=== PATIENT | female | born 1975 | race Caucasian/White ===

== ENCOUNTER 2017-02-07 02:08 | Emergency (ER) | payer MEDICARE, BC ==
[~2017-02-07] VITALS: Ht 152.4 cm; Wt 106.6 kg
[2017-02-07 02:15] VITALS: BP 168/91
[2017-02-07] MEDS ORDERED: LAMI200T3 PO (02:16)
[2017-02-07] MEDS ORDERED: GABA-279 PO (05:19)
[2017-02-07] MEDS ORDERED: GABAPENTIN 100 MG CAP PO ONE (05:30)
== END 2017-02-07 05:32 | disposition home or self-care (01) ==
LOC: M ED 03:15
DX: G50.0 Trigeminal neuralgia (principal); G40.909 Epilepsy, unspecified, not intractable, without status epilepticus

== ENCOUNTER → 2017-06-13 | Outpatient (REF) | payer MEDICARE, BC ==
[~2017-06-13] MED LIST: GABA-279 PO; LAMI1TAB9 PO
== END ==
LOC: M LABNEURO 16:41
PROVIDERS: ATTEND Physician Assistant Medical
DX: R56.9 Unspecified convulsions (principal)

== ENCOUNTER → 2017-10-25 | Outpatient (REF) | payer MEDICARE, BC | LOC: M SFHCWAGY 14:59 | DX: Z12.4 Encounter for screening for malignant neoplasm of cervix (principal); B37.3 Candidiasis of vulva and vagina | CPT/HCPCS: G0123 ==

== ENCOUNTER → 2017-10-25 | Outpatient (CLI) | payer MEDICARE, BC | LOC: M WHC 14:32 | DX: Z12.31 Encounter for screening mammogram for malignant neoplasm of breast (principal); Z01.419 Encounter for gynecological examination (general) (routine) without abnormal findings; Z12.4 Encounter for screening for malignant neoplasm of cervix; Z11.3 Encounter for screening for infections with a predominantly sexual mode of transmission; Z79.899 Other long term (current) drug therapy | CPT/HCPCS: 77067; 87591 ==

== ENCOUNTER → 2017-10-25 | Outpatient (REF) | payer MEDICARE, BC ==
[2017-10-25 21:35] LABS: CHLAMYDIA DNA AMPLIFICATION NEGATIVE (NEGATIVE); GC DNA AMPLIFICATION NEGATIVE (NEGATIVE)
== END ==
LOC: M SFHCWAGY 18:25
DX: Z01.419 Encounter for gynecological examination (general) (routine) without abnormal findings (principal); Z11.3 Encounter for screening for infections with a predominantly sexual mode of transmission; Z12.31 Encounter for screening mammogram for malignant neoplasm of breast; Z79.899 Other long term (current) drug therapy
CPT/HCPCS: 87591

== ENCOUNTER → 2017-10-29 | Outpatient (REF) | payer MEDICARE, BC | LOC: M SFHCWAGY 08:16 | DX: N63.10 Unspecified lump in the right breast, unspecified quadrant (principal) | CPT/HCPCS: 88305 ==

== ENCOUNTER 2018-09-21 22:43 | Emergency (ER) | payer MEDICARE, BC ==
[~2018-09-21] VITALS: Ht 152.4 cm; Wt 100.0 kg
[~2018-09-21 22:43] MED LIST changes: +GABA-1171 PO; -GABA-279 PO
[2018-09-22 04:34] VITALS: BP 176/108
[2018-09-22] MEDS ORDERED: CLEO300C2 PO (05:49)
== END 2018-09-22 06:04 | disposition home or self-care (01) ==
LOC: M ED 22:43
DX: K08.89 Other specified disorders of teeth and supporting structures (principal); G40.909 Epilepsy, unspecified, not intractable, without status epilepticus; Z79.899 Other long term (current) drug therapy

== ENCOUNTER → 2018-12-11 | Outpatient (CLI) | payer MEDICARE, BC ==
[~2018-12-11] MED LIST changes: +CLEO300C2 PO
--- NOTE | 2018-12-11 14:52 | REPMRS ---
Patient History The patient states she had a clinical breast exam in 11/2018. Patient is nulliparous. No known family history of cancer. Benign US guided breast biopsy of the right breast, October 29, 2017. No Hormone Replacement Therapy 3D TOMOSYNTHESIS WAS PERFORMED. Digital Woman Screen Mammo: December 11, 2018 - Exam #: [id number] Bilateral CC and MLO view(s) were taken. Technologist: Brianna Orellana, Technologist Prior study comparison: October 29, 2017, right breast digital mammo diagnostic unilateral, performed at [facility]. October 25, 2017, digital woman screen mammo performed at [facility]. FINDINGS: There are scattered fibroglandular densities. There is a fairly symmetric fibroglandular pattern in both breasts. There has been no interval development of masses, areas of architectural distortion or clusters of microcalcifications typical of malignancy. Assessment: BI-RADS/ACR category 2 mammogram. Benign Findings. Recommendation Routine screening mammogram of both breasts in 1 year (for women over age 40). This mammogram was interpreted with the aid of an FDA-approved computer-aided dectection system. Electronically Signed By: Adebayo Mcarthur MD 12/11/18 [id number]
== END ==
LOC: M WHC 14:07
PROVIDERS: ATTEND Nurse Practitioner Family
DX: Z12.31 Encounter for screening mammogram for malignant neoplasm of breast (principal); Z86.018 Personal history of other benign neoplasm
CPT/HCPCS: 77063; 77067; G0463

== ENCOUNTER → 2019-06-12 | Outpatient (REF) | payer MEDICARE, BC | LOC: M LABNEURO 15:17 | PROVIDERS: ATTEND Physician Assistant Medical | DX: R56.9 Unspecified convulsions (principal) ==

== ENCOUNTER → 2020-01-28 | Outpatient (REF) | payer MEDICARE, BC ==
[2020-01-28 21:00] LABS: CHLAMYDIA DNA AMPLIFICATION NEGATIVE (NEGATIVE); GC DNA AMPLIFICATION NEGATIVE (NEGATIVE)
== END ==
LOC: M SFHCWAGY 17:10
PROVIDERS: ATTEND Nurse Practitioner Family
DX: Z12.4 Encounter for screening for malignant neoplasm of cervix (principal); Z11.3 Encounter for screening for infections with a predominantly sexual mode of transmission
CPT/HCPCS: 87661; G0123

== ENCOUNTER → 2020-01-28 | Outpatient (CLI) | payer MEDICARE, BC ==
--- NOTE | 2020-01-28 15:22 | REPMRS ---
Patient History The patient states she had a clinical breast exam in January 2020. No known family history of cancer. Benign US guided breast biopsy of the right breast, October 29, 2017. No Hormone Replacement Therapy Digital Woman Screen Mammo: January 28, 2020 - Exam #: [id number] Bilateral CC and MLO view(s) were taken. Technologist: Henrietta Pathak, Technologist Prior study comparison: December 11, 2018, bilateral digital woman screen mammo performed at [facility]. October 25, 2017, digital woman screen mammo performed at [facility]. FINDINGS: The breast tissue is almost entirely fat. The Volpara volumetric breast density category is: A. There has been no change in the appearance of the mammogram from the prior studies. There is no interval development of dominant mass, architectural distortion, or grouped microcalcification typical of malignancy. 3-D tomosynthesis shows no additional findings. Assessment: BI-RADS/ACR category 1 mammogram. Negative Mammogram. Recommendation Routine screening mammogram of both breasts in 1 year (for women over age 40). This patient's Lifetime Breast Cancer RIsk is estimated at 13.5 %. This mammogram was interpreted with the aid of an FDA-approved computer-aided dectection system. Electronically Signed By: Alejandro Lewis MD 01/28/20 [id number]
== END ==
LOC: M WHC 13:36
PROVIDERS: ATTEND Nurse Practitioner Family
DX: Z01.419 Encounter for gynecological examination (general) (routine) without abnormal findings (principal); Z12.31 Encounter for screening mammogram for malignant neoplasm of breast; Z86.018 Personal history of other benign neoplasm
CPT/HCPCS: 77063; 77067; 87661; G0101; G0123

== ENCOUNTER → 2020-03-23 | Outpatient (REF) | payer MEDICARE, BC ==
[2020-03-23 14:15] LABS: BASO % 0.8 % (0.0-1.0); EOS # 0.1 10^3/uL (0.0-0.5); EOS % 1.8 % (0.0-3.0); HEMATOCRIT 35.5 % (36.0-47.0); HEMOGLOBIN 10.9 g/dl (12.0-15.5); LYMPH # 2.7 10^3/uL (1.5-5.0); LYMPH % 54.6 % (24.0-44.0); MEAN CORPUSCULAR HEMOGLOBIN 29.2 pg (27.0-33.0); MEAN CORPUSCULAR HGB CONC 30.7 g/dl (32.0-36.5); MEAN CORPUSCULAR VOLUME 95.2 fl (80.0-96.0); MONO # 0.4 10^3/uL (0.0-0.8); NEUTROPHILS # 1.7 10^3/uL (1.5-8.5); NEUTROPHILS % 34.4 % (36.0-66.0); PLATELET COUNT, AUTOMATED 178 10^3/uL (150-450); RED BLOOD COUNT 3.73 10^6/uL (4.00-5.40)
[2020-03-23 14:25] LABS: APPEARANCE, URINE HAZY (CLEAR); BACTERIA, URINE AUTO NEGATIVE (NEGATIVE); BILIRUBIN, URINE AUTO NEGATIVE (NEGATIVE); BLOOD, URINE BLOOD 3+ (NEGATIVE); COLOR, URINE YELLOW (YELLOW); GLUCOSE, URINE (UA) AUTO NEGATIVE (NEGATIVE); KETONE, URINE AUTO NEGATIVE (NEGATIVE); LEUKOCYTE ESTERASE, URINE AUTO NEGATIVE (NEGATIVE); MUCUS, URINE SMALL (NEGATIVE); NITRITE, URINE AUTO NEGATIVE (NEGATIVE); PROTEIN, URINE AUTO NEGATIVE (NEGATIVE); RBC, URINE AUTO 1 /HPF (0-3); SPECIFIC GRAVITY URINE AUTO 1.015 (1.002-1.035); SQUAMOUS EPITHELIAL CELL UR AU 3 /HPF (0-6); UROBILINOGEN, URINE AUTO 0.2 mg/dL (0.0-2.0); WBC, URINE AUTO 2 /HPF (0-3)
[2020-03-23 14:35] LABS: ALBUMIN 3.6 GM/DL (3.2-5.2); ALT/SGPT 69 U/L (12-78); BILIRUBIN,TOTAL 0.4 MG/DL (0.2-1.0); BLOOD UREA NITROGEN 13 MG/DL (7-18); CALCIUM LEVEL 8.7 MG/DL (8.5-10.1); CARBON DIOXIDE LEVEL 26 MEQ/L (21-32); CHLORIDE LEVEL 111 MEQ/L (98-107); CREATININE FOR GFR 0.88 MG/DL (0.55-1.30); GLOMERULAR FILTRATION RATE > 60.0 (>58); GLUCOSE, FASTING 90 MG/DL (70-100); POTASSIUM SERUM 4.5 MEQ/L (3.5-5.1); SODIUM LEVEL 141 MEQ/L (136-145)
[2020-03-23 16:05] LABS: CHLAMYDIA DNA AMPLIFICATION NEGATIVE (NEGATIVE); GC DNA AMPLIFICATION NEGATIVE (NEGATIVE)
[2020-03-24 10:16] LABS: HEPATITIS B SURFACE ANTIBODY NEGATIVE (POSITIVE)
[2020-03-24 10:27] LABS: HEPATITIS B SURFACE ANTIGEN NEGATIVE (NEGATIVE)
[2020-03-24 10:55] LABS: HIV 1&2 SCREEN CENTAUR NEGATIVE (NEGATIVE)
== END ==
LOC: M SFHCPLAZ 10:23
PROVIDERS: ATTEND Internal Medicine Infectious Disease
DX: Z20.6 Contact with and (suspected) exposure to human immunodeficiency virus [HIV] (principal)

== ENCOUNTER → 2020-07-14 | Outpatient (CLI) | payer MEDICARE, BC | LOC: M WUC 10:23 | PROVIDERS: ATTEND Physician Assistant Medical | DX: R56.9 Unspecified convulsions (principal); Z51.81 Encounter for therapeutic drug level monitoring ==

== ENCOUNTER 2020-10-01 17:52 | Emergency (ER) | payer MEDICARE, BC ==
[~2020-10-01] VITALS: Ht 152.4 cm; Wt 109.1 kg
[2020-10-01] MEDS ORDERED: NS 1,000 ML IV SCH (18:40)
[2020-10-01] MEDS ORDERED: PANTOPRAZOLE 40MG VIAL (C9113 PER 1) IV ONE (18:45)
[2020-10-01] MEDS ORDERED: ONDANSETRON 4MG/2ML VIAL IV ONE (18:45)
[2020-10-01] MEDS ORDERED: KETOROLAC 30 MG/ML 1ML VIAL IV ONE (18:45)
[2020-10-01 19:38] LABS: BASO % 0.2 % (0.0-1.0); EOS # 0.1 10^3/uL (0.0-0.5); EOS % 0.5 % (0.0-3.0); HEMATOCRIT 36.7 % (36.0-47.0); HEMOGLOBIN 11.6 g/dl (12.0-15.5); LYMPH # 4.2 10^3/uL (1.5-5.0); LYMPH % 23.7 % (24.0-44.0); MEAN CORPUSCULAR HEMOGLOBIN 28.2 pg (27.0-33.0); MEAN CORPUSCULAR HGB CONC 31.6 g/dl (32.0-36.5); MEAN CORPUSCULAR VOLUME 89.3 fl (80.0-96.0); MONO % 5.8 % (0.0-5.0); NEUTROPHILS # 12.2 10^3/uL (1.5-8.5); NEUTROPHILS % 69.2 % (36.0-66.0); PLATELET COUNT, AUTOMATED 292 10^3/uL (150-450); RED BLOOD COUNT 4.11 10^6/uL (4.00-5.40); WHITE BLOOD COUNT 17.6 10^3/uL (4.0-10.0)
[2020-10-01 19:42] LABS: INR 0.98; PROTHROMBIN TIME 13.1 SECONDS (12.5-14.3)
[2020-10-01 19:50] LABS: ALBUMIN 3.9 GM/DL (3.2-5.2); ALT/SGPT 24 U/L (12-78); BILIRUBIN,DIRECT 0.1 MG/DL (0.0-0.2); BILIRUBIN,TOTAL 0.4 MG/DL (0.2-1.0); BLOOD UREA NITROGEN 16 MG/DL (7-18); CALCIUM LEVEL 9.6 MG/DL (8.5-10.1); CARBON DIOXIDE LEVEL 24 MEQ/L (21-32); CHLORIDE LEVEL 103 MEQ/L (98-107); CREATININE FOR GFR 0.89 MG/DL (0.55-1.30); GLOMERULAR FILTRATION RATE > 60.0 (>58); GLUCOSE, FASTING 148 MG/DL (70-100); LIPASE 215 U/L (73-393); POTASSIUM SERUM 3.8 MEQ/L (3.5-5.1); SODIUM LEVEL 137 MEQ/L (136-145); TOTAL PROTEIN 7.2 GM/DL (6.4-8.2)
[2020-10-01] MEDS ORDERED: MORPHINE 4 MG/ML 1ML VIAL/SYRINGE (J2270) IV ONE ×2 (20:00→21:30)
--- NOTE | 2020-10-01 20:39 | REPVR ---
PROCEDURE INFORMATION: Exam: CT Abdomen And Pelvis Without Contrast Exam date and time: 10/01/2020 7:34 PM Age: 44 years old Clinical indication: Abdominal pain; Generalized; Patient HX: No trauma TECHNIQUE: Imaging protocol: Computed tomography of the abdomen and pelvis without contrast. Radiation optimization: All CT scans at this facility use at least one of these dose optimization techniques: automated exposure control; mA and/or kV adjustment per patient size (includes targeted exams where dose is matched to clinical indication); or iterative reconstruction. COMPARISON: No relevant prior studies available. FINDINGS: Lungs: There is mild atelectasis in the inferior lingula and both lower lobes. The lungs were not fully imaged. Heart: No cardiomegaly. There is a trace amount of pericardial fluid. Diaphragm: Intact. Liver: Unremarkable. No liver lesion is identified. The contour of the liver is smooth. No hepatomegaly is noted. Gallbladder and bile ducts: No calcified gallstones are noted. No gallbladder wall thickening, pericholecystic fluid, or pericholecystic inflammatory changes are identified. No dilation of the bile ducts is noted. No calcified stones are seen in the common bile duct. Pancreas: Unremarkable. No dilation of the main pancreatic duct is noted. Spleen: Unremarkable. No splenomegaly is noted. Adrenal glands: There is a 1 cm left adrenal nodule that measures 8 Hounsfield units and is compatible with a benign left adrenal adenoma for which further evaluation and follow-up is not necessary (image 39 of the axial series 201). The right adrenal gland is normal. Kidneys and ureters: A normal left kidney is not visualized. There is a large acute left retroperitoneal hematoma in the expected location of the left kidney, which measures approximately 15.8 cm in craniocaudal dimension. Mixed attenuation fat and soft tissue density is noted in the left renal fossa measuring approximately 9 cm. The unenhanced right kidney is unremarkable. Stomach and bowel: The stomach and small bowel are unremarkable. There is no evidence for a bowel obstruction, diverticulosis, diverticulitis, colitis, perforated viscus, pneumatosis intestinalis, intussusception, or volvulus. Appendix: Normal. There is no evidence for appendicitis. Intraperitoneal space: No free air. Retroperitoneal space: See "Kidneys and ureters" finding. Vasculature: The abdominal aorta is normal in caliber. Lymph nodes: No enlarged lymph nodes. Urinary bladder: The partially distended urinary bladder is unremarkable. No stones or masses are seen in the bladder. Reproductive: The uterus is anterverted and unremarkable. The ovaries are unremarkable. Bones/joints: There is no fracture or dislocation. No suspicious osteolytic or osteoblastic lesion. There is a mild dextroscoliosis of the thoracolumbar spine and degenerative changes in the lower lumbar spine. Soft tissues: There is nonspecific edema in the subcutaneous tissues posteriorly along the midline of the lumbar spine. No hernia or soft tissue fluid collection is noted. IMPRESSION: Large acute left retroperitoneal hematoma in the region of the left kidney, which may be due to an underlying hemorrhagic mass such as a renal angiomyolipoma. COMMENTS: Consistent with the [employer]'s Incidental Findings Committee white paper (J Am Marika Radiol 2017): Any incidental adrenal lesion less than or equal to 1 cm is likely benign. No follow-up imaging is recommended for these lesions per consensus recommendations based on imaging criteria. Further lab evaluation could be pursued if warranted based on clinical findings. Electronically signed by: Pranay Fuchs On 10/01/2020 20:39:17 PM
--- OUTSIDE RECORDS SUMMARY | 2020-10-01 21:06 | CCD | Continuity of Care Document ---
Author Author Tyra SCHMITT P.A.-C. Organization Unknown Address [address] [place] [address] Phone [phone] Care Team Providers Care Software Development Coordinator Name Role Phone Jefe Ma M.D. AUTM [phone] Prnaay Hayes D.O. AUTM [phone] Problems Active Problems Provider Date Complex partial seizure with impairment of consciousness Mary Riley M.D. Onset: 04/07/2014 Social History Type Date Description Comments Sex Unknown Tobacco Use Start: Unknown Patient has never smoked Allergies, Adverse Reactions, Alerts Description No Known Drug Allergies Medications Active Medications SIG Qnty Indications Ordering Provide r Date Lamictal XR 200mg Tablets ER 24HR 1 tab twice a day; 90 day supply 180tabs Natali Riley M.D. Immunizations Description No Information Available Vital Signs Date Vital Result Comment 07/06/2020 6:59am BP Systolic 120 mmHg BP Diastolic 80 mmHg Heart Rate 68 /min Respiratory Rate 16 /min 06/12/2019 5:53am BP Systolic 110 mmHg BP Diastolic 80 mmHg Heart Rate 76 /min Respiratory Rate 16 /min Results Test Acquired Date Facility Test Result H/L Range Note Laboratory test finding 07/14/2020 [facility] Lamotrigine (Lamictal) 7.5 ug/mL Normal 2.0-20.0 1 1 Testing on this sample was p erformed by homogeneous enzyme immunoassay. Detection Limit = 1.0 Performed at: [facility] [address] [place] [id number] [employer] Screen Watcher: Farzaneh Echols [facility], Phone: [phone] Procedures Description No Information Available Medical Devices Description No Information Available Encounters Type Date Location Provider Dx Diagnosis Office Visit 07/06/2020 2:00p Main office - [place] Shyann Headley-Aide. I63.89 Other cerebral infarction G40.009 Local-rel idio epi w seiz of loc onst,not ntrct,w/o stat epi Assessments Date Code Description Provider 07/06/2020 I63.89 Other cerebral infarction My Schmitt P.A.-C. 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 Plan of Treatment Future Appointment(s):* 01/04/2021 1:30 pm - My Schmitt P.A.-C. at Main office - [place] 07/06/2020 - My Schmitt P.A.-C.* I63.89 Other cerebral infarction* Comments:* Not recurrent. 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 Lamictal level pending. * Follow up:* 6 months. Functional Status Description No Information Available Mental Status Description No Information Available Referrals Description No Information Available
--- OUTSIDE RECORDS SUMMARY | 2020-10-01 21:06 | CCD ---
Author Author [facility] Organization [facility] Address Unknown Phone Unavailable Care Team Providers Care Reexaminer Name Role Phone Hakeem Schmitt Unavailable Unavailable TricHakeem yusuf Unavailable Unavailable TrickeyHakeem Unavailable Unavailable TricHakeem yusuf Unavailable Unavailable TricHakeem yusuf Unavailable Unavailable TricHakeem yusuf Unavailable Unavailable Hakeem Schmitt Unavailable Unavailable TricHakeem yusuf Unavailable Unavailable TricHakeem yusuf Unavailable Unavailable Hakeem Schmitt Unavailable Unavailable TricHakeem yusuf Unavailable Unavailable TricHakeem yusuf Unavailable Unavailable TricHakeem yusuf PA Unavailable Unavailable TrickeyHakeem Unavailable Unavailable TricHakeem yusuf Unavailable Unavailable TrickeyHakeem Unavailable Unavailable Trickey, J My PA Unavailable Unavailable Trickey, J My PA Unavailable Unavailable Trickey, J My PA Unavailable Unavailable Trickey, J My PA Unavailable Unavailable Trickey, J My PA Unavailable Unavailable Trickey, J My PA Unavailable Unavailable Trickey, J My PA Unavailable Unavailable Trickey, J My PA Unavailable Unavailable Trickey, J My PA Unavailable Unavailable Trickey, J My PA Unavailable Unavailable Trickey, J My PA Unavailable Unavailable Trickey, J My PA Unavailable Unavailable Trickey, J My PA Unavailable Unavailable Trickey, J My PA Unavailable Unavailable Trickey, J My PA Unavailable Unavailable Trickey, J My PA Unavailable Unavailable Trickey, J My PA Unavailable Unavailable Trickey, J My PA Unavailable Unavailable Trickey, J My PA Unavailable Unavailable Trickey, J My PA Unavailable Unavailable Trickey, J My PA Unavailable Unavailable Trickey, J My PA Unavailable Unavailable Trickey, J My PA Unavailable Unavailable Trickey, J My PA Unavailable Unavailable Trickey, J My PA Unavailable Unavailable Trickey, J My PA Unavailable Unavailable Trickey, J My PA Unavailable Unavailable Trickey, J My PA Unavailable Unavailable Trickey, J My PA Unavailable Unavailable Trickey, J My PA Unavailable Unavailable Trickey, J My PA Unavailable Unavailable Trickey, J My PA Unavailable Unavailable Trickey, J My PA Unavailable Unavailable Trickey, J My PA Unavailable Unavailable Trickey, J My PA Unavailable Unavailable Trickey, J My PA Unavailable Unavailable Re-disclosure Warning The records that you are about to access may contain information from federally-assisted alcohol or drug abuse programs. If such information is present, then the following federally mandated warning applies: This information has been disclosed to you from records protected by federal confidentiality rules (42 CFR part 2). The federal rules prohibit you from making any further disclosure of this information unless further disclosure is expressly permitted by the written consent of the person to whom it pertains or as otherwise permitted by 42 CFR part 2. A general authorization for the release of medical or other information is NOT sufficient for this purpose. The Federal rules restrict any use of the information to criminally investigate or prosecute any alcohol or drug abuse patient.The records that you are about to access may contain highly sensitive health information, the redisclosure of which is protected by Article 27-F of the [place] Public Health law. If you continue you may have access to information: Regarding HIV / AIDS; Provided by facilities licensed or operated by the [facility] Office of Mental Health; or Provided by the [facility] Office for People With Developmental Disabilities. If such information is present, then the following [facility] mandated warning applies: This information has been disclosed to you from confidential records which are protected by state law. State law prohibits you from making any further disclosure of this information without the specific written consent of the person to whom it pertains, or as otherwise permitted by law. Any unauthorized further disclosure in violation of state law may result in a fine or mcc sentence or both. A general authorization for the release of medical or other information is NOT sufficient authorization for further disc losure. Encounters Encounter Providers Location Date Indications Data Source(s ) Outpatient Attender: My STYLES [facility] 07/06/2020 02:00:00 PM EDT MEDENT ([facility] ) Unknown [address] [facility] [id number] 03/31/2020 12:00:00 AM EDT eCW1 ([facility]) Outpatient [address] [facility] [id number] 03/23/2020 12:00:00 AM EDT eCW1 ([facility]) Unknown [address] [facility] [id number] 02/19/2020 12:00:00 AM EDT eCW1 ([facility]) [facility] [address] [place] [address] 01/28/2020 12:00:00 AM EDT eCW1 ([facility]) [facility] [address] [place] [address] 12/12/2019 12:00:00 AM EDT eCW1 ([facility]) Medications Medication Brand Name Start Date Product Form Dose Route Admi nistrative Instructions Pharmacy Instructions Status Indications Reaction Description Data Source(s) emtricitabine 200 MG / Tenofovir disopro xil fumarate 300 MG Oral Tablet [Truvada] Truvada 200-300 MG Truvada 200-300 MG 03/23/2020 12:00:00 AM EDT 1.0 {tablet} active Truvada 200-300 MG eCW 1 ([facility]) emtricitabine 200 MG / Tenofovir disopro xil fumarate 300 MG Oral Tablet [Truvada] Truvada 200-300 MG Truvada 200-300 MG 03/23/2020 12:00:00 AM EDT 1.0 {tablet} active Truvada 200-300 MG eCW 1 ([facility]) 200 mg 12/17/2019 12:00:00 AM EDT tablet extended release 24hr 180 TAKE ONE TABLET BY MOUTH TWICE A DAY TAKE ONE TABLET BY MOUTH TWICE A DAY SOLD: 12/19/2019 [facility] 24 HR lamotrigine 200 MG Extended Release Oral Tablet LAMOTR IGINE 12/17/2019 12:00:00 AM EDT tablet extended release 24hr 180 CLARK E ONE TABLET BY MOUTH TWICE A DAY TAKE ONE TABLET BY MOUTH TWICE A DAY SOLD: 08/14/2020 [facility] Insurance Providers Payer name Policy type / Coverage type Policy ID Covered constitution party ID Covered constitution party's relationship to bull Policy Bull Plan Information MEDICARE [id number] SP [id number] [facility] [employer] [id number] Medicare Part B Medicare Primary [id number] Self [id number] BC/BS Of [facility] Part B [id number] Family Dep endent [id number] ANSI-Commercial [id number] ANSI-Medicare Part B [id number] [facility] [employer] [id number] MEDICARE [id number] SP [id number] A [facility] [employer] PROGRAM [id number] Medicare Part B Medicare Primary [id number] Self [id number] Medicare Part B Medicare Primary [id number] Self [id number] EXCELLUS BCBS B [id number] D [id number] MEDICARE C [id number] S [id number] A EXCELLUS BCBS B UNAVAILABLE D UNAV AILABLE MEDICARE C [id number] S [id number] EXCELLUS BCBS FEDERAL [id number] [id number] Medicare Part B Medicare Primary [id number] Self [id number] Medicare Part B Medicare Primary Self BC/BS Of [place] Commercial Family Depende nt Medicare Medicare Primary Self BC BS [place] FEDERAL [id number] Results ID Date Data Source [id number] 07/14/2020 10:25:00 AM EDT MEDENT ([facility] ) Name Value Range Interpretation Code Description Data Edna rce(s) Supporting Document(s) Lamotrigine [Mass/volume] in Serum or Plasma 7.5 ug/mL 2.0-20.0 MEDENT ([facility] ) Testing on this sample was performed by homogeneous enzyme immunoassay. Detection Limit = 1.0 Performed at: [facility] [address] [place] [address] Testing Analyst: Farzaneh Echols [facility], Phone: [phone] ID Date Data Source HEPATITIS B CORE ANTIBODY IGG 03/25/2020 10:05:52 AM EDT eCW 1 ([facility]) Name Value Range Interpretation Code Description Data Edna rce(s) Supporting Document(s) Negative eCW1 ([facility]) ID Date Data Source [id number] 03/25/2020 10:05:52 AM EDT eCW1 ([facility]) Name Value Range Interpretation Code Description Data Edna rce(s) Supporting Document(s) eCW1 ([facility]) ID Date Data Source HEPATITIS B SURFACE ANTIBODY 03/25/2020 10:05:52 AM EDT eCW1 ([facility]) Name Value Range Interpretation Code Description Data Edna rce(s) Supporting Document(s) NEGATIVE eCW1 ([facility]) ID Date Data Source SYPHILIS ANTIBODY (RPR SCREEN) 03/25/2020 10:05:52 AM EDT eC W1 ([facility]) Name Value Range Interpretation Code Description Data Edna rce(s) Supporting Document(s) NONREACTIVE eCW1 ([facility]) ID Date Data Source HEPATITIS B SURFACE ANTIGEN 03/25/2020 10:05:52 AM EDT eCW1 ([facility]) Name Value Range Interpretation Code Description Data Edna rce(s) Supporting Document(s) NEGATIVE eCW1 ([facility]) ID Date Data Source Comprehensive Metabolic Profile (CMP) 03/25/2020 10:05:52 AM EDT eCW1 ([facility]) Name Value Range Interpretation Code Description Data Edna rce(s) Supporting Document(s) 90 eCW1 ([facility]) 13 eCW1 ([facility]) 0.88 eCW1 ([facility]) 4.5 eCW1 ([facility]) 141 eCW1 ([facility]) > 60.0 eCW1 ([facility]) 8.7 eCW1 ([facility]) 111 eCW1 ([facility]) 43 eCW1 ([facility]) 26 eCW1 ([facility]) 69 eCW1 ([facility]) 7.0 eCW1 ([facility]) 0.4 eCW1 ([facility]) 75 eCW1 ([facility]) 1.1 eCW1 ([facility]) 3.6 eCW1 ([facility]) ID Date Data Source CHLAMYDIA & GC DNA AMPLIFICAT 03/25/2020 10:05:52 AM EDT eCW 1 ([facility]) Name Value Range Interpretation Code Description Data Edna rce(s) Supporting Document(s) Chlamydia trachomatis rRNA [Presence] in Unspecified specimen by Probe and target amplification method NEGATIVE CHLAMYDIA DNA AMPLIFICATION eCW1 ([facility]) ID Date Data Source UA URINALYSIS 03/23/2020 04:12:56 AM EDT eCW1 ([facility]) Name Value Range Interpretation Code Description Data Edna rce(s) Supporting Document(s) eCW1 ([facility]) ID Date Data Source CBC with Differential 03/23/2020 04:12:56 AM EDT eCW1 ([facility]) Name Value Range Interpretation Code Description Data Edna rce(s) Supporting Document(s) 5.0 eCW1 ([facility]) 10.9 eCW1 ([facility]) 95.2 eCW1 ([facility]) 35.5 eCW1 ([facility]) 3.73 eCW1 ([facility]) 178 eCW1 ([facility]) 30.7 eCW1 ([facility]) 29.2 eCW1 ([facility]) 15.0 eCW1 ([facility]) 54.6 eCW1 ([facility]) 8.0 eCW1 ([facility]) 1.8 eCW1 ([facility]) 34.4 eCW1 ([facility]) 2.7 eCW1 ([facility]) 0.4 eCW1 ([facility]) 1.7 eCW1 ([facility]) 0.8 eCW1 ([facility]) 0.1 eCW1 ([facility]) 0.0 eCW1 ([facility]) ID Date Data Source CHGCTV - CHLAMYDIA, GC & TRICH AMP (Microbiology) 01/28/2020 12:00:00 AM EDT eCW1 ([facility]) Name Value Range Interpretation Code Description Data Edna rce(s) Supporting Document(s) NOT DETECTED NEGATIVE Trichomonas vaginalis ( AMP) eCW1 ([facility]) Procedure Social History Code Duration Value Status Description Data Source(s ) Smoking 03/23/2020 12:00:00 AM EDT Never Smoker completed Never S moker eCW1 ([facility]) Smoking 03/23/2020 12:00:00 AM EDT Never Smoker completed Never S moker eCW1 ([facility]) Smoking 01/28/2020 12:00:00 AM EDT Never Smoker completed Never S moker eCW1 ([facility]) Vital Signs ID Date Data Source UNK Name Value Range Interpretation Code Description Data Source(s) Diastolic blood pressure 80 mm[Hg] 80 mm[Hg] MEDENT ([facility] ) Systolic blood pressure 120 mm[Hg] 120 mm[Hg] M EDENT ([facility], ) Respiratory rate 16 /min 16 /min MEDENT ( [facility], ) Heart rate 68 /min 68 /min MEDENT ([facility], ) Diastolic blood pressure 64 mm[Hg] 64 mm[Hg] eCW1 ([facility]) Systolic blood pressure 108 mm[Hg] 108 mm[Hg] e CW1 ([facility]) Body temperature 98.6 [degF] 98.6 [degF] eCW1 ( [facility]) Respiratory rate 18 /min 18 /min eCW1 ([facility]) Heart rate 101 /min 101 /min eCW1 ([facility]) Body mass index (BMI) [Ratio] 48.24 kg/m2 48.24 kg/m2 W1 ([facility]) Body height 59.75 [in_i] 59.75 [in_i] eCW1 ([facility]) Body weight 245 [lb_av] 245 [lb_av] eCW1 ([facility]) Diastolic blood pressure 76 mm[Hg] 76 mm[Hg] eCW1 ([facility]) Systolic blood pressure 122 mm[Hg] 122 mm[Hg] e CW1 ([facility]) Body mass index (BMI) [Ratio] 47.85 kg/m2 47.85 kg/m2 W1 ([facility]) Body height 59.75 [in_us] 59.75 [in_us] eCW1 ([facility]) Body weight Measured 243 [lb_av] 243 [lb_av] eC W1 ([facility]) Patient Treatment Plan of Care Planned Activity Planned Date Details Description Data Source (s) emtricitabine 200 MG / Tenofovir disopro xil fumarate 300 MG Oral Tablet [Truvada] 03/23/2020 12:00:00 AM EDT eCW1 ([facility]) emtricitabine 200 MG / Tenofovir disopro xil fumarate 300 MG Oral Tablet [Truvada] 03/23/2020 12:00:00 AM EDT eCW1 ([facility])
--- OUTSIDE RECORDS SUMMARY | 2020-10-01 21:06 | CCD | Continuity of Care Document ---
Author Author Tyra SCHMITT P.A.-C. Organization Unknown Address [address] [place] [address] Phone [phone] Care Team Providers Care Youth Worker Name Role Phone Jefe Ma M.D. AUTM [phone] Pranay Hayes D.O. AUTM [phone] Problems Active Problems Provider Date Complex partial [...] Available Vital Signs Date Vital Result Comment 06/12/2019 5:53am BP Systolic 110 mmHg BP Diastolic 80 mmHg Heart Rate 76 /min Respiratory Rate 16 /min 12/11/2018 7:13am BP Systolic 120 mmHg BP Diastolic 70 mmHg Heart Rate 76 /min Respiratory Rate 16 /min Results Description No Information Available Procedures Description No Information Available Medical Devices Description No Information Available Encounters Description No Information Available Assessments Date Code Description Provider 07/06/2020 I63.89 Other cerebral infarction My Schmitt P.A.-C. 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 Plan of Treatment No Information Available Functional Status Description No Information Available Mental Status Description No Information Available Referrals Description No Information Available
--- OUTSIDE RECORDS SUMMARY | 2020-10-01 21:06 | CCD | Continuity of Care Document ---
Author Author Tyra SCHMITT P.A.-C. Organization Unknown Address [address] [place] [address] Phone [phone] Care Team Providers Care [employer] Tuner Name Role Phone Jefe Ma M.D. AUTM [phone] Pranay Hayes D.O. AUTM [phone] Problems Active Problems Provider Date Complex partial [...] Office Visit 07/06/2020 2:00p Main office - [place] My yusuf P.A.-C. I63.89 Other cerebral infarction G40.009 Local-rel idio epi w seiz of loc onst,not ntrct,w/o stat epi Assessments Date Code Description Provider 07/06/2020 I63.89 Other cerebral infarction My Schmitt P.A.-C. 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 Plan of Treatment Future Appointment(s):* 01/04/2021 1:30 pm - My Schmitt P.A.-C. at Main office [facility] 07/06/2020 - My Schmitt P.A.-C.* I63.89 Other cerebral infarction* Comments:* Not recurrent. 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 Lamictal level pending. * Follow up:* 6 months. Functional Status Description No Information Available Mental Status Description No Information Available Referrals Description No Information Available
[2020-10-01 22:19] LABS: RSV AMPLIFICATION NEGATIVE (NEGATIVE)
[2020-10-01] MEDS ORDERED: LABETALOL 100MG/20ML VIAL IV STA (23:11)
[2020-10-01] MEDS ORDERED: LABETALOL 100MG/20ML VIAL As Ordered ONE (23:11)
[2020-10-01 23:13] VITALS: BP 211/102
[2020-10-01 23:32] VITALS: BP 138/92
[2020-10-13] MEDS ORDERED: LISI10TA22 (21:05)
== END 2020-10-01 23:27 | disposition short-term general hospital (02) ==
LOC: EDBD 17:52 → M ED 17:52
DX: N28.89 Other specified disorders of kidney and ureter (principal)
CPT/HCPCS: 74176; 80047; 80048; 80076; 81001; 83690; 84702; 85025; 85610; 86850; 86900; 86901; 87631; 96361; 96374; 96375; 96376; 99285; C9113; J1885; J2270; J2405

== ENCOUNTER 2020-10-13 20:57 | Emergency (ER) | payer MEDICARE, BC ==
[~2020-10-13] VITALS: Ht 152.4 cm; Wt 110.0 kg
[2020-10-13] MEDS ORDERED: LAMO200T54 (21:05)
[2020-10-13] MEDS ORDERED: LABE100T4 (21:05)
[2020-10-13] MEDS ORDERED: LISI10TA4 (21:05)
--- OUTSIDE RECORDS SUMMARY | 2020-10-13 21:06 | CCD ---
Author Author [facility] Organization [facility] Address Unknown Phone Unavailable Care Team Providers Care Fan Mail Clerk Name Role Phone Delaney BRYANT Unavailable Unavailable Meyers, Jeff Unavailable Unavailable Meyers, Jeff Unavailable Unavailable Meyers, Jeff Unavailable Unavailable Meyers, Jeff Unavailable Unavailable Meyers, Jeff Unavailable Unavailable Meyers, Jeff Unavailable Unavailable Meyers, Jeff Unavailable Unavailable Meyers, Jeff Unavailable Unavailable Meyesr, Jeff Unavailable Unavailable Meyers, Jeff Unavailable Unavailable Meyers, Jeff Unavailable Unavailable Meyers, Jeff Unavailable Unavailable Meyers, Jeff Unavailable Unavailable Meyers, Jeff Unavailable Unavailable Meyers, Jeff Unavailable Unavailable Meyers, Jeff Unavailable Unavailable Meyers, Jeff Unavailable Unavailable Meyers, Jeff Unavailable Unavailable Meyers, Jeff Unavailable Unavailable Meyers, Jeff Unavailable Unavailable Meyers, Jeff Unavailable Unavailable Meyers, Jeff Unavailable Unavailable Meyers, Jeff Unavailable Unavailable Meyers, Jeff Unavailable Unavailable Meyers, Jeff Unavailable Unavailable Meyers, Jeff Unavailable Unavailable Meyers, Jeff Unavailable Unavailable Meyers, Jeff Unavailable Unavailable Meyers, Jeff Unavailable Unavailable Meyers, Jeff Unavailable Unavailable Meyers, Jeff Unavailable Unavailable Meyers, Jeff Unavailable Unavailable Meyers, Jeff Unavailable Unavailable Meyers, Jeff Unavailable Unavailable Meyers, Jeff Unavailable Unavailable Meyers, Jeff Unavailable Unavailable Meyers, Jeff Unavailable Unavailable Meyers, Jeff Unavailable Unavailable Meyers, Jeff Unavailable Unavailable Meyers, Jeff Unavailable Unavailable Meyers, Jeff Unavailable Unavailable Meyers, Jeff Unavailable Unavailable Meyers, Jeff Unavailable Unavailable Meyers, Jeff Unavailable Unavailable Meyers, Jeff Unavailable Unavailable Meyers, Jeff Unavailable Unavailable Meyers, Jeff Unavailable Unavailable Meyers, Jeff Unavailable Unavailable Meyers, Jeff Unavailable Unavailable Meyers, Jeff Unavailable Unavailable Meyers, Jeff Unavailable Unavailable Meyers, Jeff Unavailable Unavailable Meyers, Jeff Unavailable Unavailable Meyers, Jeff Unavailable Unavailable Meyers, Jeff Unavailable Unavailable Meyers, Jeff Unavailable Unavailable Meyers, Jeff Unavailable Unavailable Meyers, Jeff Unavailable Unavailable Meyers, Jeff Unavailable Unavailable Meyers, Jeff Unavailable Unavailable Meyers, Jeff Unavailable Unavailable Meyers, Jeff Unavailable Unavailable Meyers, Jeff Unavailable Unavailable Meyers, Jeff Unavailable Unavailable Meyers, Jeff Unavailable Unavailable Meyers, Jeff Unavailable Unavailable Meyers, Jeff Unavailable Unavailable Meyers, Jeff Unavailable Unavailable Meyers, Jeff Unavailable Unavailable Meyers, Jeff Unavailable Unavailable Trickey, J My PA Unavailable [...] J My PA Unavailable Unavailable Trickey, J Ym PA Unavailable Unavailable Trickey, J My PA Unavailable Unavailable Trickey, J My PA Unavailable Unavailable Trickey, J My PA Unavailable Unavailable Trickey, J My PA Unavailable Unavailable Trickey, J My PA Unavailable Unavailable Trickey, J My PA Unavailable Unavailable Trickey, J My PA Unavailable Unavailable Trickey, J My PA Unavailable Unavailable Trickey, J My PA Unavailable Unavailable Trickey, J My PA Unavailable Unavailable Onofre MARTINEZ MD Unavailable Unavailable Onofre MARTINEZ MD Unavailable Unavailable Onofre MARTINEZ MD Unavailable Unavailable Onofre MARTINEZ MD Unavailable Unavailable Paras ORTIZ [id number] Unavailable Unavailable Delaney POWELL MD Unavailable Unavailable Delaney POWELL MD Unavailable Unavailable Delaney POWELL MD Unavailable Unavailable Delaney POWELL MD Unavailable Unavailable Delaney POWELL MD Unavailable Unavailable Delaney POWELL MD Unavailable Unavailable Delaney POWELL MD Unavailable Unavailable Delaney POWELL MD Unavailable Unavailable Delaney POWELL MD Unavailable Unavailable Delaney POWELL MD Unavailable Unavailable Delaney POWELL MD Unavailable Unavailable Delaney POWELL MD Unavailable Unavailable Delaney POWELL MD Unavailable Unavailable Delaney POWELL MD Unavailable Unavailable Delaney POWELL MD Unavailable Unavailable Delaney POWELL MD Unavailable Unavailable Delaney POWELL MD Unavailable Unavailable Re-disclosure Warning The records that [...] is protected by Article 27-F of the [facility] Public Health law. If you continue you may have access to information: Regarding HIV / AIDS; Provided by facilities licensed or operated by the [facility] Office of Mental Health; or Provided by the [facility] Office for People With Developmental Disabilities. If such information is present, then the following [facility] mandated warning applies: This information has been [...] Date Indications Data Source(s ) Outpatient Attender: Jeff Meyers 11/12/2020 12:00:[address] [facility] Outpatient Referrer: LIT BRYANT 10/27/2020 12:00:[address] [facility] [place] Outpatient Attender: LUANN ORTIZ [id number]: LUIS FELIPE ORTIZ [id number] 10/03/2020 12:00:00 AM [facility] Inpatient Attender: Jeff MeyersAttend er: LUANN ORTIZ [id number]: TIFFANY MARTINEZ MDAdmitter: LUANN ORTIZ [id number]: LUANN ORTIZ [id number]: ELIDA POWELL MD [id number] 10/02/2020 12:00:00 AM EST - 10/06/2020 02:19:00 PM EST Minor contusion of left kidney, initial encounter [facility] Minor contusion of left kidney, initial encounter Patient discharged. Outpatient Attender: My [place] office [facility] ([facility]) 07/06/2020 02:00:00 PM EDT MEDENT ([facility] angelina, MARIELA) Unknown [address] [facility] [address] 03/31/2020 12:00:00 AM EDT eCW1 (Formerly [facility]) Outpatient [address] [facility] [place] [address] 03/23/2020 12:00:00 AM EDT eCW1 (Formerly [facility]) Unknown [address] [facility] [place] [address] 02/19/2020 12:00:00 AM EDT eCW1 (Formerly [facility]) [facility] [address] [place] [address] 01/28/2020 12:00:00 AM EDT eCW1 ([facility]) [facility] [address] [place] [address] 12/12/2019 12:00:00 AM EDT eCW1 (Formerly [facility]) Medications Medication Brand Name Start Date Product Form Dose Route Admi nistrative Instructions Pharmacy Instructions Status Indications Reaction Description Data Source(s) emtricitabine 200 MG / Tenofovir disopro xil fumarate 300 MG Oral Tablet [Truvada] Truvada 200-300 MG Truvada 200-300 MG 03/23/2020 12:00:00 AM EDT 1.0 {tablet} active Truvada 200-300 MG eCW 1 ([facility]) emtricitabine 200 MG / Tenofovir disopro xil fumarate 300 MG Oral Tablet [Truvada] Truvada 200-300 MG Truvada 200-300 MG 03/23/2020 12:00:00 AM EDT 1.0 {tablet} active Truvada 200-300 MG eCW 1 ([facility]) 200 mg 12/17/2019 12:00:00 AM EDT tablet extended release 24hr 180 TAKE ONE TABLET BY MOUTH TWICE A DAY TAKE ONE TABLET BY MOUTH TWICE A DAY SOLD: 12/19/2019 [facility] 24 HR lamotrigine 200 MG Extended Release Oral Tablet LAMOTR IGINE 12/17/2019 12:00:00 AM EDT tablet extended release 24hr 180 CLARK E ONE TABLET BY MOUTH TWICE A DAY TAKE ONE TABLET BY MOUTH TWICE A DAY SOLD: 08/14/2020 [facility] Insurance Providers Payer name Policy type / Coverage type Policy ID Covered republican ID Covered republican's relationship to [place] Policy [place] Plan Information MEDICARE [id number] SP [id number] [employer] [id number] FA2 [id number] BC BS [place] FEDERAL B [id number] S [id number] MEDICARE C [id number] S [id number] MEDICARE A [id number] Self [id number] EXCELLUS C [id number] Child [id number] MEDICARE A [id number] Self [id number] A Medicare Part B Medicare Primary [id number] Self [id number] BC/BS Of [facility] Part B [id number] Family Dep endent [id number] ANSI-Commercial [id number] ANSI-Medicare Part B [id number] [employer] [id number] MEDICARE [id number] SP [id number] [employer] [id number] Medicare Part B Medicare Primary [id number] Self [id number] Medicare Part B Medicare Primary [id number] Self [id number] EXCELLUS BCBS B [id number] D [id number] MEDICARE C [id number] S [id number] A EXCELLUS BCBS B UNAVAILABLE D UNAV AILABLE MEDICARE C [id number] S [id number] EXCELLUS BS FEDERAL [id number] [id number] Medicare Part B Medicare Primary [id number] Self [id number] Medicare Part B Medicare Primary Self BC/BS Of [place] Commercial Family Depende nt Medicare Medicare Primary Self BC BS [place] [facility] [id number] [facility] [id number] Problems, Conditions, and Diagnoses Code Display Name Description Problem Type Effective Dates Data Source(s) S37.012A Minor contusion of left kidney, initial encounter Minor contusion of left kidney, initial encounter Diagnosis 10/02/2020 03:34:37 AM [facility] R69 Illness, unspecified Illness, unspecified Diagnosis 10/02/2020 12:57:00 AM [facility] Large hematoma L Kidney Large hematoma L Kidney Diagno sis 10/02/2020 12:57:00 AM [facility] Results ID Date Data Source [id number] 10/08/2020 06:37:22 PM [facility] Name Value Range Interpretation Code Description Data Edna rce(s) Supporting Document(s) ED Provider Note [facility] [id number] [file] AgICAgICAgICAgICAgICAgICAgICAgICAgICAgICAgICAgICAgICAgICAgICAgICAgICAgICAgICAgIC AgICAgICAgICAgICAgICAgICAgICAgICAgDQogICAg ICAgICAgICAgICAgICAgICAgICAgICAgICAgICAgICAgICAgICAgICAgICAgICAgICAgICAgICAgICAg ICAgICAgICAgICAgICAgICAgICAgICAgICAgICAgICAgICAgDQogICAgICAgICAgICAgICAgICAgICAg ICAgICAgICAgICAgICAgICAgICAgICAgICAgICAgIC AgICAgICAgICAgICAgICAgICAgICAgICAgICAgICAgICAgICAgICAgICAgICAgDQogICAgICAgICAgIC AgICAgICAgICAgICAgICAgICAgICAgICAgICAgICAgICAgICAgICAgICAgICAgICAgICAgICAgICAgIC AgICAgICAgICAgICAgICAgICAgICAgICAgICAgDQog ICAgICAgICAgICAgICAgICAgICAgICAgICAgICAgICAgICAgICAgICAgICAgICAgICAgICAgICAgICAg ICAgICAgICAgICAgICAgICAgICAgICAgICAgICAgICAgICAgICAgDQogICAgICAgICAgICAgICAgICAg ICAgICAgICAgICAgICAgICAgICAgICAgICAgICAgIC AgICAgICAgICAgICAgICAgICAgICAgICAgICAgICAgICAgICAgICAgICAgICAgICAgDQogICAgICAgIC AgICAgICAgICAgICAgICAgICAgICAgICAgICAgICAgICAgICAgICAgICAgICAgICAgICAgICAgICAgIC AgICAgICAgICAgICAgICAgICAgICAgICAgICAgICAg DQogICAgICAgICAgICAgICAgICAgICAgICAgICAgICAgICAgICAgICAgICAgICAgICAgICAgICAgICAg ICAgICAgICAgICAgICAgICAgICAgICAgICAgICAgICAgICAgICAgICAgDQogICAgICAgICAgICAgICAg ICAgICAgICAgICAgICAgICAgICAgICAgICAgICAgIC AgICAgICAgICAgICAgICAgICAgICAgICAgICAgICAgICAgICAgICAgICAgICAgICAgICAgDQogICAgIC AgICAgICAgICAgICAgICAgICAgICAgICAgICAgICAgICAgICAgICAgICAgICAgICAgICAgICAgICAgIC AgICAgICAgICAgICAgICAgICAgICAgICAgICAgICAg ONBrWUm7B2leKNMkIEAhLW0zHJa8Rj5+QLwKQePiSUW1rvCtjQ4RGT6gw7YsBDsyLADwg5NeKAb9KW0F YOVlAMqbPJ1FXTrbly3VRPKgZUGnaHIKw8ofYaXvYTK6ECGiIjiqSV1TBOXkB1hvnxGgCNNzHQITKKst MCBSIDkgMCBSIDExIDAgUiAxMyAwIFIgMTUgMCBSID I0XPOvUjVrFCUoWCShRM9OKDMnO292wqGsTW9RGw2GGcPiAR9jdh0ZRwSaFRDqGnfXBec0ZXxtFI8FqU IuvPLmUbRqUQZLSnSfC8xaq4HvVvrsVOBYHXsxGC0Wv3WqyETfDDm+Jq5KXL3tv1NqWZvcOfSoGX3yje 5ZUTsWPnBiM4BdcNdsBFERDRNfo9WiPXVuSV8dnMHk PPG8UTawys3mUIGZu7fiNNCOFAIlyEQtScX4JnQdJzVgGMG4IqLrEY2iEIxnVU6RPTR4HMawKNKpCLFv R5gYEiPeFQaeDNYhhAihQF5KMqCoO5QnsxYazGSsBvRjEPXXTiReR87jbBLzAprsNTBWGSv+Xj1GIX4l c6ElDVydQTSeXX7sao5ZDGmPQfJlU4UbjBmrJPGVSQ Xxk9FyYWAwUQ7llPVhCKU2ZAoxsy2jHZQAq8gfMDKKXIHrxZLgQuS8ReDnEcLaYNY7OcWpYL3nQDtuRT 1LNJK0YYfjCCEcDLHHYW0IPAbsGEOjNZGzvaOuaZZpEMrqQY8RONTlkjBmIqFuSHVPDDhqOM6JlcL3IH E4VBQeTr6NZTPuKzG4bHJmXCVfOHJCXt7+DQplbmRv HfhTLqG6IEDux0LaIIx2ID7PNETsVRf1zAHoJVLpZMWoJNzeJN6jaIKoENR4UBOtWNZfouPGyh93mxyb Xi8eBPQyZJ9oZy2xXPCsZLLkByF8NZQBNQ8SBVNmFLYvtHDyUXS6GQKbPhYwPWfkZTBxDoOsIL01bMtv BO1REUSfHXCuVA58FWH2TSJaHp2QKHWvOWBovyBtTX AwIFINCj4+IVsbseGzLaoPAzFoMBLpe2VvRRs4GE1DPOCeEMreDW0JOQBrdY2sQDaeLC7QRfXmIZArNT IEZaSrP31kiLVpFXo2I3DrDpKqYZHzQyvoHDSaBXzeLkAlNIMsFzBnJFydOW2+ID4+OSkyPO0CXZqzsu UrDPYsBq7EZJShEXJwHK8cTNRfDZAqB4H0mPnlHDHU RaQiV9stvbivHY4wPEEbY986gMuwbjNdLSU1YEEsEt5JSXJbSAE1QEUpzIDdNzCoJKDWZZanCK3QvUIp NTT3bX5hMLcuQTZbMMUaE8yDKpQqoPbuRR46aOuwyeLegMDvBQf+Kl8RVM0sh2AzOUa2izZqROqvABRb ITadMTPdKACzJIZxTGE9JYW4JAPSVlVsLCJiITNwPS rsVGHoEWBysm4DQMLsRKA7NhY2MfDxIQQdFZWfZInoCKPdEKMaUXtdBWVjCPSdVV0TMfFuWEWlNEBxXG qaYPXrHGKllv1LRQJxFHLsAxMsSvViQTByHOEcBItjCHSlWUSdUCOjQVVvLCBgXK5KVoUsNEOzGQJ2WV DgYMWgIVLixr8KEJPdCGCfCkp8MNBnFUEmHTIhZXcb OUKdFJYjBsV5CIMsPNGeUT8GMaZkKKIwXQY0VdOdXOEtWNQuxl7COGTiVJCzQxq2APDfCAAdNFXvFVve MCMqJRE9RIe7RHFuFKBaFD5EIbSxALOvUSZ3FQnaKHNjJCNfgt0QRSYgLDMkQzChXDEvIWQeYDGzLDzz FNLlZCR7IKV1NXBuMTBwGU0UShWbTCLcCbBeMgJdIZ QgHMHyyt6GYZCyKCNwEsCcCfGlKOKqUQDdSZiqCQSiDUIzRdLvGYUhSMTbGY6TIsVgYZFbJqZ7BDEwWQ OtFREjkx5HUJWaWDRbZYt4YYQlAIApMASzYMxjFQZrXCK3OPF5KLJjOAZuXH3NOvDlRPJjSgzvQRCqLW BiJKPkna1PZCVhNNLjEmEsRXLsVXFpEICoKOfeIWIs LMP2IGj3TVBpZLKqLK5YJhUrUBRkBhh5SVFmHQFeRPWhvx7XIRMjJLZeKLU5PDQpRDUsNNHvEQxtWLZw ZWU2IJV3NFGqVEGxWU8KPdFuJFAbGrz6KZUxEXMbLMLivq8MJBNcFUTsUPlaUBOlCMIzDAPxRRdsWTDi DPYpMgKbCHNhDZYrUH9IZwFyIZMbFYK4McMkDCUsLC Rwnk7TDYPvFPO3NYv7QWSuVVCsFVBaLKjmJNRoAPKmAWu2KNViPCAlOO7AMjRaOVIqELOjKmPhAAXgUU Debq1LTMEwMSS4GnD0WbSjKKVxEIKdLDiyVNPtMWU7UPG4QWEzGBCjFX5TTsKgUMMnKXOuMEteDVBdJO Benb1HUZZvCDJ2DVV1XmGqNZHsVOSdEFtoBMGnMDJ8 MQG4TRCfEGVmZC8MTxQoKMEiWTT2EXHmCYJiFGTxbx1MwSQnrQmdup1KZRlKIx6NnBuaELEzECzyQp8u aFN7VYVlCPGRCn3XptRkWJSrCKMNKGzkVONvVGJlTDb7BBO2F1D8NDRaWDY0EKXsKoBeKhE7GuH8LvQ0 ErL0IaEcVUG0UJk8DYMrLvJqFII1WIS1WbYuWlzhHA ZiMzU+CI8cRBc+Ns7Gg4RvhxP2jwZpHSw4RIf8DE6PWFHIP9IEUn== ID Date Data Source [id number] 10/07/2020 10:31:33 AM EST [facility] Name Value Range Interpretation Code Description Data Edna rce(s) Supporting Document(s) Discharge Summary [facility] DHPKUn2sKbAFUoFa78/PYHvcTPVzi6LdDUxaNFc3VHfmGMVdU7UqNQL5sJ7aGGW6DZqMMpPxGhRzXMCs lbm [file] ICAgICAgICAgICAgICAgICAgICAgICAgICAgICAgIC AgICAgICAgICAgICAgICAgICAgICAgICAgICAgICAgICAgICAgICAgICAgICAgICAgICAgICAgICAgIC AgICAgDQogICAgICAgICAgICAgICAgICAgICAgICAgICAgICAgICAgICAgICAgICAgICAgICAgICAgIC AgICAgICAgICAgICAgICAgICAgICAgICAgICAgICAg ICAgICAgICAgICAgICAgDQogICAgICAgICAgICAgICAgICAgICAgICAgICAgICAgICAgICAgICAgICAg ICAgICAgICAgICAgICAgICAgICAgICAgICAgICAgICAgICAgICAgICAgICAgICAgICAgICAgICAgDQog ICAgICAgICAgICAgICAgICAgICAgICAgICAgICAgIC AgICAgICAgICAgICAgICAgICAgICAgICAgICAgICAgICAgICAgICAgICAgICAgICAgICAgICAgICAgIC AgICAgICAgDQogICAgICAgICAgICAgICAgICAgICAgICAgICAgICAgICAgICAgICAgICAgICAgICAgIC AgICAgICAgICAgICAgICAgICAgICAgICAgICAgICAg ICAgICAgICAgICAgICAgICAgDQogICAgICAgICAgICAgICAgICAgICAgICAgICAgICAgICAgICAgICAg ICAgICAgICAgICAgICAgICAgICAgICAgICAgICAgICAgICAgICAgICAgICAgICAgICAgICAgICAgICAg DQogICAgICAgICAgICAgICAgICAgICAgICAgICAgIC AgICAgICAgICAgICAgICAgICAgICAgICAgICAgICAgICAgICAgICAgICAgICAgICAgICAgICAgICAgIC AgICAgICAgICAgDQogICAgICAgICAgICAgICAgICAgICAgICAgICAgICAgICAgICAgICAgICAgICAgIC AgICAgICAgICAgICAgICAgICAgICAgICAgICAgICAg ICAgICAgICAgICAgICAgICAgICAgDQogICAgICAgICAgICAgICAgICAgICAgICAgICAgICAgICAgICAg ICAgICAgICAgICAgICAgICAgICAgICAgICAgICAgICAgICAgICAgICAgICAgICAgICAgICAgICAgICAg ICAgDQogICAgICAgICAgICAgICAgICAgICAgICAgIC AgICAgICAgICAgICAgICAgICAgICAgICAgICAgICAgICAgICAgICAgICAgICAgICAgICAgICAgICAgIC JyVSFbHGKgYORnMTBwYPc2Y1gyIVBjHIRlHF0qLDd5Bg7+WRwHJsUmYIE5tdIfkY8QUU9wl6XhWGemTV Hzv3CgLFh3IU9DOKIgIMgoYJ2YWGmbut3NBJZbCDSv pXQOy4otHhShTFQ5TRBtBdjrBC3PCBPeE8unjoRfVFYsMFSFTMzoEFLVPIfyTYGBOI3KTzUiO6AofF81 IDMNCj4+JTtjhaRgIqgBGbJ3SZAzt1LnPXy9XU0CBRRqMqhhd6KoSpPoLUTQXNeuTN5KQTW2JOSkJZEp Mx6RPPEsI933asJbUB0PUs7BBlBcJV1ioz5TDkSjHC NlNzyNBql0OSavVK4IaQIkWOlGtPIdnTGnO9ElR4WpmZPypCCxeGTBQFZqRDOQYP1tK0AynPjzWCIiJH HeWI0cKH4iJTVzTCNkHvT0UAQHTZ6QEQBfYTQleMQqXTOgDVHULP6DCIhcQGO2XHIvxnApeTPrLShiTP 9QYXJlbnQgMjkgMCBSDQo+Hz3KWJ6vd5HlHXimHMRq TG1kpr5UTIuISbTtH5L6pVEnW2H1LPijOq2YTHWmCIPqShnyLXXMUZduHM8GZA8azwP8VJ2ZsQVdGCRi JTAqjOJvVLj9D27oaVBxPBeuNE6YNXV+Erickson+My2BQQJePQTrZZIiYkOcLATGPwRuU0LsF0MUn4ReW4Ra FA17wApsydRuTMeaFD0KXJ8jXHYuOHGCUV0RcBZauB 5vjlWuGWXoXXWSOpQhP48sbNKiKBMcXKQ3LHDfPb6OHOVlU7LmvaZkwOjxbxOiLGRbVNPIZG8AMOfvsc OyqRQmuTcyGJ28aOdzOZ2AYj2HNpNlUS3czb7KcJYcPm9WYYOsMc9WGAWxMUAoWBRyZFL0LVGsOwOxJR orHQGvHECjVHF4XBXjIDMmTN1ORbLqAEHiMcaaKUUx VQOcHPAaoh8AALZoWEFkKHd9BtVvVKCuDMOmDQhcOAIxBKSdJDC7LYYgDGPnVW9ZWnKuYSKeOHDrKUPj BDAyCXCnln4MYTSbFFGoJxZ5SZBnXWTvYGUrAYxoIUQfTTP2TKN4XSPeOMHxEN0HIhFgWBAeGNzlNjQq IYUfYAGctv3GBSOcLUKnVIG5UNFjRLOxHMPaCQomOR CuYFIbUHZ5OFApNGEfFX9COwVlGEQrPEG7EUYaNZKsFTLmiw4BFDHhHFJrTMwfVOWiTVWwWQIsWHzyGQ OhJFToVUd0KMGjASXkZG0LGjYwMFOhHKK0IHJpOZHqNVQrpj8FVCRuOWWyKfC1BXKuDYAoFDGhSIcwLT HwGWAoAxEjCPSbQRSyXF7BStIjRDOlEAKgCNIoXXIw INBykr9EDCUwBEQqVILvUNYoQHUuGVGyTPloLUTqOHP5FHbnJASvJKGlHG6DXoAwTLSoKcP3FpjxCIUl XZTwfs5MCXTmAGOjRbE4ZtZfPIIkOLGaFSfnBUEtKLQ3LHf8KTTdVNYzMZ2PZpNvRXViCgK0TpLtXLPe AUVywh2NZHOeROHmAkr6TNWaZLCsYDEnHPdzBQVyUU X0AUP3YZQsCVWzND6MTmPuBUIjLiswQLYtVWEsQFDlsx3ZWGPxGYKjESO2UBFgCAJuFJUiCFlwGPQqYU O9EcOtADTzKQYiJP7QDoRaZCKgPmZjJkLvXOEvIAVsoj0PCMRcNTJhLRS6EMMtEYKnHXKjEUpaFNUvOD KtPjp2KATjJSKyRN6UBmAjBUwyEEDTOxw3YJusI3l5 YKWmGa1IP4Rey9UbSkOfATMPBBzrFF7ggvUdQMPtWr4RO4vBVfejEWP5SKEiNEGnY1YcFGB1VvDtLASq BHUfLJkdLSIhKI3vCLPmGbJ8PnLeTgZiWeI5DYQ6LNJ8BPFfBmOuVsPySvHkXoZqOS4DCh8NYjT1FCD8 zRJmOw1KJlT5DMOGLuOfQJ4HISa= ID Date Data Source [id number] 10/08/2020 07:09:42 [facility] Name Value Range Interpretation Code Description Data Edna rce(s) Supporting Document(s) ABO and Rh group [Type] in Blood [facility] Blood group antibody screen [Presence] in Serum or Plasma [facility] Blood bank comment [facility] ID Date Data Source [id number] 10/06/2020 05:08:05 AM [facility] Name Value Range Interpretation Code Description Data Edna rce(s) Supporting Document(s) Leukocytes [#/volume] in Blood by Automated count 5.8 10*3/uL 4-10 [facility] Erythrocytes [#/volume] in Blood by Automated count 2.42 10*6/uL 4.1- 5.[address] [facility] Hemoglobin [Mass/volume] in Blood 7.1 g/dL 11.5-15.[address] [facility] Hematocrit [Volume Fraction] of Blood by Automated count 21.4 % 3 6-[address] [facility] Erythrocyte mean corpuscular volume [Entitic volume] by Auto mated count 88.1 fL 80-96 [facility] Erythrocyte mean corpuscular hemoglobin [Entitic mass] by Automated count 29.1 pg 27-33 [facility] Erythrocyte mean corpuscular hemoglobin concentration [Mass/volume] by Automated count 33.0 g/dL 32.0-[facility] width [Ratio] by Automated count 15.3 % 11.5-14.[address] [facility] Platelets [#/volume] in Blood by Automated count 224 10*3/uL 150-400 [facility] ID Date Data Source [id number] 10/06/2020 05:19:46 AM [facility] Name Value Range Interpretation Code Description Data Edna rce(s) Supporting Document(s) Bicarbonate [Moles/volume] in Serum 24 mmol/L 22-29 [facility] Chloride [Moles/volume] in Serum or Plasma 106 mmol/L 98-107 [facility] Creatinine [Mass/volume] in Serum or Plasma 0.74 mg/dL 0.50-0.90 [facility] Glucose [Mass/volume] in Serum or Plasma 97 mg/dL 70-140 [facility] Potassium [Moles/volume] in Serum or Plasma 3.8 mmol/L 3.4-5.1 [facility] Sodium [Moles/volume] in Serum or Plasma 138 mmol/L 136-145 [facility] Urea nitrogen [Mass/volume] in Serum or Plasma 9 mg/dL 6-20 [facility] Anion gap 3 in Serum or Plasma 8 mmol/L 8-15 [facility] Osmolality of Serum or Plasma by calculation 285 mosm/kg 275-300 [facility] Creatinine/Urea nitrogen [Mass Ratio] in Serum or Plasma 12 [facility] Calcium [Mass/volume] in Serum or Plasma 8.4 mg/dL 8.6-10.[address] [facility] Glomerular filtration rate/1.73 sq M pre dicted among non-blacks [Volume Rate/Area] in Serum or Plasma by Creatinine-based formula (MDRD) >[address] [facility] Glomerular filtration rate/1.73 sq M pre dicted among blacks [Volume Rate/Area] in Serum or Plasma by Creatinine-based formula (MDRD) >60 [facility] ID Date Data Source [id number] 10/06/2020 05:19:46 AM [facility] Name Value Range Interpretation Code Description Data Edna rce(s) Supporting Document(s) Magnesium [Mass/volume] in Serum or Plasma 1.9 mg/dL 1.6-2.6 [facility] ID Date Data Source [id number] 10/06/2020 05:19:46 AM [facility] Name Value Range Interpretation Code Description Data Edna rce(s) Supporting Document(s) Phosphate [Mass/volume] in Serum or Plasma 2.4 mg/dL 2.5-4.5 [facility] ID Date Data Source [id number] 10/06/2020 12:57:51 AM [facility] Value Range Interpretation Code Description Data Edna rce(s) Supporting Document(s) Leukocytes [#/volume] in Blood by Automated count 6.8 10*3/uL 4-10 [facility] Erythrocytes [#/volume] in Blood by Automated count 2.44 10*6/uL 4.1- 5.[address] [facility] Hemoglobin [Mass/volume] in Blood 7.2 g/dL 11.5-15.[address] [facility] Hematocrit [Volume Fraction] of Blood by Automated count 21.3 % 3 6-[address] [facility] Erythrocyte mean corpuscular volume [Entitic volume] by Auto mated count 87.3 fL 80-96 [facility] Erythrocyte mean corpuscular hemoglobin [Entitic mass] by Automated count 29.3 pg 27-33 [facility] Erythrocyte mean corpuscular hemoglobin concentration [Mass/volume] by Automated count 33.6 g/dL [facility].0[facility] width [Ratio] by Automated count 15.5 % 11.5-14.[address] [facility] Platelets [#/volume] in Blood by Automated count 233 10*3/uL 150-400 [facility] ID Date Data Source [id number] 10/05/2020 07:11:37 PM [facility] Name Value Range Interpretation Code Description Data Edna rce(s) Supporting Document(s) Leukocytes [#/volume] in Blood by Automated count 7.2 10*3/uL 4-10 [facility] Erythrocytes [#/volume] in Blood by Automated count 2.71 10*6/uL 4.1- 5.[address] [facility] Hemoglobin [Mass/volume] in Blood 8.0 g/dL 11.5-15.[address] [facility] Hematocrit [Volume Fraction] of Blood by Automated count 24.1 % 3 6-[address] [facility] Erythrocyte mean corpuscular volume [Entitic volume] by Auto mated count 89.0 fL 80-96 [facility] Erythrocyte mean corpuscular hemoglobin [Entitic mass] by Automated count 29.5 pg 27-33 [facility] Erythrocyte mean corpuscular hemoglobin concentration [Mass/volume] by Automated count 33.1 g/dL 32.0-36.0 [facility] Erythrocyte distribution width [Ratio] by Automated count 15.3 % 11.5-14.[address] [facility] Platelets [#/volume] in Blood by Automated count 245 10*3/uL 150-400 [facility] Differential cell count method - Blood [facility] Neutrophils/100 leukocytes in Blood by Automated count 71 % [facility] Lymphocytes/100 leukocytes in Blood by Automated count 19 % [facility] Monocytes/100 leukocytes in Blood by Automated count 8 % [facility] Eosinophils/100 leukocytes in Blood by Automated count 2 % [facility] Basophils/100 leukocytes in Blood by Automated count 0 % [facility] Neutrophils [#/volume] in Blood by Automated count 5.11 10*3/uL 1.8-[address] [facility] Lymphocytes [#/volume] in Blood by Automated count 1.35 10*3/uL 1.2-[address] [facility] Monocytes [#/volume] in Blood by Automated count 0.54 10*3/uL 0-0.8 [facility] Eosinophils [#/volume] in Blood by Automated count 0.13 10*3/uL 0-0.5 [facility] Basophils [#/volume] in Blood by Automated count 0.03 10*3/uL 0-0.2 [facility] Nucleated erythrocytes/100 leukocytes [Ratio] in Blood by Automated count 0 /100{WBCs} 0-0 [facility] ID Date Data Source [id number] 10/05/2020 12:24:22 PM [facility] Name Value Range Interpretation Code Description Data Edna rce(s) Supporting Document(s) Leukocytes [#/volume] in Blood by Automated count 7.6 10*3/uL 4-10 [facility] Erythrocytes [#/volume] in Blood by Automated count 2.68 10*6/uL 4.1- 5.[address] [facility] Hemoglobin [Mass/volume] in Blood 7.9 g/dL 11.5-15.[address] [facility] Hematocrit [Volume Fraction] of Blood by Automated count 23.7 % 3 6-[address] [facility] Erythrocyte mean corpuscular volume [Entitic volume] by Auto mated count 88.4 fL 80-96 [facility] Erythrocyte mean corpuscular hemoglobin [Entitic mass] by Automated count 29.4 pg 27-33 [facility] Erythrocyte mean corpuscular hemoglobin concentration [Mass/volume] by Automated count 33.2 g/dL [facility].0-[facility] width [Ratio] by Automated count 15.2 % 11.5-14.[address] [facility] Platelets [#/volume] in Blood by Automated count 225 10*3/uL 150-400 [facility] ID Date Data Source [id number] 10/05/2020 09:44:57 AM [facility] Name Value Range Interpretation Code Description Data Edna rce(s) Supporting Document(s) [facility]ital XYRMLz7yMcKLAnYrk3FgMbFiHPGgWG8jsmn4K7S0zXWxG5AxsAUcv7emB6NzB0WiGOJcODSQKE0MbRZp jb2 MbxofvH2Rme1LIt234QE6FrQ9cis7Jw4lqNSZukLmqWq8uraXgTeiWCJA0MKLzb6BtXFzsPDmzBZPaYe 6soERhV5ZsuLnsMPHqWYcqAMVuF51gkYClP7nTNFTsGS3rp0PvrhxlY7fpciBon3eEfjRlGZjsJoRbUv WiCBBrwmXhU4llzPCsmTgsYY4+WH8wx0YiXhRuETUn MX6awtj4F1A9qWAzM9UhutMsR5L4PaM7pXIkF6V3qKYlDD0BYB3uWH3CYjDjJ3GnV40ksF0kQA1AyP9I lvKvGQ9hu3OiwdhjW1Uff2QHh135ZP5QJHh6TILfP4TsJl6jKP7+SZ6nx8WwPpGqWUVdSJ3abjf0J7X9 pVIiX9GwukIcA9R8IaG9eFIyK0G4dDRkIA3IPH3pNS 6UFOUnT8GqC72vyD8uHT3YpP3MvoAcWD1yh3LbvnodJ4Nvt8GWz864PF6WQTq4YMWtE3DqT9ZglNY6NT 4+JR9kc2GzOmCyULMqWZ2yutn2Z0M0cGLiY9PmxgAaF4Q2DpE5bNZpG4Z5uPDrZZ8ZCC9wNL5FInsuT1 RqI69mmP8mOT4XzS6NvdQbKF7xi4IunmclO8Lum2ZE l865CS8MNGq1FHWqL3TcDp7gCR4mhDuxiZY+RqUjMN8nhsqqCFVtPSRsWem0VJ5WfGLkNB6Pu845SW5J lQJ2gQDyYA3QbGHhMTNdHnVvISXtJ1BvFJ9JsmXwIGjePrLqY6kgWT6jmDMvI88sqE9cND4NERCpVs8j mTAuV415unjxez1+IQ2pv9MsKjVyMmIfKZ7txka6I6 M8hOGnS3HkagVsF6X9OpG3bAUqF0S8xTKhRF2NUY7qDP4DNsCfK7PwG34xsZ8mAK2LoP0TbiCcNT3yt1 EjminuO6Vdp5JTc300EI5Bn9UukJFeQPAkqVA+TmNvKD5vrqbbZDIyIESySbc8SG1AuGNoOB3Ry906YB 7YfXV8cPPcYW0HyQXbPIOmXaHvNNDuR6kpWL1GydJp ESqcMsZzD6heKV2nhVRrY73aeB2oVE0SUDVqIx2dsMOoG413krkkna0WHyoedIXlJu9vkjJjPdrIVUQ7 IAAvr8NnSAkqOYdaNWPlVb7rvIVuY9AwoNgrYJTjRCzkIYGzT36ndGPrY8GPGEOiEU0pm1AhhkkaE8wa wpAao3vSptVaGGnqKsBdDnXnWCKiklRhF3LjcIEzUR CaEj7gDP3euTkglMF+EyUvZO5mxnarOLMwQDCpIia8VL4UxGEbNA2Ur071BZ8FuJM9zKXqBZ3MyGCsRU UwUqFnRBYvNBAzAE9GjkLbSBysTzKfG6wyOU1hdBMeN04ejW7hZG1VOJVvOy9xoMHxTQubZKYlOr3lRQ 4+MbYmIW5wjqcsOWCzNCItKxq6TV8MlRQqIQ3Kd143 ZJ8UdIQ1pBGeCD4UnMOzUQKkVzGmZDWsMSPsEC0YhkUcZOjuOkKsG4xyCR6uaGFtM09jrF4hYE4PJKLw Ws8eiRZrSOamJHTqGe7nCO0+WT3hy3NzSwHbVsFyJL4jtge8O3M4rWSrA3QijcQhR7I3SnE2mOOkR6H1 yMMxGG5IYK9jXV9SDBBiH7QkF82ixE8iKC5NsU1Rrg WvWN8kr1AlduntS4Csl0WEh971UV2ArH5lti7OoWFreRL+EjApCE7wqkqhBPvhGKWxXwm9DY3RHJN2NN OhRuCgUWEkSWVjBIWdQ5sILEuzZLTRFD8LBtdzHVRbPNXIGE8EZFDgVVJzWANeH1UEVXGcKPCuClQzE8 fpEOEbGWRCGC2ULbcjZWBwZUGYDC0PJFPxEHGfREEb X1NTQRM0CLWiPzWvKMalVWinQPJCPX5JGmwmZoXuCJD+HsGnDE6fpjyxXyYoFP9wkhg7X2Lar6SOQMBv Oe4IZNApY0WojODjGS3Bv891INZ2HCBiVs8+NH6sz0NhYhFjUKVnm2CrXWndXQioHSWbMYNrFRDtTOZx mIOWs1jrUvTqAQG3NNKrYxzrKCSvZCHyRT19MPYqTU BJFC9MHNBdbXTdQKYbVvAbUPTKUQ3Pk080PN45ccChFEBiBCCfV7FruIP2XJH3KFMtCS5wy8VgFYoqGh 0xzzXnZquQDjNfUSEiCbl9YTZvIPRhJ3KoQCR1JhAjCW4ZxSb9IJBeW2GvAKQcQMHrq1XxWe3Ol5UhKD LzOhkfiF17tm22u82I51mJuB2Tpq1QpMOUXPSKH0qg LyySKAae7YjS8HfYch/iFooRdre44k81gCrrVTKG0/nz/Icnz9L+/C/74vnTU/78+3/+259/Uvvz//3z AT7//high climber++L/+ec//uuf//Vf/9ufkp8///q///lP//pwud5cJM8+w3jy+7/V8vrzX//bO229o4P//PNv [file] VlrrhCGcnBfkLOCFOot6ViJCPDEOV7H= ID Date Data Source [id number] 10/05/2020 09:44:36 AM [facility] Name Value Range Interpretation Code Description Data Edna rce(s) Supporting Document(s) [facility] AJASNd7uOlJCHyXka1WaVbQuUQHkML1ivpd7U7N4kUDzV0XpuDKbe6vnP7OyY6TnBVClWVPLEP7QjBZn jb2 [file] jfI5jPy362TsJzVa90HRaKO4n33n2Ru5F4KerZ+8dOrkjmGGlC3GDrFn4H7P9e5ZwJ0hb3L/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 [file] sQ4s83PUMf5wNF+yh0Oj2xJcoDN/+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+6fvV [file] DROP WIRE ALIGNER/CEUROJ7Z5jkGu6wnB3HyDNWi+wcch8kPYoSl61gTGR8TZm1ns+EMxX1QvoVe5u9mf6EBaIuS1OPt 3ed+s+Nxsf0ki+Ur2pJpo/qhoVTKZfJk5Qrj6jex/nJCz4Kwt+R2bxnej407TbxtiGvyA7dmqn9nIVT5 9hyGCGku3yi6uMKeecL0isCyQdu6XnghQwZk85pbtK j+Wu8+19orexhMdMUa8JOsZauCYddxIJjLy6lnEC3rVuaj5Q3eQ5g0t0R1sSjqN00k/WjL+PM1aQf7g0 gI0lGU7PvGF1/s42A23QD92RN39RY21RX75GC14WC23KB96ZI84UL67QI59ZF7V5K9Q/NrhF3I0nomia [file] HYTCawmUwGkUFkEplEFpFFxHkHlIFSBkoZKGWglIFS MswSgS5UeZloT2kdNthAQ4WirgIm+CIOIBXMJ8I4D4cLaLpx+k2xlr2M2yBvAX1k+y4XHL8gzm4iz8MH 7YMh5l7Si5BlQ6H+5020Y/7R8lMLPwiaygUANGHKHQtCg43Ko2dwx96o+9Ve5dFt7ee37oqkxuilcNJK jE/zxnnGlzGEi8PmJaFfTwWk1bOfRO219pWfvfmhB7 xMfV59Y+w2UqfgtvRvkyIWWTYCVbCJZws64tzqPnIXb5MSOfUsY2hPj9BdBrxH/WZuthnUI872bhJVYY pGIkHdPfARjAJtKudMWsCOyFyUP6jNg7Jay8LZc4ZKCpPpyBeoYCv2BTL2TlsIrkTNMzDKxjKll9I70p aITCKTyCKyiFAGgzKYlMGkDCZlMCmDSRlMymBSBpMy xXYBmCwAg6XCXxpKdP5aM7lb1T+03E+ssha5n/sNLZiX1mcXgUmCCAhtJPTDSWOSqI+z3CctM9hXpasF VnGBV0lk9VoD900JfO7/WYnh76tV+o0xnU1JEv2FG8jZGTVRDXvv9xdqcyTzWoRKZwywweJpcLnlIGXq 6PwxkVzr5vHfVoDJcI+sJ+iUtWKE1W265pMdmdQeH8 oubeTbFfR9Ws19IXsT4fyMlap9vgrOiWsVukLc+C4ig6UI7VatXT/nt8b7Pl/4N/b91cTB3U9V91N4Vi 75nBaqWmasOpEenuAIv7Qld9WD3zct14Uwa0CvMl0BbmlrHOzh52ewYO1gi68gqTGuYf9Q9lbsHGsz75 dzNU3qd27saDmaTj/E3fjeGSbe82neUB7zq68lbSWf fa5V2suaCiex79njHE5Q0ryopl/V/FyTu1Q0ZI7J3wzkva/V/Wbf1x5aOyJkU80xjbzv/R9pMGOTr1m7 8ce/iRynOL5/5ReOD1+uC8fgC/gFmdEc2GnjW/gd/A6+gW/gD/AH+AH5Tm8PX+NBeLcgBcL1OgWXyZez MkT6NmDIjTkvVbI2IwHFpLoyIhE4MtQZpExiExA8Kr LZfUl5SF1M/m4wBlPQDNCfom82nHFhgLYxZK7h2Oe6NxmRpj/+acB8fJe+AH/gPBP3g/G2HG/sl2v7WF /Nh7ItohbDdtQV6vx145Je64h+NL1KoiVSKxRHnVMcQyTmw6jVTfyPZR3gaf394Wv3Kl4VF7Se6D/wJ/ gL/AW+g++Eb6lb3Za1f0ik4NT2Tv3Pmi00Xt3Iq4Cv 4Bv4A/wB/jxythhvHS/aM59aRQ0v/przNZER8N1Pf2A9G+MdGO/YlAvDQwEpzuAJhEymbNLxYLP1oCkl 8x4OvM/5q3TGgCBvN+u4zJi/gY6jJTv31Rm1Le0KXZ+QCVtji0TnyD07+/zjI7Me79bxknoNRZUvtZCe 14p1oiMFuPmSgK0ea367MdVm/hi0Ma6qtAUsvK4++x pvxKHfx+jqG9rsvLk5+I7f+82bLC7GIGWrWgEsq+p2NqR77++6uyxxPgdVJha53/3dm8w9oN/0Wgfjnm 2MTJMy6/kHX092gcyHUyO9obru0Cfg7CtsgMamg48nibtjmV7b4+m1SxpPQngsMdg+k266iwW6fuyOxx QUgZ861nmQ+gfEhs0nw7M5rrmW3zC73J44HF3EK3/g T/AX+At8vM/uDz+Shc4x+AK+gK/gK/gN/OvzQlcx9Ly1E2/AH+IH9Kk3Q/bC0j3gc6RC1HrKCbjvQIaT 8QrGKxivYLzSwO/gd/ANfAN/gD/An+UF9WZibPqZ1wRGHaXaoZcU34TFOmAfeDwD26GDTvIygLxM84AW V/D4xPciL5R+zjH4C/wFvoN/3QbYihTIt4W8avjEF7 GV7Ob1XxxC/hBiCgp8o1hXxszrzFHxlreiLZrCc9Y31Ehd+tU+Bt/BP/hNch8Uu+FVm2kn9rz5sNQe+A 38Bn5/vo+a+lU50+zCMfgD/AH+BH+Bp5Rj0Pb5fmzpE+2j4WB8TV/BV/Ab+J54Ns6Ni2d+duST+lUdD/ AH+QR1Tq2In6Ei6VxvAvaanncw+lW+I1cf3MzV+lW+ e+BBD4Nnt0/bknN8LR0GVj8Lff05sj8dFWUJSAU/gj/MPnnDqyKtn2f7/kaCzr7/pG05XQEXA+hXmvrV Co8rnFutJ99e6dGD66948Hb6sL2nSXdjmFKZ3hIAVe/Pat+B7+Af/VxRco1hG5qOBl40Rj/BV/Ab+A38 Hm6F87A97Bh5S/wJ/gR/gb/Ad/CPfRSJN+cYfIzXMV 9CcS0iyTxUPI9YcT2waRrTGB2XrW7ufAsIRD7XiZ1zuTiuE+hZp03vpS/vws4Z4Pi7Giq3xbNfix/P+9 +rwtHXWi6AJtRWCDH4Zg6+svm9mjYOBNRUPYwkYxSI46ruK65feV7SuwOQNSlNjIgJ9IjmOTbiwaokqF p8xq3XzTVmxCQad6/9av/m1q/iI3kf3/ZCFuGObBrN JrqEOLDOExHzyBYsRxTx5wVpqboi8RYJJSyNx1yl96/xELS5VGV2z/25m3Np2Ejkl9Vmt7nzeoN4eA6z +6Ll/lXd83m+Cx2ijxx/frfr36jVqy0kUb28l9cw951SWv+sVy33r/N3cv2wYz2pa/ANfAN/gD/An+BP 2Mu1H7oE5f+/4X0O/WofC/aEghQv3II2HrUxXN/Gris bD0iKb5Coh8Rm0cmPI6Pb7U4lO63+86+w36IjZocYl0Xn3oM+pX+1t31hJbEB4Fjm7kQ/dwDfwB/gD/A n+BH+Ey1B65E69HotWIKkCsf7X1+2Uc8qiHeoW+xjrVehX+7uC13Uv4DjcJZtYf4Y/wJ/gT/AX+At8B9 8PP/Wn9sw0lSjVisV81dEtkDcRFekQ/rF/2aa5mlyS Jn8wOClQlFw353s0T/n+DLzPA/R6JA4FUr+0nmuDOg8+4qROktPB1Gl7k8kO4dUp1by5v2x6HujH1X/2 MfgG/tmva/Dm02A1iJ/gT/AX+At8rM/Qrsc3z4Lm4JX9PF/BV/Ab+H61Ro9Y97UKwIqZp95+8pvLj66a gr/AX+A7+EtmXx6Ezv+B39ibvV9bD+Gbq6gOjU/lO5 h2Rn73oynzpgCfRc8e0I650O+12r+FzUQ9D1X99o2cQ+F3Vpek7ilB21ktgsM/+7FDy120m326Nhkki3 7/qKd+mrT1cT1rK2Yb1gJxm5/BP/FpDUT8b+ZMX8PPOo1q6fToFZO4ixF00hx+dke4Si7+eZ+1bNb7j6 Hgqzu9hMdRb+Ar+J01Or4Hx4Lq1Jd1nQfRIJ/ed5ng wxUP/aqLg3/ytm6EOucD2BvOzruqIvbA4DnTjvzoSgfS5QuKnktiXuiH8XkOouhqVzrS1FkCvnhrn3yc zwsAzjCz9t/g6H143n42+QdXHj/rq1agLnxfP+V7m/zAyGNXKdqKNm0IQZYTGHLfEoYyH1p8uKg+Zj77 /1YEtqznPPlrcb7pTt0Qt9yHBNUrLnUOROOAeFcc49 5Nsk8snugeKuQA0opafJpfI6hAGcYLEEu3TiaR5spDnG8wKISjeltD++wsZ0yieM4l6wJMFYp3w/xNjL fOH+Mdef77+V65noR+yTgl015+5uWblT7Q6mWJ/Sut48e+6Ll/1ev4PF/3F7hgTwT/7F/13L/KtcXO/k a3s7/LoRRN1utT/tzt6M/dBvgD/An+BH+Ni3M71X+9 0MexF/w6zOmjJEi4y5KOy/o8Gvgd/A4+wmqe1xIjIjk0LUpD7z8JSgejV/on9Xktq662c5EP2KH8WW/f o9nAb+D3Rw/sqV/YqYAh9J/wB/gT/MDxpdVZxLsNMl2L+mr7Ezv33nzo9+M5FvDx/L2Cy414n+e4gd/A 7+O52Q78F0+ZR1Hv0Q/wF/gLfAf/+FO6H/uo+Martinez+9A 60Tzu3el3+wQ7/OCiqQ8n69NEl+lV3A9/AH+VC3He6M/bXk3P6wBn8M/8C4rd9PneaSB6Az0eefphrqI XHrrO/AIqN3e56cEc/yuMO/sOb7GL6A6l40liufXnW4Y/cg88y5P4P+rZBgqIlYnu0wbGYO7TJ1PQ3Xj +L08Wd8DjlRSvLF13+h7pHW22k+PPIU45/izM9A2wr /HLxVH2eWbNJ+AI+ni/8f1urnPMMt/Rn06M/G/avrPavkn/QQ1V3uyS/mMd7v4yP/2wwK9kk9A/8tfQP hi5k6R/cx+AL+AL+mb9W+lWcH/5Ba2c/g9cDq335s7D/vkeW+9uiz6g2Y4c1G/wbO04iL/8no0lcpHzo FTsKQe3pqgi4837tzD321gkC3lgqY3qfNur9l2u/Ms RfGeKvDPFXhvgrQ/dWDh6IIP7zqE4ojA0D52tAx1GYhaSkD7IQujMk9Ir1NuxJJqCiQL4hsIezGvXzXY 2mpTiuHgMsYY7ejFztZue6AOyJ0u3S12W1E0V7VK6p3hJbEK3S5w5acahuzFbWKZ/HgXa9vqZjjUF2oC 1w1KFECMvkb49icmB2H2OZY/3mthdWzsFbvyodPvIo Dillan/b/2d8xZhb4OsfmYE4w2fhmb0lgD3s8heuATzKbiBPxXzszhq07k7Gy9Ks6E+xxgwE3SbEWeEXuCO c92Zr614PuAmhbYX797e+kzT5JCqJcjHlAdBC0Hp+fDFacu4Yr8FDPcd+8Jy/yyxdvf1p3RUv14FZl0U w/3J7e7KUlN0/V368Y6vdv38vsV6sHr344fJ2+jPto 7+qNyKu1Yz3Ea8i78ho59x0MqirUelCBvIe3VcsQ/a66laTN/dwB/rN1zC4OwR4dvjM2qZ5ypA27J+Na BfjUvAF/AVfAW/gd/A7+L04U80O9+ZE6Di1Y/wF/qXgOcg3zHIGwFyrGcM1aNFUsTokYaY9oTDVoYreT iM8dPXOgKotUoG1dPBWyObpXrD19XZXmKipYkL41NL VzFe+AcH/IMD/Renetta/WrAPzjgHxx6/GVDz/o8dII/wV/gL/Ad/HNlcJif4zO/2HdFQuwh3ZJcVM9jbBG/ IuizG1Ax4MnoU/oXRrla8S+xtv597U9/RvYjHEqdlK7AC+Og8U026/0d/Xx/R7/AF/AFfAVfwW/gN/A7 +B18A//2R2cAwDzW1vc4A/wF/gLfwT/+bZP6a1M5n2 E0d6H2YG9CP/1eju2wfp8spw6lhe4iPQ99S+8P9q+O8T75q15i9PFcZLd6H5YM/cbjz91goNI//tCR/s G9sYdLAUQHGlC+wVH+bIhSw7UrvK/bb1uizX9d2k/0Q3nZkMdjX/ucptdozKXos5IFAa+O8g/Gcyn/YB 2Dj+c7z/7zmAq+gt/AP/svgU0osL174N4xS/N3DvAH +ZO8Tc2Sv5Zv5DQ1Yx/mQrBkeRxzNQsAo1RM0Y5Mm3B8K+NdGO/CeOEfHPAPDvgHB/yDA/7BAf/ggH9w IYrdKD7vcL8eYblmEZ5zyK5eJlceSP8iovLr/w7H++zHvz9y/yryCEbuX/XkH//noJ0ayJvKf+p5/tCf R7k1po95tt/fhA7MmHa2BEHdGK1w+gjXx4LIxtz0/O RZzFu/0mzFPG/7ozqViEU1RUWcQzpP2i7q1z2km+ObH/6RGfFXXfKcka+x8h4i/tqm73840qO1aGK03B sz4q+yGsGM+SeJ67rXx9Q7xZf8s0XlCluIUUu8A8+5Uxevbc0T6KVj9Oqc86zAzTINCunMa4dZo43flz 5Ara0o2AllMv4xTq+a0K+kNT2mkohpj5Vw7xJA/8Tn YU4cFCA5l2EM/vPUE+29WpQI6Ql0OhvJqskwkFgvV/gD/An+BH+Yn4U40N2++0R8+0R8+0R8+2wYL+Lb J/gMa706jVk5s4c0+Me/JUbgO9oVo404kO/gT/An+Hi+Dc+34fki/houston/houston/houston/houston/houston/houston/houston /xf5Nq5CB+PtGG/IgUlJ0wYdvlG6nEjlzV0k7Deru3 xY8pZH1tNwb0cQ2fGI2eZjz1oT4hWH7pDbo1bS55V+JU6mAYeUCA0WhX9MU3IHiXYPuFtnrZMP3GG9XS /Bb+X64Gv2ww4a3X7Z+AfnOPsbM/AuAk8iy6d+Oc5++bw1QjsD3g/q+IAbR9811VaN/TpXd6wYfwi7ti tD90dMb2iJmub2esu3iuM/rqLhGuPzKHviE7EgRz4O 38E/5g7mUAhjErb0HfdW082K26J4XdP/gY/v0ergG/gG/gB/gD/Ta8rQamLHgj16+TgT+5ev2W29yV/H /HXMXz/68HUTKPV3sO/pH7ySf/sD6yk1YAaG85Nc0GY60CHFdpcN+1fTMV4/7mE05d4s3lfeaX5gao6J /+dF9he76RrO/XUnHYopR4ldj6/BN/RIvpv0ar89yr b4E/wJ/gJ/ge/gH3t/ybH3F+KvFuKvFuKvFuKvFuKvFvSrhfirhfirhfirhfirhfirhfirhfirhfirhf irhfirhfirhfirhfirhfirhfirhfirpcd/pAS9z6Ff+Hi+angctU1E70q1tabaU/AH+Mc+MepX0kQ9bt wNJ7acV0R9zhpI/sGF/auV+1ehG6/Qr9K+PXKdyj4q NX38F+vWr8p/sVp7/Fcl1b5Dq5+3flX+w7WcD0QkMou1S4oTaO7t8bDZ+HcQh5lIw4L+mICwI57xej8d Tutxy0UcJJ+3p5SlJ5fqgXV55Rs8pjA+YhA8JgZfNI3aEfPXnNeg7G1dUjpSsjX+rnU5Ntmo6pz0wsmb sC2P8yu3FpmpHdchIztsWwdjzC7id/zB1c/3mHyGn0 396BsL+nIiR84c9zWPtre2Nv8Wc+O60Wc2CedZ/uOHuq53PvnQj6U/wZ/g433G/tXC/tWyYy+sceyFNS 7wBXwBH+NF/uAaGO/VaIlLD01+ucbx76/Sr/J4gD/An+CG1Tk5I7z3N7OaGaEhOdVrFuKkAzDoNbOhMj SyeZk799y0++1rdvA7+Aa+gT/AH+NJ4Xy5B3c4x7JS P/6FtY5/ND5dC5iSK/JSqRg3OHuqtMOxpDNAr/FnMt3JP2Uy4L/wJ/gL/AW+g4/5C/1eHd2ifkggqT6x /upK/snpIQLjOwEmPk7tTx6g8R0H4YdZ/LcYk8vIn5aMd9kKw4vOe8fr5V48TI/ThxDZHx1BR+Ar+Ap+ A7+G05Kl8Ma4Xg9Me3N/wZ/gL/AX+A4+ltn1C856G3 92S661C815S368Mv7znHR284Wm/pWj/tVTbfsOt6w12wN5X8aS/gT/oVX1pYegC45EsrYD7Se2BkyU/J N/5HryrVwVfAW/gd/Sc4uxNBi5yt009zh/wnlKyWitly4NG/+dOP/BfB76TMn3jSV/yhXPt+P9Xrggaa wjb2d/z9yZh0Qev0za62mKH+uztxP/0L2iE1o62NpH +CtvA/wJ/gR/gX/sfW/H1uo02ZCuv266nvMe1Nw9Ku2X94Iw5TrxK/gGvoE/wD/2r6M+g0O/ctRncNRn nILdkYWgyIeLOi4Of8/QUZ/BEd/uqM/gqM/gqM/gqM/q3aF25L74Gu2E47Y9/lBH/StHfQbH/pUb5q+d /B2B SALES EXECUTIVE/SrnS+UPJv/UC/Jx/N2e+rW6UOs6h8NZKlHxr2 [file] UgOaxApRVWEZPMhVJKSRoPUQG0x+LIcgIkSEiBJRIo 3QZ0LXfUriJlqqTtfTGjvSGtEJTOHpB3t4E4oq4v3KbGD5EFXcEm+XeyBHh6Gss533bGcYWfBMycWhw+ 7WMX/v9S4FrceS+B+jxMM9Ep2F9gcyp1WdKUkQa4Kbo6I6GTlXOuaW9MjTgYnHd2WwIumIFywG4W0bR7 oCuXtrn1cpCxvyIbcHrvW6HTpVSkvW8PjKvWxAt7Yn AqnUanl6rC3Irt4Rmp1Psg9Vpo6Jdm3Ets4Rpq3Tfy3Kzy1Hfa4Caq9Irh8Ryr5Wio7Xgz5Caa0Zs/bU Ex+BHDMWiKMjzFzKvTc0z6gA/Dpf4DkCk9V/fly2K6Wfb9JbDbO4IIJ4raCRf/1YrnSRRD+WHV8V/Vh0 eyjC5CddlMk4FDGcXOpZxd7HL4B5VgHig/8tINEVf0 Ymd7JkAkkbWdfrHeLrCUoA207pyMKYn6Zn68r5D1i+knvLUoUPACft1Yrz3HdktgtoipWL/Tm5cWNeC5 VL0+lRSpOPFJhezIRhW4JsmVdTf7RLgeOcM0AH6GjDMrTRstqZrNx4WGjdrA1d1FQAvvd6JiN/lnopjP aShh2uWfHXL9VRDXy46ESF1bfqICd7F7ZOWWVzQEXY hJNCYBw20FNHX25yYhLQMDGbRS3+RJ4UgRbUqMKvYPlFQuLKHLnXJutTBdQyxfp9JNe0ixYUV4qVwvdA kO+sjz5H15mpHhlTUdTsrUO60sZ7M7ixs1Y/gb1gqJ+o1Y/sGXh2IuRqLN+WhzjfbeN+OhFd5YFKWWtT +7Eo+7Eo+7Eo+7Eo+7Eo+7Eo+7Eo+1Vz7s3fzS01nx jk8mGV0ZvS+MPumBEeEcZUd0pFNjPBZptwD02dpntR7AJmi50EnWncKkhcBcjSNnzYSuPMZBDWDOZYpR JAGbbHMXW4YePGRGA8JmqP5zIFRYZRG2a9GLtFdsH+LMp+LMp+SKnKA4q/cc3Ago5rYwwJnrZEQ2IHNT F9+2ACt33wGFTdmskbA50+QyXwC3RfEeN66ZXK0i39 1D3ER86+WtFsV9OrTdT84KHr/E4QlzdHucol61tTri8yccXT/J5RxbfkfbnQ04AY43DA/dK9ctcCtcoF 53IIoSFGFPf9vOmhb5NqN5h5Ze7Us1PiUmO+CqrqUBlW3eA8JDE3g4T5jBfY6gIRXHp2Jq7e49cR99HE N0s8NklTgLSSGLI7WnGL1yoU0z5mZ7ltXPFhGY/FuJ 9Y/VpcZOHZYmtqiB5XIxKFFCTHlVYjjAeLsaAdJ6984SaHhietbKhVybBaO964FD4RbVHuGYLXXDTzOa YEeBOknXtsPe5IjXDrMeQpOGdSGeDrH86/Nz/9/RI9VBHL0BpaFw2L75fO9500/j8/Pn2+sQh+ijTMG/ v+219//vlvP/3iF3/38b99+d0/u8NyKmyH09cvw/bF 5ork3dV2sFF3+fmRrJ/8r19+85M7K/jjQ+XWWh1je52j41JB9DV//oebJ023n+8/f/r967dfR/3s66++ /MXHr7/5+jefvvv+68///ZJ98hqVx7oqg/j6y85s1160/W5St50q0E4+NTvdts0D54Ia61iG7B4gYz6/ 8+vvPz5/+dXP//mrL7/72ddf/pXf3l/h+1ivmAjK59 /69NXX//j1Vx/ff/748puffXz++O2Xv/c94dILx/n2u19++HwAsv2Y/0uN6sc//cvWr42a/Bric210+P qbf/z03be/tU67l2vLq/7+q59/+nBmj6oi97PcfR/m49NX/+2v/ToZTH4j/qvod048ZiWUa/ryu08/+/ jt159/fv/h49t//PZUfd6ktnJ7l+C5zmFvheg16m80 H7/49pv/9jyBe3305Tpamv/+mb2pw7nJ2CZj/WcxaqsC2z5+U2ZmjDj+/sOs7fpfcG3k/ixmw04hfhT2 n+/T/f+e1QUy4aS57dt//fvv//LHH/7t47//z4/f/P4Pf/jdX/7yw+/+8HcfP/vdn37/wx8+/yS14b7N 3378+U8f8g/i/cIb8D48/6L1jy9/+Y9ioRtFxp+q9s c//sN/8LK+5MByveA//iE4l379C40iz/8/HXGxo7J/++avPAqq4557zA8/G14F4eOtnibxTaaV++o1BT +hQ7mbaePnX/juh3//7HRiL5DhcQm51zmZs9/+6bcfP/305S8/ivs60Lk7jcKvf13/V8wdBoHweNR/Zt ASw6MGY3SpP6xUlto/zcff/PCn//z7j7/87j9/eDv9 67P+kUV+7h/98T9+cDxLwyYub59Pm/ru4/d/+s8f/vJ//Hy9v9Ixdw9c/tbkDrb+ytk39k/fff/xb//j de+///Izkjl7ZWJ3k0JmJU3mqn5/wz99/lfgr2+0Am+X/kMXfz+05u0oUPl/7fkroB48Zp5XYmpgGksz L43tzi1gC3/95PPH7/7vH/7ji96w64Bh+pN//PTTn9 ijEO2xt+vH//zLv/los373O1D//vDH3/9c9YQ7V/7V7/7Hv/7uP37/uz/23Xda1XA5/Z9+/P8zX64//P f/+t9Hit/9+c9//BVqBd8DK/aIf/Hnf/1iUloR/QI7IvLy++Ff/48//t3bQ2h7zbkHd/8K50GkBw2rP/ 7n0v891tx//VYRRu6aW5z35N6/+VoGv/+Cc/3+iP9/ /+Q72zYl5sffL5/733/4kI8///rZy0fa5/TgFQ3dp15ozljR/PSzz6/P220CV9K979Hmj8q0v354dSjt gfpA7LBYy3053rhonH9qxwunjEpG8tc/X+qet6AIKJ8ua6UmHXXcDjTuGK4hbwbuSZVzKC4zslu3U2Ax fJjtPOaRTIAyVx5crYXwFS8GXPV1YGivQSBqHSVoF5 JbnN0fL25hwDZiErLyEWGXSB8MwhM0CSK5FTQ3CWLlEoLgLGTqJP98ZAZkSPPNNn8qtaYqSlrCJwUrLG 7vecl8A2T6tAVgF359sChafzFiJV9At3DvaKXrZO9PtLFawOZbCFBgHAKlC3hkv1ZxUYnnUXYGNh7zfg IyPswWDbHkQG9ganc4V1I9rPhhxkRaTAQHKOexTplk OY4vkOjdmjhlC4UmtBQgNDFpL8VtNEMty27RYSVbSMyLQtCzKiJcQFH6DSp4CFziKmQjWYEaMEXvRGGu UK0GlHLvCSQyIQRTNHwoYcczENIwpA1yyOIDd1BkD50VAFuPNGpVIPSQZJONQyZhMjRcFJP2FKZgS6Nm nqTmqYArWHQWKMyqVuteQKDweM1kcZguV7ZiBEN1j3 BgLO9BE2MdJUMpAMLGLVC4m5WbJWWrhzswedjvKrZeRQDoTBCpKVArDA7Ygf6rdKXjzvFgXMTYSIpwPr dtZK3qfJoouecoQ4HmeCIsCFH+RnYbHR7xvx0+CnVbVNFvIyu7OIIwKZmgIODrCYKmQCHkS3xmNDJxGz TqEVDhIcDtOA9Vw6ZruYOaVn1pfcFtPjxTnZFeQyrl DTZhFMPjAHJxZxYYXHVrHKWrWAOwCXV6CJGfNOBeBWcuXLHcWIV0QwC7JXBoHCXlSU8aZzTcNFPrNpsn TILwVHXyFLJpgoVMPSAoQPK9VZG3IUNgVNSqUACwWWpnHLQwDRSbEDHoKMR6GLX4AUFsVbKdFNIpIOBl XCFqVILaADLwzxFVIMKiQTChZTR4LGGiHQRuPAXeGY txWNWvYHTvFWhaJTXuTWMmSP0cYeQrKCTvBWSqBKciUDMjOHAcvrHUHMAyXVCvIMFoTOWuYAEyAGLdGM tePQCaCNNfZPNuCOQlUAQtSO5cSjZrLYPuWGA1GNZaNOJeCGSxixZBICBtXTHwLMu4BWBpMJUoZCChQV xaBQWbMBLmUEF5OLZdZTJmHP5pXfFmVIAmXNG4UqXp JCFwYPIhwpWFSDVnYNOiBLF8HsHfSTEqEKGnLBxvKAWjGZTeNGivEEXuFJZiKW5nHkBnREDkTIYcDLih HJNrHHDhocVLZAEmLWYmWCTbXiGfRWDeAJMaHAqoMOCzAPO5XUumHBIfTNRuMV0lMzApBXCzCYL7NTiw MDAwMDAgbiAKMDAwMDAwMTczNCAwMDAwMCBuIAowMD VlFRIeYXI3IDXeHJSpWL1xUvZuXUPyYWJfLKMzDbR5UyUmNoNXwWLfcExsxpx4UApuX4d4ISKpTIplZA 0zcdMqJVYcEmtdRu4kyGX8LZXkDujVJe1Nr0QytkT1ayEfQrS3Yrx7JtGlVR0K ID Date Data Source [id number] 10/05/2020 09:44:07 AM [facility] Name Value Range Interpretation Code Description Data Edna rce(s) Supporting Document(s) [facility] LHWRBx0eTpJITzAxr6NvJlAqKIQfBN0kjyz6R9N7nDAcH0HfnPGon0nvA1CcL9TjFBIuMVVRPG1YgQTu jb2 [file] ckf1P5z8zx/Bleach Supervisor/jI3pX/44juy//DMA6Ywe9OIzfp+lkf/fHwrnD53DK/4eb/iAS1k27Cn5c13QXxyFKa 2p44Qp0ZdEmuhL0+X3o7zv/ZOpo9rBzJwiQHnE8/CUADRA/Cn5S/LXtU/l969tA0i1+N8lWq6edOQaKs1W06 Lb/H3n87xdJi4n9bR5fv53xzmS99vi0X3eLz+3XfVx 80h07s8095hd3H3LDp+b7+l8b09nk+nRf0/65o9y+7pui27DX7GMtFv/Q/rvaFJOk/Y8niInX0hjdp+S 75I/HY2Uqlr22mWJCV1nkkaZG8O7BEmSpz69dvsllQRf4ek688rMJ89F8jVy8/fyfr+jx/p7imx3pOrG n7c9+LshaHR7ErgY87L/b/8uEaEZw4Nxgi3wZ/RFW5 3Wozx35XlVeGIEEebIT/8tTN9+PaP/Hs6T7D2Wyku/+dimCYdz9/16xjz8QOjrHta1l6iraTAawU6/qw g4dz/6TrqAP/pOtJOHofuky/ds12JiTz524SYOK/OkL7h69gaXy/ubR1+afATkg0QOL6iQf/PXsF9HL/ DGcC8/7/kwtkn93NUnz1RK7Z6/tQP6mT/0eWoLIlx5 cCw/cdudPeNM7yacRd/dWZ0E613+f3u8xJ0cYdgdY7/y+xifocvuRdKSPyR/OR51B72SvK0lsL2u81vO /pLfx/oFd9x7yU+23/qIX1XEAxNUqkhmWFfMogMIqKRR+Z0f3kx5ds9R8I0+0++1UN9faMdhIi54ObyC cnsp3GpGf6jE/cO3FkOHzzldjmvgeX7376On3kvVm/ huwa/e9C0/+NWblt+ZcwReiHlp359Gg2iKg/Nv7Ku+o5kdGpwd2Iawq+Eh7pN+5I++uAgY/uETgX/Cxf o3vsCJ/PoqpTBBT45f42x4//Sd0+E9/mL1q2K2CrG//Rb5P31/uKD9I77//T54Q97TaV/HrnoBTh9l3z 99l/mHb2RA28/m9xuE1r6QD45j/cuvht/15N3gJKFG 3+jd05qaJ20Y5Nf2nn7ntzxt+/QdoXgLC78H9iad20zb6/94L9bZKIgb7IB0Bp6csmWbjRV0o/hZP9/X 6bT9fF+zwIZFuILIJZZ3lQaY//s4vlM3eVx8vHc9dEwe+RCJ7SN9gzh++3UFv+E5c3KKG/KX/H4XSd/8 3SveSrOM8k6hx5Px+5mF8No70mo/7pjKk2K7MI2CrM TsUKdJs29Poj2ak1PDQwh+0TV30x4SV/aGj/dNS/6W/Q8nz97zQxh67t84Yeek1gi+xW8a/EjlC3y8j+ h4fdbimw/V45GgzT4Tl3Q6sd/6+jG4uGnwt+BXjnEp+NQpHxj7C3Q5ZQ569t7kXXtb0I5zYdzoeQAo/s 13kR/6dvIBrh5rOQa+ryuqXYgq4FKoaMk0jq93ZnBD +/YT4XdD9rf0Grl1hIBz/Ngh2B2t4X2aO77p/H56z192PJb+/C9ErglDm2DdHi+ayp8BvrN7Ww897de2 Jvmib/On7vY0YW4D/Gpi3At+XCaYgxze8Uqs4tdF/mFpmqlOhA1P5Ng+x+BXHFvmKpKW/UBUlTI8LrgC 8Io6Sjg750XcL9v39Jbxq3BerN1L8ibi3L1295wqgi [file] n187z/janine+J+iO9T7qjnrj/arQ286/PbuZ+fz/38f+P55t/yef2+f+r2KL64Q6ntjz/9x6nwnd0kh479 Rdvu+Bleach Supervisor/Z5G/v+m0742a53u7razmAn+f3+53srf5j0 /vlc+/5xtCCN/u1usNa8h07rBs3srOyZGuzd5RkDXagcL5c6/L51M+n/J53O/EeeJ+Rq7g1vgSist/v/ L21G4dNWrsZ8fHY1yiTjXS5G/+rqXI3/J5lc+ixI55w2KQiW4mr3l2tk045nkjw0LM27/76/fdn8t06j +032hf3y3ozwnRpmYjbo4Xm+/7aAvtJ2m2/NaqfF6/ +2aon416/mxdPu/y+ZDPh3w+5fMpny/5fH1+bnG/XU3vtz5Be9+JQ2IowK/xyhrXc7IpE/j38/l6xQzW Pa+WwW++joLXHu/f+GXHVGU6ne7mr8pG15DdkIuwhXv/f/z8wuSFFPY7p1hn4AeuB0xgnp+/2pXXnc/n MZ+FcpR582KSL1btc+77L0702/w373b6OpdR8WCu6e Nq896sxhAigImZa15yA/36z6jv/NDjQCkZTcJr4K6fcBeJqFvT3hFN66/qsr9Ef0IuO+VL7eav8H1wS9 kj6PnFL6p/T5JQ7idqPhdARVFBQu3/5fMrn9/f87unyO+//CEkCvJawa/YhuBXbFvwq/y7f+3Wd6B3Aw +ihMF4+QMLV6KLwARB+ir4VX7+3K/IEnx/z+875/Nz 8CtwiZAk+P7+Md5f1mq6eubhZd0D+oxC268+7/J5l8/Z149vY4pl8Wm7B/cHeQOMJEs1nn/X55/gV+wz wa/TbQ5fg6Fj+IUxH68n/Mi8az1j+BW42QG/wnXBrzCOgl+xbwe/HvsZ1VLmwx+/6p0DcoLi59dOg959 lg1Np3nFfXSs7ZKvZueJ51/fbmJ3t2IN6t+eYXPw/g 3FgXMHVQae+IMiJxw4hCD51/n+cHegm24Z3sjp/u7eVLT2/+4207KGhv0xR3IaG+GknLSfF840l6vL++ afh1/tPLZ/60siS5TLHTyR/h/6dmU1P62jjA/uJ6CoJc/x4Yiyas0mJYs6ZhgAChqRw+I1D15j3HNhe1 C2GG5ODIvtF1GH39D1dW/vaE/wq8bC/Uy3TdrLEK+X cmwOu3WuDtMKK5AS6Kl8+n34M/xIXJLBQCWFlT7PRAP2/Dr5QJ7y+FVF/wl+FG7St0MxWuwVFWnTUX/C lkOoCbx/X/h8kt2DNQAhH1JKlK0ADyV9L5co9yu3v41Rhlm3q/7pTcT4X/66983EPyMys3N/X7+FgAB9 HvoBv+kVd2b4q3w/n+hZaaoqT20q39q+bH883/0qB6 wCxq7qF/t35V5iDRz+hYXkKX7dsgdHyLDF0CLZQDoHoYOEqs/kU8mpOQOQaoNN2XtPCLWvKGT+Bakari+RR [file] StHTJgZcuyKp1fqKF6QIFjRusZVm6Hd4YdgtN0cbPcGfy0PCN7BjFaSI0E ID Date Data Source [id number] 10/05/2020 09:42:49 AM [facility] Name Value Range Interpretation Code Description Data Edna rce(s) Supporting Document(s) [facility] JJLEPb5kLoSXFgIbt1KgSdJuUUBxGJ1oopz6O3Y6gHQhT8WvvXFrn0rdV2WiR7CeZKRgVWVRLQ3UnYHl jb2 [file] DVWRYn4i2KFEBza2bPJoACCM4W+ntbw9B5ecSvOFKH kVH76K9q3pSODX0XveyaJUdngFE3FhQee9m075FMyxcudh0hniODYcye1rogyy2P6Iv34Ch2jU+6Kv+D dptd7vhVJZF1Lvw9Z/c3QvqjC3WO/GQrLwb/xXNjAOPnkPfkMrlL9cH1Z8Ge5+k574Wd1jrHpC71Bezw XqLHTgGnGBKhFdtFD08L1Za/c+v19GlP4r5jSMlyTL PrilK9jDuTG87ckKY6CGFKbsUeTedz44A41JVHSymJAUYMYrEA4OD+OLzcS+3ZAp6uqCe1yR/1YF2rQ3 x3aV169Xu6eb4NjP6b/UtmNRcemy91t+qu3yjHv4Nmpcl0im5Kpnh9VPJf0iSY70QJHc6Xgx7217eAiQ S+w4iXGEH/+ivLZ+e9F13W/+2lTw2KdGG3gE4f8msi fmKhxhbgs5UuKe/ZjH/MJvL/pfW56/++7Od6yhWXaEqh2R7KS+7E/6fnBip3+wMt8sA+vU0nm/eWrp/H WxPsuppfPXDOebP7/LgTXzwpa27rOs53gxyw3fWHy71b4o7rYGq5Tk8kY/0H6R+ebPL/pMLYFTS+fPg/ OFFLINE EDITOR/5LIFb3gAxe2F7dKgLmNag2V2/FMcUP7TkE50D6 [file] wOfgc/Martinez/wB/jj8P06/m8y0y1kBwiBc+HqK0ilWjd9x72eXd6hDuyB8Qhj6L1m/hjYy5eXXmvRqg3dzr G3fwqE8Qm3Ow4En+Ab+GhvOPjr+04RPYw9rZxhczQu aTgvAzzP2h/3hzAi8d9yEX/BH+CPw2/Xhetz/8h7bbv7u2wd7/C3n7Mb73tF27tP+R7Ajj1ci1M3Knoj kgBpXA1qej/D+A5zni2bR7u4qg+/QseduWcbONxIW0VJdBKmE3H0b2G9Ba1xbE9lG05t4W+4X8v0yQ+O 2rnNrjv6b3z/DhLhkD8z44g0bH2+gq/g4/umgY/xmw 5+gB/hO90FnloD0eAvuz00RpU0QW+APw5/JIopgsw9STJaNsRernuwIL9xCV+Hn/V6+BsZJ2cflHngqh Km3DbqUc3LZTe5nd04UPt4n+q3k1sme7S+a3omR6I1aggf6ZR6d0w34uhH3wec1hdqWj0y9klJ8dClt9 tlt4uyfGgc0s/WGcC9h0G5GLd4/pSvCsN3a2M3qvT9 Xyd91r6NHu+/Fhzp774kgAFO1k4zVbzOm9jNm+51QH32e//m/A4624qgqpPSvBAvDRcD8k0bjyt8504g V1eVIr+/02YdwngHL3J3hc0vxc3Y+FU5+fqJVI5HKe0LNxAlpdonuqfMq9f9O1/IWPJperulC88kV6MG Mkt5fyEyq+9695So7pA+QRkwN9L17kQz6tBYH+Ar+A q+gW/gO/qUenQo1OX6R9/o2x52br0d3i/7PhXnd7Fn9hiTN/qCwwWniDdtYWyR83Q70A40Ti/Ax/dd+t W+Br+N01EQan6lCdPE3I9/9oIu/Iml4JpR77x+2aQu5ghJ8G6+2Z5FcxRSr2FW/Kwe4B/9JbEp8rEpmb Jgm8eif/3pFVF3JW+Af/RnjaM/a1zgC/lTxqOC4SyJ ejHt7Ph1XU1J94Xm8AS6F0+owwl27zz7NE6HY44118+2oz9rO+lZKjwk7WqtIRzU88V36O51h5q+3NCf G/qhC46l5N9T/ignTmg642l+9FRi72GduC89Wuu+MqlKdqGe1Kd0Qa9X5+A7+AF+gN/Ab+W70DYnOn2a 5rGpX+3rAf44/LwuXIOP+PukTecw09T6mLyxR/NzYn 5OzM+J+RblH7tGu4Awwz/gJ/kHnfZkJKB5rcoAol4+gC/og04Z02oiT5oRM5kKb2+Hdz/HWJIjgoGF5cq FfjQZ+Bx/hy1k1QU72CI3I2NbDs9w6mfpsKZoIL8/nzviaen+3fa78n6lpirJz6OofgaluYgAyZyHsxb bG+qhiNsbWuVhbyuQf6evIj+An+RB5lb2XgSAO3CQv wD/jdwbTVJ+dbTBJuDPu4Nt6Fx0IG+Y87Ph8YpdL/xtNgjIqwb3uq2MUhcBPmez3pFU/CktVYw9AoT3S 9QzRhqYSu7frY4EB9OUitI00fl4gbE2Ea4Lq/JhdEl6IBy/x2HxP1l5I5+1QbW8wDDa97xAyX8WM3O1h QtUjgqbadexAy3wI0MPkhPGSwoX/9ZQbE5iOPO6x0i rDvN86cQ07ZfuI+Rn5RvHa5/lPjbIuOefwAeq00P1m5Rosp5pJWn/e363Z40jftKL9kGvZ6GtFDhXsMr 1f/72vtBBiyljFlZbsjh8YPax3ouqH88KpTUv8PXkl95l22bp3oPlXy06zAp0yX/OV+bEHzc/2c87Skw kJs/unn/e5loXQRWFZHNdmeMOg+ztO/eq5Bn+APw5/ 6usPSixHjsBz3Qc0Yi5U8+A7+AF+gN/Ab+S11WOcWPornSpJWStT97Fg88WgN8+20oC4Ob/BV/ANfAPf wXfwA/pDy36y5a44Z5JjujV0rK6z3jmV+ywwgysTcaegb306bvQ+6pivOubnjvkZ+yW2Fx7GR/sb1o/9 wv9q0zNh5jgQ+aGd04wgI+xfWT/7sdbP/lw1Qr54/L V/ta/BF/KExQSs9r/2ryzPfrvV/lVdgx/gB/gN/AZ+B7+Dj/bm2a+zxPxc+1dTVti/gdEeMAvlO3fKcQ 5nAXhCqwWs4Tu5+A3O24YM0KB1Ws99xOV4D9QdVFL8LvFDVM3cOR7Tq0Oo+HWBL+AffcOvYy/4peAb+A a+g+/gB/gBfgO/gd/B7+An+MdemKEo5/a3Ge935PEW L+JcoHO4Hp7mLjtHK/7gaprkO31gGdMRW4Ac8NbcH/gd/A5+gp/gD/TX6kjkBmp4kEkjc2gt1nm0J81F /dotIW5vt27y3no/yal9usmL505qylGVo2LP0mkmQtz6hm7/oMM/6PAPOvyDDv+k72OKxP0suga2H3+5 Hf+HB2vvOo2ro3gVyuX13FIv/+C6bs+87Wv/qq47+B 38BD/BH+CPw6/7p7pNL0WC4YT6Qj/AN/Ad/LMe+yVy7lG6UlrNleq/g5/gJ/gD/FOy8or9uC5F+AI++v Uxq2lZ9L/80iZTX180u6yG+EVxdc5qF2/oaV8wWk5F2zX/nubBvv5X8z62b7owwgKFv+r+t/68wstmmI iuIrszSkRXcaQZJFL6/1fY4XDWuUiJ2IVh7/rW56fO SKNW9quZ3/rFl/r9bS+Ird/c9oJM/EbAq6n24Qzncenj0R+f4LLrH5+zbnshin/dB6jj5TpXDkfaOjYm gmfy3d41y501X4QY0fotGfQGpICk0UhfuW23/Qi+2a3ptYDhH2/SO8ZvP/5f78d/8W6cynb7xhqYpb92 2xSno8hOLsGba80+A7EXmqztG32OeBj4fF/wB/jHXv P29hZoEw5SP+Ar+Aq+gW/gO/zSrlBz8RX4hcAhC2+Dn+An+AP8Yy/4OPaCr/2gtsnyBYmRC8R19X46X0 /BD/AD/GMf+Hl0kF4226AjA/T0F87nzHhk7/iPeW7nMn0YO+Sz9u00ubpplQjpTZlX//TnGclR/XwGcl T/n3Ecpc/MMI5z/VoDcS3A3YcM2NaD4DoPiBmLXq10 ZKV1ltWZpzVo7Ub8Wo1Ar6qhqG5i8omFUMOhrY+G+7I9O1s6TymB/gD/rL+haK+o5Wj6mNfN/SpUwVfw NOeS99S22M+9EHrshdAGfgO/g9/Bx/xJcbOwDro2YkU+wYB/RClru5KMfm2W4ZU0r41B88NoIWk5Y/7B aO1t0U1R+AcD/sGwo2+EoT8b+rOhP8M/GI7v6/i+fu aKrLUAk65uzn/3zVAwp3kvo4BXgmTn6M/9hxUx2315c4EgzY/a98zIVix8gmKaRV3peWNfo3Cu5npotd bfiHO+LuAfDPgHA/1ObZ5f3X7B+AcD/kSBruesovPHZ1zK6Jo8Gd1Ox3r9T/9QwD0z6242t5h+wSUTnL 8K+AcD/sGAfzCag+/gB/gBfgO/gY/5qmG+apivGuar hrwr8ko6aGzq65FP1SP0CX/kfD3YWtEAz7lR/uykDH5V79Qn6RyrT/uYoe3qo5C2udrwrEwDpH00+xtR /lU7tsHqU+lXU5+YjN8Kb0Oz/IjzXlC0t4323AK6W7nybH247yKTKQWNnzyjwz69bX6634j0rruPVzLK eToejft73QdPjWGe6hTI49uWc403bjr8/a1flQ4/4y O0+y9vN00VMKK36sh9iv4Vriqki4qjXM5zx/6Ctq5j+whmYISuMoszLkJb/f62F/lS17bQIR1gioLUm3 Gjyk8yd30/0k7zzc8Ky8k+eYmZCWenE7q7B4e/X+bOm9S3nI7R/iU1vpSn7h6UwVx5Za4i74x/G/av2n B5Q9p80ju9hha1NopajOigU8Lg7AmmMpy70Zuil/A7 +Ed/ainTd2b9hO/2x4PxWfr7xPgiFRfCT4S69J92G2/BD/BYhtRc0K4AJbik/A5+gp/gD/CP/nl60G9Q L/TAtIIbuHraNFxT71Q17UT9wTwXYtF43dxVWR370DIjN/Y4Yg2N3K1M63qxqD6d3/B42jlHvG2/pZmd /elqf5y5j09P/7dZgB/gn/7OCh9m6Ykly054lIQ/qt j7U7rlhTubd/M5zc/52OYX+AK+gK/gK/pYaxFq3Rg1Nx8wA5gdp9dL8ZlgN/gJfoJ/zsc2P+djWxz/Qo uz/cO4591NiNwc2Ev2Ld2P5+A7+AF+gN/Ab+B38Dv4+L6R4A/wz/rb2ll/W7vAF/DRXpy/atCvGvSrBv 5zDo0f9W8e5RsB/aq1Yw+4hkrI0op8PviAE/254fs2 fN+Z0xf5cfG0sb52kKOpZ60FI/ICwrQfB1g5u0Z2lq/H+O0N/SYTzp56B2lw+L5hmqObT64giSui0tYl xHYwAZrfV5mhkJgcciBh+Aa+ge/gO/jz+/n72cMq2tBB2xouZ/gd/AQ/cf+Y53LiHEy/2JW1y4AJlD/a SN4FEe6/qX8O93A76S47Uh/AD/Ab+Y52Ae1PT3M//t A2MD+P4w/t17EH+8Fp7ucVY/CPfdSvs5/XOwSixCvdXdzKB7Pv7TihL/gd/AQ/wR/gn/Pg7DraBtk4S0 1l1M622Up31NvuabIVyTw37c/vuvrX1c+OfdTX/yLSaafHw652X7rvC6uEjgyzIRz6tF4fB0D/bASZ1/ ln46o1HGj+TCZ5My5Mq/Wsdz9X87plpaM/4YS06HGd p70wz/34yugd2EB2U1sM31/06v9zYv/neaTi3/CB5B9gj3FH/7YXev0+dhfMgwvLcaa1cuQ1fPQtbYK/ ub/hNnrIv3389vW+8/te6/fz+9p6zzN+hh71f4wAo9iaYpo+G828unik10lc47mrji6Aw15DwlU26SV5 AL+B38A/+nkdel8LneB/wR/gn/Oi3Y//t/sAstOt1D x8Hi1Rw+A7+A5+gB/gN/Ab+Givn/Q1ChnN9JB1Kt57t4ClcB/eySKn2Vz1Vy8+b+D7wj/FG2401U5R8v fwfQPfN/A7u8RF6malL8kgcO9guj/3ds4/93aBL+AL+OjP7di/nR316U4Bfw2PfbLzN/WG+bkd/bm3E1 /F96aM4k5Zr6gt5w341Bk2g6/b2a/r7ay/vZ/1t/cL qVQvuImdVCjG37G73W6H95s/5xl6D/Ab+O84dr0wd1JO7LLu6HKk1WH9S/1NrL+J+Sqx/dhY21VlZVgX 56C00J90AE/lUms4JugBurx/Martinez/wB/zj25N0R5c97H2V4b59y9G3G+0daC/Ot/iA9r2fP0rnBe94PN/o ctI9uDUj6A4zG/WB7zuO/pzXsX/zusA/7c3r+Remington+l DUm9fq9Jg4lcOx91GI1ks+lLwC/AC/gd/A7+B38M9+zI8YJapn7H1JbfZIn1+XcsZvyhm/KSf+Nyt+cP FX/O+8rg741HwH8oe12V83TO/Ab+Y24Gr9pO3lf9vK4QG9coaN59461b8V+RkS+RkS+RkS+RkS+RkS+R kS+Kkg8yWo+5/5KnH+KnH+KnH+KnH+ZgMC53XQ2UF8 Cj4K95cR56LIiXSimDsps1xyMS4CGA7ZUZkgxG/wA/wGfgO/g9/BT/AT/HM+Cx466H5+mX6BL+Cf/avE +av0o2/k0q/muaBc+tX0I+TSr/Z1nN9g/Nb186Cyknhlne37J+uEwpVcrVP6Wxvf/Hmef+rP6dO/UPc8 /oX06V+I+Z4x/QvzzE/GtBeKf+yFjGkvXOt6+hfWGI a7RgtoQ2G/Tfb4UqP/Jx2kv500Mdgi27JdmD9/1bbxdR0P/7B6QmS5M7rcNymky05+hfrNtBdk/SaPfK Z+vHnUmecu5l8p0092AP85hyXhttRNMAT1odlfys4aWvxxZ4Y26m+2Y/9mc/Ad/AA/wG/gN/A7+Ge/Rosemary EfTPgHE/5KoU5p2G2P3H2y/IMJ/2VEI9qlG2gPwfED fAffwT/+wYR/MOEfTPgHE/9FdR4j6M1Y5F2h/IMJ/7VXN8jfW6RY+AK+gq/gG/nBy5EVn/OX7bJ5L+3N sx+befZjM/K0V0266B9I0lihnPx+R41907R5SD2MAM9TtF5K6+y3J/avcmB+IqdDUuwvhxk3CF64h79A fge/g3/263KcfCMJ/2COs/6OpV/t6+o67kx4DeBp4Y b0Lg5Nt9x77p+BbFXjcvAD/AC/gd/AP+nzeD87R53S/6xHY+lX+/hw3nxMV526EYFGH/AVfAXfwDfwHX pJO4ON0Jr0YupEbyl/Martinez/wj/249GhYC62+9jSzMrzSyVepVSbJ41T02L06Yp/AD/Ab+I01Cx6V/9hHQx AjJpBph3RAvDxOAqFF+AK+gn/T4mB43127KFdTThZm t3nzgG9oN94mgQ770HjkHBwOFb9m2Pm2La6F/8RrDD/feMqJLp5bci4+7MHh6M/HS4aSovH1ThylA/w6 xq9j/PrxLww//oXhDfwOfgc/Martinez/wB/nExoYt5hFW8oVIS+Ar+WmecR9r4GcEtDqsOSy+JgUv3rOBpq3p 9OcRGL+H7MeMv7LlIzn/uI9jkB6gLK/ImMduV00Bd/ fgBn85cgPkMLpA46EZ4SQ2pJ/cFwD01RZ/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/OOAfHPAPDvgHB/yDo2O+6pivOuarjvkK+eKDb7RujY [file] ZeaFNeRUAFRVRVZLqGBUhOBicXZmGWkr4CcDGqqwXTQHCPLKSPkrESKNMCEHSRcuFXJDTKFUYQsdIHOY KeGjhyZGgoie2gklkb4Axw4Eab5HfkHZ/ZUI5sxofL 3Ypm1Gn+I1RfZr3Kv81RrjjF9TIBtWJaFywzQAv+TR1ULO44GH/TIDJ4NoDNTfevcnJHE4otupaVJU05 yIu8CUBpCQULMr1gIJ+MXKkV9YrbvFDWzSMDTrJbYl6qeS7zuNqJWiCeloZbWkGRvazhcUCANcxjFCvC UaFu6VpQYJKQIYGBIqLJmLQMhyDZYZ8PTpmsv5ENQU HZjhwOMPDtSADEclpUSRQpXKNDnxuOHSCzok8ciHNOBYRPYePigISSCPHJBwictfWuoCS3RzhGq9ruJw vQbc2YY9TCpFuyaPrltwzLo/muieU7ggu6Copt7y6hpEy9AGVTJLDcnZ69ptq87q4pA1ukGYWks4WOYZ /xDGFNPtOjTxqWXUQqGcITa3d9W0B3v6hncXuxsDZh pEQQDaTAPmTtauzmdRD4mMstkJ/MokWRhRwRQgE6IxTOnVafXKSPkY+OT7VwJinft+JeIqzZq6wtyAw2 yyjLEhBcVFauhl6MqIQroYmaim9okpJfAaiZWmwefb8znqN66g8dEewh7EvU+i1Z9E1ydn2tND+4naBh CwO8XVCLoz7qDf59Oc9VAZVb/BB8iU7ZEcJaiYqie4 xFWPZffeDh/XpWBA4Ywj9IbhxlmaNWhktzc4ZLd9HoC76EyIywqMeNIaZGkWQIHFo7Q3vlF2Sm6gbQes ASuZjYFYXc0Tq4WBCE+hNuuxvGaI+o/ZssvnV6BsPI61WQalvK64WTh4aNQWRqUulghlp1HIGgV5d6X1 peJRtUefM3UyS/Gq/8r0snDNz4ccQyjiW4aG3xzHP9 qCCK1o4nWUQcHsWNudOWAzfpxnEYWLz1D33V5Fh1XRHSIRrCBqZx2HJf3PdckLLFUazqM8+9QZk10Etu zUMqkOOFD39WVuwIA2ZnGUL6jo0acY3zGDrI2b3Z343agxkfrq2BvaYc7eeuUz6IYe9bg8So0WPsw+we Spu0KsGQRqGUWiFJRkTQfr9Zk5HnRAEDSs5eMZZAUi NDyHYvVWBNGhksHWeTF1L4S3BAP0242sjCKD/8Sy4zML8O9jStHMXHOzUSiI8tTh6gYqAGkkBKx5i4uF 7tMAnYNp2VYnmcwIW2jlR/3OWwaNkbEYO0fOJbbQjSoBY7W0QzB+onE/8xrlLXNCClT0x0bAc+Uh8OUM CrQFsj6xvhxGQaIxuWMyL01y3ZpWcJvQF9cgKgQc2M GqkFKVqMj2zWKCSHoOLhTF5CBKDYuMHtLJNjZ4zvA0ygwSO6iYTVYGTNBMPWaIJEENCFECQDsCJWYQNK MLVLvBQDIICABLXDwJBODfjCkuEeMhYzd7R066ovm5ZIGvGIpMDbmGhwbCzt1Y941geF/RGtZGayeeSa 10RziH37PdPNv1ea/GOwRLDKj58LeZOT056M3IUT9H IeUFEUlVha6QDZ5ekcohYQCKY5YKSFVgBvoBKEiqnOmqq26YzW7FWfnPgQzCk4woOuzYTXTeQD8QKC+r 9Uvqr1HWiSLimk1NsjnRvHDMLGRBRE/duJ+68zS6oKFWCwcSqVxJY+JEnEhg/IxATxyNSCPSiXQiSSSJ sV5d46bxz1k4nK3+67VF6ZQGnAUGtEfprrhb8xgtFC lVj2Ud+6m1PXtAX0o9GNb8MiCtlhbjlgFnk2S+xMAH9ydTiL9jHLVqqm9QAHPukTiZ1FP739Qub6bpMr vzG4kPr5TPgdCNU7fEMYvezAUaQt72GA4vypE4nZEC1TTBVwh4BnEek729B7v304nV8aXKsE8XHVyH57 y6uwEYG2qEo/q1S/nqrMfytHTqieXCWvVYVmEsXfVY 1rpq7LWXmdoMT8wimIYbLKvB89rzzde4HE3zLBe2nxa1sbFjpFZBRnjsn9rOzWMm8xInljJO+B+cyXLE uuvgclOfw7hpoWmTWfscFQj4bobQUrCZaQsBD6JBYK6mrMCGYjyTDmpVPqoUUzaTJknBGjtAVhiTBnhV JzrPJzrPJzrPJzrPJzrPJzrPJzrPJzrPJzrPJzrPJz nZZanYJysXPwvOLojXWdhPGrbVHgyIKajEZavMDfdIZylh3dnQek3d8LQMa6E6AKbVm3AnMxTyZeyJpm RPVA+cdD6264b0UOhuVuqF7FEKTzAzqOVTL8+kVY+tnMkpxFRcmN29ZhAyDfcoo8OTBSUDzJlkBLsWD7 eAcUMsR7yzM3zdGI/bQyfptadDhIlphsrPRFn537uI OBZ1+k5tiyvv37tkc7t6nW1+Z+d+lsLv7AU7F/3OTr+s82I0s40yeOBITpmyZFL56YlusERbCMUIFeXy 7PQ7O/3OTr+z0+/wjBMslffR9btJPyNyT0bFeZSPMYmRQpdFlwKP0TjRwpq0d9LKbH8n1XMWyy74a+7I n6g+tLFgl7C9IMNCxRNdJBnRopfeR1HzK/rgnDhwXj m4nxgX+wEj3NAtot2XUJ+QVnZeePTozjvz4whkT42zxmtQQq5z9P1v2RofKwwWANykF7J5YlQAPzFGDI NnMrQ3AHWXuYT2uvlif44ikLBi4ZbUPpJMHAXzKzJl3vjlH25O3jpnkiwyMULKOWbAZhgpt+qxHIKIEG E/zL151vL6iDPzGy6Jo2TatnnXPnPNcUThDZvVGSFO MnOIhOP2f64esHkHw5HGTkm0BS9CMVEiPD+seizL+sp2QQ6RADFlERdZJox4HHJZXDY5lsAWV3o6a/La 5WJ81cFTGdCyn/CUYS4w0caUDyUofAIbxM29AH0KhUYqz338SB01TWEAoksEg5W60CBdrzn6EZ1xg/XE zytf5pYQluPow8SiqDRRG5ctpOZsy7fw9ltQTgdfks 9tB6Hgd0QgLmTqv8gGoOyklKsOUl0Aw47X5XUorhxYH6wKb++4ONll73w3QMHydaYAJDcnI+DO2hK7sa b3EwN1+3OJZ2m2CWCk4NMPxKvOELVfPVkCmVCszAgJWQrLAP0nJgRNsfJqxMtFiOHUKgrDcVbS6FpcDs wajRQTUXZKQXimrQDrHSKYVhLZ9MQMz+UQRISIEFEi LbEFVPpRn4yG/Kxrvb2dqk/9XrIU0ZB1lRSSOXsLVpwSjTP7C9G+rqpPDtl7rHvheZhvkq6DgYt5e157 CXChdFWyPBbrH7MokfGXOh3RuYpkQ5PpxCxKr167LK7YFEW5MwZk0XBna7ZdfUyUL1rODiaZsZva27fJ 6U0W9Q4gcBoNDzsFvfXJFlVIVPXYhqouVMOXGVbaZ2 cGC9dH6ZWre5EKN5DOuSpHKXLOuGDpHHcThlA538RkzoupjYbfo+7jv7/9l2/l7R/ePv4/b+8/3thchG YU2i064/BxDi82J27/+eU/ww1f7p62/tx4sQU0Bb/32oesbO6anc7H09i9u72+JP3n/+3dVz+/o4LfXi dpF3k2XwHcm2w9kag/7qvfv/6zs412xKka/dtv3v/q i8/nkic3h2+++Pb9h2+++Pv5l5mq905vUejd9Itn3z81dY/xhwkbj2607S4piedz3+0+fxQ2L714M/NJ X3z1u2/ePr77/Ne///vjd0834s9m/PZehe/f/vbrrz+8/fbD+8+/vn/29yfE75/27c2J95+++/b9i/31 f/3w/xqnmfq9t6ao4gd16mb4f0/95dy2u35+/XrrF/ H53u1P9j/rNu9++rJDI11c2srMM//x7fOvv/rmi1+9//D2xVf//P7DF6+Hf/HN579+/5u/76Jytbs0h8 2Ht/ef/9e/42Ksb9t/9eHXb9x+/eLrV+tfv/zi5m6090750b1ic4k/d/50q/H3nz7/84//8ce//PD9v7 /99//99u0f//Sn7/7yl++/+9M/vv3qux//+B6o7j8r v0j+2z+8/fnHN/mFjF/Mzz0+c/3spae8+35ggB6GvfXtWiNFK38pVu15hOShX6xbSy/pAPG5992j3C8r /06Cyd95qJOzro4fw8fKxt0z9IfeXAwx0Ef6ccwX4gsJ1QODt1+7fiqqWQfn/sGH7//j+2mypip16phv DB8//yi4s807sPpwzU/wESXek77zCe/y/l/C4Gkah6 1h7Kcn//G5tEEVpIGG83qRIl9VWLw7+x//85/e/vLdf37/ye1fS+nbSqxz/+iHv/707huTlj+9+wZ/++ Htjz/+5/d/+X//2k4A4ijGP872oT1eLK5gx0/Uo3f49f0u/+fr3f/45x9/vuaAnk7ac7+3eLB/+fiLf/ n4B+QepECVm1DtD4icM3t/FqeLCt9f1jQ8lfEmBxAp NayyK9p90DZ++/MPP//49t3/+d1zxvhaou233m//+a3ou48gsaxRPSy9//2Xf/uHn/x6f4Z//v6H7/70 yQcen+Cff/c///DdX//43Y8/ucMWdbv++ONP/39Gy/Wn//63/31k+OHPf/9iqniA1Ut/2S3+8s9/+Kw3 WyRtUe9DBgXG+f0f/u8f//iH1xt+9vbf3n/17stPVq I709cALC70y//56nb//otsd4ezd9zDZDl+9W9+8/9pt994nxX+r53/55/clpK+9Zp3f/vd//j+Td7+/B 0vyh3qk/n/TBtvb+4mU5mNT76/q4+v+nEeT86rBPnjj1Z7/+Psg6my9K0NRN/vPv/616464auzx0ns84 rH09f+thlanEWINV1uz0CaUVStWrChHJ6zifcoPHYl IM6dcwa1I5XdzVvzGQbPDXIeLv7hpDSsKB7VWIU7VZfvWMFmMNAmI5McdM5fT74zqPGjDfYqJYWTZZ8M fzF8FWS8VVH6CAOkVzKkVERzYP18PJKrUSDREx9bxtPtZupMHwWqKR7nvpa2S7R3iHDuA627yYccbwRv SP7Fc6EhbXRvHJ1NrGXkxWLxLRSmEEZkW3wal3JmAI vjVJKCJf5mhrRdPytCCsGzTP9flwh0W4B5oKulhcThZULYWLmeJhreIN2ylZajwuiuO4ZqtSDcPHYrT7 FeCRPih89IPEXjHOtLUgFjLvUkLZK5CQh3NoemBgGhAUDcNXBqNNZxPR6ErHRoLZXpFRALILjfEnfwLP QeyQ9htVXCr9LzE87GHVcCHLuUVOFFNUZOBnZzYeXf OBF6PHRgS4YuhpTceHPfTNLCMTmiFrlaFQMnmM0svXmeO0OdKGS0o4RyOG7JF8HrVJOfMGEISCJ1n2Od WEDcatoiruijDqVuPCZfOTQhOYKoJJ0Kyh9gzEBjhhLiPSFJPUqaNghzLU9ilEbxwocxR9LsoQAlPOH+ PdPwGA6axx4+YgDaJLCwRho2MAJnWBspLFVrRRIgJR QjG1oxQSBlKnTbPLZdUtVqBJ6Dd1PwyNRgDh0ztwIeRteZjMDhUlmuSWXzBGKtRJRqAgKGNZUeAENaUV MtNIA7JIYoUWNpNRbnAHSnRFQ6JHv5ZEFnBSYpYI5pVhWsWVMbIfHlZKZlCLHkFPGmvmHJIPSpVLB4Lp AfBRLmLEVxHGChJAcoVHBiCMQvPWIlKWB9STC0WZMr CoVbCNWbQKEuTCPwARNkCSHgglHVVRHtTKSzWNU4CBMqPCLpLWDiOFntLDLaLXTxSWjxWSIvBHUtSL7p TdLzLEIpUIEwSTarLWWlKFNmtiGBQJPkMECxUQTsXFSzNSQoWRXhESgzWSBzUGVtHUBiXRJfGUNuPJ9r UoMtVRTnXOA6MKZqGVSzEYLjodVVTUHdHQOzXKe6WU XoTATpGRVdANopPSJrVPEbPYU9ZBOxZRTgEK8zNqBrJBVfOEJ8WiPlVEZwRRFibbIBZDAhHRFmASC3Ob OdKDLcHGHeIIufHDOpALIfRAfvLDWnDIGuKN4lTxSoVUOvQVGyCVpkZHHyXQEldeHBVNBaCJRyPRSvKf FfBRWnBKVlYNwhWOHiHZB8KPUrDJIxBYIyOE7gCtYq WZLhWWS2PTyxJBVfTYTpefSCSBGpMWYwLNnbBTLcZMAsMLStZPnhQEAkZACaMRE0GGIaRATtIZ1iSyAw VELcAPOaBSEaRfP5JsMaWyFWxNLhaGilujb0UVysI8h2LQVaOQdmJN2uxpKdOVIrRzflWl1srMK4WGUh UxaMCp8Cn3AnvsK9ppFrRoF9LLAkLwQvCT1D ID Date Data Source [id number] 10/05/2020 07:37:16 AM [facility] Name Value Range Interpretation Code Description Data Edna rce(s) Supporting Document(s) Leukocytes [#/volume] in Blood by Automated count 7.9 10*3/uL 4-10 [facility] Erythrocytes [#/volume] in Blood by Automated count 2.58 10*6/uL 4.1- 5.[address] [facility] Hemoglobin [Mass/volume] in Blood 7.5 g/dL 11.5-15.[address] [facility] Hematocrit [Volume Fraction] of Blood by Automated count 23.0 % 3 6-[address] [facility] Erythrocyte mean corpuscular volume [Entitic volume] by Auto mated count 89.1 fL 80-96 [facility] Erythrocyte mean corpuscular hemoglobin [Entitic mass] by Automated count 29.2 pg 27-33 [facility] Erythrocyte mean corpuscular hemoglobin concentration [Mass/volume] by Automated count 32.7 g/dL [facility].0-[facility] width [Ratio] by Automated count 15.0 % 11.5-14.[address] [facility] Platelets [#/volume] in Blood by Automated count 216 10*3/uL 150-400 [facility] ID Date Data Source [id number] 10/05/2020 06:38:06 AM [facility] Name Value Range Interpretation Code Description Data Edna rce(s) Supporting Document(s) Leukocytes [#/volume] in Blood by Automated count 4-10 [facility] Notified Elyssa Mariscal on 5B at 0637 on [id number] by [id number] Erythrocytes [#/volume] in Blood by Automated count 4.1-5. 3 [facility] Hemoglobin [Mass/volume] in Blood 11.5-15.5 [facility] Hematocrit [Volume Fraction] of Blood by Automated count 3 6-45 [facility] Erythrocyte mean corpuscular volume [Entitic volume] by Automate d count 80-96 [facility] Erythrocyte mean corpuscular hemoglobin [Entitic mass] by Au tomated count 27-33 [facility] Erythrocyte mean corpuscular hemoglobin concentration [Mass/volume] by Automated count 32.0-36.0 [facility] Erythrocyte distribution width [Ratio] by Automated count 11.5-14.5 [facility] Platelets [#/volume] in Blood by Automated count 150-400 [facility] Sample quality of Dried blood spot [facility] ID Date Data Source [id number] 10/05/2020 06:01:10 AM [facility] Name Value Range Interpretation Code Description Data Edna rce(s) Supporting Document(s) Leukocytes [#/volume] in Blood by Automated count 4-10 [facility] Notified Elyssa Mariscal on 5b at 0600 on [id number] by 8998 Erythrocytes [#/volume] in Blood by Automated count 4.1-5. 3 [facility] Hemoglobin [Mass/volume] in Blood 11.5-15.5 [facility] Hematocrit [Volume Fraction] of Blood by Automated count 3 6-45 [facility] Erythrocyte mean corpuscular volume [Entitic volume] by Automate d count 80-96 [facility] Erythrocyte mean corpuscular hemoglobin [Entitic mass] by Au tomated count 27-33 [facility] Erythrocyte mean corpuscular hemoglobin concentration [Mass/volume] by Automated count 32.0-36.0 [facility] Erythrocyte distribution width [Ratio] by Automated count 11.5-14.5 [facility] Platelets [#/volume] in Blood by Automated count 150-400 [facility] Sample quality of Dried blood spot [facility] ID Date Data Source [id number] 10/05/2020 05:14:09 AM [facility] Name Value Range Interpretation Code Description Data Edna rce(s) Supporting Document(s) Bicarbonate [Moles/volume] in Serum 21 mmol/L 22-[address] [facility] Chloride [Moles/volume] in Serum or Plasma 108 mmol/L 98-[address] [facility] Creatinine [Mass/volume] in Serum or Plasma 0.70 mg/dL 0.50-0.90 [facility] Glucose [Mass/volume] in Serum or Plasma 93 mg/dL 70-140 [facility] Potassium [Moles/volume] in Serum or Plasma 3.8 mmol/L 3.4-5.1 [facility] Sodium [Moles/volume] in Serum or Plasma 139 mmol/L 136-145 [facility] Urea nitrogen [Mass/volume] in Serum or Plasma 8 mg/dL 6-20 [facility] Anion gap 3 in Serum or Plasma 10 mmol/L 8-15 [facility] Osmolality of Serum or Plasma by calculation 286 mosm/kg 275-300 [facility] Creatinine/Urea nitrogen [Mass Ratio] in Serum or Plasma 11 [facility] Calcium [Mass/volume] in Serum or Plasma 8.3 mg/dL 8.6-10.[address] [facility] Glomerular filtration rate/1.73 sq M pre dicted among non-blacks [Volume Rate/Area] in Serum or Plasma by Creatinine-based formula (MDRD) >[address] [facility] Glomerular filtration rate/1.73 sq M pre dicted among blacks [Volume Rate/Area] in Serum or Plasma by Creatinine-based formula (MDRD) >60 [facility] ID Date Data Source [id number] 10/05/2020 05:14:09 AM [facility] Name Value Range Interpretation Code Description Data Edna rce(s) Supporting Document(s) Phosphate [Mass/volume] in Serum or Plasma 1.7 mg/dL 2.5-4.5 [facility] ID Date Data Source [id number] 10/05/2020 05:14:09 AM [facility] Name Value Range Interpretation Code Description Data Edna rce(s) Supporting Document(s) Magnesium [Mass/volume] in Serum or Plasma 1.9 mg/dL 1.6-2.6 [facility] ID Date Data Source [id number] 10/05/2020 01:23:54 AM [facility] Name Value Range Interpretation Code Description Data Edna rce(s) Supporting Document(s) Leukocytes [#/volume] in Blood by Automated count 8.5 10*3/uL 4-10 [facility] Erythrocytes [#/volume] in Blood by Automated count 2.44 10*6/uL 4.1- 5.3 [facility] Hemoglobin [Mass/volume] in Blood 7.2 g/dL 11.5-15.5 [facility] Hematocrit [Volume Fraction] of Blood by Automated count 21.6 % 3 6-45 [facility] Erythrocyte mean corpuscular volume [Entitic volume] by Auto mated count 88.7 fL 80-96 [facility] Erythrocyte mean corpuscular hemoglobin [Entitic mass] by Automated count 29.5 pg 27-33 [facility] Erythrocyte mean corpuscular hemoglobin concentration [Mass/volume] by Automated count 33.2 g/dL 32.0-36.0 [facility] E[facility] distribution width [Ratio] by Automated count 15.1 % 11.5-14.[address] [facility] Platelets [#/volume] in Blood by Automated count 191 10*3/uL 150-400 [facility] ID Date Data Source [id number] 10/04/2020 06:43:34 PM [facility] Name Value Range Interpretation Code Description Data Edan rce(s) Supporting Document(s) [facility] [id number] lbm [file] [id number]== ID Date Data Source [id number] 10/04/2020 06:11:46 PM [facility] Name Value Range Interpretation Code Description Data Edna rce(s) Supporting Document(s) Troponin T.cardiac [Mass/volume] in Serum or Plasma <0.01 [facility] ID Date Data Source [id number] 10/04/2020 05:49:02 PM [facility] Name Value Range Interpretation Code Description Data Edna rce(s) Supporting Document(s) Leukocytes [#/volume] in Blood by Automated count 9.2 10*3/uL 4-10 [facility] Erythrocytes [#/volume] in Blood by Automated count 2.76 10*6/uL 4.1- 5.[address] [facility] Hemoglobin [Mass/volume] in Blood 8.0 g/dL 11.5-15.[address] [facility] Hematocrit [Volume Fraction] of Blood by Automated count 24.4 % 3 6-[address] [facility] Erythrocyte mean corpuscular volume [Entitic volume] by Auto mated count 88.3 fL 80-96 [facility] Erythrocyte mean corpuscular hemoglobin [Entitic mass] by Automated count 28.9 pg 27-33 [facility] Erythrocyte mean corpuscular hemoglobin concentration [Mass/volume] by Automated count 32.8 g/dL 32.0-36.0 [facility] E[facility]th[facility] distribution width [Ratio] by Automated count 14.9 % 11.5-14.[address] [facility] Platelets [#/volume] in Blood by Automated count 209 10*3/uL 150-400 [facility] ID Date Data Source [id number] 10/04/2020 10:49:12 AM [facility] CT ANGIOGRAPHY ABDOMEN AND PELVIS [id number] INAL RESULTInterpreted by:NORM WelchPROCEDURE INFORMATION: Exam: CT Angiography Abdomen and Pelvis Without And With Contrast Exam date and time: 10/04/2020 9:51 AM Age: 44 years old Clinical indication: Illness, unspecified; Minor contusion of left kidney, initial encounter; Injury or trauma; Other: Unknown; Bleeding/hemorrhage; Additional info: R/u active bleeding TECHNIQUE: Imaging protocol: Computed tomographic angiography of the abdomen and pelvis without and with intravenous contrast material. 3D rendering (Not supervised by radiologist): MIP and/or 3D reconstructed images were created by the technologist. Radiation optimization: All CT scans at this facility use at least one of these dose optimization techniques: automated exposure control; mA and/or kV adjustment per patient size (includes targeted exams where dose is matched to clinical indication); or iterative reconstruction. Contrast material: OMNI 350; Contrast volume: 100 ml; Contrast route: INTRAVENOUS (IV); COMPARISON: CT ANGIOGRAPHY ABDOMEN AND PELVIS [id number] 10/02/2020 4:54 AM FINDINGS: Lungs: Mild ground-glass densities of lung bases likely edema. Pleural space: Small left pleural effusion. Consolidation in the left lung base likely atelectasis. Aorta: No aortic aneurysm. No aortic dissection. Celiac trunk and mesenteric arteries: No occlusion or significant stenosis. Renal arteries: No occlusion or significant stenosis of the right renal artery. Mild narrowing of the left renal artery dividing into the upper and lower branches with moderate to severe narrowing likely vasospasm. No active extravasation of the contrast is seen from left renal artery.Right iliac arteries: No occlusion or significant stenosis. Left iliac arteries: No occlusion or significant stenosis. Liver: No mass. Gallbladder and bile ducts: Unremarkable. No calcified stones. No ductal dilation. Pancreas: Unremarkable. No mass. No ductal dilation. Spleen: Unremarkable. No splenomegaly. Adrenals: Unremarkable. No mass. Kidneys and ureters: Stable abnormal appearance of the left kidney with large hematoma formation and hemorrhage extending into the left retroperitoneal space. No active extravasation of the contrast is seen on postcontrast images. Hyperdensity and foci of air in the large left hematoma formation are unchanged from prior study on postcontrast images. Findings are essentially unchanged from prior study. Left ureter is not identified.Mild narrowing of the left renal artery dividing into the upper and lower branches with moderate to severe narrowing likely vasospasm. No active extravasation of the contrast is seen from left renal artery.Right kidney is unremarkable.Stomach and bowel: Unremarkable. No obstruction. No mucosal thickening. Appendix: Normal appendix. Intraperitoneal space: Small hemorrhagic fluid in the pelvis. Retroperitoneal space: Hemorrhage is extending into the retroperitoneal space up to the anterior pelvis. Lymph nodes: Unremarkable. No enlarged lymph nodes. Urinary bladder: Unremarkable. No mass. Reproductive: Unremarkable as visualized. Bones/joints: No acute fracture. No dislocation. Soft tissues: Unremarkable.IMPRESSION: Stable abnormal appearance of the left kidney with large hematoma formation and hemorrhage extending into the left retroperitoneal space. No active extravasation of the contrast is seen on postcontrast images. Hyperdensity and foci of air in the large left hematoma formation are unchanged from prior study on postcontrast images. Findings are essentially unchanged from prior study. Left ureter is not identified.Mild narrowing of the left renal artery dividing into the upper and lower branches with moderate to severe narrowing likely vasospasm. No active extravasation of the contrast is seen from left renal artery.Right kidney is unremarkable.Mild ground-glass densities of lung bases likely edema. Small left pleural effusion. Consolidation in the left lung base likely atelectasis. THIS DOCUMENT HAS BEEN ELECTRONICALLY SIGNED BY OKSANA Orozcos document has been electronically signed by NORM Welch on 10/04/2020 10:49 AM Name Value Range Interpretation Code Description Data [facility] Document(s) ID Date Data Source [id number] 10/04/2020 11:43:16 AM [facility] Name Value Range Interpretation Code Description Data Edna rce(s) Supporting Document(s) Leukocytes [#/volume] in Blood by Automated count 8.7 10*3/uL 4-10 [facility] Erythrocytes [#/volume] in Blood by Automated count 2.85 10*6/uL 4.1- 5.[address] [facility] Hemoglobin [Mass/volume] in Blood 8.4 g/dL 11.5-15.[address] [facility] Hematocrit [Volume Fraction] of Blood by Automated count 25.4 % 3 6-[address] [facility] Erythrocyte mean corpuscular volume [Entitic volume] by Auto mated count 88.[address] [facility] Erythrocyte mean corpuscular hemoglobin [Entitic mass] by Automated count 29.3 pg 27-33 [facility] Erythrocyte mean corpuscular hemoglobin concentration [Mass/volume] by Automated count 33.0 g/dL 32.0-36.0 [facility] Erythrocyte distribution width [Ratio] by Automated count 15.2 % 11.5-14.[address] [facility] Platelets [#/volume] in Blood by Automated count 181 10*3/uL 150-400 [facility] ID Date Data Source [id number] 10/04/2020 06:13:34 AM [facility] Name Value Range Interpretation Code Description Data Edna rce(s) Supporting Document(s) Leukocytes [#/volume] in Blood by Automated count 9.0 10*3/uL 4-10 [facility] Erythrocytes [#/volume] in Blood by Automated count 2.47 10*6/uL 4.1- 5.[address] [facility] Hemoglobin [Mass/volume] in Blood 7.3 g/dL 11.5-15.5 [facility] Hematocrit [Volume Fraction] of Blood by Automated count 21.8 % 3 6-[address] [facility] Erythrocyte mean corpuscular volume [Entitic volume] by Auto mated count 88.[address] [facility] Erythrocyte mean corpuscular hemoglobin [Entitic mass] by Automated count 29.5 pg 27-33 [facility] Erythrocyte mean corpuscular hemoglobin concentration [Mass/volume] by Automated count 33.3 g/dL 32.0-36.0 [facility] Erythrocyte distribution width [Ratio] by Automated count 15.1 % 11.5-14.[address] [facility] Platelets [#/volume] in Blood by Automated count 170 10*3/uL 150-400 [facility] ID Date Data Source [id number] 10/04/2020 06:30:17 AM [facility] Name Value Range Interpretation Code Description Data Edna rce(s) Supporting Document(s) Bicarbonate [Moles/volume] in Serum 21 mmol/L 22-[address] [facility] Chloride [Moles/volume] in Serum or Plasma 109 mmol/L 98-[address] [facility] Creatinine [Mass/volume] in Serum or Plasma 0.67 mg/dL 0.50-0.90 [facility] Glucose [Mass/volume] in Serum or Plasma 94 mg/dL 70-140 [facility] Potassium [Moles/volume] in Serum or Plasma 3.4 mmol/L 3.4-5.1 [facility] Sodium [Moles/volume] in Serum or Plasma 139 mmol/L 136-145 [facility] Urea nitrogen [Mass/volume] in Serum or Plasma 8 mg/dL 6-20 [facility] Anion gap 3 in Serum or Plasma 9 mmol/L 8-15 [facility] Osmolality of Serum or Plasma by calculation 285 mosm/kg 275-300 [facility] Creatinine/Urea nitrogen [Mass Ratio] in Serum or Plasma 12 [facility] Calcium [Mass/volume] in Serum or Plasma 7.9 mg/dL 8.6-10.[address] [facility] Glomerular filtration rate/1.73 sq M pre dicted among non-blacks [Volume Rate/Area] in Serum or Plasma by Creatinine-based formula (MDRD) >[address] [facility] Glomerular filtration rate/1.73 sq M pre dicted among blacks [Volume Rate/Area] in Serum or Plasma by Creatinine-based formula (MDRD) >60 [facility] ID Date Data Source [id number] 10/04/2020 05:33:40 PM [facility] Value Range Interpretation Code Description Data Edna rce(s) Supporting Document(s) Thyrotropin [Units/volume] in Serum or Plasma 0.524 u[IU]/mL 0.270-4. 200 [facility] ID Date Data Source [id number] 10/03/2020 07:46:52 PM [facility] Value Range Interpretation Code Description Data Edna rce(s) Supporting Document(s) Leukocytes [#/volume] in Blood by Automated count 12.2 10*3/uL 4-[address] [facility] Erythrocytes [#/volume] in Blood by Automated count 2.95 10*6/uL 4.1- 5.[address] [facility] Hemoglobin [Mass/volume] in Blood 8.6 g/dL 11.5-15.[address] [facility] Hematocrit [Volume Fraction] of Blood by Automated count 26.5 % 3 6-[address] [facility] Erythrocyte mean corpuscular volume [Entitic volume] by Auto mated count 90.0 fL 80-96 [facility] Erythrocyte mean corpuscular hemoglobin [Entitic mass] by Automated count 29.0 pg 27-33 [facility] Erythrocyte mean corpuscular hemoglobin concentration [Mass/volume] by Automated count 32.3 g/dL 32.0-36.0 [facility] distribution width [Ratio] by Automated count 14.8 % 11.5-14.[address] [facility] Platelets [#/volume] in Blood by Automated count 166 10*3/uL 150-400 [facility] Confirmed ID Date Data Source [id number] 10/03/2020 04:23:14 PM [facility] IR RENAL ARTERIOGRAMFINAL RESULTInterpre edgar by:Paul Madison MDExamination: Abdominal aortogram, left renal arteriograms and embolization, 10/03/2020. 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 Patient was noted to keep dropping H&H. Please embolize the tumor per urology. Moderate sedation: 1 mg of versed and 50 mcg of fentanyl for 1 hour. Full result: Following explanation of techniques, benefits, alternatives and potential complications, a written informed consent was obtained from the patient. The patient was brought to the angiography suite and placed supine on the table. The patient was then prepped and draped in the usual sterile fashion. 2% lidocaine was used for local anesthesia. The patient's vital signs, EKG and oxygen saturation were continuously monitored by the nursing staff. "Time out" was called, including the patient's name, medical record number and date of , and the procedure to be performed verified immediately prior to the beginning the procedure. Following infiltration of 2% lidocaine into the right groin, the right common femoral artery was accessed with a micropuncture set. A 6 Fr short vascular sheath was inserted over a .035 Bentson wire. Over the wire, a 5 Serbian Omni Flush catheter was introduced into the abdominal aorta and aortogram obtained (20 cc/s for 30 cc). 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 The catheter was exchanged for 5 Serbian SOS 2 catheter and the left renal artery selected. Left renal angiogram was obtained (4 cc/s for 12 cc), demonstrating abnormal tumor vessels in the lower two thirds of the left kidney without evidence of active extravasation or aneurysms. A 2.8 Fr Progreat microcatheter was then coaxially introduced and the dorsal branch was selected. Angiogram was then obtained (2 cc/s for 8 cc) demonstrating this branch to be feeding the tumor. For this reason, this branch was embolized with 300-500 micron Embosphere microparticles as well as Gelfoam slurry to near stasis. The ventral branch was then selected and angiogram obtained (2 cc/s for 8 cc). This demonstrated minimal supply to the tumor. For this reason, this branch was not embolized. Post embolization angiogram from the proximal left renal artery demonstrated successful embolization of the dorsal branch. At the end of the procedure, all the devices were removed, and hemostasis was achieved with an Angio-Seal device. The patient tolerated the procedure well and left the angio suite in stable condition. Fluoro time/dose: 11.7 minutes/1436 mGyImpression:1) Single left renal artery on abdominal aortogram.2) Dorsal branch of the left renal artery supplying most of the tumor involving the lower two thirds of the left kidney. 3) Successful embolization of the dorsal branch of the left renal artery with 300-500 micron Embosphere microparticles as well as Gelfoam slurry to near stasis.This document has been electronically signed by Paul Madison MD on 10/03/2020 4:21 PM Name Value Range Interpretation Code Description Data Edna rce(s) Supporting Document(s) ID Date Data Source [id number] 10/03/2020 02:45:17 PM [facility] Name Value Range Interpretation Code Description Data [facility] rce(s) Supporting Document(s) Leukocytes [#/volume] in Blood by Automated count 9.9 10*3/uL 4-10 [facility] Erythrocytes [#/volume] in Blood by Automated count 2.95 10*6/uL 4.1- 5.[address] [facility] Hemoglobin [Mass/volume] in Blood 8.5 g/dL 11.5-15.[address] [facility] Hematocrit [Volume Fraction] of Blood by Automated count 26.1 % 3 6-[address] [facility] Erythrocyte mean corpuscular volume [Entitic volume] by Auto mated count 88.6 fL 80-96 [facility] Erythrocyte mean corpuscular hemoglobin [Entitic mass] by Automated count 28.9 pg 27-33 [facility] Erythrocyte mean corpuscular hemoglobin concentration [Mass/volume] by Automated count 32.6 g/dL 32.0-36.0 [facility] Eryth[facility] distribution width [Ratio] by Automated count 14.7 % 11.5-14.[address] [facility] Platelets [#/volume] in Blood by Automated count 160 10*3/uL 150-400 [facility] ID Date Data Source [id number] 10/03/2020 10:12:33 AM [facility] Name Value Range Interpretation Code Description Data Edna e(s) Supporting Document(s) History and Physical [facility] MPIULj8lIhFNTbWi11/DCQxcVORvm8ObILyxFOg0YGowVPJzG5DuVGD5hM8oSSO6OLaDWrCtJkKmQAS6 lbm [file] u0Zn1q2j6TXA/6rEm/k9Rrf3Ee8BQXWdWZ+tiyIDGv4vmMx0bTX9HE97uzTSIok4XoHd3/RTdnaHw/psychiatric np [file] ICAgICAgICAgICAgICAgICAgICAgICAgICAgICAgIC AgICAgICAgICAgICAgICAgICAgICAgICANCiAgICAgICAgICAgICAgICAgICAgICAgICAgICAgICAgIC AgICAgICAgICAgICAgICAgICAgICAgICAgICAgICAgICAgICAgICAgICAgICAgICAgICAgICAgICAgIC AgICAgICANCiAgICAgICAgICAgICAgICAgICAgICAg ICAgICAgICAgICAgICAgICAgICAgICAgICAgICAgICAgICAgICAgICAgICAgICAgICAgICAgICAgICAg ICAgICAgICAgICAgICAgICANCiAgICAgICAgICAgICAgICAgICAgICAgICAgICAgICAgICAgICAgICAg ICAgICAgICAgICAgICAgICAgICAgICAgICAgICAgIC AgICAgICAgICAgICAgICAgICAgICAgICAgICANCiAgICAgICAgICAgICAgICAgICAgICAgICAgICAgIC AgICAgICAgICAgICAgICAgICAgICAgICAgICAgICAgICAgICAgICAgICAgICAgICAgICAgICAgICAgIC AgICAgICAgICANCiAgICAgICAgICAgICAgICAgICAg ICAgICAgICAgICAgICAgICAgICAgICAgICAgICAgICAgICAgICAgICAgICAgICAgICAgICAgICAgICAg ICAgICAgICAgICAgICAgICAgICANCiAgICAgICAgICAgICAgICAgICAgICAgICAgICAgICAgICAgICAg ICAgICAgICAgICAgICAgICAgICAgICAgICAgICAgIC AgICAgICAgICAgICAgICAgICAgICAgICAgICAgICANCiAgICAgICAgICAgICAgICAgICAgICAgICAgIC AgICAgICAgICAgICAgICAgICAgICAgICAgICAgICAgICAgICAgICAgICAgICAgICAgICAgICAgICAgIC AgICAgICAgICAgICANCiAgICAgICAgICAgICAgICAg ICAgICAgICAgICAgICAgICAgICAgICAgICAgICAgICAgICAgICAgICAgICAgICAgICAgICAgICAgICAg ICAgICAgICAgICAgICAgICAgICAgICANCiAgICAgICAgICAgICAgICAgICAgICAgICAgICAgICAgICAg ICAgICAgICAgICAgICAgICAgICAgICAgICAgICAgIC AgICAgICAgICAgICAgICAgICAgICAgICAgICAgICAgICANCjw/bVUrF3bktDUfqdF8X2ohZv4BEu8KCJ 4kp9JdXAItKCqnofMwJnyEWlZdLPMhBqaMKoc1OAbcDW0ZlDCaL6EgU9TtHDzuMT3HBYMxIUIbhJYoMW SzAUYbSnO0LPWbLNvhZH4QwXSpRXodOYHdBVYnLzQo UBUvLUUtFIVnXR5NHIImN135lnXgIg1YJu0LDqXnNW2zno1XNzJpMWEoMuiWOxs9IInwLV9IzDPfkSKx VnGiIJRIWxAwT1iyo2OpOqlwIHVUWZyzDW1Ol5ZcrBMqEQj+To4CXJ7as9HlWOvoHpLpJH3rtz1NWEeP EsSxH1GfdIcnRAdzGEAtfFLDBJPxeFhbaa8fS11gNQ foj9utNMEWVMRxoSCxNhR2TeBlAsWfLRH8NAUzSE5nECjdOC4WIRH7WXcsHBGnHIYdW1cYKzHyTXHwIw OutRndPG0WRbGkP1MjttOfzXDqNaFiXXDNCb3+TBiinpDhKncHOjD2USHkp6WzVBr7OL2AYUGtDRvnUI 2VSHXzfM4iCBtlVL0WWyXqHVEkFBNJYhOuN62cwMUn NCf4Y9MwBaXnIRDwKvxbYNRmIUorKnZjOYVwLbXePMnlDN2+ID4+VQzkRC4GTJcblcUuCWLuHa4RCTBh WWCpIX2rQXRgDGMaX1R9jEaaQSZKVqVlZ2mpmlcaZV0wSCBjL728qKvkumXmPCL2MJJeJo2YEJOnDHH3 RSUyhZUpEzNcRGTYWJepVE3EhLYmBJS4rH9tYJesCC JnLXVuL6yOWwDlkCtoFZ30bTgmwxWmcVMjWTj+Aj7NVZ4wx7KdEFj7dqIrVBmpHGM7GDhqWFAoXYFjIK AcHLP5CES0FWDJCgWnDLTuMYInEQauTNLzRSYuek5ABHGxRTXuAmv6XaJmQLGhLTItPOzbBDByTKV8Me nyZSLkWTIlNT2YBvFxJBVqAJSlELbmHDWqHCJepb2K VRSrZALrNkmzQSVqLQFfCPJhOGqkOGKcWQMcWLI7LKZbFJIhHU1BCuIrXQOqCHVoFCNmPFAfRKJxtl7L FKPnHMFnUgX1HCNsHJRwNXJwERgqNFWdXHC4Okq6LHMbHUCvHL3ISeTcXRTzWOx9EYhiEQVvFSRmjn7Z RSHeOGEeADD7HXKvKBZqEOOpGQqgEPFySMK5VeF7VO GqFCCbEL3AXjFdMBNyZJj7HhagAIRuJEPehu8VBLQjWKFvHRp8MlGfUXRhIWSiEXrtNNHfVPWvSSm3IN YhSREiMY2HYdTvRIXtCTYcOImiDNHiMIRorf9GWMGvVHKiTTJ4EjBlQOWjSKUbWDlgBMLqVVWuOKS1GZ PrRQLcIW5KWdCcIDXuHKF4MqfzDTUzRCVcpv7PYGRo TRYdJxQmPfHiFOVzKYFeBUqoPYInYKXbNnPgFBHfMBUhOJ1DPoQmNABxJvO3GbsdGDCyYLCpaw3BCVZq OKViYgh9QUSeEBMoOSQkSSwnSEGyKEVvVPP8UGKtAGAoFR8EWnZjZDZjDiWbBQSgDDNiFKAwno2XAYYh ATApRCm9FWYfGQSrCEHpTBdwNAPuAZQ8OJKfPUEhHE KgKW0CXiUpROKnIxObEAYhJSYhMVFgau8BaVJawVuwhx2FAInCWz7BhGjxEXP9WZxnLv1bmXRoJBGeJR LVPq4NehItPMCbNEVHXWdoTRLzSFG9KPIkKAGdVGH2XhE1TiHgY8EzQmImAnW1IYRhB9VyStF4MNy4Tj N6RMJ3ThBiHiRpLRVvLkTlWXQjURi6IXN3YOE+IF0g DQo+Gl3Ln3YnbcL9ieKtYBftHnP2HT6HJUJOE2IZLo== ID Date Data Source [id number] 10/03/2020 10:11:22 AM [facility] Name Value Range Interpretation Code Description Data Edna rce(s) Supporting Document(s) [facility] EHBYOp7zTpRQWpGr87/RWDixQASvz9TvPFxfTBm7JBqdACMbM1VoNLG2bK4zQCT6IChQJaYfOrSpHTA8 lbm [file] CLINICAL RESOURCE NURSE+Dw6JDTWbLYl7J7O7PUXrWWk4P3RKN0XOVBPkQL veREelFNCuKOj8O8Y3YCTyB5XCL7Jtsvjqfl3+DR8DL69HAJIjUOn4W7N5oPHkZ5E8xHmBtKI3WS1HLJ 0IkGp9kPBfgC2+SW7QK5ROTmKvHEn6F2O0tSAtK2S5qZsPaFK9RH4VZE3YlBYzMRUgwlJiZr0kV6HIDN lOYiDLASS8WN3ZkJJkTM9QdPCDE3KuiPNfNb1cWIkm fDLdgE1dRs9wZHfzKJ4GGdZWPCtPIUA3HK5AqVIkEY3MgDNRD0OazSIlPg0vYYyfdNHuli5+VP9MNLSx Pe9SNg0+RRwgiePrEtxNUlV2SOWin7ZfUPw8DP2XSI3xlMbmTBX9Fb0EmVN4bKGhH8yLBE7UoBVwS33o lBEdSRPlCd5VDiI3dcRwiW7MRO73tFSio6X6QPMaI3 xlAPgbg71rLKaqPEyRSX3vDVLGRYosXLdkITO9SsMzykolUOPxKz3RHuRzDVh2pQ1qzIZ3EJH4RummiB EvTOrjOiKaXgMhZtC4gBagpsp5SQgvBY0bHXcpncjhEDSfAwj+IPytFVIdETSuJhbGXFVzyE5txzL7pr NoVWyjpMEjTu0ru2c4UawkQm6mAd5kIBy5GsPaLkFy PWEtQz9lpW65YMwvtpWzEa5ZQiSePIF9J8GxYvnTFKT+ZNesGBjeiYd0zECpFEGdVg2IQUKkEYZpYEZp ICAgICAgICAgICAgICAgICAgICAgICAgICAgICAgICAgICAgICAgICAgICAgICAgICAgICAgICAgICAg ICAgICAgICAgICAgICAgICAgICAgICAgICAgICAgIA 0KICAgICAgICAgICAgICAgICAgICAgICAgICAgICAgICAgICAgICAgICAgICAgICAgICAgICAgICAgIC DmUNHaGKWaBWXsUWKcTPGhHOGaXTBgYREzBDCvUATnELBoUHZsPFBkES9MXTIcKIEkLWAdIIRsWNFcUQ AgICAgICAgICAgICAgICAgICAgICAgICAgICAgICAg PDVwJYXnDAOjDIFoMFBbSDZrOODrRHDgYMOzDIXqQQFnZUMhTJTcEKFxFCIkAMCoACNfAN8OVZPxRERb ICAgICAgICAgICAgICAgICAgICAgICAgICAgICAgICAgICAgICAgICAgICAgICAgICAgICAgICAgICAg ICAgICAgICAgICAgICAgICAgICAgICAgICAgICAgIC QiGF7DPPTzVTSmBSOaWCGpMOZbOIOyXYRxFUChVIXnVYQlXNJtNZPqPDWlCVYnAKDeJBYlNOLfSWUeUW QaYCUlKGIqXDXxJPMzRIRmGWIeFZLpTNWbFYDcEICjTNClPMVfUHKjHPCaYC5EXHEsQMKgRDMfEZIuKO AgICAgICAgICAgICAgICAgICAgICAgICAgICAgICAg QPKpJIZzZYJxBNFeHUBjFLEyTAOfBOMtTRRbBNLsJXFaAOPrVJLaWFUrVZSxAVRnWRYgUOErKO4YEZKm ICAgICAgICAgICAgICAgICAgICAgICAgICAgICAgICAgICAgICAgICAgICAgICAgICAgICAgICAgICAg ICAgICAgICAgICAgICAgICAgICAgICAgICAgICAgIC TwLLFxTV2TRWUsUKUfBQHzJNTjPFTiSHFnPASqYQCzASRlFWZgLQLpYXJjWNMmCASlWHSyODJqMWIgAK GaCQMsYIThMOSzWWXnKQEpCYLhMKBtHILvNMBrVQMsEJCzIEGbRBIsODUfHVNzDE2YANKdQEJeCZAiVM AgICAgICAgICAgICAgICAgICAgICAgICAgICAgICAg WSMfLLNoUFEcAXLmIYBsVKMnZXAfTKEwPLAkSCLjRHMqEUFoKHToCWSvTTOpJRXmTMTkUPGcMFFeKZ3B ICAgICAgICAgICAgICAgICAgICAgICAgICAgICAgICAgICAgICAgICAgICAgICAgICAgICAgICAgICAg ICAgICAgICAgICAgICAgICAgICAgICAgICAgICAgIC OxUFDsRCAkEI6TOB35dUKem4N8YGDiOT3gqmb/Ww6MDPpvllMtsUIvKM4FEfNwNT3gtr8QIpYdUD5phk 1QWEyILxVsF4L0aAYoVEEfZZIHOeTgA25jUFbaBc56QSrsNWAiGcNwZFr2St2ZBmZqC0tyXYHoWwE0GY QoQoS3RLFjRpT3LTKsDuPuOJFeBROnJQOyIQKWIX4P LhRfK1NvgF34LPXYFi5+FGeszdHjDbfAJpOcZGQvq7BoGPt0HV4GBIYcVhckj6KiVyQxTISBIAzrPB1Z UAU8RPJkEBClGy0KXDUbD587seGxSX5SGi1HExMqQO5uea4IIkKvTTAnZdkOPws7XKihUJ0LvRKxPYoA f65zaBp8xjRaeAMMSNWbzCftht8mY45hHGhqh3fkCX MGWZKibEFpIuA5CaTpVmIuRHo3PbjcOS7eNXgkFF7ZSLA5WFrfKNTpZKDmJ6lEXsIlRAVcHhRgzVxeOM 7CWqJuM4PqxrWepXQzUSNgUQBBYv5+XHjxuqJiVtzHSeUeFASoi7YtBEm9RY6LXXLuVDiiJI4QRJLawA 6xGJofBY2KHaLrDCDfQATHLuOlX30veRSjZVi8G5Ja YmVkZGVkRmlsZXMgPDwvTmFtZXMgWyBdDQogID4+ID4+ZWrsPA4EAXcayjZuESFvZy0XRIJjOVYaJI0n SKSrYQIqP5A5pMvqSAPYRlMuJ8zgyaeqEJ7kQBYcW598gJrczrEzJVPoPPYnDe1IDLIoXBO2IVZosYJq RywjWYHTMAvvZD1XoBMmMRB3mS5rGNbjUNSeTFUnQ9 gAKrDkfEroVN11oEkzozGzaOOcQJn+Bl1BMH1bv6XfQDr4psRhDGrnYSZhTVgkPQXcJMSjCQSsHBC9XV X7MKYVTpIgUQPgDZBsXTzsHACxCKWkhe6ONOSkOJOvTHM4ShJnVUVdYRImGBxzFROrGEEvZMB7HEXbFQ XxVP9GBlScORSfVMTlSFmfWCPbWDZbnz0ZZPDlEFPs LnP5RQGbQDEmUMOtXDdwSLVxWILdOQP1JEFvLIEsBA9FVzPqYFVkRYM0LYDnEHAiZAIlyp5ZBMZpTUAz SQz5BvWrVAZyJSPxKXnzUBGeENC5VCS1KZOfWLHbHS1AZkLjDQShLVotIpXnQMSlXFKbud4HMACiHLXt ZqQ0DnCgMVGqVUFxBJepZMXjKAMfMce6VWAxMMKgRG 6TDaMxFUYxYIB8JcxqTNNgRYVqxx5VEZSkWKKmJSm3JEIbVMAcHGHmWQuzUCFeAZR9XBP4FOMlBMDsMU 3GMhUhYYQdAEYbBTCrSLDnMPFeao5HBQYkBBUuMcV0BTDuIYViSSNqMKzsPQNyVSE9OBO8BQKkGDUfQO 3KYjSqYMEmLRouJIDoSZHhAVSlya8KFREeIAWmIwTq RKVkNYBcKLXzODntJPWfTZK6KXb9DOCsXCPmYI6LShEkTYUlPTn3GJUcMOCrJBFmip0WTIVfFOWsMHg0 TKHjTOFmKQOhJLrhBABwYVDuNaJ9WQBmDWMqQP9CBwLhVPIwOyH5RdalCJWxWIJyia5UBEZwPNPzINr0 EbXtWKNlWBSwPEabVSAdSGWsFUW0YBHsTBMeCG9BDv QgDUNxDcMeZuVzVNZqXLUxda9JNNZjWFOhKEA4MWCoEKKcPHOsXMrhEFIyAMUdHOFtABJwXGXqIB2AEn CbDGMpAhObHqKfWHStRJNtlb0OXIEbHESaJgY6DGGuMWRpCNPuMCy9hjDruAYyETf2GV4OG2JnqgPnAw SNQf7Rj874CZKuZBRcTg3GO3nfXz0nANIdBRJAKq5R AJb2MzBgNMZ1TgEtLZD5DJRvSyLmMPxdAZBoWEAwFjY3JKZ+KPsnXyR2HYt7WnKjSlruSMOzESLkC1J6 XPR7ODE1NsjxQj6vXQZWYu1+ZWvapGNfnYjyEQUTDyBpBKV5GLltOIARGs9R ID Date Data Source [id number] 10/03/2020 06:14:32 AM [facility] Name Value Range Interpretation Code Description Data Edna rce(s) Supporting Document(s) Leukocytes [#/volume] in Blood by Automated count 8.8 10*3/uL 4-10 [facility] Erythrocytes [#/volume] in Blood by Automated count 2.73 10*6/uL 4.1- 5.[address] [facility] Hemoglobin [Mass/volume] in Blood 7.9 g/dL 11.5-15.[address] [facility] Hematocrit [Volume Fraction] of Blood by Automated count 24.1 % 3 6-[address] [facility] Erythrocyte mean corpuscular volume [Entitic volume] by Auto mated count 88.5 fL 80-96 [facility] Erythrocyte mean corpuscular hemoglobin [Entitic mass] by Automated count 29.1 pg 27-33 [facility] Erythrocyte mean corpuscular hemoglobin concentration [Mass/volume] by Automated count 32.9 g/dL 32.0-36.[facility] width [Ratio] by Automated count 14.7 % 11.5-14.[address] [facility] Platelets [#/volume] in Blood by Automated count 172 10*3/uL 150-400 [facility] ID Date Data Source [id number] 10/03/2020 06:39:29 AM [facility] Name Value Range Interpretation Code Description Data Edna rce(s) Supporting Document(s) Bicarbonate [Moles/volume] in Serum 21 mmol/L 22-[address] [facility] Chloride [Moles/volume] in Serum or Plasma 110 mmol/L 98-[address] [facility] Creatinine [Mass/volume] in Serum or Plasma 0.79 mg/dL 0.50-0.90 [facility] Glucose [Mass/volume] in Serum or Plasma 102 mg/dL 70-140 [facility] Potassium [Moles/volume] in Serum or Plasma 3.7 mmol/L 3.4-5.1 [facility] Sodium [Moles/volume] in Serum or Plasma 140 mmol/L 136-145 [facility] Urea nitrogen [Mass/volume] in Serum or Plasma 14 mg/dL 6-20 [facility] Anion gap 3 in Serum or Plasma 8 mmol/L 8-15 [facility] Osmolality of Serum or Plasma by calculation 290 mosm/kg 275-300 [facility] Creatinine/Urea nitrogen [Mass Ratio] in Serum or Plasma 18 [facility] Calcium [Mass/volume] in Serum or Plasma 7.6 mg/dL 8.6-10.[address] [facility] Glomerular filtration rate/1.73 sq M pre dicted among non-blacks [Volume Rate/Area] in Serum or Plasma by Creatinine-based formula (MDRD) >[address] [facility] Glomerular filtration rate/1.73 sq M pre dicted among blacks [Volume Rate/Area] in Serum or Plasma by Creatinine-based formula (MDRD) >60 [facility] ID Date Data Source [id number] 10/03/2020 12:46:20 AM [facility] Name Value Range Interpretation Code Description Data Edna rce(s) Supporting Document(s) ABO and Rh group [Type] in Blood [facility] Blood bank comment [facility] ID Date Data Source [id number] 10/02/2020 11:58:43 PM [facility] Value Range Interpretation Code Description Data Edna rce(s) Supporting Document(s) Leukocytes [#/volume] in Blood by Automated count 10.0 10*3/uL 4-10 [facility] Erythrocytes [#/volume] in Blood by Automated count 2.38 10*6/uL 4.1- 5.3 [facility] Hemoglobin [Mass/volume] in Blood 7.2 g/dL 11.5-15.5 [facility] Hematocrit [Volume Fraction] of Blood by Automated count 21.1 % 3 6-[address] [facility] Erythrocyte mean corpuscular volume [Entitic volume] by Auto mated count 88.9 fL 80-96 [facility] Erythrocyte mean corpuscular hemoglobin [Entitic mass] by Automated count 30.3 pg 27-33 [facility] Erythrocyte mean corpuscular hemoglobin concentration [Mass/volume] by Automated count 34.0 g/dL [facility].0-[facility] width [Ratio] by Automated count 15.0 % 11.5-14.[address] [facility] Platelets [#/volume] in Blood by Automated count 176 10*3/uL 150-400 [facility] ID Date Data Source [id number] 10/02/2020 06:56:32 PM [facility] Value Range Interpretation Code Description Data Edna rce(s) Supporting Document(s) Leukocytes [#/volume] in Blood by Automated count 11.8 10*3/uL 4-[address] [facility] Erythrocytes [#/volume] in Blood by Automated count 2.86 10*6/uL 4.1- 5.3 [facility] Hemoglobin [Mass/volume] in Blood 8.1 g/dL 11.5-15.[address] [facility] Hematocrit [Volume Fraction] of Blood by Automated count 25.1 % 3 6-[address] [facility] Erythrocyte mean corpuscular volume [Entitic volume] by Auto mated count 88.0 fL 80-96 [facility] Erythrocyte mean corpuscular hemoglobin [Entitic mass] by Automated count 28.4 pg 27-33 [facility] Erythrocyte mean corpuscular hemoglobin concentration [Mass/volume] by Automated count 32.2 g/dL 32.0-36.0 [facility] distribution width [Ratio] by Automated count 14.9 % 11.5-14.[address] [facility] Platelets [#/volume] in Blood by Automated count 217 10*3/uL 150-400 [facility] ID Date Data Source [id number] 10/02/2020 12:47:29 PM [facility] Name Value Range Interpretation Code Description Data Edna rce(s) Supporting Document(s) Hematocrit [Volume Fraction] of Blood by Automated count 27.0 % 3 6-45 [facility] ID Date Data Source [id number] 10/02/2020 12:47:29 PM [facility] Name Value Range Interpretation Code Description Data Edna rce(s) Supporting Document(s) Hemoglobin [Mass/volume] in Blood 8.8 g/dL 11.5-15.5 [facility] ID Date Data Source [id number] 10/02/2020 10:31:14 AM [facility] Value Range Interpretation Code Description Data Edna rce(s) Supporting Document(s) History and Physical [facility] HQFOPf9xZzQMXaDt37/TCYehLDZpi2ZsTLcyBUc9XCavTFEzH2CjBAT8tJ0iXVG9EFcWObFmQxYiNXR1 lbm [file] ICAgICAgICAgICAgICAgICAgICAgICAgICAgICAgICAgICAgICAgICAgICAgICAgICAgICAgICAgICAg FNAmGWEdYL4DOCKzKWFuDWItVXGgCIPuLEOhXVMkUO AgICAgICAgICAgICAgICAgICAgICAgICAgICAgICAgICAgICAgICAgICAgICAgICAgICAgICAgICAgIC YdZCMxQVZxWOSmDNDhTWFxSW6KFTRsKFNnIKErKTDzGNXfNZZwSJCgQYUxRWEbJSPzKCJiMJNfFVTzPB AgICAgICAgICAgICAgICAgICAgICAgICAgICAgICAg CWWpYUEyTOLyFUFiLLWkKAHjQEEyLPXnXFUbWN8NPXReVCUgXTTxTTTyDCKzOXZrUTCdUBPiXBEdTOGf ICAgICAgICAgICAgICAgICAgICAgICAgICAgICAgICAgICAgICAgICAgICAgICAgICAgICAgICAgICAg KTCcMCEzWXLbKR4XJHHoXROdQYCsFARaPOVtNATgYQ AgICAgICAgICAgICAgICAgICAgICAgICAgICAgICAgICAgICAgICAgICAgICAgICAgICAgICAgICAgIC YtPKYmZRYhZYVqHDOwSPYdTCFhYE4RKFUbIBVgRSYpUZKwLAGtXQWfGOUmMDLoCOMnWJDtKYQwCVRiBB AgICAgICAgICAgICAgICAgICAgICAgICAgICAgICAg CQTdPYHtAAAkIFHgELJnESIjWUIbHCFeMNSzVGVnVG2VPISlOODnUQMbEJGpQWPcJZZlWMGlZAUcNMKq ICAgICAgICAgICAgICAgICAgICAgICAgICAgICAgICAgICAgICAgICAgICAgICAgICAgICAgICAgICAg SCAcIJTiNPMcCLLuYH7BRHCpECBoYNGqRGSdPSMoPY AgICAgICAgICAgICAgICAgICAgICAgICAgICAgICAgICAgICAgICAgICAgICAgICAgICAgICAgICAgIC LxBZZzPPAtQQFhUNAdLQZiBLCjKKMjFR1WYMQhUDQbRGWpIITlTPSiSTOxSDZgRJYiFJItCAMrSZTkAS AgICAgICAgICAgICAgICAgICAgICAgICAgICAgICAg BUUsGYOeOLKzKVGoHMJsTOEmTMUrVKTcOVHiQHCeIAHsEZ4EFOVhACXnYTDgSUBmDTPnALQwNIDyZJIe ICAgICAgICAgICAgICAgICAgICAgICAgICAgICAgICAgICAgICAgICAgICAgICAgICAgICAgICAgICAg VNAlDYRmQNJeYTGzITGiRG5SWM07rCVyb6T6PBApOF 0ndyc/Yr0USThjruVqmRXsSA3WWxMeSA7ajb9PLfZuUI6tow7IXJfSFxMiK6V5pWLnDXIxSMTRXcWiR3 8fVUdxPc06YQtvAGXcHdWsXMs6Vr5JEpJvV4mmZQPaLjY4WGQgDbW1DWOoKlC7HMWdPvFfWIPjPKXtOZ WrULPJJL6TVvOfO7EgpE06OAUPZd0+DQplbmRvYmoN YzDtFUIfb3ZiJQt7QX0TFTOfMlxlb1HdOlPhKGYBSYqzTI8NGEE4QAApSJZyCc7SJEUmU496puOoIF1P Uy1GVuThZU3mrk1ZYdMaBZQpZnxUHao2SCvzIO4XfJXvXSwWGgMjBdokN14uiu4wRQcwSP8qaFSax1Rm cmyxGKOsFEAtIU2wLa3oKUYyLMYrIaK2HUXCBG8ATQ PxOIMgeORxWFWsLBOMXG0AHOkdKWN0IGFficSyfCTuMCrjIA6REIIddnYvNlEqHAWGQKl+Us5OCR8go3 FfEUcgEvDmNQ7hpv0KUWeJPhDzU5C6nLRtT9D6XYdoDw3QDQUzCUObHassIMCEOXkgQR6LFT2wqyO8OH 6ZiWRoQMZrFAGniIOyUAf1F47fzPOvXSruKM6NIJL+ Erickson+Es6DYYMaYJBoROPwDeSeJEFGDnBaC4LtM3MOs3TqN2JiJC36cHaqglCdYDuqWP0YPG0pSFGePMKO PB3YlJFnnE7ifzKjHSZlEWRLJkVoI23coYLdFIHuVWM0FFKzTw9GILXsH9OcvrJntXeespKzCQQoKDEE WO3XUDdlevJqgOSweZshWU26uIieNV6UKh6BMeHyFC 2eni1GnYXvBl8GRTHbHq7ALPKcGPDqYSXoXGH7TAUwSmOwGXecKEJlNWMjDIX3TVMhHXAiOW6IKvUzYX FzAih1UKRmNUOaJEGkez8MJVKrZKDxIGG2YEBeKSTaBAKoJEpsYUDtVZXkBBY5NHQtWCVqLO1EGmIpCY CeKQS7YMfzUUGwWSQdsn9RJPVeCOQhBWOdZsZfLTHe SAZsDYraSHUsLTA8PGN7URXfXUPoQC4MXuZiRFQjPZLyRTJtKGPyJFYnyg6NKQPqTEGgYBX4YXIkECUf NCWsQExhXAAiEIY3MoPoGMHkZGWmIO4MZeElXACmGTChYAJzRTIwSAQtje4RNSKdSVQrVmHpAZBlMIAc NCOlLUtwUNZaXGRaHNOuGUKdVXGwTR2NYbAgOLQaQE NpAUGjLFBuJJJkfq4EOTLkXFIyTWK4RsLoZQGzDAMkTHvtPQFzSXG5KAEeMVLzWPDbTT9NVjMtCQGtYD P9JUAaNFPlKITvtf9WTDYtGJXmGUZnFJWlWCRdCCTgYDvbLNFqLFP4WAB9HAEoBBBhYM9SMtLbSSIlHY O3RNAhNPMdDTPszv0TAQUtENJcZnh0ADUfCVZrSRLg JJgtPNXvBWJ6BNIxYBHbAMYmLH2FChRdCIDeVWrnXlHkBUOtJOJgvf3NMEJsDCGrXOryRHUtRKKkHREl CCpoZJWrPCU3SWO7MEUcJUCyJL4GOuHbKQPlUmwzVBooMCHuOTXyzv7ENPDgXLKzJNE3FvQaTBHkZRMv JTpbJIVsEWL4HaEgSRZwCHIzMF8CLrFzJHHwAlMuPY hfIQZqCSIebj9XNKIbSCUiABTdEgSfGCMbUEFpUOidYQHkCPIlTAe4IMSjKUNcRW4PVbNiRBJsTzB8Tc epNODsYHJavp0ScNAafZlkqc8ZRVjCYw1VxNpkWIAkGVmgNx0kkDAeCgAdBFXCNk9LqfUaTGPhPUKLLF seDLRhYRzwNoZ4QtSpOHMwHoI0Ulh7KNKsAzQ2LQPh HfNjZnE5FoW3MFThTLbuZSG1DeJjKNQ6BXN8KeIuVjC1BIY5IJNmWYz+OR1yAEs+Ak3Ea2DfmmW2zoUr VYcgMIb4RT1NNLVCX4PZIr== ID Date Data Source [id number] 10/02/2020 06:47:56 AM [facility] CT ANGIOGRAPHY ABDOMEN AND PELVIS [id number] INAL RESULTInterpreted by:Elena Villalta MDPROCEDURE INFORMATION: Exam: CT Angiography Abdomen and Pelvis Without And With Contrast Exam date and time: 10/02/2020 5:10 AM Age: 44 years old Clinical indication: Other: Evaluate for active retroperitoneal hemorrhage TECHNIQUE: Imaging protocol: Computed tomographic angiography of the abdomen and pelvis without and with intravenous contrast material. 3D rendering (Not supervised by radiologist): MIP and/or 3D reconstructed images were created by the technologist. Radiation optimization: All CT scans at this facility use at least one of these dose optimization techniques: automated exposure control; mA and/or kV adjustment per patient size (includes targeted exams where dose is matched to clinical indication); or iterative reconstruction. Contrast material: OMNI 350; Contrast volume: 100 ml; Contrast route: INTRAVENOUS (IV); COMPARISON: No relevant prior studies available. FINDINGS: Lungs: Dependent atelectasis both lung bases. Aorta: No aortic aneurysm. No aortic dissection. Celiac trunk and mesenteric arteries: No occlusion or significant stenosis. Renal arteries: No occlusion or significant stenosis. Right iliac arteries: No occlusion or significant stenosis. Left iliac arteries: No occlusion or significant stenosis. Liver: No mass. Gallbladder and bile ducts: Unremarkable. No calcified stones. No ductal dilation. Pancreas: Unremarkable. No mass. No ductal dilation. Spleen: Unremarkable. No splenomegaly. Adrenals: Unremarkable. No mass. Kidneys and ureters: There is a large (approximately 8.5 cm) fat containing tumor in the left kidney which is obstructing and therefore dilating the pelvicaliceal system. The most common fat containing renal tumors include angiomyolipoma, fat containing renal cell carcinoma, and oncocytoma. There is hemorrhage surrounding the kidney and extending anterior to the psoas muscle into the pelvis. Stomach and bowel: Unremarkable. No obstruction. No mucosal thickening. Appendix: A normal appendix is identified. Intraperitoneal space: Unremarkable. No free air. No significant fluid collection. Lymph nodes: Unremarkable. No enlarged lymph nodes. Urinary bladder: Unremarkable. No mass. Reproductive: Unremarkable as visualized. Bones/joints: No acute fracture. No dislocation. Soft tissues: Unremarkable. 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 The most common fat containing renal tumors include angiomyolipoma, fat containing renal cell carcinoma and oncocytoma. THIS DOCUMENT HAS BEEN ELECTRONICALLY SIGNED BY PK VILLALTA MDThis document has been electronically signed by Elena Villalta MD on 10/02/2020 6:47 AM Name Value Range Interpretation Code Description Data Edna rce(s) Supporting Document(s) ID Date Data Source [id number] 10/02/2020 05:43:00 AM EST [facility] Name Value Range Interpretation Code Description Data Edna rce(s) Supporting Document(s) SARS-CoV-2 RNA 2019 nCoV Real-Time RT-PCR: NOT DETECTED [place] This lab was ordered by [facility] and reported by [facility]. ID Date Data Source [id number] 10/02/2020 03:56:52 PM EST [facility] Name Value Range Interpretation Code Description Data Edna rce(s) Supporting Document(s) Specimen source [Identifier] of Unspecified specimen [facility] SARS-CoV-2 RNA 2019 nCoV Real-Time RT-PCR: NOT DETECTED 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 Patient has symptoms related to [facility] When did you start to experience these symptoms [Date and time] [Phen X] [facility] Patient was hospitalized because of this condition [facility] patient was admitted to ICU for condition [facility] Patient resides in a congregate care setting [facility] status [facility] ID Date Data Source [id number] 10/02/2020 06:59:25 AM [facility] Value Range Interpretation Code Description Data Edna rce(s) Supporting Document(s) Hematocrit [Volume Fraction] of Blood by Automated count 27.5 % 3 6-45 [facility] ID Date Data Source [id number] 10/02/2020 06:59:25 AM [facility] Value Range Interpretation Code Description Data Edna rce(s) Supporting Document(s) Hemoglobin [Mass/volume] in Blood 9.2 g/dL 11.5-15.5 [facility] ID Date Data Source [id number] 10/06/2020 07:50:00 AM [facility] Value Range Interpretation Code Description Data Edna rce(s) Supporting Document(s) ABO and Rh group [Type] in Blood [facility] Blood group antibody screen [Presence] in Serum or Plasma [facility] Blood bank comment [facility] ID Date Data Source [id number] 10/02/2020 02:53:18 AM [facility] Value Range Interpretation Code Description Data Edna rce(s) Supporting Document(s) Leukocytes [#/volume] in Blood by Automated count 14.0 10*3/uL 4-[address] [facility] Erythrocytes [#/volume] in Blood by Automated count 3.46 10*6/uL 4.1- 5.3 [facility] Hemoglobin [Mass/volume] in Blood 9.9 g/dL 11.5-15.5 [facility] Hematocrit [Volume Fraction] of Blood by Automated count 30.2 % 3 6-45 [facility] Erythrocyte mean corpuscular volume [Entitic volume] by Auto mated count 87.3 fL 80-96 [facility] Erythrocyte mean corpuscular hemoglobin [Entitic mass] by Automated count 28.7 pg 27-33 [facility] Erythrocyte mean corpuscular hemoglobin concentration [Mass/volume] by Automated count 32.9 g/dL 32.0-36.0 [facility] distribution width [Ratio] by Automated count 14.5 % 11.5-14.5 [facility] Platelets [#/volume] in Blood by Automated count 230 10*3/uL 150-400 [facility] Differential cell count method - Blood [facility] Neutrophils/100 leukocytes in Blood by Automated count 90 % [facility] Lymphocytes/100 leukocytes in Blood by Automated count 6 % [facility] Monocytes/100 leukocytes in Blood by Automated count 4 % [facility] Eosinophils/100 leukocytes in Blood by Automated count 0 % [facility] Basophils/100 leukocytes in Blood by Automated count 0 % [facility] Neutrophils [#/volume] in Blood by Automated count 12.50 10*3/uL 1.8- 7.[address] [facility] Lymphocytes [#/volume] in Blood by Automated count 0.90 10*3/uL 1.2-[address] [facility] Monocytes [#/volume] in Blood by Automated count 0.62 10*3/uL 0-0.8 [facility] Eosinophils [#/volume] in Blood by Automated count 0.00 10*3/uL 0-0.5 [facility] Basophils [#/volume] in Blood by Automated count 0.00 10*3/uL 0-0.2 [facility] Nucleated erythrocytes/100 leukocytes [Ratio] in Blood by Automated count 0 /100{WBCs} 0-0 [facility] ID Date Data Source [id number] 10/02/2020 03:03:22 AM [facility] Value Range Interpretation Code Description Data Edna rce(s) Supporting Document(s) Prothrombin time (PT) 13.3 s 12.5-14.9 [facility] INR in Platelet poor plasma by Coagulation assay 1.00 [facility] Routine intensity oral anticoagulation I NR is typically 2.0-3.0. Target INR must be clinically individualized. ID Date Data Source [id number] 10/02/2020 03:15:01 AM [facility] Value Range Interpretation Code Description Data Edna rce(s) Supporting Document(s) Bicarbonate [Moles/volume] in Serum 21 mmol/L 22-[address] [facility] Chloride [Moles/volume] in Serum or Plasma 104 mmol/L 98-107 [facility] Creatinine [Mass/volume] in Serum or Plasma 0.79 mg/dL 0.50-0.90 [facility] Glucose [Mass/volume] in Serum or Plasma 144 mg/dL 70-[address] [facility] Potassium [Moles/volume] in Serum or Plasma 4.8 mmol/L 3.4-5.1 [facility] Sodium [Moles/volume] in Serum or Plasma 137 mmol/L 136-145 [facility] Urea nitrogen [Mass/volume] in Serum or Plasma 14 mg/dL 6-20 [facility] Anion gap 3 in Serum or Plasma 12 mmol/L 8-15 [facility] Osmolality of Serum or Plasma by calculation 287 mosm/kg 275-300 [facility] Creatinine/Urea nitrogen [Mass Ratio] in Serum or Plasma 18 [facility] Calcium [Mass/volume] in Serum or Plasma 8.2 mg/dL 8.6-10.0 [facility] Glomerular filtration rate/1.73 sq M pre dicted among non-blacks [Volume Rate/Area] in Serum or Plasma by Creatinine-based formula (MDRD) >[address] [facility] Glomerular filtration rate/1.73 sq M pre dicted among blacks [Volume Rate/Area] in Serum or Plasma by Creatinine-based formula (MDRD) >60 [facility] ID Date Data Source [id number] 10/02/2020 03:54:51 AM [facility] Name Value Range Interpretation Code Description Data Edna rce(s) Supporting Document(s) Choriogonadotropin.beta subunit [Moles/volume] in Serum or Plasma <5 [facility] ID Date Data Source [id number] 10/01/2020 09:34:00 PM EST [facility] Name Value Range Interpretation Code Description Data Edna rce(s) Supporting Document(s) SARS coronavirus 2 RNA [Presence] in Res piratory specimen by SANTI with probe detection NEGATIVE [place] This lab was ordered by [facility] a nd reported by [facility]. ID Date Data Source [id number] 07/14/2020 10:25:00 AM EDT [facility] ([facility]) Name Value Range Interpretation Code Description Data Edna rce(s) Supporting Document(s) Lamotrigine [Mass/volume] in Serum or Plasma 7.5 ug/mL 2.0-20.0 [facility] ([facility]) Testing on this sample was performed by homogeneous enzyme immunoassay. Detection Limit = 1.0 Performed at: [facility] [address] [place] [address] [id number] Directional Bore Operator: Farzaneh Echols [facility], Phone: [phone] ID Date Data Source HEPATITIS B CORE ANTIBODY IGG 03/25/2020 10:05:52 AM EDT eCW 1 ([facility]) Name Value Range Interpretation Code Description Data Edna rce(s) Supporting Document(s) Negative eCW1 ([facility]) ID Date Data Source [id number] 03/25/2020 10:05:52 AM EDT eCW1 ([facility]) Name Value Range Interpretation Code Description Data Edna rce(s) Supporting Document(s) eCW1 ([facility]) ID Date Data Source HEPATITIS B SURFACE ANTIBODY 03/25/2020 10:05:52 AM EDT eCW1 ([facility]) Name Value Range Interpretation Code Description Data Edna rce(s) Supporting Document(s) NEGATIVE eCW1 ([facility]) ID Date Data Source SYPHILIS ANTIBODY (RPR SCREEN) 03/25/2020 10:05:52 AM EDT eC W1 ([facility]) Name Value Range Interpretation Code Description Data Edna rce(s) Supporting Document(s) NONREACTIVE eCW1 ([facility]) ID Date Data Source HEPATITIS B SURFACE ANTIGEN 03/25/2020 10:05:52 AM EDT eCW1 ([facility]) Name Value Range Interpretation Code Description Data Edna rce(s) Supporting Document(s) NEGATIVE eCW1 ([facility]) ID Date Data Source Comprehensive Metabolic Profile (CMP) 03/25/2020 10:05:52 AM EDT eCW1 ([facility]) Name Value Range Interpretation Code Description Data Edna rce(s) Supporting Document(s) 90 eCW1 ([facility]) 13 eCW1 ([facility]) 0.88 eCW1 ([facility]) 4.5 eCW1 ([facility]) 141 eCW1 ([facility]) > 60.0 eCW1 ([facility]) 8.7 eCW1 ([facility]) 111 eCW1 ([facility]) 43 eCW1 ([facility]) 26 eCW1 ([facility]) 69 eCW1 ([facility]) 7.0 eCW1 ([facility]) 0.4 eCW1 ([facility]) 75 eCW1 ([facility]) 1.1 eCW1 ([facility]) 3.6 eCW1 ([facility]) ID Date Data Source CHLAMYDIA & GC DNA AMPLIFICAT 03/25/2020 10:05:52 AM EDT eCW 1 ([facility]) Name Value Range Interpretation Code Description Data Edna rce(s) Supporting Document(s) Chlamydia trachomatis rRNA [Presence] in Unspecified specimen by Probe and target amplification method NEGATIVE CHLAMYDIA DNA AMPLIFICATION eCW1 ([facility]) ID Date Data Source UA URINALYSIS 03/23/2020 04:12:56 AM EDT eCW1 ([facility]) Name Value Range Interpretation Code Description Data Edna rce(s) Supporting Document(s) eCW1 ([facility]) ID Date Data Source CBC with Differential 03/23/2020 04:12:56 AM EDT [facility] Name Value Range Interpretation Code Description Data Edna rce(s) Supporting Document(s) 5.0 eCW1 ([facility]) 10.9 eCW1 ([facility]) 95.2 eCW1 ([facility]) 35.5 eCW1 ([facility]) 3.73 eCW1 ([facility]) 178 eCW1 ([facility]) 30.7 eCW1 ([facility]) 29.2 eCW1 ([facility]) 15.0 eCW1 ([facility]) 54.6 eCW1 ([facility]) 8.0 eCW1 ([facility]) 1.8 eCW1 ([facility]) 34.4 eCW1 ([facility]) 2.7 eCW1 ([facility]) 0.4 eCW1 ([facility]) 1.7 eCW1 ([facility]) 0.8 eCW1 ([facility]) 0.1 eCW1 ([facility]) 0.0 eCW1 ([facility]) ID Date Data Source CHGCTV - CHLAMYDIA, GC & TRICH AMP (Microbiology) 01/28/2020 12:00:00 AM EDT eCW1 ([facility]) Name Value Range Interpretation Code Description Data Edna rce(s) Supporting Document(s) NOT DETECTED NEGATIVE Trichomonas vaginalis ( AMP) eCW1 ([facility]) Procedure Social History Code Duration Value Status Description Data Source(s ) Smoking 03/23/2020 12:00:00 AM EDT Never Smoker completed Never S moker eCW1 ([facility]) Smoking 03/23/2020 12:00:00 AM EDT Never Smoker completed Never S moker eCW1 ([facility]) Smoking 01/28/2020 12:00:00 AM EDT Never Smoker completed Never S moker eCW1 ([facility]) Vital Signs ID Date Data Source [id number] Name Value Range Interpretation Code Description Data Source(s) Diastolic blood pressure 80 mm[Hg] 80 mm[Hg] [facility] ([facility]) Systolic blood pressure 120 mm[Hg] 120 mm[Hg] M EDENT ([facility]) Respiratory rate 16 /min 16 /min [facility] ( [facility]) Heart rate 68 /min 68 /min [facility] ([facility]) Diastolic blood pressure 64 mm[Hg] 64 mm[Hg] eCW1 ([facility]) Systolic blood pressure 108 mm[Hg] 108 mm[Hg] e CW1 ([facility]) Body temperature 98.6 [degF] 98.6 [degF] eCW1 ( [facility]) Respiratory rate 18 /min 18 /min eCW1 ([facility]) Heart rate 101 /min 101 /min eCW1 ([facility]) Body mass index (BMI) [Ratio] 48.24 kg/m2 48.24 kg/m2 eCW1 ([facility]) Body height 59.75 [in_i] 59.75 [in_i] eCW1 ([facility]) Body weight 245 [lb_av] 245 [lb_av] [facility]CW[facility] Diastolic blood pressure 76 mm[Hg] 76 mm[Hg] eCW1 ([facility]) Systolic blood pressure 122 mm[Hg] 122 mm[Hg] e CW1 ([facility]) Body mass index (BMI) [Ratio] 47.85 kg/m2 47.85 kg/m2 eCW1 ([facility]) Body height 59.75 [in_us] 59.75 [in_us] eCW1 ([facility]) Body weight Measured 243 [lb_av] 243 [lb_av] eC W1 ([facility]) ID Date Data Source [id number] 10/08/2020 06:37:22 PM [facility] Name Value Range Interpretation Code Description Data Source(s) WEIGHT RECORDED 256.62 lb 256.62 lb [facility] Body height Measured 60 in 60 in [facility] WEIGHT RECORDED 240 lb 240 lb [facility] Body height Measured 60 in 60 in [facility] TRANSFER FROM [facility] Patient Treatment Plan of Care Planned Activity Planned Date Details Description Data Source (s) emtricitabine 200 MG / Tenofovir disopro xil fumarate 300 MG Oral Tablet [Truvada] 03/23/2020 12:00:00 AM EDT eCW1 ([facility]) emtricitabine 200 MG / Tenofovir disopro xil fumarate 300 MG Oral Tablet [Truvada] 03/23/2020 12:00:00 AM EDT eCW1 ([facility])
--- OUTSIDE RECORDS SUMMARY | 2020-10-14 01:09 | CCD ---
Author Author [facility] Organization [facility] Address Unknown Phone Unavailable Care Team Providers Care [employer] Name Role Phone Delaney BRYANT Unavailable Unavailable [...] Onofre MARTINEZ MD Unavailable Unavailable Paras ORTIZ [id number] Unavailable Unavailable Delaney POWELL MD Unavailable Unavailable [...] is protected by Article 27-F of the [facility] Public Health law. If you continue you may have access to information: Regarding HIV / AIDS; Provided by facilities licensed or operated by the [facility] Office of Mental Health; or Provided by the [facility] Office for People With Developmental Disabilities. If such information is present, then the following [facility] mandated warning applies: This information [...] law may result in a fine or [place] health [place] sentence or both. A general authorization for the release of medical or other information is NOT sufficient authorization for further disc losure. Encounters Encounter Providers Location Date Indications Data Source(s ) Outpatient Attender: Jeff Meyers 11/12/2020 12:00:00 AM [facility] Outpatient Referrer: LIT BRYANT 10/27/2020 12:00:00 AM [facility] Outpatient Attender: LUANN ORTIZ [id number]: LUIS FELIPE ORTIZ [id number] 10/03/2020 12:00:00 AM [facility] Inpatient Attender: Jeff MeyersAttend er: LUANN ORTIZ [id number]: TIFFANY MARTINEZ MDAdmitter: LUANN ORTIZ [id number]: LUANN ORTIZ [id number]: ELIDA POWELL MD [id number] 10/02/2020 12:00:00 AM EST - 10/06/2020 02:19:00 PM EST Minor contusion of left kidney, initial encounter [facility] Minor contusion of left kidney, initial encounter Patient discharged. Outpatient Attender: My [place] office [facility] 07/06/2020 02:00:00 PM EDT MEDENT ([facility] angelina, MARIELA) Unknown [address] [facility] [address] 03/31/2020 12:00:00 AM EDT eCW1 ([facility]) Outpatient [address] [facility] [address] [address] 03/23/2020 12:00:00 AM EDT eCW1 ([facility]) Unknown [address] [facility] [address] [address] 02/19/2020 12:00:00 AM EDT eCW1 ([facility]) [facility] [address] [place] [address] 01/28/2020 12:00:00 AM EDT eCW1 ([facility]) [facility] [address] [place] [address] 12/12/2019 12:00:00 AM EDT eCW1 ([facility]) Medications Medication Brand Name Start Date Product Form Dose Route Admi nistrative Instructions Pharmacy Instructions Status Indications Reaction Description Data Source(s) emtricitabine 200 MG / Tenofovir disopro xil fumarate 300 MG Oral Tablet [Truvada] Truvada 200-300 MG Truvada 200-300 MG 03/23/2020 12:00:00 AM EDT 1.0 {tablet} active Truvada 200-300 MG eCW 1 ([facility]) emtricitabine 200 MG / Tenofovir disopro xil fumarate 300 MG Oral Tablet [Truvada] Truvada 200-300 MG Truvada 200-300 MG 03/23/2020 12:00:00 AM EDT 1.0 {tablet} active Truvada 200-300 MG eCW 1 ([facility]) 200 mg 12/17/2019 12:00:00 AM EDT [...] type / Coverage type Policy ID Covered democrat ID Covered democrat's relationship to [place] Policy [place] Plan Information MEDICARE [id number] SP [id number] [facility] [employer] PROGRAM [id number] FA2 [id number] BC [place] B [id number] S [id number] MEDICARE C [id number] S [id number] [id number] MEDICARE A [id number] Self [id number] EXCELLUS C [id number] Child [id number] MEDICARE A [id number] Self [id number] A Medicare Part B Medicare Primary [id number] Self [id number] BC/BS Of [facility] Part B [id number] Family Dep endent [id number] ANSI-Commercial [id number] ANSI-Medicare Part B [id number] [facility] [employer] [id number] FA2 [id number] MEDICARE [id number] SP [id number] A [facility] [employer]EE PROGRAM [id number] FA2 [id number] Medicare Part B Medicare Primary [id number] Self [id number] Medicare Part B Medicare Primary [id number] Self [id number] EXCELLUS BCBS B [id number] D [id number] MEDICARE C [id number] S [id number] A EXCELLUS BCBS B UNAVAILABLE D UNAV AILABLE MEDICARE C [id number] S [id number] EXCELLUS BS FEDERAL [id number] FA2 [id number] Medicare Part B Medicare Primary [id number] Self [id number] Medicare Part B Medicare Primary Self BC/BS Of [place] [employer] Family Depende nt Medicare Medicare Primary Self BC BS [facility] [facility] [id number] [facility] [id number] Problems, Conditions, and Diagnoses Code Display Name Description Problem Type Effective Dates Data Source(s) S37.012A Minor contusion of left kidney, initial encounter Minor contusion of left kidney, initial encounter Diagnosis 10/02/2020 03:34:37 AM [facility] R69 Illness, unspecified Illness, unspecified Diagnosis 10/02/2020 12:57:00 AM [facility] Large hematoma L Kidney Large hematoma L Kidney Diagno sis 10/02/2020 12:57:00 AM [facility] Results ID Date Data Source [id number] 10/08/2020 06:37:22 PM [facility] Name Value Range Interpretation Code Description Data Edna rce(s) Supporting Document(s) ED Provider Note [facility] NLKGFl4eMxCKQlKp82/ZHTniCCEbl0QuMHvxFWr1EYmeDWClF7RpLHM7zM9wHUJ5KLnWCgBxBqViPDEl [facility] [file] ZiMzU+BI0uZSc+Ub7Oy0BphmI1ivMwSOz7TIs2CD2XVRMEL1WPHu== ID Date Data Source [id number] 10/07/2020 10:31:33 AM EST [facility] Name Value Range Interpretation Code Description Data Edna rce(s) Supporting Document(s) Discharge Summary [facility] VNACDb4iTdXNJcPr07/AUHyuSJKzp9BdESluYKa0IAcpGMXcB7BfUWG1sD7eGTP8CRvWQsMfNuQgHCBg lbm [file] ICAgICAgICAgICAgICAgICAgICAgICAgICAgICAgIC AgICAgICAgICAgICAgICAgICAgICAgICAgICAgICAgICAgICAgICAgICAgICAgICAgICAgICAgICAgIC AgICAgDQogICAgICAgICAgICAgICAgICAgICAgICAgICAgICAgICAgICAgICAgICAgICAgICAgICAgIC AgICAgICAgICAgICAgICAgICAgICAgICAgICAgICAg ICAgICAgICAgICAgICAgDQogICAgICAgICAgICAgICAgICAgICAgICAgICAgICAgICAgICAgICAgICAg ICAgICAgICAgICAgICAgICAgICAgICAgICAgICAgICAgICAgICAgICAgICAgICAgICAgICAgICAgDQog ICAgICAgICAgICAgICAgICAgICAgICAgICAgICAgIC AgICAgICAgICAgICAgICAgICAgICAgICAgICAgICAgICAgICAgICAgICAgICAgICAgICAgICAgICAgIC AgICAgICAgDQogICAgICAgICAgICAgICAgICAgICAgICAgICAgICAgICAgICAgICAgICAgICAgICAgIC AgICAgICAgICAgICAgICAgICAgICAgICAgICAgICAg ICAgICAgICAgICAgICAgICAgDQogICAgICAgICAgICAgICAgICAgICAgICAgICAgICAgICAgICAgICAg ICAgICAgICAgICAgICAgICAgICAgICAgICAgICAgICAgICAgICAgICAgICAgICAgICAgICAgICAgICAg DQogICAgICAgICAgICAgICAgICAgICAgICAgICAgIC AgICAgICAgICAgICAgICAgICAgICAgICAgICAgICAgICAgICAgICAgICAgICAgICAgICAgICAgICAgIC AgICAgICAgICAgDQogICAgICAgICAgICAgICAgICAgICAgICAgICAgICAgICAgICAgICAgICAgICAgIC AgICAgICAgICAgICAgICAgICAgICAgICAgICAgICAg ICAgICAgICAgICAgICAgICAgICAgDQogICAgICAgICAgICAgICAgICAgICAgICAgICAgICAgICAgICAg ICAgICAgICAgICAgICAgICAgICAgICAgICAgICAgICAgICAgICAgICAgICAgICAgICAgICAgICAgICAg ICAgDQogICAgICAgICAgICAgICAgICAgICAgICAgIC AgICAgICAgICAgICAgICAgICAgICAgICAgICAgICAgICAgICAgICAgICAgICAgICAgICAgICAgICAgIC SgMCSfPBUaVVCcZOVgCKx2G8nxGLXwDMYoFS3bAZo4Jr6+LSwXFpEqZPC2xgQehN9EDO7wv1GdPQkoGP Pgk7BqSQg7MB7PCHSbEFegMJ5ISXadar0TQTJmKLDw oJEDr0sqExZzFWH5TZOuSqjjRN4QFOCtH0pqtqZmWVYvLOJCAJxxLSFXOPxaPWFMKE9EIyJhH2ZajO73 IDMNCj4+YZyixpYcVsaDPcD8LWEeu5GnNEq3TL1JPCNcQixox5VzGnNwGMJKRDleXD3UDHN8AXYqSSXi Ji3YRXVlE421ztEbUR7MEl8IJgJxHD5yvz5TYxKhJV GaGizNMlj4NLseQN2AeMUqTEdDxGQfhLStS4YbK6WigGAmmCJosZDNARCdYQWRIC4pY5OplFnbEKOtES HoWO1pVB5hQBQoWPDyJzH3UTOIEK4EBJOoUNXgfWKqIBOmSWYUIL1LXLarVLP6BTMcieVfeUWuSRnwMJ 9QYXJlbnQgMjkgMCBSDQo+Au8KMG5ri5ObHXhdBQOs FX6cyi3SZRvTEoJoT2V3lKVqI2B6NWznQk7RVSZqFJDdRmkrHTPIYEkqVC3OYX4gesX2PO4DsEUtNXEc BEDdaUYkYYk2O33hmSZlVEwfGQ6TQPU+Erickson+Xf9URSEcCXJkWQWfDmFcJGMOWdRaJ6ZyQ6IGe6MsG1Wk VX50jCfoyrXsVDrbGE1EQI2dAYTjGNGZNF6AqTYmeZ 9vqrUyJOAgFCOWQhLwU19nePRvSGYdRPX1JSCiUa1ZLKNwO1EsalJgtIugblIfQWYpXZSCRJ3SLRndsw OipBQkuMxqAH45kIfoVU0SRw5KHsLoIO0ync3UaMIgQy7SXWPlIi3SSAGoAJPcAVQcJHN1TKHsHnPzDE jtHJUnEKEfAPY8DCPwECCwAX3NRqMaWCCmExydVEAj ZYWoNSLoya0VSSCdYCVfMTd6LdGiUHXnQIFwOIcvSIEiMOJmAVS6BTFgNOJeZP5WYmEkTFAiPBNoWFWw GCBgDIVhih9OZOEaVVThGsJ4RKLpYJKlEAKbQFrrATRnYGR5KCK7LFGqOEHsEH7FZqCwAJSmBKlwVnAd TQPdJUJwoo8OLWIdUIQqZSV4PKLaKOReJOSxCDopLA ApDKNgXFU7ULFdKIUjEA2PFuRqZXMfAEP6HENiXKWuEOPijf2DZMVvRUExHBojTCGrESCrGCNlLAfxFN NqKMYsYNn0PPMlUAGjZF3QYfIzFWRvTGO9QRGpQQBmKRGmhc3IGFAaAEDqEyT7LEBjGIQvWUXiEEyrEW FnDXHgJhTeHCWgBRVcNP3LCoDbNCBbEPGyPQYhRERq WSCwqi9YCGAgNIFeHBYeQTInULFhDRGfUJjlASHnJKN3LRejFPQqGACqRM8QGiTgPQQpAvY4BflrIFOd MDKutl9ZFBKpOMJvZsU2SaCwXKOzQKKlCNwiPIPpAXI5UEs3OROcOBIfTR9LYyTqVTIjIyP9DgApRWAq ZXWoxz8SGNKdLSNeFna4ZNQuUADmLNGkCXaoRCMgAX L2RPL1YCAiGXEwHO0HBzJoZRFyJcgxKONeJIUxNCLmgl6CXRFjIIVqGWO1LKApTAOrUTJeXAzzNVTxPE Y3ClEsOHWwOQBtWF8BCsOhZGUaFnJoWpGkGSJdATViva9RGONaGHVaWMG6YIEfGQRhNDJxVDgvIGIeMB WxGiz7CQQhNGGrPZ0QBmQrXDlpWKQYUon1CWneH4q5 RMKmYo3UB5Ubi6FcKqKsKOYROEpfKP0htcYdDVKfSt3RW6rWKjjmSRS6LYWzDYDfQ5RwZST4MbWkKVAg TSXbVWpgYPBjSU7nCYMmEkK0FpFqXmTpQxB4YZY9FVE6GNNeLhRrBrLxWzFaNwLbZF0BEr3ZBpE3HOW9 eFByBq2WGmA3MTLQNkTrCF6EWDe= ID Date Data Source [id number] 10/08/2020 07:09:42 [facility] Name Value Range Interpretation Code Description Data Edna rce(s) Supporting Document(s) ABO and Rh group [Type] in Blood [facility] Blood group antibody screen [Presence] in Serum or Plasma [facility] Blood bank comment [facility] ID Date Data Source [id number] 10/06/2020 05:08:05 AM [facility] Name Value Range Interpretation Code Description Data Edna rce(s) Supporting Document(s) Leukocytes [#/volume] in Blood by Automated count 5.8 10*3/uL 4-10 [facility] Erythrocytes [#/volume] in Blood by Automated count 2.42 10*6/uL 4.1- 5.3 L [facility] Hemoglobin [Mass/volume] in Blood 7.1 g/dL 11.5-15.5 L [facility] Hematocrit [Volume Fraction] of Blood by Automated count 21.4 % 3 6-45 L [facility] Erythrocyte mean corpuscular volume [Entitic volume] by Auto mated count 88.1 fL 80-96 [facility] Erythrocyte mean corpuscular hemoglobin [Entitic mass] by Automated count 29.1 pg 27-33 [facility] Erythrocyte mean corpuscular hemoglobin concentration [Mass/volume] by Autom[facility] 33.0 g[facility] width [Ratio] by Automated count 15.3 % 11.5-14.5 H [facility] Platelets [#/volume] in Blood by Automated count 224 10*3/uL 150-400 [facility] ID Date Data Source [id number] 10/06/2020 05:19:46 AM [facility] Name Value Range Interpretation Code Description Data Edna rce(s) Supporting Document(s) Bicarbonate [Moles/volume] in Serum 24 mmol/L 22-29 [facility] Chloride [Moles/volume] in Serum or Plasma 106 mmol/L 98-107 [facility] Creatinine [Mass/volume] in Serum or Plasma 0.74 mg/dL 0.50-0.90 [facility] Glucose [Mass/volume] in Serum or Plasma 97 mg/dL 70-140 [facility] Potassium [Moles/volume] in Serum or Plasma 3.8 mmol/L 3.4-5.1 [facility] Sodium [Moles/volume] in Serum or Plasma 138 mmol/L 136-145 [facility] Urea nitrogen [Mass/volume] in Serum or Plasma 9 mg/dL 6-20 [facility] Anion gap 3 in Serum or Plasma 8 mmol/L 8-15 [facility] Osmolality of Serum or Plasma by calculation 285 mosm/kg 275-300 [facility] Creatinine/Urea nitrogen [Mass Ratio] in Serum or Plasma 12 [facility] Calcium [Mass/volume] in Serum or Plasma 8.4 mg/dL 8.6-10.0 L [facility] Glomerular filtration rate/1.73 sq M pre dicted among non-blacks [Volume Rate/Area] in Serum or Plasma by Creatinine-based formula (MDRD) >6 0 [facility] Glomerular filtration rate/1.73 sq M pre dicted among blacks [Volume Rate/Area] in Serum or Plasma by Creatinine-based formula (MDRD) >60 [facility] ID Date Data Source [id number] 10/06/2020 05:19:46 AM [facility] Name Value Range Interpretation Code Description Data Edna rce(s) Supporting Document(s) Magnesium [Mass/volume] in Serum or Plasma 1.9 mg/dL 1.6-2.6 [facility] ID Date Data Source [id number] 10/06/2020 05:19:46 AM [facility] Name Value Range Interpretation Code Description Data Edna rce(s) Supporting Document(s) Phosphate [Mass/volume] in Serum or Plasma 2.4 mg/dL 2.5-4.5 [facility] ID Date Data Source [id number] 10/06/2020 12:57:51 AM [facility] Value Range Interpretation Code Description Data Edna rce(s) Supporting Document(s) Leukocytes [#/volume] in Blood by Automated count 6.8 10*3/uL 4-10 [facility] Erythrocytes [#/volume] in Blood by Automated count 2.44 10*6/uL 4.1- 5.3 L [facility] Hemoglobin [Mass/volume] in Blood 7.2 g/dL 11.5-15.5 L [facility] Hematocrit [Volume Fraction] of Blood by Automated count 21.3 % 3 6-45 L [facility] Erythrocyte mean corpuscular volume [Entitic volume] by Auto mated count 87.3 fL 80-96 [facility] Erythrocyte mean corpuscular hemoglobin [Entitic mass] by Automated count 29.3 pg 27-33 [facility] Erythrocyte mean corpuscular hemoglobin concentration [Mass/volume] by Automated count 33.6 g/dL 32.0-36.0 [facility] width [Ratio] by Automated count 15.5 % 11.5-14.5 H [facility] Platelets [#/volume] in Blood by Automated count 233 10*3/uL 150-400 [facility] ID Date Data Source [id number] 10/05/2020 07:11:37 PM [facility] Name Value Range Interpretation Code Description Data Edna rce(s) Supporting Document(s) Leukocytes [#/volume] in Blood by Automated count 7.2 10*3/uL 4-10 [facility] Erythrocytes [#/volume] in Blood by Automated count 2.71 10*6/uL 4.1- 5.3 L [facility] Hemoglobin [Mass/volume] in Blood 8.0 g/dL 11.5-15.5 L [facility] Hematocrit [Volume Fraction] of Blood by Automated count 24.1 % 3 6-45 L [facility] Erythrocyte mean corpuscular volume [Entitic volume] by Auto mated count 89.0 fL 80-96 [facility] Erythrocyte mean corpuscular hemoglobin [Entitic mass] by Automated count 29.5 pg 27-33 [facility] Erythrocyte mean corpuscular hemoglobin concentration [Mass/volume] by Automated count 33.1 g/dL 32.0-36.0 [facility] al Erythrocyte distribution width [Ratio] by Automated count 15.3 % 11.5-14.5 H [facility] Platelets [#/volume] in Blood by Automated count 245 10*3/uL 150-400 [facility] Differential cell count method - Blood [facility] Neutrophils/100 leukocytes in Blood by Automated count 71 % [facility] Lymphocytes/100 leukocytes in Blood by Automated count 19 % [facility] Monocytes/100 leukocytes in Blood by Automated count 8 % [facility] Eosinophils/100 leukocytes in Blood by Automated count 2 % [facility] Basophils/100 leukocytes in Blood by Automated count 0 % [facility] Neutrophils [#/volume] in Blood by Automated count 5.11 10*3/uL 1.8-7 .0 [facility] Lymphocytes [#/volume] in Blood by Automated count 1.35 10*3/uL 1.2-4 .0 [facility] Monocytes [#/volume] in Blood by Automated count 0.54 10*3/uL 0-0.8 [facility] Eosinophils [#/volume] in Blood by Automated count 0.13 10*3/uL 0-0.5 [facility] Basophils [#/volume] in Blood by Automated count 0.03 10*3/uL 0-0.2 [facility] Nucleated erythrocytes/100 leukocytes [Ratio] in Blood by Automated count 0 /100{WBCs} 0-0 [facility] ID Date Data Source [id number] 10/05/2020 12:24:22 PM [facility] Name Value Range Interpretation Code Description Data Edna rce(s) Supporting Document(s) Leukocytes [#/volume] in Blood by Automated count 7.6 10*3/uL 4-10 [facility] Erythrocytes [#/volume] in Blood by Automated count 2.68 10*6/uL 4.1- 5.3 L [facility] Hemoglobin [Mass/volume] in Blood 7.9 g/dL 11.5-15.5 L [facility] Hematocrit [Volume Fraction] of Blood by Automated count 23.7 % 3 6-45 L [facility] Erythrocyte mean corpuscular volume [Entitic volume] by Auto mated count 88.4 fL 80-96 [facility] Erythrocyte mean corpuscular hemoglobin [Entitic mass] by Automated count 29.4 pg 27-33 [facility] Erythrocyte mean corpuscular hemoglobin concentration [Mass/volume] by Automated count 33.2 g/dL 32.0-36.0 [facility] width [Ratio] by Automated count 15.2 % 11.5-14.5 H [facility] Platelets [#/volume] in Blood by Automated count 225 10*3/uL 150-400 [facility] ID Date Data Source [id number] 10/05/2020 09:44:57 AM [facility] Name Value Range Interpretation Code Description Data Edna rce(s) Supporting Document(s) [facility] INUJHn5uBpFOIvRoy6SbVnGjTECaBR2jabb2V1K9cEJmU4EaaOIxf8iuE0HuP8DjBCUlEBTEUX7OoUUf jb2 [file] AT7//technical document writer++L/+ec//uuf//Vf/9ufkp8///q///lP//hsfu1zYD7+w3jy+7/V8vrzX//zD910t8D//PNv [file] ZpdvdPQbwPaqAFITAzk3ZvBDDOTQL0F= ID Date Data Source [id number] 10/05/2020 09:44:36 AM [facility] Name Value Range Interpretation Code Description Data Edna rce(s) Supporting Document(s) [facility] MCNXMl0uRqXRTqLlj2IhWuNuDZVaXQ2giti4B2L0iEFoI2LqfHOzx2jvP1YoF0UrWBHoLLTYXM2AdZIz jb2 [file] xkQ7gFp152KlOpRr07CZmZN6l92j8Wo0L2IsyY+8pKsmqwKDtX1KKoAk6S9A3e9RfW2yi3N/filler wiper+0T7Z [file] wQ9f43OROs1hVD+sn2Ed1dWcdRP/+crane assembler/uZzq+6fvV [file] OUTSIDE SALES ACCOUNT MANAGER/XURYCN7T8wmSs0ozW9JzHWPn+dutm1xJHiUr47tCWV4MLp9ad+GBiW9JsjUq9d3hk7ORgIcO4KEq 3ed+s+Wyde2rb+Ez6cUvr/bvbHUZQrMr3Hug1tak/cBSf6Sih+M9djnzf573SsdwgRtqF9rdmm1mEZS9 0fiDOQas0am2zYZypkQ2ymVmGof3NrjeRmSb98dctD j+Wu8+78jxwukKwMGy0EFaXroJVyrzPWoZv2wrFH7pExmr1K0iW1r7r3L7yKdeI87l/WjL+ET3tOl0j1 uG4tXE2KvQY1/q34H56XL02DR95BW87LJ93CK22LZ73MY66IR66CB36LL91MI3B3S7E/ZaaI9I5ywhqg [file] HYTCawmUwGkUFkEplEFpFFxHkHlIFSBkoZKGWglIFS YniDlM2LdSwqU9hjVgdDY1ZnktAb+VDAVKFGU9F5J6yCvQyz+r8lue7B9vYqOZ9b+l4TRS1czj9qo1FU 1TVj1j0Ko6IcO8T+5020Y/9L5hLLVonbwfDRVKXCKOxGr23Mi8yvj81x+9Jk8sZt1jt13tkjahrpgFSR jE/tmjzRvkKAk0ZiOpRfFoKo6iIcDR638wQtpyvlS3 eFnW62F+x7TbyakjBnwwIGBXXPLgULEqi56axoIpKMf2ZMQiOmA7qIz7LtDnbA/BQtswfEQ382xhPZQW yIPuItUhPDmTMlYfcCIgIKjQkCW0cYf5Rwv8NKa5LXWmWihNscYAm6SNZ0GilPawPSNdZGuzAer8D77s aITCKTyCKyiFAGgzKYlMGkDCZlMCmDSRlMymBSBpMy iPNGwBzCp8KEQrtGxP8kZ0lq2H+03E+ssha5n/tPSVnY6zmDbFfTMKhgJTBJFUNQtT+g9YbeG9hQcudC CjYPE2nb6EuK517MaM0/IQuw92oM+f4efA2PPs7EJ0zUBYQPCLad1esrwsUlAnDAByggkjUkeKahXTUh 7NdapEpq5wErJmTUfW+sJ+wPiFKW2N892nRslfXzD3 rfyrKvHiT5Ak91NSyS9khRjya7bstFyZlDigXu+T3cy5IJ4TvmKU/um8z0Aa/4N/s13cJN6B3V76O9Fo 90pZreHhfrKvZuyfCDe6Nuz1AW7onj55Kyq2ZpVs4VtqcnGPau05czPN7kk27yqJNxAh1I0lufAYyn60 pqYR6ix42mnPusZh/O8fjjRJmo54gwLL8in96qoMDp mw4J0nkeJrky73taLW2F7zwcve/V/YhIz3P4MI9P1mdxer/V/Cej5b8rZhAwZ75xhlpa/N4oYQKXz8n6 8ce/iRynOL5/5ReOD1+uC8fgC/hYajJg4JcvR/gd/A6+gW/gD/AH+NT2Vk7DN+OYtCjaKkX5EiNDlJio AjQ1JkFHlRxeQtL4HzKSbMmmTqQ8YeZEwOmjWtN8Jm ODjYw1AL4W/d6oFaTEJOSodc97uWJeuSRpNO1i2Tz8EvcCrx/+ybO1xGt+AH/gPBP3g/G2HG/lo5h3DF /Mg0WrlwpTyrZX6pn661Ly53e+TB7ZghQKShXJePHiLkEpb2eNDisZMW3ngg410Sz5Pf5BZ8Ga6D/wJ/ gL/AW+g++Jf8gi6Zz5a2gh4KN0Ze2Ynh61Hg5Xr9Sk 4Bv4A/wB/jxythhvHS/xT77nJG3g/okcQCPB1A5Io2D7E+MdGO/UzTlNHlWwlcUDpDdapAIyMYM2dZiv 8x4OvM/8k0XKhHEvR+u4zJi/eG5hPGd94Gy0My5HSD+OZRpje2SryR08+/seO7Id19illxuSAOGynPOm 48o1tqIXmOeRwZ2qa856VqBy/uv1Ze0ysZPzgH1++x pvxKHfx+vuZ0gioYu8+I7f+14cBZ0GFWOlKnXpm+f7LtR68++5ggdxNgmVJag13/4kc3q5vQ/0Wgfjnm 8OUQAq7/qJV140nuwNVpH3guij5Oah7ZrkyCvvx09ihbtutQ3n5+z8PcbQMmrfGop+j822elT2ehoIdf IPaV492lcL+nsUgq3he1R9uzdY4oF27I24KG5AS8/g T/AX+At8vM/uDz+Shc4x+AK+gK/gK/gN/OgjWirt0Ui6O0/AH+HL9Mn1B/hN2a8bo8NQ9GsWPcppVVzZ 8QrGKxivYLzSwO/gd/ANfAN/gD/An+JU0YTliKsB2bGKWxKleIoN52MWMdJumVrB54XEKaKgyQrG44OW V/B1jRjbP9L+zjH4C/wFvoN/9CjTqmEWm6L3nvrUD2 QV2Ap2FpuI/lFfLkm2x8cPaytwsFLihlgeNOuYu9X79Vvv+tU+Bt/BP/kXfv1Ff+EUh6zc8jm2iOXo+A 38Bn5/vo+a+lU50+zCMfgD/AH+BH+Yt7Gk7Zr9gjskB+9e4BX3GQ/BV/Ab+X85Sh5Ts6z+duST+lUdD/ AH+BJ6Ly0Te8Id6WmhRpmsmpjp+lW+F3vl1EfM+lW+ e+ZUP4Ziv8/zylF4TB5VFh9Qnz60qy7dBUMHULO/gj/QBcxYuxTts7c4/kaCzr7/iI29MMFQW+hXmvrV Wj5ysJxvZ50s2hPS79342Fu7mT1lSYfgxWQW8jSVQh/Pat+B7+Af/CsShc8zR7cWJo08Iy/BV/Ab+A38 Hj4R54P71Lc9M/wJ/gR/gb/Ad/CPfRSJN+cYfIzXMV 0GiA6qyEdPND0NpQ6npZwPMZ1BaE2rsUaBJO6NjW3xjVjbJ+mXp86zaC/jjz0K9Ai9Ixd3xkQmxo/P+9 +xgwYAIc1GBoWLKBX6En3+uqx7lwHWNZMPVLxjSyJI57vmL99noQ6PgyILKLzMrRfW4ZaeZYkpxhgktQ d3mv8BuRAdeSOtj6/9av/m1q/iI3kf3/ZCFuGObBrN GqiLGIVAGlZbyGMeDxMb9qWdkksj7NBKKRvLn7xv58/dUWA7SOB6y/32k0Ya3Pwqj9Zeg2kanwI8xE9q +6Ll/lXd83m+Eb2cmwf/jgpy20fDac9cHd16g5az544DAg+sVy33r/F0bf3fWl6uu/ANfAN/gD/An+BP 1Rx4Y9aI6p+/4X0O/WofC/eYzgIc1HG4CfXvTL/Gris yR4lAd8Jab9Pq4vuZJ1Su6P6pH86+86+z61ZzCktMi0Fd9tV+pX+3h41aVhYZ7Fbk7pL/dwDfwB/gD/A n+BH+Xl6T27O23KcwWJAsDuo3U9+1Ps2ioZhfD+xjrVehX+1oA32Hc3EaoAFbGy8X/wJ/gT/AX+At8B9 8PP/Bz7pr5rKiBeyP24qOdbDqDFzaG/rF/8uv3axtU Ji6yHFuEtKx572t3B/n+DLzPA/U8WS1KFh+4lwpOHy0+0pAFtjPT3As4m7yN3eNr1vi7z1u7FbpZ0H/2 MfgG/tmva/Ge01P3bF/gT/AX+At8rM/Lzxd5m8Wp8VF8VZ/BV/Ab+U86Fy7S04BOfRfDf28+4ygHv41g gr/AX+A7+KpxRe8Dhp+N94mxhS7lY+Xjp6gLxV/lO5 d0Vy00okctufVhWd7u8O179Z+12r+IqRE2U4O37i7mW+X6Injx0koU26oyhnM/+2HOm781r972Rizio5 7/qKd+euA8yI0sK0Oj9jXpw1/BP/QdZNN3j+HVQ1JNPj6r5kKaJEO4ikU48vr+rjy5Hx8+eZ+1pIm7h7 Ontfy4pHaYm+Ar+C56Zq8Qg8Vt9Ze8fCqIEB/ed5ng wxUP/aqLg3/ada2LHwnD5NlQggcuRxeX7SjSduamIqxY1ZvMopugJfxG7IrAeoqmGrzA6SqJgnjwn5ur movPkmAy7w/g2Y595t09+QdXHj/od0lzZjrcF+V7m/xVoNCHIzuALe1VBXLMTODmLpQlG2a8dWy+Zj77 /7APtlyyPReemw9iXw3Xw1dMDSGnVdDNPFPVeGcg26 0Mwa5goxdlRqUH2cbamGbuH7nLYqFSOCa5TjiV3jmVwJ7mDACsyanT++ijK4mmqQ9y9lOJZRt7l/xNjL fOH+Mdef77+V65noR+mRzb620+3oTjoI8I4mVQ/Sut48e+6Ll/1ev4PF/7U8vaTyN/7F/13L/KtcXO/k a3s7/OtPQB7rjJ/tzt6M/dBvgD/An+BH+Ty3I29F+9 0MexF/s0dQbkTOi2i5RUi/o8Gvgd/A4+znmn2dBeSpx2RAbE5a4SUoqvY/gy1Mzit204w5AW3EB2YA/f o9nAb+D3Rw/sqV/HsIZs6X/wB/gT/JDmngQVzYnODu5X+gn5Qqs14ywr5+M5FvDx/P8Hk620y+e4gd/A 7+Z35N29R4+HH4Qa0B/wF/gLfAf/+FO6H/uo+Martinez+9A 73Mlx2fy6+wQ7/EKfqA3t06ULy+lV3A9/AH+IK4Uz4H/mOq4N0wUt5V/0L1iw2JzrzAB0Cd6iwqqtrwV XHrrO/DXnN1j74wVh/yuMO/mMy1WH5Q0s21boxbUgE5X/ez46f9Y0S+cEKmcUjMat8fcRNK3LZ4AB2To +V09Og9DtmNFfWW74+w5tWK70g+PPIU45/ajT0W2uc /UWlZW3uRxOO+AI+ni/9t0bazQHCe/Rn06M/G/avrPavkn/XI2Z8smI/oFd2v9hR/5ofP7md6R/8tfQP hi5k6R/cx+AL+AL+mb9W+lWcH/5Ba2c/h9wLo705h0S/vkeW+6qzu8w4X1k0T/kdY03yW/0kc4mjnBti QTuMXm7ohvv0596frU191dvS4sxmX5dzEaq1d3y/Ms RfGeKvDPFXhvgrQ/eAEj4LJJ0pjW2dcQ5P21bFq0VGulJoO3DQixDt8Yw7JnmJFaFsFU1izBoeUiLuPI 0oiIsgXbBiWX1ulCtgPbt9RTsT6p4H91C0O1J3ZF7t6nAcWT8K2h0norripXqHCQ/UyQl8uyQfvOD4bE 6p8NWATNgfh20sdpK7Y7VYI/3mthdWzsFbvyodPvIo Dillan/b/4l8mArq7MnepOO3n6whjj2amM9v1vpuZEsOvnHOtOmqclg24q9Xg1Ih3Y+bujmY4LvTScOWgBH t66Xd434RtJhiiSR285g+sdY7ZExTqkGzBsHT9Qg+wVGodf5Oo5HRGav+8Jy/fbbnuj4a1GOv52EBw8D w/2K0n3JMmI8/Y611C1bvt03uuW7uOc499wE2+jPto 7+tMsYq5Ut5Kl0k52pn58g7ZahrKetKIySl4WobE/a25vpKG/dwB/yX5qS5PiY6edzW0lL9yzK93G+Na BfjUvAF/AVfAW/gd/A7+U40Q37E7+MF5An6E/wF/iBuUxn9jBAPzFpzUaW3xVOQrXseCkC8lEHAxTanV xX7wUAAdLuqXmB4nVLKaOmiGrI79HLElNjbRqN95JY VzFe+AcH/IMD/Renetta/WrAPzjgHxx6/GVDz/o8dII/wV/gL/Ad/SYldHhb6oN/1FvCAmkd6KQsRU8lfLN/ RzxoX3Pp7JrqL/wHDdst4R+qnv120R5/LcSfNEzrbF7OH+Zx4A982/0d/Xx/R7/AF/AFfAVfwW/gN/A7 +B18A//5J9yJhXgK8wc3W/wF/gLfwT/+dZQ1u6I1z1 P6e7P5UO4KI/7vpf4vkp7ppq2kjc2dRH88Q+8P9q+J7Q30z21p4SHuHGm5Z4YG/gaxw56jfZM//tCR/s J6fCzNWVKUCwP+wVH+oWdBn8CvkF/cd6awtB0d8o/0G8cKtIodR/mekzeklHYqd4YJYr+O8g/Gcyn/YB 2Dj+c7z/7zmAq+gt/AP/hpgU3mrV565M1xQ/N3DvAH +ES5Va3Ts8Lc6KQ4Fl/fHoZcqUotARaMx9CA4G5Yg3R8T+NdGO/CeOEfHPAPDvgHB/yDA/7BAf/ggH9w QJqbCP4mvL9bFnkeGB3gaN8cZusnVF0ucmIq/w7H++zHvz9y/yryCEbuX/XkH//cjU2hfYoHd+p5/tCf H0k0rz36tf/gjP4BlSa3EQUcZY9x+uuXh4PTwra7/O RZzFu/0mzFPG/2ytgQwNP5QTFeGqfS8n1n2e7rm+ObH/6RGfFXXfKcka+x8h4i/xqh42352jH9hAC86Y sz4q+yGsGM+NcA35rOc0O1rXe8d8OtTbeEFVm0G1+3Kqdscg0C3GXh4Wmj37qGfOAQRjsFl2iRq89yml 2Ggc6j3AtbYz5pLr+a0K+gZQ6jbzdvr7Wo1wND/8Tn LV4vVXI7p0UH/vPUE+74OaEW4Ww0MjsRcesvvKquD/gD/An+BH+Ji0Z16E9++0R8+0R8+0R8+2wYL+Lb J/qIh429wXt7w5r1+Me/BEnsL7jUv168oR/gT/An+Hi+Dc+34fki/houston/houston/houston/houston/houston/houston/houston /da2Gd4UZ+PtGG/McEkY5aUodzA3tSeleI9t3Hlia3 nR2dPM3aKjl5gQ3oPE3fZzz5mF7aVQ8lZjq5eW03B+PM1oSReTSK8AsJ0WW1CRzBFXiSnpeCUG0RK5TE /Bb+G34Ln7vq0b5E4O+AfnOPsbM/SfLn8bu2t+Oc5++ep5ZnxC8r/q+HRaQ6549QbN/AqIv9aAyqf5ap pI80gAd3eMosr9psr4awA/fhQfSuPpDQxsH9EvUy2I 38E/5w8eVRzkHks8TlnR380L96Q6DwV/gY/v0ergG/gG/gB/gD/Df9cUtiHZwn75+TgT+1ac8M59jL/H /HXMXz/30HLENBE0lK/pH7ySf/eT5yn6OWjU45Ql0JZ79GLJgjtO+1fTMV4/2zN82x1a5hvudV6khi3A /+pR1qs59SfQ/ZCrJTajN3twh0/BN/TIfcj1bw85rk b4E/wJ/gJ/ge/gH3t/ybH3F+KvFuKvFuKvFuKvFuKvFvSrhfirhfirhfirhfirhfirhfirhfirhfirhf irhfirhfirhfirhfirhfirhfirhfirpcd/vKE3j3Md+Hi+cyimfO6I11u2zjaiG/AH+Mc+ItjJ3hU9ty cDR0tjF9C3ieiU/sGF/auV+1ehG6/Qr9K+SQGfdr6v NX38F+vWr8p/sVp7/Yze8p9Jl3+3flX+o8EfB9VrJwl5I5xVvG4j2gYZ+UkMs2tHz8F+aFCrX87myb6d Azfgq7PpPX+3w1KoA8qwuIS31Of5ypY+RiJ8GuLtIV4gBpZGaKyp7Y2zCnxWroZ+yoY1Goxj0qj0matu cF0I2zz3CwmkElakObgpGlhoeC1hw/zB1c/8nTdAg1 396BsL+wScM07n8qTOwqv2Qa3Rg+F10Cm6ZhmD/iQAfb73QpiIv2C/wZ/g433G/tXC/tWyYy+sceyFNS 7wBXwBH+NF/uAaGO/VgMyPN03+ucbx76/Sr/J4gD/An+UW1Ys5M3s1H2HwUzPxNfQnFkWjPkPwFiZyJt YhpUa643n0++1rdvA7+Aa+gT/AH+OP0Im1Y5p0z1CM P/6FtY5/KE7cY9kPB/IOuZt2OClwlYJpwSPLh/RiXl2JD0Aq4L/wJ/gL/AW+g4/5C/6eFc1jkoegjY6u /upK/kfeRRPeZbLpPh3vWt9w8J8G9UbE/XmRw2cYf1hTc1fJp2hEt6ee6X38QO/CdvUOKc5UJ+Ar+Ap+ A7+R20Yx0Ou8Kl6Yz5F/wZ/gL/AX+A4+lqi4Z176W3 53W437E686T573Rh6ynXL304Xj/pWj/nDOlkkZs7h46kZ2D6tF/gT/eKG7eUptL45WskCK1Eb2QsvE/J N/5HryrVwVfAW/gd/Bp0zcUQs7ga348ei/thdCjGqrug8RK/+dOP/TwG24EPb5cNI/yhXPt+A3Xraifn wjb2d/m7gQc7Bys3si47fFN+uztxP/6L0nA9h78JmH +CtvA/wJ/gR/gX/sfW/X5vu83BXaa112smGq7Mh3Cx4P85Ws7AcjK/gGvoE/wD/2r6M+g0O/ctRncNRn eTIfaGKaoQrIPw7Vc0/QUZ/BEd/uqM/gqM/gqM/gqM/u6eQ37J64Fx3I40Y6/lBH/StHfQbH/pUb5q+d /MACHINE BUNCH MAKER/SrnS+UPJv/UC/Jx/N2e+wJ4KWc0m9YDGvAbh1 [file] JdIhbZzCCNNCJAgZBINAfMVPE7i+LIcgIkSEiBJRIo 1XO6PVwPkfOevgLarCCzeSZjEXSQDpQ4s9G7vn1g6HtRU8NMUiIg+QzfDBo9Xzy559eDyJEsMBofAhl+ 7WMX/m9T6JjjaA+B+naAC3Wu5S4kyjo4CqTUwLb3Qco2F8ZQgSOisU7JoIjSrUn7VpYhkMNhbY9O7cT9 gBpXxkx0czRlwkOejLamO0VPaQWlpP5YjLeAzHq1Xe IybNbsm0pB9Rtn5Wvh3Uqi9Bus1Cli1Snt9Msl9Qsx0Ckk9Jst6Mxn7Fwb6Zcd7Wzk7Ftw6Chl2Cf/bU Ex+EWTMGnVJsvDvTfKp1o3pW/Iot5FhHo5W/rug8D3Dqq6LzOlK5ATX9kxMEp/1YrnSRRD+WHV8V/Vh0 ailU4CjejWj8TFJrDMcGrw4LN1F5JzSsn/5mTDWZc2 Sez7ZqYhrjNmsnCyRqRXbV281zfRVUa9Hp19d9L3i+xdcWArJRJLrp9Fku0RgavqbzdtBK/Bk0zNRaD2 VL0+sTFoDCMVzvwUWsA9OwlEuIj1LAhuUdC2LG8GtKTkNIylhVaFw5MBbwsI2z8YEYtro4YnX/lnopjP uMql8xYwDSD6OAEWt13WXP2qppIRb5W8BXRDLfIFVT fQZLOWq13EXTI41cQaLGCNSbHT6+UV7DuQaSqKGwCDmRIbNLKIhKFfmIRlNjyrx9VZh0gnGPF9aAoygK kO+saq2Q91xsOpwOEeHydIE09gI2A9plw1F/gb1gqJ+o1Y/cTIq3HdRfKQ+WhzjfbeN+LmBg7ITKKJpB +7Eo+7Eo+7Eo+7Eo+7Eo+7Eo+7Eo+9Gz8a7csC20ve po1kJZ8UoW+WHyqWCqSzJTq9sCYbBBOiinH09hvlvJ8JWuf97BeApnUeysBioXPorPGeBBJJMWIAGKzM DPXtzUFQB6SfQJYFS4LdrV4gFRCXFVL7g9QJqPzoC+LMp+LMp+TJtGL8j/ms4Fye0uGpfCihQIS0NWNB F9+4XBb97eEXCsqydrJ51+PhQjQ4FwLxA17ARH6e79 4M7BM67+YbXjS7QdObE94QZa/R6DdadDptae42yQrn9bvhRQ/K3UsciimfyS01JD08YE/dH3znvWorzR 13KCePZRBHd2nLstn6MjQ2c5Nz0Uf4QcIgV+FlclSWkJ9lA3ZLA7m6C9jKeI3gCBIAh7Uo4i80lG59UW A7x4RqbUaQAISEU3CzHA8iyJ2p9rV5hzCQJbTH/FuJ 9Y/WikGPTHRaoguK9SKhHYSAXAjYMxmGtStqRqS4827RkZvqczeVsRsaIgB811VI0WlIZbRCCSFKIgFs KVuMDmoRbwYu1NtJAoFfFnUFkLQuHeQ95/Nz/9/WF9FHDZ8RzrYs5B58iG6603/j8/Pn2+sQh+ijTMG/ v+219//vlvP/3iF3/38b99+d0/b4IbNqtP74iaf/bF 3guo3tC0nFV5+fmRrJ/8r19+85M7K/jjQ+BFIv8uo88i15PX3GZ//pibU666k+8/f/o616rhS/3s66++ /MXHr7/5+jefvvv+68///MD77rfXb6wqe/x4g37t2410/Z3Hb03f4F3+EWfzft1N57Kz32gX0R9jEw1/ 8+vvPz5/+dXP//mrL7/72ddf/pXf3l/h+3ejiSrF96 /69NXX//j1Vx/ff/748puffXz++O2Xv/h79bGPh/n2u19++SwXoa0B/0uN6sc//zjVp34t/Hhmf195+P qbf/z03be/tN20b6pPm/7+q59/+yHoy0hm77YgwY/m49NX/+2v/NtFPG3g/mkqf853LbKOd/ryu08/+/ jt159/fv/h49t//PAOlz1jdzM8o+A3rzFxyhh08g14 H7/49pv/2sjWf0221Qorqt/+fi1bp5yY5UOf/WipuauJ4f3+Q4WscYt+/uKb9aquiX3s/frmx10eszG9 n+/T/f+n4PXk3iX33va//fvv//LHH/7t47//z4/f/P4Pf/jdX/7yw+/+8HcfP/vdn37/wx8+/fV77j9E 3378+U8f8g/i/uJc3T94/6L1jy9/+S6hsCwBiq+q9s c//sN/8LK+5MByveA//wT6b579B96hd/8/HJQcs8S/++apYVnb5341lC1/R74L1tTgcjtmPvvH++o1BT +pE9xfxhEwD/juh3//2YGdI7UtdRa33pjWi0/+6bcfP/305S8/flv27Bb2unRwi40/T2wdPiNshEV/Zt JJf5VCG7EkB0zTzuu/zcff/PCn//z7j7/87j9/eDv9 67P+kUV+7h/98T9+kPsTybPln74Aq/ru4/d/+s8f/vJ//Nu2m6Mpvo1m/tbkDrb+ytk39k/fff/xb//j de+///Ftomx0QTU2v2DpAW4mlr8/wz99/lfgr2+0Am+X/kMXfz+06o0uRMh/9kzhuD94Yr0BRmlfIgnx S40spa5qB0/95PPH7/7vH/7ru42w58It+pN//PTTn9 omJG2pi+vH//zLv/fet670P3Y//vDH3/2y6FS8F/7V7/7Hv/7uP37/uz/41Olo0TK8/Z9+/P8zX64//P f/+t9Hit/9+c9//NEkLy4ST/aIf/Hnf/1iUloR/AD1NdZm++Ff/48//c5rW8x4qwdPt/3Q87SgYc2xV/ 7d0y322el//WOQLy8sG6j24S3/+VoGv/+Cc/3+iP9/ /+B25eAt4mjnO8/733/4kI8///kQh0jw6/FyQF5xe90vxfsX/PSzz6/Q067XN0F422Vnu8t5a541pEbk auoG6VIAn7128fxezI2ldjnktVaH6vi/X+lrn0RWUL9ny8ToIYMmXtIiZQ1xxfeuPVNdYO7wooi5M6Ib pSolXJnDGCBgUc6zlFEnWI9ALBM6PZhuSEUkIYEdU9 FuaP5xZ78zuCXcYvHgPWCSZY3HmvT7JBG7KMG5JVJlNiJaIOUhDH48WWRvPHSSLm6lwrDlNloMQsXxAI 7pujs5N9U3qXSnJ299cNoqlpZsOR6Tz9QiiZHpNS5RqAXvlFQzAWSzEPPvE9nor0EqUZjiBIRSAn7xkk EuQvcNNhIsZP2vyah4T8L2qLlnywLwYZPYKWyuIngm BL2jqAzwxtwlW9ZhmAYcAOEgJ6OaPXZls10FOQMkRAxUOzHcMfMfWMY7LGu0HAivPhNlNWWdUYYuLWJt LM0MvNHpCCShVBGGADbjEsfiGHFomR1abHRRa4TnO55AEXcJMRpEXRCHJZDMDlRyWoQxMVW1EMGsS8Lg ldRjtPRvQBWJHHukBvppTORxbF7syGmoI8UyWJP3c3 ZjKA8EX3CrZGTsHOPBIXT4j6ErGSRacqqqfojkFqZfGLUiTXCdFQTaJC2Llb5ruTLageNqKSXDOAwsJt ooAC1fbNdrupgmC2GazQXfFLR+DhJvIO5rqu0+BvKeMHCfDxx6GIIxAUxnBOQtKPEqDGCyH6akAVBqZv JgXSKbMxCmNU8Kw6XrtTNxYf0cqhTvRonJgWUgPzxn ZLAmZBTyXCIjYkNAZKXiYHZwCAEfSSM2JIJrUGGgUDdrQLWtZET2RfD3XABwWNFzFG3bVcZkONOoEmmv QAMsVMMwXNAuudTOCQQxFMX3ZIX1UJVwOTFbLMEhQUzySHWmZMMwOVZsFPQ2EPJ0OEBsDeWnLRSvVAOz PLUfXRAvEVFaxmQEFMEqPWMfKKS1TZGkBFYnDVXqWG xfWLYtKJZyGYzuWRExBGYcGW2bKeEfIAHnSKYvCPmyEMUdFXAqpbFMYESsCLOaTMZpSBBhVBMcAPGlUV quXPYjHHSaKPXwYIXcDQCmJN7mJmIdDGCjNVM2GKJkPQSlMUBeltEVXHSeHZQeKRi9WDIuUKIvMNOkZY dtZSIbVDKcUBF6XRMxPJUsVL0jZrZcIFNtAVP7FnJy FDKfSZVxroQZBLArZUYhCUM9ZwVrBSAfPATmCOvnLKXlZXMtHFfvCTNtVSYoRI6mRuLrWKKgYIHfPTin INNgSJDsdxDZOWWkZXYgLMWnWoOzSMGySAUcTVgsRTXfPAG6NTugAINvYHVzEQ3mVvZyZSBpSHF3GQga MDAwMDAgbiAKMDAwMDAwMTczNCAwMDAwMCBuIAowMD QjNEKfSYF2GNCnAATrYD8jCoOvERJhNNPxSILtHcE2ZtBqJzYMpTKlmIqupoy9UHhlL4k2EUYyVLzdDB 5lwfKhFMUmVugpSu9jmDT1TSAlSwhBKe9Wo3QzgbH2llTnHrW0Ccg1GlQhQN7K ID Date Data Source [id number] 10/05/2020 09:44:07 AM [facility] Name Value Range Interpretation Code Description Data Edna rce(s) Supporting Document(s) [facility] DKVSWp5aSkATGhEjx8SmZeFnKWKoNQ7cbtr1D2B2nOGeL0GvlQWdr8opO5YsN8NuZCRnKLDGDX7RoTKs jb2 [file] pwr8E0g8el/Warp Knitter Helper/jI3pX/44juy//CAY2Rwt7LEvkk+lkf/oBfiaL62BZ/4eb/qAW7n53Rd1b62SPcwHZo 5g54Za9GgOixuS8+X3o7zv/BEpk3aGhEmwWKrU7/CUADRA/Cn5S/LXtU/t098cH3m9+O5pPa4jdYCtNt2D89 Lb/E6a09kxKm0m8nH4kw52cnaW72vs3R1yFv+3XfVx 56h55t6448pr7U9NLy+b7+w3v24sx+nRf0/65o9y+7mzw86QR8OPfMo/Q/rvaFJOk/B3yvUzE0nlmm+S 75I/BX0Auau32hFPRJ8xttdSF4O5HYdBar74ifqofGHq2er459zYU94H0dQy6/fyfr+jx/v9whk5eEkO n7c9+IxjtTK8AntC92A/b/9vOtUEs3Awvz6sQ/RFW5 1Hlie81CvDgXSUOdhNR/8tTN9+PaP/Yu7U1I4Yhdr/+dimCYdz9/93dtg0NUegZfp1f4ibqJCjjS2/qw g4dz/6TrqAP/pOtJOHofuky/zl16SmWy880CLTB/BhJ7w75fxGj/ubR1+jkDEjx9ZFJ1iTz/OJqF6NE/ DGcC8/7/weizb63ELht1GZ6Z5/tQP6mT/8qSiKXgj0 cCw/nyucNsIO5mxmHp/xKO2F795+j0w3dO9bLmjvN0/y+xifocvuRdKSPyR/AC25Y03NlX3dsS4m44oL /pLfx/eWj0t4kN+23/gRJ2IPAgPNbozyZHrIuoIAfTDZ+H5a2pt3ln9C4L5+0++8VR3pvRfeAw16PlzM hgsf3LjGv2rR/iA3IoHZcrzbrxqozS2755Cz7xgEl/ huwa/e9C0/+NWblt+GtfYdlAki411Ha8fTh/Nv7Ku+y7ebKvuk5Igyz+Eh7pN+5I++uAgY/uETgX/Cxf o3vsCJ/WhlqYXJY07q45d5//Sd0+E9/eD1y7J7HyQ//Rb5P31/eZW2A12//Q34N23OnZ/GcrvESp1q3y 99l/zPt2UD46/l8fnC2i5FI38h/cuvht/32R2yEYFB 3+dx78lhP41W7Rr5ws4zieoc+/NmnLyYP25G1ctx50ep3/08D7pUAPky1AY8Mb3etuVsuVZ4e/hZP9/X 6bT9fF+wkAVDrHNVEXE2sLnS//g6etJ4zVf0aUz2jOdp+VUP5QJ3gng++3UFv+J0x0OYM/KX/H4XSd/8 8TgqKbGS2f7vw7Ua+7iQ4Mk09lf/8jmSg7Q8VF4KfD XuWOiBv04Mrd2so2FYDkz+3GW80z1QL/aGj/dNS/6W/I3bd73kPen70y33Fsbr0ao+xW8a/OnaL9q7p+ e7mzpzet/G32NaiY9Vk9W1ue/6+yM3jQwpv+BXjnEp+VUtPpa4Y7E8DD618g1gLLnf4W2hSorhfUNp/s 13kR/4qzJToq5mTVf+dotyPWhm1SWgpNb2di61FtVM +/PP8IjW9re2Oxd2sPUa/Inb5G2a2A0zK20z/Z83q760ATz+/I6PccqHa7NuMi+alq6NqtV2Xv211sl7 Jvmib/Vh9bL8RD0C/Gpi3At+TRxUxxkl4Peb5suL/iDfljnHfJ3R5Yl+x+BXHFvmKpKW/WGOkHP0UmiJ 3Di9Bgj595PeG8k35Gmzo3IjmV1K4sld9N4831wzae [file] n187z/janine+J+uX9G3drjvk/lzD421/PbuZ+fz/38f+P55t/yef2+f+c3JC76L7tzpf/7t6muet7wt301 Rdvu+Warp Knitter Helper/Z5G/v+u2459e20s9gfqbEo+f3+64ctd1v0 /vlc+/5xtCCN/i3llXw6o88uTh6peEyWZkcl8VrGCmwrQ7m6/L51M+n/J53O/EeeJ+Qq3s6zzDpzm/v/ M18N0hSQodQ9lRN8fvKaGQ9A/+rqXI3/J5lc+xoI98x6MBwT9qv1v4ax697ppoj5NC38/76/cgr9b35s +508bh2x1fxmeMpzKqxr1Da+/0cLocP9c1/NaqfF6/ +4vad725/mxdPu/y+ZDPh3w+5fMpny/5fH1+bnG/KH1hdy9Ca6+HL8UjoU/ufuuJh2BvL/j38/l6xQzW Pa+WwW++joLXHu/f+INWBHL5nl9pg9aD17NapBwgfDa/f/y6arGRJEC9g5zo8RndP5uiix+/2pXXnc/n MZ+XlnM920YRG7prj+90Y9538/w208w3OuyA5JYz1c Yp956hmhSpvDjZj14qZ/36z6jv/QLoIVlOQaXx3X4oyMkBrPdF2wQO08/bzk7Wg2CcH+RX4oyb6Y9vP3 kc7VaBG4d/W2MD7sgkHboXFHWCSj0/5fMrn9/b24qpcM+//CEkCvJawa/YhuBXbFvwq/y7f+2Tc3C1Pu +ihMF4+QMQD4NTcVFG+ir4VX7+3K/IEnx/z+875/Nz 8CtwiZAk+P7+Gp2r5xy4acbjEg7T+nmL080+7/J5l8/M545yK4uj8Vc3W/wRyOJUGSw1is/X55/gV+wz wa/SiB8yd2Eo+VPcF58v/Rj0nh5t+BW42QG/wnXBrzCOgl+xbwe/YyyR4TEcoy+/9z5OuhWp31jQz258 ga9Au5gXoRSo1AMzFaaN62/aofX0m7YB2c+eYXPw/g 3FgXMHVQae+OIfFts0hGR64/n+pDnhl03D5moy/d9oHLB1/+5415NLrc6sY9YeS+NvfCHmV042n6zM++ afh1/tPLZ/12apC5XTLGjD/h/4paS5B78gqA/bD5CjQs/o1Tedyz0pOSq8CilDGcwLy+N4E95r5RVuc6 R3NR7HWJhzD7RA90T7lA/vaE/wq8bC/Ie6HflSPD+X mijNw6GdZiGGU0VM8Il7+n34M/tGYALJTNLCiG9YIKR8/Gg0TA0u+FVF/wl+PJ8Ar6WbCqrDBNrZNQ/C lkOoCbx/X/n6co8STMElI2AZmN0JFlH1C8fn4ja6x51Dzwi2g/1qKvD1O/30397DQjBet1J/X7+FgAB9 HvoBv+rKc0t1x3n/n+rUdygcD55c08d+bH883/0qB6 qBpf7zP/z83Y6qJVw+zIXzMO8appjTtDYK8WBSCXzReKHOud/tB4xzKRXQmhLX4AqLBMJfSFW+Bakari+RR [file] CtZMPyYorrAb7nqFH0NFIvGjpOHy8Xk2RwswI1uaNrRjw6ELV5QyXmFO1K ID Date Data Source [id number] 10/05/2020 09:42:49 AM [facility] Name Value Range Interpretation Code Description Data Edna rce(s) Supporting Document(s) [facility] WUELEz2cVjJOYfByg6LdSuKzPQRnKU9tpsm6R4U3cQWpE6TfgNAxc5zlF0NuF4WuDFTlDAWQHL4UbEKu jb2 [file] UUJMYn4e7XUXWgv2hVEbZEVE8F+dwqt7K2gbAtOKAK tOG48P4l4bFUDL7WyjcyJFbzaII6BoMhk3a230RDjnvkyh8olgSJHwkz7otjxw1C2Do87Pq9aQ+6Kv+D hkkg4ocUVGA7Vnf1O/y0DinqS5WD/GQrLwb/fTPcSBJpiUbuTbyP3zX9A9Xc3+q000Se0qhYsU66Cffp RrRCHcPwXYZuAvjBS46O8Kd/c+z15SaO0f3uANsbTR RtnyU2lUwMM77ozLA8PRIRxwJyKfsq66H48MRBHjdAOJXYNbFJ7JL+OLzcS+6OTy7wkWe7fA/4CI6cL8 p1aS145Hi1to6WgG2g/MxvJCxnkf02o+ic7epSw0Gdqbt2jk6Balh4KLKw1oDJ58NPDi5Ged7133tTdD S+m9cWDJS/+ivLZ+e9F13W/+4gWz6VgWO5zF4y3sqs cnFsnksff5CzJk/ZjH/MJvL/pfW56/++7Iq5ssCFeBxg4H2CW+7E/3teHba1+wMt8sA+vU0nm/eWrp/H WxPsuppfPXDOebP7/TiNGvgda73vKs92spoa1oNCf62p0o3mXCf5Is4pM/0H6R+ebPL/pMLYFTS+fPg/ TILE MACHINE OPERATOR/1YMOt7mTxl8R3wCjWeYjo9W2/XHdGN5DvX78X3 [file] GokOKlKEZOFYCOZJlTISkBWckACjDIfs6UtYAyvuLOMLUUKMCAnuJHEBVWLXIEfeWPRYDCPAAGqcABZG OjOpdtCOrzpm6becan5Brb5Lcl0RfwTC/ISS3vokvD 7Ljx6Lt+V5BwMa6Ur49OcdiC9XINbJDoIwqkFRo+TW5HFG17NU/RLMZ9XbJNOqapwkPRW7rtxfgPQZ99 eLa3CFIiHQPEXe7kPE+JTXpA5PukaFRQzANIDgYvVp2clM7wjMyZZcCbkkEmFhYBrqtvnYPYXfrrPJeV BmNq0UbVAYYRYPDDLcXBpAISivWMDV3HVawyd5QKKQ QSmozWIPDnHDCVicuSJPOpXRAHeiqJYUSwcw9koFWBCDNRSrUzbALJESLNTnflxoMchPS9EydUt1hdMx fNsd9BI0WRrOrfwRnxkbgTd/obwxP1dux0Vixe5y3nuZc6VOTUGDLrxP18cyd40h2tS8zcWXUkz7IMLX /jAVJDTjUxYerKXVHzXhMFd1z4G5T6e6gsqKhswPVl lHSCWyMDPuBrnzaolLQ7hThwhW/ZvdQReIyDCpS6VzLYyMljTSOTgB+TQ9XwKppsx+KdFpyZo8gekAt7 qbgLLsFiMEgfcs5PiSRagCgijc5qyxJaZeaCWbyazv0vsdK73a1dKzcd7AvZ+o2Y3K6flh1sGV+4naBh SzS3RICMmq5pEd06Ae9WKQGc/IC2oZ3YSaMyeSyeq9 xFWPZffeDh/KoVKZ7Zou1UtrihnoMHtnxja7ABe9WtJ33MoFmheSlLYjZOdBIMNTv5D0bfP0Ki5vdQyh VHpAdERSJd3Yy4VRSN+hNuuxvGaI+o/JwdspR9XcDX63QXmstU69WNh8fLDZHrDtiakni4JOIvR7o8D3 gzSWoBjcO0PvD/Gq/4v6ebZUd7bhLkbbQ5oK9rrVQ9 wOZG8v3hDCZgRpAEexCSJcvmenDVFLt8N32N3Il0KAIACVxGXsLt2CBs7DzuaBDMErseI8+4COn78Gwg yHIvsPJRM15BMyiFT0VgDMJ5fl0dpY6iLCnW4b7N309gfbrnxf5QeuXe9rnjRx5SOv5ys4Kn2ZLwg+we Dof0EeWFTmEMKlGNFtTEui2Lh9CyPQNCSl2yGAHUBm VIeXIxZKOTHuysFFkIQ2T2O8XWK0012koWEZ/8Fe4cYL9A1wHxCAJMMpMXuA9eUa2yGbXKraMXs6e7dW 6kPPvGDp0HTiguqQH6ejY/5AIzcOfkBOC6jJSglGjJeVA5Y4WsR+onE/6dncYPLJYoP8r6iQf+Uh8OUM EeBGss0ntuuRQjQzhSZiU34j5NaFtBaCU1mvYoLk8M JhyNMBuDo2xOIYGBcNQiXR2LKRYKxYMyGLYnI8hjX8kjjEJ4cLNOAGRRGIRVsPJRPSTXVRZVzQFURFJT OSTHnUMTJWIWAGXYrYSTJbqOytGoGkKub9J556uch8OTUaOWtCOjzNijqKkl8E766hcT/RGtZGayeeSa 20OgzX65FqOEi0ro/GLjLKYZu52VxQGS929Z9BBW0K YyHTCMwTpn7ZTC5glmcwJOTRN7PNNBWkVbkVBUjbhZamw54NrF4FYoxVhKmAz2nyVrxBFUMkDU6HZS+r 8Lode1FOuAHsrf9WaczWoXKIHATMCS/duJ+63pT8uVUBGdkCuFhOX+JEnEhg/IxATxyNSCPSiXQiSSSJ fT5p32irx0t6xO1+54KY9ERDjNSCrCjsskov6gwjVQ lVj2Ud+9t8LCgXI5v3CVt1RcGuerlfvuYfh5W+zCEL8kjWgU9qPCSrkd9CTNPfcJaR0NF650Oig0jnHc mpP6pZg1NXvsHAT6iTYIgqaPYjTg24HB7aejJ5wVXV7RTRIhs1FsAud216G9m121tH9xMJoI4SMHvG92 f0efZFQ1tNt/q1S/nqrMfytHTqieXCWvVYVmEsXfVY 3ezj7ZYHqqlKY8rhtQGnGQzF09vsrgf8MH3oEOx2hfw5mvOgiGBYKjnij5mRrBZn8uMttvOM+B+cyXLE kjvlyoPez0ixsLgLOggxBPv0ccxLNgWRoJoWN7ZGOW5tuNJHInnAZxkUEpmZZumCIphXClsKDhyDVyjN JzrPJzrPJzrPJzrPJzrPJzrPJzrPJzrPJzrPJzrPJz uODtfTOrtMKruRAynFBsfGAmeUMagVGvcTDdsFCpbOIxop4tvKrv0r6KSSj5V7QZvUw9SiAbFbQdfMwm RPVA+bbK2193w4PFlgOtnC6BAHIdVolLCJK1+kVY+gsPxdgXWyfU38DvMvDbfjr2KUOZFKgYrtDRyEE7 dJwHNaL2uyK6ueJP/jOqivfipFqBlzxovYTAr595uP OBZ1+y3irkpt44byo6p7vP9+Z+d+kuJq4JU5X/3OTr+p83M5w10dwCXBIfogZXE24PhvjQIdCISPXeRd 7PQ7O/3OTr+z0+/gbAAnlatO5atGZtGoY8wQcYBLCBvWWwvUpbTU5WgGerx1z9XMlB8m2YCSya74t+7I n6g+iQGqr3P1GJJSzXNzDZuQojvpR5EsZ/rgnDhwXj m4nxgX+mRx0EMtfi5NYG+LXgQyiQNusxok3rxbK94qpyaPEf8q3I9x8YgrXxbOASmqB0B5EtCLOdZAMO GlMkA6XJMXmCC6kyptk83rtLRa8VrAZrGODFOmCzPg0grfY51D4eknohsgZTLXODpJUlfnk+qxHIKIEG E/sV709rE4gYAkAx2Ax8VqloyUQvVWeNVxYKrLCEHU ZgCKbRD1s86ifDdTj1PPThu7OI1OUCHbDJ+seizL+xb9NM3YPEEkSDtYFnm7QMWXQVO7bzRCV0z5s/La 0AM98lFNIdUxs/JZLX4q6meEBbNdqJGsgT35RZ0EwZXyx153RR37DOQFygcNp7Z19DRxeqg1EF9sj/XE bxrw5mMCewHpp5BfeNKSN2xzxIBhr9vn8xqBGjdcou 0mR4Mtw5OjGnXio6aHfRuqgFuGLk7Oe58X7MAdfcxGE8aLn++5BJbn88y4XXLqkaFTDYovC+WW2dS1bb b3EwN1+3DUT1b7PHDi0KUUkNvOQCReLYrHnCJfeSoPUDyFEI3lJdFQqbEgrPgOpFLJMwsLaRhK8DgcSv soaHRABFJBNUltxUWiMFRYHgNB7NXBc+UQRISIEFEi IvBDSSwTx6vD/Grfjg3asx/9WyPV6SW2kPKIJPhOUynPbSM4V9C+waoYEha0lUymaXazdg8LhTl1n630 BDBznFXkQNlyW9LfwyJYOb3DyOxlS1FkmTdOe069PS7KGOW3ZsQz2ZUkr0VnmBpAY3aHGlmCjMbx94yV 6T1L0I4wnTtHWftObhQDFyLXQCRCjsgoYUWVCCnwN0 kHQ9vS8LPkv9AMN0MNbRbHAGUYiARaJIkGtdV481EyfapfjTcho+7jv7/9l2/l7R/ePv4/b+8/3thchG UB5g171/QmQe97V35/+eU/js7a9z86/cf9iVN4Yd/77ibndY8uzx1W57j7o18+JP3n/+3dVz+/o4LfXi ljF8o3TcCce8s6bxr/7qvfv/1px707hBxo/dtv3v/q i8/prio1s4+++Pb9h2+++De8p9hz097kQiyd0Mig7p83rW/eycwsu5890E7wwson3+0+ioV1X171X/NJ X3z1u2/ePr77/Ne///mnu2100u6z/PZehe/f/vbrrz+8/fbD+8+/vn/29zuW21/89s0O81+++/b9i/31 f/3w/lalfaw3w9ab0ds76ms5z4/22qq4n03+/XrrF/ V53d3T7g/rNu9++cDNR60t6gtSC//x7fOvv/rmi1+9//D2xVf//P7DF6+Hf/HN579+/5u/42Kizcq2l5 2Ht/ef/9e/30Gfk7t/8tNKv4z+/eLrV+tfv/kv1h5557455r9sg8s/d/50q/H3nz7/84//8ce//PD9v7 /99//99u0f//Sn7/7yl++/+9M/vv3qux//+D7p0z9y v0j+2z+8/fnHN/mFjF/Mzz0+c/3spae8+22iiB5AidSyLrDSY88eAs53sLMbN2ikTy/tKKJ7721e3S8y /85Gpd28xFRtjl9xe0fCgt7t3NmlJKew5Hh8twxF4wkM9MMQj8+7fiqqWQfn/sGH7//j+8svxym74bdv DB8//um9l509zUfsaF/lUTOxa25bNd/y/l/T8Cfah4 1h7Kcn//C4bQAEgXZA38kFDt4WAAj5+x//85/e/vLdf37/ye1fS+nbSqxz/+iHv/707huTlj+9+wZ/++ Htjz/+5/d/+X//7o8A8nqAM556mT3lUD9cw6/Et1f95f6u/+fr3f/45x9/jlvHus3yz5+3eLB/+fiLf/ n4B+SvmUKMb3KiV9wzJ1d/EdlVSb3y1wS4ruXoLmQp UhvtL1g37WE++/MPP//49t3/+v3xlhsekc389y//+q7ty76xzhmJACu7//2Xf/uHn/x6f4Z//v6H7/70 yQcen+Cff/c///DdX//43Y8/ucMWdbv++ONP/39Gy/Wn//63/31k+OHPf/9butdT2Yb/2S3+8s9/+Kw3 KiZeDb0JSeGI+f0f/u8f//iH1xt+9vbf3n/17stPVq D237qJNE34a//56nb//ybpz2lha5oYPBv+9W9+8/1od842qwZ+r53/55/clpK+9Zp3f/vd//j+Td7+/B 0tqw3fe/n/TBtvb+7mX3yTV60/q4+v+kBoY15gFLmrk9P9/+Aiv0tl0A9XMW/vPv/623492mjkb1na12 rH09f+gyogbLVIYY1tm7TlADTiAvOzYL6honfaCWDt DP0adfw3A1JftUcdFEyLCQVvUm6qhGZmZC2VGHX4FSwzRJTtFLDeD9VhlS8jB93xgVRgEsYcPHSOVM9Y bbO0ZAT7FGM3HNNqNeShDQZiFS70MQHmCGZUFm8mzdRiAawSAfSgMG1kqhy1A1C9hXOvJ461sYkeirOi TG0Gh4XpgEQzZH6NzTYvaXFuRMDpHNXaD7tmw6MtKM tkIROSWi4mscOfWxtALrPzEH7ajqk3I8C0uSjlpcCrIJZIKPwtIpnvKD0ugJzbwebeE3MtcURnXOTqU5 ThUDKfj45ZTJQiWIsFFlCwQkNiATI0BLy2SbsuLrVnOKMkEMKmEARnPF0HtOGgUAOiSJXPTMnvTfpgGA RtwK4suZXIm3GwJ78ONXlMSQkCTYLPJNECOpFbAaTz JKC2VFBmN0ZofmEqwXRvSDNYPUrqSnxoQLYxuD1ldVriC2BfNLW1d3TbAZ7VV2NtFXZaMTOLQDM8r5Wi ZIPmtfhuwqpeHhFqKGZrIVWrCYOjEK9Hqe0lvMPyanTuZMWKWMxfYhyqZD6szVdqhvwgJ3OasHLyCOC+ PfCgXH6rfq4+TzGvPJJrUck1HWDeNPefKNMeGNSgUK IaD0ueRKBvAqHwCNFeGbFkRY4Ru2NthERbEx6ufkMzJprTyUUrCuwiTDSeOZWwJBKmUvJQFJBpMEXlBU YeJUT2CFMpYSCfOVhnKPXgSSG7PCm9FVFcZZTnBN3yDiZvBXWvGjGiYVOaHEDxEZPrbiIUZWDoBFT5Zw WvJBEfVYSfKYNaNKuaLOZaNJCpOSAxATI3WIB6RNKn YwVuQJWlFMLkMVRoYWDhGXVihmLNFHFtYLNbZPB1SXGzRDXwPLRzDCagMOAwRDNqVPybOVHxEOWoEC4j OfBiPKLnMCYyRDgyNRVgNXHrynRBLSDeKTYoQALsMIXwJRPdDXNpUBzuCAZqEDCoVLWeMIOnWLDpUU6g RbSlERAiNQW2QRRoXKKwKMAmvxIUXDSnRNZkDMt0QF YtBSEvRMXzQPlwXQLzBUMiSLJ6ITIcPWDbWS1nHrKcBIQwUFQ5PaGySJSaEGJrnsRDFAAaHEWlVWL7Vk ScEKRaPMTqXLejIMGfIUOkMLukGYPbRUQhXW6kHeXdQSWsDEWoZZonRAArXPDvmdLGLJYyWLPdBYFuZh QbECVkTKLvNNsjZLZtYHC1NNJeDIHdHQDnXG0tMiZw QSXxJPN2JEoqBUFvNVPlhvEXJQAnVNDdKVkdUPCiOQFuORWlYDedRDPoTHKyFNR4LMUwWDBgOO8yKxLs WUCpHRBzYKNjSvR5QbChRiTYyQKujCegdxn1OHwvL8a3KOBzCKvxLH6tyuHqBGPvHmbtAn0gvJG0WONd [id number] ID Date Data Source [id number] 10/05/2020 07:37:16 AM [facility] Name Value Range Interpretation Code Description Data Edna rce(s) Supporting Document(s) Leukocytes [#/volume] in Blood by Automated count 7.9 10*3/uL 4-10 [facility] Erythrocytes [#/volume] in Blood by Automated count 2.58 10*6/uL 4.1- 5.3 L [facility] Hemoglobin [Mass/volume] in Blood 7.5 g/dL 11.5-15.5 L [facility] Hematocrit [Volume Fraction] of Blood by Automated count 23.0 % 3 6-45 L [facility] Erythrocyte mean corpuscular volume [Entitic volume] by Auto mated count 89.1 fL 80-96 [facility] Erythrocyte mean corpuscular hemoglobin [Entitic mass] by Automated count 29.2 pg 27-33 [facility] Erythrocyte mean corpuscular hemoglobin concentration [Mass/volume] by [facility] 32.7 g/dL [facility].0[facility] width [Ratio] by Automated count 15.0 % 11.5-14.5 H [facility] Platelets [#/volume] in Blood by Automated count 216 10*3/uL 150-400 [facility] ID Date Data Source [id number] 10/05/2020 06:38:06 AM [facility] Name Value Range Interpretation Code Description Data Edna rce(s) Supporting Document(s) Leukocytes [#/volume] in Blood by Automated count 4-10 [facility] Notified Elyssa Mariscal on 5B at 0637 on [id number] by [id number] Erythrocytes [#/volume] in Blood by Automated count 4.1-5. 3 [facility] Hemoglobin [Mass/volume] in Blood 11.5-15.5 [facility] Hematocrit [Volume Fraction] of Blood by Automated count 3 6-45 [facility] Erythrocyte mean corpuscular volume [Entitic volume] by Automate d count 80-96 [facility] Erythrocyte mean corpuscular hemoglobin [Entitic mass] by Au tomated count 27-33 [facility] Erythrocyte mean corpuscular hemoglobin concentration [Mass/volume] by Automated count 32.0-36.0 [facility] Erythrocyte distribution width [Ratio] by Automated count 11.5-14.5 [facility] Platelets [#/volume] in Blood by Automated count 150-400 [facility] Sample quality of Dried blood spot [facility] ID Date Data Source [id number] 10/05/2020 06:01:10 AM [facility] Name Value Range Interpretation Code Description Data Edna rce(s) Supporting Document(s) Leukocytes [#/volume] in Blood by Automated count 4-10 [facility] Notified Elyssa Mariscal on 5b at 0600 on [id number] by [id number] Erythrocytes [#/volume] in Blood by Automated count 4.1-5. 3 [facility] Hemoglobin [Mass/volume] in Blood 11.5-15.5 [facility] Hematocrit [Volume Fraction] of Blood by Automated count 3 6-45 [facility] Erythrocyte mean corpuscular volume [Entitic volume] by Automate d count 80-96 [facility] Erythrocyte mean corpuscular hemoglobin [Entitic mass] by Au tomated count 27-33 [facility] Erythrocyte mean corpuscular hemoglobin concentration [Mass/volume] by Automated count 32.0-36.0 [facility] Erythrocyte distribution width [Ratio] by Automated count 11.5-14.5 [facility] Platelets [#/volume] in Blood by Automated count 150-400 [facility] Sample quality of Dried blood spot [facility] ID Date Data Source [id number] 10/05/2020 05:14:09 AM [facility] Name Value Range Interpretation Code Description Data Edna rce(s) Supporting Document(s) Bicarbonate [Moles/volume] in Serum 21 mmol/L 22-29 L [facility] Chloride [Moles/volume] in Serum or Plasma 108 mmol/L 98-107 H [facility] Creatinine [Mass/volume] in Serum or Plasma 0.70 mg/dL 0.50-0.90 [facility] Glucose [Mass/volume] in Serum or Plasma 93 mg/dL 70-140 [facility] Potassium [Moles/volume] in Serum or Plasma 3.8 mmol/L 3.4-5.1 [facility] Sodium [Moles/volume] in Serum or Plasma 139 mmol/L 136-145 [facility] Urea nitrogen [Mass/volume] in Serum or Plasma 8 mg/dL 6-20 [facility] Anion gap 3 in Serum or Plasma 10 mmol/L 8-15 [facility] Osmolality of Serum or Plasma by calculation 286 mosm/kg 275-300 [facility] Creatinine/Urea nitrogen [Mass Ratio] in Serum or Plasma 11 [facility] Calcium [Mass/volume] in Serum or Plasma 8.3 mg/dL 8.6-10.0 L [facility] Glomerular filtration rate/1.73 sq M pre dicted among non-blacks [Volume Rate/Area] in Serum or Plasma by Creatinine-based formula (MDRD) >6 0 [facility] Glomerular filtration rate/1.73 sq M pre dicted among blacks [Volume Rate/Area] in Serum or Plasma by Creatinine-based formula (MDRD) >60 [facility] ID Date Data Source [id number] 10/05/2020 05:14:09 AM [facility] Name Value Range Interpretation Code Description Data Edna rce(s) Supporting Document(s) Phosphate [Mass/volume] in Serum or Plasma 1.7 mg/dL 2.5-4.5 [facility] ID Date Data Source [id number] 10/05/2020 05:14:09 AM [facility] Name Value Range Interpretation Code Description Data Edna rce(s) Supporting Document(s) Magnesium [Mass/volume] in Serum or Plasma 1.9 mg/dL 1.6-2.6 [facility] ID Date Data Source [id number] 10/05/2020 01:23:54 AM [facility] Name Value Range Interpretation Code Description Data Edna rce(s) Supporting Document(s) Leukocytes [#/volume] in Blood by Automated count 8.5 10*3/uL 4-10 [facility] Erythrocytes [#/volume] in Blood by Automated count 2.44 10*6/uL 4.1- 5.3 [facility] Hemoglobin [Mass/volume] in Blood 7.2 g/dL 11.5-15.5 [facility] Hematocrit [Volume Fraction] of Blood by Automated count 21.6 % 3 6-45 [facility] Erythrocyte mean corpuscular volume [Entitic volume] by Auto mated count 88.7 fL 80-96 [facility] Erythrocyte mean corpuscular hemoglobin [Entitic mass] by Automated count 29.5 pg 27-33 [facility] Erythrocyte mean corpuscular hemoglobin concentration [Mass/volume] by Automated count 33.2 g/dL 32.0-[facility] width [Ratio] by Automated count 15.1 % 11.5-14.5 H [facility] Platelets [#/volume] in Blood by Automated count 191 10*3/uL 150-400 [facility] ID Date Data Source [id number] 10/04/2020 06:43:34 PM [facility] Name Value Range Interpretation Code Description Data Edna rce(s) Supporting Document(s) [facility] [id number] lbm [file] [id number]== ID Date Data Source [id number] 10/04/2020 06:11:46 PM [facility] Name Value Range Interpretation Code Description Data Edna rce(s) Supporting Document(s) Troponin T.cardiac [Mass/volume] in Serum or Plasma <0.01 [facility] ID Date Data Source [id number] 10/04/2020 05:49:02 PM [facility] Name Value Range Interpretation Code Description Data Edna rce(s) Supporting Document(s) Leukocytes [#/volume] in Blood by Automated count 9.2 10*3/uL 4-10 [facility] Erythrocytes [#/volume] in Blood by Automated count 2.76 10*6/uL 4.1- 5.3 L [facility] Hemoglobin [Mass/volume] in Blood 8.0 g/dL 11.5-15.5 L [facility] Hematocrit [Volume Fraction] of Blood by Automated count 24.4 % 3 6-45 L [facility] Erythrocyte mean corpuscular volume [Entitic volume] by Auto mated count 88.3 fL 80-96 [facility] Erythrocyte mean corpuscular hemoglobin [Entitic mass] by Automated count 28.9 pg 27-33 [facility] Erythrocyte mean corpuscular hemoglobin concentration [Mass/volume] by Autom[facility] 32.8 g/dL [facility].0-[facility] width [Ratio] by Automated count 14.9 % 11.5-14.5 H [facility] Platelets [#/volume] in Blood by Automated count 209 10*3/uL 150-400 [facility] ID Date Data Source [id number] 10/04/2020 10:49:[address] [facility] [address] ANGIOGRAPHY ABDOMEN AND PELVIS [id number] INAL RESULTInterpreted by:NORM WelchPROCEDURE INFORMATION: Exam: CT [...] (IV); COMPARISON: CT ANGIOGRAPHY ABDOMEN AND PELVIS [id number] 10/02/2020 4:54 AM FINDINGS: Lungs: Mild ground-glass [...] Name Value Range Interpretation Code Description [facility] Document[facility] ID Date Data Source [id number] 10/04/2020 11:43:16 AM [facility] Name Value Range Interpretation Code Description Data Edna rce(s) Supporting Document(s) Leukocytes [#/volume] in Blood by Automated count 8.7 10*3/uL 4-10 [facility] Erythrocytes [#/volume] in Blood by Automated count 2.85 10*6/uL 4.1- 5.3 L [facility] Hemoglobin [Mass/volume] in Blood 8.4 g/dL 11.5-15.5 L [facility] Hematocrit [Volume Fraction] of Blood by Automated count 25.4 % 3 6-45 L [facility] Erythrocyte mean corpuscular volume [Entitic volume] by Auto mated count 88.9 fL 8096 [facility] Erythrocyte mean corpuscular hemoglobin [Entitic mass] by Automated count 29.3 pg 27-33 [facility] Erythrocyte mean corpuscular hemoglobin concentration [Mass/volume] by Automated count 33.0 g/dL 32.0-36.0 [facility] al Erythrocyte distribution width [Ratio] by Automated count 15.2 % 11.5-14.5 H [facility] Platelets [#/volume] in Blood by Automated count 181 10*3/uL 150-400 [facility] ID Date Data Source [id number] 10/04/2020 06:13:34 AM [facility] Name Value Range Interpretation Code Description Data Edna rce(s) Supporting Document(s) Leukocytes [#/volume] in Blood by Automated count 9.0 10*3/uL 4-10 [facility] Erythrocytes [#/volume] in Blood by Automated count 2.47 10*6/uL 4.1- 5.3 L [facility] Hemoglobin [Mass/volume] in Blood 7.3 g/dL 11.5-15.5 [facility] Hematocrit [Volume Fraction] of Blood by Automated count 21.8 % 3 6-45 L [facility] Erythrocyte mean corpuscular volume [Entitic volume] by Auto mated count 88.4 fL 8096 [facility] Erythrocyte mean corpuscular hemoglobin [Entitic mass] by Automated count 29.5 pg 27-33 [facility] Erythrocyte mean corpuscular hemoglobin concentration [Mass/volume] by Automated count 33.3 g/dL 32.0-36.0 [facility] al Erythrocyte distribution width [Ratio] by Automated count 15.1 % 11.5-14.5 H [facility] Platelets [#/volume] in Blood by Automated count 170 10*3/uL 150-400 [facility] ID Date Data Source [id number] 10/04/2020 06:30:17 AM [facility] Name Value Range Interpretation Code Description Data Edna rce(s) Supporting Document(s) Bicarbonate [Moles/volume] in Serum 21 mmol/L 22-29 L [facility] Chloride [Moles/volume] in Serum or Plasma 109 mmol/L 98-107 H [facility] Creatinine [Mass/volume] in Serum or Plasma 0.67 mg/dL 0.50-0.90 [facility] Glucose [Mass/volume] in Serum or Plasma 94 mg/dL 70-140 [facility] Potassium [Moles/volume] in Serum or Plasma 3.4 mmol/L 3.4-5.1 [facility] Sodium [Moles/volume] in Serum or Plasma 139 mmol/L 136-145 [facility] Urea nitrogen [Mass/volume] in Serum or Plasma 8 mg/dL 6-20 [facility] Anion gap 3 in Serum or Plasma 9 mmol/L 8-15 [facility] Osmolality of Serum or Plasma by calculation 285 mosm/kg 275-300 [facility] Creatinine/Urea nitrogen [Mass Ratio] in Serum or Plasma 12 [facility] Calcium [Mass/volume] in Serum or Plasma 7.9 mg/dL 8.6-10.0 L [facility] Glomerular filtration rate/1.73 sq M pre dicted among non-blacks [Volume Rate/Area] in Serum or Plasma by Creatinine-based formula (MDRD) >6 0 [facility] Glomerular filtration rate/1.73 sq M pre dicted among blacks [Volume Rate/Area] in Serum or Plasma by Creatinine-based formula (MDRD) >60 [facility] ID Date Data Source [id number] 10/04/2020 05:33:40 PM [facility] Value Range Interpretation Code Description Data Edna rce(s) Supporting Document(s) Thyrotropin [Units/volume] in Serum or Plasma 0.524 u[IU]/mL 0.270-4. 200 [facility] ID Date Data Source [id number] 10/03/2020 07:46:52 PM [facility] Value Range Interpretation Code Description Data Edna rce(s) Supporting Document(s) Leukocytes [#/volume] in Blood by Automated count 12.2 10*3/uL 4-10 H [facility] Erythrocytes [#/volume] in Blood by Automated count 2.95 10*6/uL 4.1- 5.3 L [facility] Hemoglobin [Mass/volume] in Blood 8.6 g/dL 11.5-15.5 L [facility] Hematocrit [Volume Fraction] of Blood by Automated count 26.5 % 3 6-45 L [facility] Erythrocyte mean corpuscular volume [Entitic volume] by Auto mated count 90.0 fL 80-96 [facility] Erythrocyte mean corpuscular hemoglobin [Entitic mass] by Automated count 29.0 pg 27-33 [facility] Erythrocyte mean corpuscular hemoglobin concentration [Mass/volume] by Automated count 32.3 g/dL 32.0-36.0 [facility] distribution width [Ratio] by Automated count 14.8 % 11.5-14.5 H [facility] Platelets [#/volume] in Blood by Automated count 166 10*3/uL 150-400 [facility] Confirmed ID Date Data Source [id number] 10/03/2020 04:23:14 PM [facility] IR RENAL ARTERIOGRAMFINAL RESULTInterpre edgar by:Paul Madison [...] Bentson wire. Over the wire, a 5 [place]oc[place] Omni Flush catheter was introduced into the abdominal aorta and aortogram obtained (20 cc/s for 30 cc). 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 The catheter was exchanged for 5 [place] SOS 2 catheter and the left renal [...] rce(s) Supporting Document(s) ID Date Data Source [id number] 10/03/2020 02:45:17 PM [facility] Name Value Range Interpretation Code Description Data [facility] rce(s) Supporting Document(s) Leukocytes [#/volume] in Blood by Automated count 9.9 10*3/uL 4-10 [facility] Erythrocytes [#/volume] in Blood by Automated count 2.95 10*6/uL 4.1- 5.3 L [facility] Hemoglobin [Mass/volume] in Blood 8.5 g/dL 11.5-15.5 L [facility] Hematocrit [Volume Fraction] of Blood by Automated count 26.1 % 3 6-45 L [facility] Erythrocyte mean corpuscular volume [Entitic volume] by Auto mated count 88.6 fL 80-96 [facility] Erythrocyte mean corpuscular hemoglobin [Entitic mass] by Automated count 28.9 pg 27-33 [facility] Erythrocyte mean corpuscular hemoglobin concentration [Mass/volume] by Automated count 32.6 g/dL 32.0-36.0 [facility]th[facility] distribution width [Ratio] by Automated count 14.7 % 11.5-14.5 H [facility] Platelets [#/volume] in Blood by Automated count 160 10*3/uL 150-400 [facility] ID Date Data Source [id number] 10/03/2020 10:12:33 AM [facility] Name Value Range Interpretation Code Description Data Edna e(s) Supporting Document(s) History and Physical [facility] WASEBh9cWnIDIvPx31/HFWsnGIHqq2JxUSblPIs8BFbzPFHoS9IeHLR6fU8iZWW4JXcYGnBpHbEyWJR6 lbm [file] i8Iw0f7g0CWB/6rEm/s1Mta6Kd6JBJAdTY+oldWYXk8fcXl8rNW9ZG95ooBZToj3OrBs6/RTdnaHw/[facility] [file] ICAgICAgICAgICAgICAgICAgICAgICAgICAgICAgIC AgICAgICAgICAgICAgICAgICAgICAgICANCiAgICAgICAgICAgICAgICAgICAgICAgICAgICAgICAgIC AgICAgICAgICAgICAgICAgICAgICAgICAgICAgICAgICAgICAgICAgICAgICAgICAgICAgICAgICAgIC AgICAgICANCiAgICAgICAgICAgICAgICAgICAgICAg ICAgICAgICAgICAgICAgICAgICAgICAgICAgICAgICAgICAgICAgICAgICAgICAgICAgICAgICAgICAg ICAgICAgICAgICAgICAgICANCiAgICAgICAgICAgICAgICAgICAgICAgICAgICAgICAgICAgICAgICAg ICAgICAgICAgICAgICAgICAgICAgICAgICAgICAgIC AgICAgICAgICAgICAgICAgICAgICAgICAgICANCiAgICAgICAgICAgICAgICAgICAgICAgICAgICAgIC AgICAgICAgICAgICAgICAgICAgICAgICAgICAgICAgICAgICAgICAgICAgICAgICAgICAgICAgICAgIC AgICAgICAgICANCiAgICAgICAgICAgICAgICAgICAg ICAgICAgICAgICAgICAgICAgICAgICAgICAgICAgICAgICAgICAgICAgICAgICAgICAgICAgICAgICAg ICAgICAgICAgICAgICAgICAgICANCiAgICAgICAgICAgICAgICAgICAgICAgICAgICAgICAgICAgICAg ICAgICAgICAgICAgICAgICAgICAgICAgICAgICAgIC AgICAgICAgICAgICAgICAgICAgICAgICAgICAgICANCiAgICAgICAgICAgICAgICAgICAgICAgICAgIC AgICAgICAgICAgICAgICAgICAgICAgICAgICAgICAgICAgICAgICAgICAgICAgICAgICAgICAgICAgIC AgICAgICAgICAgICANCiAgICAgICAgICAgICAgICAg ICAgICAgICAgICAgICAgICAgICAgICAgICAgICAgICAgICAgICAgICAgICAgICAgICAgICAgICAgICAg ICAgICAgICAgICAgICAgICAgICAgICANCiAgICAgICAgICAgICAgICAgICAgICAgICAgICAgICAgICAg ICAgICAgICAgICAgICAgICAgICAgICAgICAgICAgIC AgICAgICAgICAgICAgICAgICAgICAgICAgICAgICAgICANCjw/pNTsJ6twjIVdbbI0Q0tqTs8SVz6VUK 1ur0WqLQQxATdhypOkSwfKYfNdNUWwChaPJzp9ZUqwWJ7PqMXhS4GiO7VwVJyaFW1GILSsUHOokZKyOK TuOEJkIdK3VJMnUTyfZG6NkNMjFIpfDZUtUOLpBxNr HPWuHOMfQLSsVB8PKMDeN881ojYfIf5APh5IFmRzXJ1ihi4EAxOhWSPfNlfITkv4YMfrPA1ZzAQjsHGn KdOeNHZNBeAqE7xpd2VxRpucFVLRTThjGD7Ax9XwlPMlWKu+Bh7PRA0yl4UxJJgrWdIuSA1hhf2FPJxU OpSrU4UvxYgdVMujMZUemACPPVUkvPnnav0aB85wIC ybc6vlQWGDYDJmmWVyBvA5NmPePsWqQPA3WOLyGP7oEAbxFU6LYMJ6JIaeNMMnJNIcV6hTIoYgMHPmUw JqsEtmSS9ZCeJlH7LcxlUuuVHbZwZaNBJSLw8+VIsvfgJmLfhISqL0RXEqi5SaEXp5TM7RZSLyZJrbBN 2SOGVixP6iMScgNX9HJqVeJWOgUJOBYzBtT72rcUZi FIv4C6CoAuGkNLWzWwuxOLKkLObvGsCcKWWoLyZuTWquBA7+ID4+YWfyKQ5KKAcwhtVuMFImFd7QWRPm QXPzHO7pUIBaVJVrZ3L5rSzuADCEGtDdN1eyqswtDW7xSZBpJ070yFatdcXyOOR0MVYbVr5HMFWyZGK2 TRIpuWRdEaXiSMSWAGkrOP7LlFPlOWL5vT7gGFsbRG NwUBZxI5dGEtCdyRscNV09pFeuqzXvpNGpLWh+Cg9PXC8at5HpNHy3aeExBItgGDP4POocGUEgLYPqDH QrHKP7HDT4EYSVXsKdEXBmKITwEUprIJEwZSMjos9JOJJwWBQoKsw5PkYiQPPsSIFwFAseVONmQBU8Cp luCWZcRVGwRE8XPsXiLXSwZPMjIKcmRFQrAYMvod1M MUAbIVOcAsgxQTUyWVGxIVRkHUovDRQtLKKpHLE4FJWpFCIcIT0HXyZbFVMaCQThGSKwSWVzKKJxwc6P YLQkIMOsYzM2PXXwSRFlTZRuUKlbTKKtIAO3Asr0QMFlPWNiRG7PLbOxHZNjZBd2HGbxQRJiQVZwvh9I JOEzTDJfYJD1YJQhDCSqHTYkXGiwFHGhJRE8BnP2ZS YoCOVoWE1ZAlNtLHLkQVh2ZulcISKvRTGkta5DXEViSOZePCi4PzTqYIOjXSOhUHckMOHlLVHoKWx4HW ZjBJWzDC5CEjXaLBIjSWStHGwuEGBkOECweb6BOWFcJWWtBSC3LfQzKRTkHRDhQSueDJLaPRVsDBA8DB RxNSLhTF0PLcWsPQUyMPK8VfbvSABzELFgke2YMZHy HZSqYtLnPlOmYILkWXUvVCfqAQPgWXXvCoBwFXUpFACeHH5FMlRyFYVmCfV7SejrPWOrTKHikt4INJTk GIJnBfj3DOCvEDOuCILhDHlkFTIoWVIgXIV7HOLqQJHoAM8SEwOvHYEqKvQaYKNuTFRqDUTbpp1JHCYe YVNoXRa8TMKzAUHaOGVdDPhuGKYeOWX9IFDuCYUbHW FzPX3KAzJgNNOyTtOrOHUqHBUyMXWdtj6OhFXrfDzzmh7OPQwEXp2EuCyhYKQ9HVawMy2fkDLpTBFvPO OQOa9LkbRlDSReIQSKLKfqFGDuPPR8QUDlNIFvOUD4AlP8JgHzW2MxHdWlVwV3DIXkZ3KnMeT8XEd6Wv U4LPU0WwPkQmEvNMPvHuWuKCMxKLv4QBU5XHH+IF0g DQo+Ef2Om3CkflB9vlNdWRxwIsT4FA8HIQAXF7BPCr== ID Date Data Source [id number] 10/03/2020 10:11:22 AM [facility] Name Value Range Interpretation Code Description Data Edna rce(s) Supporting Document(s) [facility] ZTUCKy5wAoLUYbOk87/VCOqvSXWuz9HsUCwgEEa3VJbzXSZfF7FeEOS5aC3wARY7MLfLTtDlTeQhROH9 lbm [file] [employer]NEY+Sp4RUIXtILe8U7A0IUItRUt5T7QFU7POBCZlNV frYYbaONTjWSu0S9W7ZLIcW9GQG3Fpsvrflw1+JR8TC11BZOYpYHz6Z8R6aFTlU1Y9qVuUbAN5QO4DSO 9UkAa1nPIgsS9+YF7WS0BXHxEkLLk5R9E8nSYiM5W1uWbIqBG4ZK9PMT2QnHZkGLGvgfLzFt2xB1QFGJ yKNyWQCHS3TN9BzWZmKD0DmLYME6JxeADlMc4nWLwi rXWpcU0uDq2yNFsoOC7UFhOZLWjUTXX8XX1QbMRvXT6DyKILH5BaiVDtEy3iHAkikOTucu0+HB2QSJIk Si1OCw6+NDyjrvHvPjnXEnM9YUOqb7ZwUPp0QY0MSV7cfGqlRNE3Ry0UqEZ1gSIlQ7ySQO3MmNTrY35i bCJeBQGfMb8EMyE0foUekG9SAW23iVGya4Q5LFByJ8 gpUGmez61hBIkxYKmUQE8dKWLJVLmaVJapLSR7HgTwsvssTDZeVo7BMxYeTKf8rY7ofTC4UTC2BqtsxY BrWYcbMaUkQeKtZgJ4iZtzfxe8CQwoNW4cJMgtbogrTMNhJbt+GYxeKTJwKVKrUucLGTUpyP4euwM1lc ChDUbhrHAqYn8jd8i4OojhPd0vJh8nRGp0LvElEdQe EJUmId1smO80ZDeskcAuAc9OMyIxGTX3T0RhCzyVZNZ+SUgyZKsgpDm1dONhXRCaNs0YOHJoKIJsMAZx ICAgICAgICAgICAgICAgICAgICAgICAgICAgICAgICAgICAgICAgICAgICAgICAgICAgICAgICAgICAg ICAgICAgICAgICAgICAgICAgICAgICAgICAgICAgIA 0KICAgICAgICAgICAgICAgICAgICAgICAgICAgICAgICAgICAgICAgICAgICAgICAgICAgICAgICAgIC YkAHToYPUjTNYaYCJhCJNnJVMuHGNoTZAfSUGtGHZlUNMeFGXvYKYrTW4KUFFzIJKxYFZcLDCwSFRbDJ AgICAgICAgICAgICAgICAgICAgICAgICAgICAgICAg ASGzFQDzJMCfBERhEPIgARRfAGXgWOUkUJAzONQsLHGwOXLnWGRkUDYjMNFhPXTiDTHeTY9EIDGaYZAn ICAgICAgICAgICAgICAgICAgICAgICAgICAgICAgICAgICAgICAgICAgICAgICAgICAgICAgICAgICAg ICAgICAgICAgICAgICAgICAgICAgICAgICAgICAgIC IbNI9RVQBlZFHnCFUvVWOuHSDtGNGrFALkEMCfMBYkZAFrUKGcFSOoETXnLUDhFZWkHCZyJLOpHOBpRL OfCNQyATUxXBIwWCYmIWCzKTSpCXLbIWJjAKHsIWCePFFhVGUvGFHhYKFpFV0NQYSdZZKwMWWwWVQmXU AgICAgICAgICAgICAgICAgICAgICAgICAgICAgICAg WYPkNFZvFLHqRGXzSWMxAYSoVIZfUBPpDEKvIRUeAGRvVMYgZSZaMJHiKOAgVMXvWRRkZZVySG2NQYOp ICAgICAgICAgICAgICAgICAgICAgICAgICAgICAgICAgICAgICAgICAgICAgICAgICAgICAgICAgICAg ICAgICAgICAgICAgICAgICAgICAgICAgICAgICAgIC JvTPZlJE0DFPTgGXHfHYDxFFFaHTJxEZYsVWYoKXTnPQVpMEMySCJiAYIqDWKaHDAxVVGaTCUyULBlIR EqWQGeKCSzTWHsHBQyZWTvCMFoXYQoQCOaNAWxLEGrJCUoDLKrYMCsZXWcCYFvVT8CZXVhQITaKIVfQU AgICAgICAgICAgICAgICAgICAgICAgICAgICAgICAg YQUyFMHaIVBvDXLyFWYrPOVlJBYsTDYsJASwROOiCWBtLFYyFRMnPQTrWDSzKMTwZIQnBITmKLMrZS8N ICAgICAgICAgICAgICAgICAgICAgICAgICAgICAgICAgICAgICAgICAgICAgICAgICAgICAgICAgICAg ICAgICAgICAgICAgICAgICAgICAgICAgICAgICAgIC BpRXRfKGCyEP8AWQ15fROrk0E2MPWhHO9hndp/Fh8FQGdlasNkzUPlJX0VMuWgDR5dcr0PQgTjWZ2llk 7JTQmZAoAzV7S3xCCuYPSsYIKCOxQeI60gFRqlNy34AVygEGIhUhDxEHw5Xl6RStPjH8uyXYLmTkC5XN GaXaK8UOObDnO3FXLsBuVtSJIkMHPwWTCkUQUNHH9R KyHgN5KskB64IQCSKv9+MUttdoLtFjrBUnNzJMTqj4CfDOw6HZ5YYFMjKvcpq8VbTjZzLNVYISsoZU4I SDZ9EIVdDBXxTl3REPQkI370toUfAZ6CCw9SCrBnAD0deu5RRvHiMDPpYwjRPyo7EAsfTY1YfSUmDIaZ v19vvRq5teAqkGYMAWVdbWkchb4bS94cYGlhy7yyNU OXMARzbJTxFcX4JyFcJrAvVRw7YshnSI1rJPvdTZ6IATC4XShzCLLrOATaQ9hWKbKqGAYrJrDvcZbzOW 9QNnDjS8IoyfKztSNeILGcOWDWSq5+OBlolbSqQrqUMkNePFPnq1JoWXi8BU1DBZNaMBjsGN6QPKByuT 3eARrpMH2RFeZvDVUvHAWHEbYeU39whJWqKZc6M8Bc YmVkZGVkRmlsZXMgPDwvTmFtZXMgWyBdDQogID4+ID4+ETuyEM3QNAxpoyTiMTYdLh0AHMYzRSKjQD3c RBDtBQZpD2E3vDttUQQLCaOzG3ngvlceWH0mEGYlB096gAcifhUcQHAkDVXxPq2RUFXlFIF6FAXvgTBl LzdyLYEUSJsiOP8TdLRyVWX3pA2vLGafIRBuELIoQ0 aOVbShlEgbWN09fNmjakJxfRHmIMk+Ha9SDD7vm8NnCDl3kwDvZEscSRNjGZcmCTUjTSVkDSApEWN0ZE S1VGIUNrGbBQOwTJXbFTbeQSOeYULpgm2QQLLjDUDtJRY4VpGyEQOgCIBmKNanAJSzOSTrUDK2KQFqYT HgOO8MYiIhXOQiLNNmXUznYBVuPKIlmg7TITTvLVOj IgF7QYUfEHPiGKOhIKapKCMeWJGbNCE3FVLiNCBlAH0FDlYgMCVtSZW7TKGxUUUgUAStil9MHSIgPQTo KYv1LfKbBVQtARIcOXbmMCTaIDT3UOH9QUXgEEWrHU6ADoSfYFSmWExvKvMsUOGgNTHloh8CSNLnUUVw XdK3WhOkRXUwIBRhUDybFKWhDUJuWzr0EJEiRWWeLR 1DEqDqXBLoDHN7WcfoLUXeHWBypj9KMUGkGFYvJXl0SZTlZQUxLQBhLEmsHYSnVPS6MVI9ULEgGWQvYF 7XPzPiIICjDRNdUKPePHDiGOBgyl8DGLFsBJOtYuE9TCPwZLOpXTTvEOhsUOAmSYF7FKH9JFJrWVFmMV 5WBeKnNCNmYMxsDROwHHLgYXJgjh4ISTFyHRKiXcSe QEDtYGCnZVHlWAggFEAdPAP0BBr3IKEfKQDyLH4BKtMfENNqAYn0NKKtIGKrVKZiey5TKMOfFDGmCKl6 LHRhGGFsESZvMPrjVWBeXCHoHpD9ZJGdVUEmBK1OWaTnSBGbToH4JbjpHQLgFFKegn2RXYLnKZPyEGq2 QeYsKRYpMGLgDJtzBDBcIVCnTRS5ONKjTEOkXL8RGm VzJJVmDbDtBeLcSHOnFFXusx9TZFYmRHApXXB4XTQkZWWaARZzUGadHVZsAUMmCWWmYFDuXPTkND0PMv XvZUDoLrFpQqTvQQHzORLnde1UPDUaNGIpIiK3UBFoWRUyLFXxAIy6peFmqYYcNFi8CM3GN4BjduAfGn TFTl6Fj710DPMuCXViUr7MR5heGn3zIHIrHVXDZj9A GLg5EoIoFLE3SbQjXQO7MBXjGfTqZVibOZNdWMGjQzW8WTV+BBlhLoL9WZt0HhCgYhqiNGHzBRUnJ4K2 DMK5CCP2BjpqHd2vAEIDHf2+RGxglCRxbCaqCRRIClBhBAE4GAkaDTIZYc6I ID Date Data Source [id number] 10/03/2020 06:14:32 AM [facility] Name Value Range Interpretation Code Description Data Edna rce(s) Supporting Document(s) Leukocytes [#/volume] in Blood by Automated count 8.8 10*3/uL 4-10 [facility] Erythrocytes [#/volume] in Blood by Automated count 2.73 10*6/uL 4.1- 5.3 L [facility] Hemoglobin [Mass/volume] in Blood 7.9 g/dL 11.5-15.5 L [facility] Hematocrit [Volume Fraction] of Blood by Automated count 24.1 % 3 6-45 L [facility] Erythrocyte mean corpuscular volume [Entitic volume] by Auto mated count 88.5 fL 80-96 [facility] Erythrocyte mean corpuscular hemoglobin [Entitic mass] by Automated count 29.1 pg 27-33 [facility] Erythrocyte mean corpuscular hemoglobin concentration [Mass/volume] by Automated count 32.9 g/dL 32.0-[facility] [Ratio] by Automated count 14.7 % 11.5-14.5 H [facility] Platelets [#/volume] in Blood by Automated count 172 10*3/uL 150-400 [facility] ID Date Data Source [id number] 10/03/2020 06:39:29 AM [facility] Name Value Range Interpretation Code Description Data Edna rce(s) Supporting Document(s) Bicarbonate [Moles/volume] in Serum 21 mmol/L 22-29 L [facility] Chloride [Moles/volume] in Serum or Plasma 110 mmol/L 98-107 H [facility] Creatinine [Mass/volume] in Serum or Plasma 0.79 mg/dL 0.50-0.90 [facility] Glucose [Mass/volume] in Serum or Plasma 102 mg/dL 70-140 [facility] Potassium [Moles/volume] in Serum or Plasma 3.7 mmol/L 3.4-5.1 [facility] Sodium [Moles/volume] in Serum or Plasma 140 mmol/L 136-145 [facility] Urea nitrogen [Mass/volume] in Serum or Plasma 14 mg/dL 6-20 [facility] Anion gap 3 in Serum or Plasma 8 mmol/L 8-15 [facility] Osmolality of Serum or Plasma by calculation 290 mosm/kg 275-300 [facility] Creatinine/Urea nitrogen [Mass Ratio] in Serum or Plasma 18 [facility] Calcium [Mass/volume] in Serum or Plasma 7.6 mg/dL 8.6-10.0 L [facility] Glomerular filtration rate/1.73 sq M pre dicted among non-blacks [Volume Rate/Area] in Serum or Plasma by Creatinine-based formula (MDRD) >6 0 [facility] Glomerular filtration rate/1.73 sq M pre dicted among blacks [Volume Rate/Area] in Serum or Plasma by Creatinine-based formula (MDRD) >60 [facility] ID Date Data Source [id number] 10/03/2020 12:46:20 AM [facility] Name Value Range Interpretation Code Description Data Edna rce(s) Supporting Document(s) ABO and Rh group [Type] in Blood [facility] Blood bank comment [facility] ID Date Data Source [id number] 10/02/2020 11:58:43 PM [facility] Value Range Interpretation Code Description Data Edna rce(s) Supporting Document(s) Leukocytes [#/volume] in Blood by Automated count 10.0 10*3/uL 4-10 [facility] Erythrocytes [#/volume] in Blood by Automated count 2.38 10*6/uL 4.1- 5.3 [facility] Hemoglobin [Mass/volume] in Blood 7.2 g/dL 11.5-15.5 [facility] Hematocrit [Volume Fraction] of Blood by Automated count 21.1 % 3 6-45 L [facility] Erythrocyte mean corpuscular volume [Entitic volume] by Auto mated count 88.9 fL 80-96 [facility] Erythrocyte mean corpuscular hemoglobin [Entitic mass] by Automated count 30.3 pg 27-33 [facility] Erythrocyte mean corpuscular hemoglobin concentration [Mass/volume] by Automated count 34.0 g/dL 32.0-36.0 [facility] [Ratio] by Automated count 15.0 % 11.5-14.5 H [facility] Platelets [#/volume] in Blood by Automated count 176 10*3/uL 150-400 [facility] ID Date Data Source [id number] 10/02/2020 06:56:32 PM [facility] Value Range Interpretation Code Description Data Edna rce(s) Supporting Document(s) Leukocytes [#/volume] in Blood by Automated count 11.8 10*3/uL 4-10 H [facility] Erythrocytes [#/volume] in Blood by Automated count 2.86 10*6/uL 4.1- 5.3 [facility] Hemoglobin [Mass/volume] in Blood 8.1 g/dL 11.5-15.5 L [facility] Hematocrit [Volume Fraction] of Blood by Automated count 25.1 % 3 6-45 L [facility] Erythrocyte mean corpuscular volume [Entitic volume] by Auto mated count 88.0 fL 80-96 [facility] Erythrocyte mean corpuscular hemoglobin [Entitic mass] by Automated count 28.4 pg 27-33 [facility] Erythrocyte mean corpuscular hemoglobin concentration [Mass/volume] by Autom[facility] 32.2 g/[facility] width [Ratio] by Automated count 14.9 % 11.5-14.5 H [facility] Platelets [#/volume] in Blood by Automated count 217 10*3/uL 150-400 [facility] ID Date Data Source [id number] 10/02/2020 12:47:29 PM [facility] Name Value Range Interpretation Code Description Data Edna rce(s) Supporting Document(s) Hematocrit [Volume Fraction] of Blood by Automated count 27.0 % 3 6-45 [facility] ID Date Data Source [id number] 10/02/2020 12:47:29 PM [facility] Name Value Range Interpretation Code Description Data Edna rce(s) Supporting Document(s) Hemoglobin [Mass/volume] in Blood 8.8 g/dL 11.5-15.5 [facility] ID Date Data Source [id number] 10/02/2020 10:31:14 AM [facility] Value Range Interpretation Code Description Data Edna rce(s) Supporting Document(s) History and Physical [facility] CZYLZg2cOpJYKeZs22/GDHkrVGLhi7LrREiiTOb7QTkiGNPxB2RmIDX4wN3bCVQ9KEeLWgZeTrKzFQS0 lbm [file] ICAgICAgICAgICAgICAgICAgICAgICAgICAgICAgICAgICAgICAgICAgICAgICAgICAgICAgICAgICAg PAWdOIHmTR6MHIMhXOMwBOFpHUTnIVHbVTWrRFLkBN AgICAgICAgICAgICAgICAgICAgICAgICAgICAgICAgICAgICAgICAgICAgICAgICAgICAgICAgICAgIC VtUOQjUEElUHOaCNNiGKBkFC3YNAErQLCtYXPwSDTsOZKeEDXiIAFcSGAzTLFcNJFnKYTgWDTdOHLtHE AgICAgICAgICAgICAgICAgICAgICAgICAgICAgICAg XJRjJOYkWFUxEBOdJLQxBJRgYEUiQAOwFLOwXB8YSWOkUVVlNUHoIACjRCUjBXNxBEKfQQWlZBWtPRQc ICAgICAgICAgICAgICAgICAgICAgICAgICAgICAgICAgICAgICAgICAgICAgICAgICAgICAgICAgICAg XJFwZGXfBENmVY3ZSDKgZPHyBCBcWHVuUHOoUSLnHJ AgICAgICAgICAgICAgICAgICAgICAgICAgICAgICAgICAgICAgICAgICAgICAgICAgICAgICAgICAgIC CdWXXdZLJgYTIxBZNxSNCvDGByKR3DJTFgNANoZCApUFZqFEWvUUKzUQVrROAjATHoFRNqFTXbGLOrXW AgICAgICAgICAgICAgICAgICAgICAgICAgICAgICAg RGOaDUZwYHUuCYArKABhFNNjQUYcAKNfMTQhSAOdBJ4FQJVgYJXxAVErCICbSHBtLLDhCDChCTHfRSOq ICAgICAgICAgICAgICAgICAgICAgICAgICAgICAgICAgICAgICAgICAgICAgICAgICAgICAgICAgICAg LYMtAPOgAXOyNCOcKS2SXFTpLKFmUELfOOOiHYOnNN AgICAgICAgICAgICAgICAgICAgICAgICAgICAgICAgICAgICAgICAgICAgICAgICAgICAgICAgICAgIC RcJGTaDMPwAUShCEXtAJAcGCUkWAFgWM3AQAZcWZZsEFMnMDXlZFPwFRPuWRJwVQXoDJMvGKYvDDZkJA AgICAgICAgICAgICAgICAgICAgICAgICAgICAgICAg JUYzLUIlEJTfZFSaUNUtDCPgWLSfEJIjHXBrCAWnZASsWT1ECZYfKZIoYCVpVSMpDIMgQMRqPXSgRFEa ICAgICAgICAgICAgICAgICAgICAgICAgICAgICAgICAgICAgICAgICAgICAgICAgICAgICAgICAgICAg PNLiNSQsBGOkFGYvZGMuJL0PUK01fBOtu3R9EZFcRF 0ndyc/Id0HJFclvvWvxUBhMI4YTyWdQX9mbl6ZIzUzGI3wpb7MRArDKqOmX9I9nHYrCMFeYXAGJgPhO8 8qXMzwAk99AUpeEPXvOuKzNRi1Qi0BTbZcB5wdVOWqRcB8NJVwQoI0XVPjLnB8DXShVzBnKXWqFRZjAG RmCIYVRY9IAzQxU8ZiyP85DTMWWn5+DQplbmRvYmoN XbXkVMPwh9BzCPd9IO6XERFiSbtwg4XuMqHgCNRQNKptWP6NVGL7CIDcAEApDp7JLOJeL290zvQnCU5U Hb9AQbReUH1xfn1JRjXfAPObMkmGOzl7OPdrLZ0NiDFqNFqRAnAzCabzZ37ujs6uVUoyXT6ztGUzg3Sp pgtoHUUhYYTbMQ9fRs0oKXXtLFPoKeB5VMLTOK0HDK PaGNAesZRaIMJqNCCNBX7UNEpfXNY8TIJwtmGehMOqONkuRY4KHPQuduWoKzRoUGDVXQp+Am4TFX4hn6 VtNAthQsVlHI6uwb5XCNfXVzBqJ9M5pDAvE6A6JRbwMf1TTDDaZKUuMgqyWFRCIIsxUV2PLP6hnpA4DB 0AdYUzBHKtPHZxkTUiGFi3C47okBTyXEjaMU6BOKY+ Erickson+Ih4NHTJrILTdBDFfToNbQZAXEhLbS9UmN1GQo9AoV7UfME18bVznwvXoXNroKV8HJW9aVQQmLXYN NQ9YmMJgnU4trqJvIBXoRYAMYuNqY59pzGAqLDRhAHR3DKJuEt6NYYLsE8VmhaQoyLgauiTyUAUcXJHF FH5BPOzczxRwnQXnuSfjIC92hMhlJJ5YHu3SThYcZT 6ehz1OuEJeIw3XSYMtQn8NTEHhKAGfPHUfBBQ6YSBvYcIlRRhxQIArOPCvYOU5CWQvFOHfUG9WPvVoBL QcOwj6NVCrKLRdFUNvcz0PAUKeUMHcLJT5ZZWaZEOxIIYyHYfaPTPjRPZiVRV6HNQfQFSeSW8CZxVoDY RoCZR8ZUbpGVVsFMNfnn5CQGRjLDMmVYLeSrPfHOOq DRWtQUldKGAbMFL7HPU6QTTaJKRqRS1XQyVcWFPdFKSxUSEuMNExAOLxdo1GBINdKRJmYFZ3RAZrZIZi RJFdVXeiJCNzIHO6IkIpRJXyDDFvHS7MCqEuPDYjTAFtWSUxYCXpMNHxan0OCSEuXQHdOeLoMQPsJMQh NJZzWZotTQBtDRRzSIYbAWPvTMRgAP6YPoWeLJWkUI LiHTGkZHCwGEQdcc2ZGYLoQJRoMYX0SyAoBRSbIFRoXZjqFFUxWZE4JKXzKSKvFSMmUX9LTnVwMPZgWM Y3IPEwFYCvLMQvau6BYGNcTEVuJFQtXRNsSXUoLQDeBIruJUUqZGS6FTC0KODfYYFfTU2PIwIeOYRlVP Z0KOMkJMXnADSjwz1TOVCzTRBjIrb3JMOoKQNdPIHb BKolCZRzGOP0CTZoUAAhROCaLA5NWjYvEJYeIEziExWrGATxJYWfmg9CHMUgYBMaLPlwPRTxFZRkBALr BSquPQShYHE0VVD4QRDkOKNkVZ9DTnQaMEHtEyokIIogSMPtUEZghw3NJLFkWCDsYBI2StNoGEVaEGJr RVifRXPyAUU7SaJuNDGbKSUjEC0OGoKpFLUjLpVbDU lcXRKnURPwzc6XMBHmOXZdGWJoCyQlYYMxKLAeFPmqDDEmVZEtMMl2LUWfARYwXS2OLjSwJMCyMaL6Pc fjLMOcMXPfkc2NuSMzyNxiig7VGNlERb6AjQidUJGfDCsqTh0klOEsIuTuVWHZCt6RcsCdNXAxXNEKNI cwIDGxEJimCcS1QnSuYCUbJlY3Pgq4VUYvLnU3QCGh BoDyAhW8MbL1QEIyKGlzVVC7VfGfLCM8XPZ8DuXjLqF2WIW6YUWfWCx+ZY9lZTm+Ht7Xt3IfdaF5ijFq IYxlGRp4RY7ZIQGDY3DZCl== ID Date Data Source [id number] 10/02/2020 06:47:[address] [facility] [address] ANGIOGRAPHY ABDOMEN AND PELVIS [id number] INAL RESULTInterpreted by:Elena Villalta MDPROCEDURE INFORMATION: Exam: [...] rce(s) Supporting Document(s) ID Date Data Source [id number] 10/02/2020 05:43:00 AM EST [facility] Name Value Range Interpretation Code Description Data Edna rce(s) Supporting Document(s) SARS-CoV-2 RNA 2019 nCoV Real-Time RT-PCR: NOT DETECTED [facility] This lab was ordered by [facility] and reported by [facility]. 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 [facility] Patient has symptoms related to [facility] When did you start to experience these symptoms [Date and time] [Phen X] [facility] Patient was hospitalized because of this condition [facility] patient was admitted to ICU for condition [facility] Patient resides in a congregate care setting [facility] status [facility] ID Date Data Source [id number] 10/02/2020 06:59:25 AM [facility] Value Range Interpretation Code Description Data Edna rce(s) Supporting Document(s) Hematocrit [Volume Fraction] of Blood by Automated count 27.5 % 3 6-45 [facility] ID Date Data Source [id number] 10/02/2020 06:59:25 AM [facility] Value Range Interpretation Code Description Data Edna rce(s) Supporting Document(s) Hemoglobin [Mass/volume] in Blood 9.2 g/dL 11.5-15.5 [facility] ID Date Data Source [id number] 10/06/2020 07:50:00 AM [facility] Value Range Interpretation Code Description Data Edna rce(s) Supporting Document(s) ABO and Rh group [Type] in Blood [facility] Blood group antibody screen [Presence] in Serum or Plasma [facility] Blood bank comment [facility] ID Date Data Source [id number] 10/02/2020 02:53:18 AM [facility] Value Range Interpretation Code Description Data Edna rce(s) Supporting Document(s) Leukocytes [#/volume] in Blood by Automated count 14.0 10*3/uL 4-10 H [facility] Erythrocytes [#/volume] in Blood by Automated count 3.46 10*6/uL 4.1- 5.3 [facility] Hemoglobin [Mass/volume] in Blood 9.9 g/dL 11.5-15.5 [facility] Hematocrit [Volume Fraction] of Blood by Automated count 30.2 % 3 6-45 [facility] Erythrocyte mean corpuscular volume [Entitic volume] by Auto mated count 87.3 fL 80-96 [facility] Erythrocyte mean corpuscular hemoglobin [Entitic mass] by Automated count 28.7 pg 27-33 [facility] Erythrocyte mean corpuscular hemoglobin concentration [Mass/volume] by [facility] 32.9 g[facility] width [Ratio] by Automated count 14.5 % 11.5-14.5 [facility] Platelets [#/volume] in Blood by Automated count 230 10*3/uL 150-400 [facility] Differential cell count method - Blood [facility] Neutrophils/100 leukocytes in Blood by Automated count 90 % [facility] Lymphocytes/100 leukocytes in Blood by Automated count 6 % [facility] Monocytes/100 leukocytes in Blood by Automated count 4 % [facility] Eosinophils/100 leukocytes in Blood by Automated count 0 % [facility] Basophils/100 leukocytes in Blood by Automated count 0 % [facility] Neutrophils [#/volume] in Blood by Automated count 12.50 10*3/uL 1.8- 7.0 H [facility] Lymphocytes [#/volume] in Blood by Automated count 0.90 10*3/uL 1.2-4 .0 L [facility] Monocytes [#/volume] in Blood by Automated count 0.62 10*3/uL 0-0.8 [facility] Eosinophils [#/volume] in Blood by Automated count 0.00 10*3/uL 0-0.5 [facility] Basophils [#/volume] in Blood by Automated count 0.00 10*3/uL 0-0.2 [facility] Nucleated erythrocytes/100 leukocytes [Ratio] in Blood by Automated count 0 /100{WBCs} 0-0 [facility] ID Date Data Source [id number] 10/02/2020 03:03:22 AM [facility] Value Range Interpretation Code Description Data Edna rce(s) Supporting Document(s) Prothrombin time (PT) 13.3 s 12.5-14.9 [facility] INR in Platelet poor plasma by Coagulation assay 1.00 [facility] Routine intensity oral anticoagulation I NR is typically 2.0-3.0. Target INR must be clinically individualized. ID Date Data Source [id number] 10/02/2020 03:15:01 AM [facility] Value Range Interpretation Code Description Data Edna rce(s) Supporting Document(s) Bicarbonate [Moles/volume] in Serum 21 mmol/L 22-29 L [facility] Chloride [Moles/volume] in Serum or Plasma 104 mmol/L 98-107 [facility] Creatinine [Mass/volume] in Serum or Plasma 0.79 mg/dL 0.50-0.90 [facility] Glucose [Mass/volume] in Serum or Plasma 144 mg/dL 70-140 H [facility] Potassium [Moles/volume] in Serum or Plasma 4.8 mmol/L 3.4-5.1 [facility] Sodium [Moles/volume] in Serum or Plasma 137 mmol/L 136-145 [facility] Urea nitrogen [Mass/volume] in Serum or Plasma 14 mg/dL 6-20 [facility] Anion gap 3 in Serum or Plasma 12 mmol/L 8-15 [facility] Osmolality of Serum or Plasma by calculation 287 mosm/kg 275-300 [facility] Creatinine/Urea nitrogen [Mass Ratio] in Serum or Plasma 18 [facility] Calcium [Mass/volume] in Serum or Plasma 8.2 mg/dL 8.6-10.0 [facility] Glomerular filtration rate/1.73 sq M pre dicted among non-blacks [Volume Rate/Area] in Serum or Plasma by Creatinine-based formula (MDRD) >6 0 [facility] Glomerular filtration rate/1.73 sq M pre dicted among blacks [Volume Rate/Area] in Serum or Plasma by Creatinine-based formula (MDRD) >60 [facility] ID Date Data Source [id number] 10/02/2020 03:54:51 AM [facility] Name Value Range Interpretation Code Description Data Edna rce(s) Supporting Document(s) Choriogonadotropin.beta subunit [Moles/volume] in Serum or Plasma <5 [facility] ID Date Data Source [id number] 10/01/2020 09:34:00 PM EST [facility] Name Value Range Interpretation Code Description Data Edna rce(s) Supporting Document(s) SARS coronavirus 2 RNA [Presence] in Res piratory specimen by SANTI with probe detection NEGATIVE [facility] This lab was ordered by [facility] a nd reported by [facility]. ID Date Data Source [id number] 07/14/2020 10:25:00 AM EDT [facility] ([facility]) Name Value Range Interpretation Code Description Data Edna rce(s) Supporting Document(s) Lamotrigine [Mass/volume] in Serum or Plasma 7.5 ug/mL 2.0-20.0 [facility] ([facility]) Testing on this sample was performed by homogeneous enzyme immunoassay. Detection Limit = 1.0 Performed at: [facility] [address] [place] [address] [id number] [employer] Developer: Farzaneh Echols [facility], Phone: [phone] ID Date Data Source HEPATITIS B CORE ANTIBODY IGG 03/25/2020 10:05:52 AM EDT eCW 1 ([facility]) Name Value Range Interpretation Code Description Data Edna rce(s) Supporting Document(s) Negative eCW1 ([facility]) ID Date Data Source [id number] 03/25/2020 10:05:52 AM EDT eCW1 ([facility]) Name Value Range Interpretation Code Description Data Edna rce(s) Supporting Document(s) eCW1 ([facility]) ID Date Data Source HEPATITIS B SURFACE ANTIBODY 03/25/2020 10:05:52 AM EDT eCW1 ([facility]) Name Value Range Interpretation Code Description Data Edna rce(s) Supporting Document(s) NEGATIVE eCW1 ([facility]) ID Date Data Source SYPHILIS ANTIBODY (RPR SCREEN) 03/25/2020 10:05:52 AM EDT eC W1 ([facility]) Name Value Range Interpretation Code Description Data Edna rce(s) Supporting Document(s) NONREACTIVE eCW1 ([facility]) ID Date Data Source HEPATITIS B SURFACE ANTIGEN 03/25/2020 10:05:52 AM EDT eCW1 ([facility]) Name Value Range Interpretation Code Description Data Edna rce(s) Supporting Document(s) NEGATIVE eCW1 ([facility]) ID Date Data Source Comprehensive Metabolic Profile (CMP) 03/25/2020 10:05:52 AM EDT eCW1 ([facility]) Name Value Range Interpretation Code Description Data Edna rce(s) Supporting Document(s) 90 eCW1 ([facility]) 13 eCW1 ([facility]) 0.88 eCW1 ([facility]) 4.5 eCW1 ([facility]) 141 eCW1 ([facility]) > 60.0 eCW1 ([facility]) 8.7 eCW1 ([facility]) 111 eCW1 ([facility]) 43 eCW1 ([facility]) 26 eCW1 ([facility]) 69 eCW1 ([facility]) 7.0 eCW1 ([facility]) 0.4 eCW1 ([facility]) 75 eCW1 ([facility]) 1.1 eCW1 ([facility]) 3.6 eCW1 ([facility]) ID Date Data Source CHLAMYDIA & GC DNA AMPLIFICAT 03/25/2020 10:05:52 AM EDT eCW 1 ([facility]) Name Value Range Interpretation Code Description Data Edna rce(s) Supporting Document(s) Chlamydia trachomatis rRNA [Presence] in Unspecified specimen by Probe and target amplification method NEGATIVE CHLAMYDIA DNA AMPLIFICATION eCW1 ([facility]) ID Date Data Source UA URINALYSIS 03/23/2020 04:12:56 AM EDT eCW1 ([facility]) Name Value Range Interpretation Code Description Data Edna rce(s) Supporting Document(s) eCW1 ([facility]) ID Date Data Source CBC with Differential 03/23/2020 04:12:56 AM EDT eCW1 ([facility]) Name Value Range Interpretation Code Description Data Edna rce(s) Supporting Document(s) 5.0 eCW1 ([facility]) 10.9 eCW1 ([facility]) 95.2 eCW1 ([facility]) 35.5 eCW1 ([facility]) 3.73 eCW1 ([facility]) 178 eCW1 ([facility]) 30.7 eCW1 ([facility]) 29.2 eCW1 ([facility]) 15.0 eCW1 ([facility]) 54.6 eCW1 ([facility]) 8.0 eCW1 ([facility]) 1.8 eCW1 ([facility]) 34.4 eCW1 ([facility]) 2.7 eCW1 ([facility]) 0.4 eCW1 ([facility]) 1.7 eCW1 ([facility]) 0.8 eCW1 ([facility]) 0.1 eCW1 ([facility]) 0.0 eCW1 ([facility]) ID Date Data Source CHGCTV - CHLAMYDIA, GC & TRICH AMP (Microbiology) 01/28/2020 12:00:00 AM EDT eCW1 ([facility]) Name Value Range Interpretation Code Description Data Edna rce(s) Supporting Document(s) NOT DETECTED NEGATIVE Trichomonas vaginalis ( AMP) eCW1 ([facility]) Procedure Social History Code Duration Value Status Description Data Source(s ) Smoking 03/23/2020 12:00:00 AM EDT Never Smoker completed Never S moker eCW1 ([facility]) Smoking 03/23/2020 12:00:00 AM EDT Never Smoker completed Never S moker eCW1 ([facility]) Smoking 01/28/2020 12:00:00 AM EDT Never Smoker completed Never S moker eCW1 ([facility]) Vital Signs ID Date Data Source UNK Name Value Range Interpretation Code Description Data Source(s) Diastolic blood pressure 80 mm[Hg] 80 mm[Hg] [facility] ([facility]) Systolic blood pressure 120 mm[Hg] 120 mm[Hg] M EDENT ([facility]) Respiratory rate 16 /min 16 /min [facility] ( [facility]) Heart rate 68 /min 68 /min [facility] ([facility]) Diastolic blood pressure 64 mm[Hg] 64 mm[Hg] eCW1 ([facility]) Systolic blood pressure 108 mm[Hg] 108 mm[Hg] e CW1 ([facility]) Body temperature 98.6 [degF] 98.6 [degF] eCW1 ( [facility]) Respiratory rate 18 /min 18 /min eCW1 ([facility]) Heart rate 101 /min 101 /min eCW1 ([facility]) Body mass index (BMI) [Ratio] 48.24 kg/m2 48.24 kg/m2 eCW1 ([facility]) Body height 59.75 [in_i] 59.75 [in_i] eCW1 ([facility]) Body weight 245 [lb_av] 245 [lb_av] eCW1 ([facility]) Diastolic blood pressure 76 mm[Hg] 76 mm[Hg] eCW1 ([facility]) Systolic blood pressure 122 mm[Hg] 122 mm[Hg] e CW1 ([facility]) Body mass index (BMI) [Ratio] 47.85 kg/m2 47.85 kg/m2 eCW1 ([facility]) Body height 59.75 [in_us] 59.75 [in_us] eCW1 ([facility]) Body weight Measured 243 [lb_av] 243 [lb_av] eC W1 ([facility]) ID Date Data Source [id number] 10/08/2020 06:37:22 PM [facility] Name Value Range Interpretation Code Description Data Source(s) WEIGHT RECORDED 256.62 lb 256.62 lb [facility] Body height Measured 60 in 60 in [facility] WEIGHT RECORDED 240 lb 240 lb [facility] Body height Measured 60 in 60 in [facility] TRANSFER FROM [facility] Patient Treatment Plan of Care Planned Activity Planned Date Details Description Data Source (s) emtricitabine 200 MG / Tenofovir disopro xil fumarate 300 MG Oral Tablet [Truvada] 03/23/2020 12:00:00 AM EDT eCW1 ([facility]) emtricitabine 200 MG / Tenofovir disopro xil fumarate 300 MG Oral Tablet [Truvada] 03/23/2020 12:00:00 AM EDT eCW1 ([facility])
[2020-10-14] MEDS ORDERED: LABETALOL 100 MG TAB PO ONE (01:30)
[2020-10-14 01:36] VITALS: BP 165/88
[2020-10-14 02:30] VITALS: BP 147/86
== END 2020-10-14 03:25 | disposition home or self-care (01) ==
LOC: M ED 20:57
DX: I10 Essential (primary) hypertension (principal); N28.89 Other specified disorders of kidney and ureter; R50.9 Fever, unspecified; Z20.822 Contact with and (suspected) exposure to COVID-19

== ENCOUNTER 2020-10-14 17:28 | Emergency (ER) | payer MEDICARE, BC ==
[~2020-10-14] VITALS: Ht 152.4 cm; Wt 109.1 kg
[~2020-10-14 17:28] MED LIST changes: +LABE100T4; +LAMO200T54; +LISI10TA4
--- OUTSIDE RECORDS SUMMARY | 2020-10-14 20:24 | CCD ---
Author Author [facility] Organization [facility] Address Unknown Phone Unavailable Care Team Providers Care System Configuration Specialist Name Role Phone Delaney BRYANT Unavailable Unavailable [...] Jeff Unavailable Unavailable Meyers, Jeff Unavailable Unavailable Emyers, Jeff Unavailable Unavailable Meyers, Jeff Unavailable Unavailable [...] Onofre MARTINEZ MD Unavailable Unavailable Paras ORTIZ [id number] Unavailable Unavailable Delaney POWELL MD Unavailable Unavailable Delaney POWELL MD Unavailable Unavailable Delaney POWELL MD Unavailable Unavailable Delaney POWELL MD Unavailable Unavailable Delaney POWELL MD Unavailable Unavailable Delaney POWELL MD Unavailable Unavailable Delaney POWELL MD Unavailable Unavailable Delaney POWELL MD Unavailable Unavailable Delaney POWELL MD Unavailable Unavailable Delaney OPWELL MD Unavailable Unavailable Delaney POWELL MD Unavailable [...] is protected by Article 27-F of the [facility] Public Health law. If you continue you may have access to information: Regarding HIV / AIDS; Provided by facilities licensed or operated by the [facility] Office of Mental Health; or Provided by the [facility] Office for People With Developmental Disabilities. If such information is present, then the following [facility] mandated warning applies: This information [...] law may result in a fine or mcfp sentence or both. A general authorization for the release of medical or other information is NOT sufficient authorization for further disc losure. Encounters Encounter Providers Location Date Indications Data Source(s ) Outpatient Attender: Jeff Meyers 11/12/2020 12:00:00 AM [facility] Outpatient Referrer: LIT BRYANT 10/27/2020 12:00:[address] [facility] Outpatient Attender: LUANN ORTIZ [id number]: LUIS FELIPE ORTIZ [id number] 10/03/2020 12:00:00 AM [facility] Inpatient Attender: Jeff MeyersAttend er: LUANN ORTIZ [id number]: TIFFAYN MARTINEZ MDAdmitter: LUANN ORTIZ [id number]: LUANN ORTIZ [id number]: ELIDA POWELL MD [id number] 10/02/2020 12:00:00 AM EST - 10/06/2020 02:19:00 PM EST Minor contusion of left kidney, initial encounter [facility] Minor contusion of left kidney, initial encounter Patient discharged. Outpatient Attender: My [place] office [facility] 07/06/2020 02:00:00 PM EDT MEDENT ([facility] angelina, MARIELA) Unknown [address] [facility] [address] 03/31/2020 12:00:00 AM EDT eCW1 ([facility]) Outpatient [address] [facility] [address] [address] 03/23/2020 12:00:00 AM EDT eCW1 ([facility]) Unknown [address] [facility] [place] [address] 02/19/2020 12:00:00 AM EDT eCW1 ([facility]) [facility] [address] [place] [address] 01/28/2020 12:00:00 AM EDT eCW1 ([facility]) [facility] [address] [place] [address] 12/12/2019 12:00:00 AM EDT eCW1 ([facility]) Medications Medication Brand Name Start Date Product Form Dose Route Admi nistrative Instructions Pharmacy Instructions Status Indications Reaction Description Data Source(s) emtricitabine 200 MG / Tenofovir disopro xil fumarate 300 MG Oral Tablet [Truvada] Truvada 200-300 MG Truvada 200-300 MG 03/23/2020 12:00:00 AM EDT 1.0 {tablet} active Truvada 200-300 MG eCW 1 ([facility]) emtricitabine 200 MG / Tenofovir disopro xil fumarate 300 MG Oral Tablet [Truvada] Truvada 200-300 MG Truvada 200-300 MG 03/23/2020 12:00:00 AM EDT 1.0 {tablet} active Truvada 200-300 MG eCW 1 ([facility]) 200 mg 12/17/2019 12:00:00 AM EDT tablet [...] to vallejo Policy Valle[place] Plan Information MEDICARE [id number] SP [id number] [facility] FEDERAL EMPLOYEE PROGRAM [id number] FA2 [id number] BC BS [place] FEDERAL B [id number] S [id number] MEDICARE C [id number] S [id number] U50 MEDICARE A [id number] Self [id number] U50 EXCELLUS C [id number] Child [id number] MEDICARE A [id number] Self [id number] A Medicare Part B Medicare Primary [id number] Self [id number] BC/BS Of [place] [facility] Part B [id number] Family Dep endent [id number] ANSI-Commercial [id number] ANSI-Medicare Part B [id number] [facility] FEDERAL EMPLOYEE PROGRAM [id number] FA2 [id number] MEDICARE [id number] SP [id number] A [facility] FEDERAL EMPLOYEE PROGRAM [id number] FA2 [id number] Medicare Part B Medicare Primary [id number] Self [id number] Medicare Part B Medicare Primary [id number] Self [id number] EXCELLUS BCBS B [id number] D [id number] MEDICARE C [id number] S [id number] A EXCELLUS BCBS B UNAVAILABLE D UNAV AILABLE MEDICARE C [id number] S [id number] EXCELLUS BS FEDERAL [id number] FA2 [id number] Medicare Part B Medicare Primary [id number] Self [id number] Medicare Part B Medicare Primary Self BC/BS Of [place] Commercial Family Depende nt Medicare Medicare Primary Self BC BS [facility] [facility] [id number] [facility] [id number] Problems, Conditions, and Diagnoses Code Display Name Description Problem Type Effective Dates Data Source(s) S37.012A Minor contusion of left kidney, initial encounter Minor contusion of left kidney, initial encounter Diagnosis 10/02/2020 03:34:[address] [facility] R69 Illness, unspecified Illness, unspecified Diagnosis 10/02/2020 12:57:00 AM [facility] Large hematoma L Kidney Large hematoma L Kidney Diagno sis 10/02/2020 12:57:00 AM [facility] Results ID Date Data Source [id number] 10/08/2020 06:37:22 PM [facility] Name Value Range Interpretation Code Description Data Edna rce(s) Supporting Document(s) ED Provider Note [facility] ZREXBn7zOpYMFjVi45/SUQheXBYol0YaSJexRQw4RVnhQYIrA3QcRQF4yT6uRKH2VObVMhRmMvZhPIIk [facility] [file] ZiMzU+HB9hYNe+Kl9Ui5ZasvC6rxRuIEq4KSs9UI1RVZFEO7NYWh== ID Date Data Source [id number] 10/07/2020 10:31:33 AM EST [facility] Name Value Range Interpretation Code Description Data Edna rce(s) Supporting Document(s) Discharge Summary [facility] LTXTLe7uUyAMKyMs65/LOVjnWXTdi7MeOMpgPHe9ORlxJBOoI3WuHRI0mI9vLAF6FJbJPdAcHbXaWJEt lbm [file] ICAgICAgICAgICAgICAgICAgICAgICAgICAgICAgIC AgICAgICAgICAgICAgICAgICAgICAgICAgICAgICAgICAgICAgICAgICAgICAgICAgICAgICAgICAgIC AgICAgDQogICAgICAgICAgICAgICAgICAgICAgICAgICAgICAgICAgICAgICAgICAgICAgICAgICAgIC AgICAgICAgICAgICAgICAgICAgICAgICAgICAgICAg ICAgICAgICAgICAgICAgDQogICAgICAgICAgICAgICAgICAgICAgICAgICAgICAgICAgICAgICAgICAg ICAgICAgICAgICAgICAgICAgICAgICAgICAgICAgICAgICAgICAgICAgICAgICAgICAgICAgICAgDQog ICAgICAgICAgICAgICAgICAgICAgICAgICAgICAgIC AgICAgICAgICAgICAgICAgICAgICAgICAgICAgICAgICAgICAgICAgICAgICAgICAgICAgICAgICAgIC AgICAgICAgDQogICAgICAgICAgICAgICAgICAgICAgICAgICAgICAgICAgICAgICAgICAgICAgICAgIC AgICAgICAgICAgICAgICAgICAgICAgICAgICAgICAg ICAgICAgICAgICAgICAgICAgDQogICAgICAgICAgICAgICAgICAgICAgICAgICAgICAgICAgICAgICAg ICAgICAgICAgICAgICAgICAgICAgICAgICAgICAgICAgICAgICAgICAgICAgICAgICAgICAgICAgICAg DQogICAgICAgICAgICAgICAgICAgICAgICAgICAgIC AgICAgICAgICAgICAgICAgICAgICAgICAgICAgICAgICAgICAgICAgICAgICAgICAgICAgICAgICAgIC AgICAgICAgICAgDQogICAgICAgICAgICAgICAgICAgICAgICAgICAgICAgICAgICAgICAgICAgICAgIC AgICAgICAgICAgICAgICAgICAgICAgICAgICAgICAg ICAgICAgICAgICAgICAgICAgICAgDQogICAgICAgICAgICAgICAgICAgICAgICAgICAgICAgICAgICAg ICAgICAgICAgICAgICAgICAgICAgICAgICAgICAgICAgICAgICAgICAgICAgICAgICAgICAgICAgICAg ICAgDQogICAgICAgICAgICAgICAgICAgICAgICAgIC AgICAgICAgICAgICAgICAgICAgICAgICAgICAgICAgICAgICAgICAgICAgICAgICAgICAgICAgICAgIC EbTMAeDVVeQFNuLMUjTYm1G8kfDPEvSJZeOX0oTLf1Cl5+HDfTTsYtYHM8qbHreC3SAE7pk4DwRPzvUU Mtx7OyWNv0DP9UFFMaRCwyLC1APTamlp8ZGHIyHFNk zTBQv0rpLcGqWIF6CJRlWkvxVI4MWNNoS1hqkgWtABPwFMVGBAhtOXEHKIwzAOSEVE3MXnDsR2KcoB52 IDMNCj4+IJxjlqAvHegBVfU2JTQpr8YtDCh9KG1EYGVuQkhti2TvTaEsDBXFJSfvRR9YKLZ5EBTxPUYx Ve9GKIVeB630rhYzWV9DVw8HXhDcSY8nzz2EUbQdJJ MoQnuZTrd9AQpyFR0NcXIxEMtGcWPdkUSjI4ZdV0HfsRDnwEBllCLAWVYkCABOUJ5qY6MyfIgzSDLpCP VeFU0nMZ1dMCJvGNHlLbX6JXIPBS3KVGRyZVSebQOoKOMwNMKGJZ5IDXqdUIV3OSTipxGsuGHtQQzoMW 9QYXJlbnQgMjkgMCBSDQo+Mm2ENH6bi2YxKEbcDCAt ZE4mtq2MUKlUHcUrM8K1rEWrX8A0ACgiKj4HOWLuHEVrAaceRNXZQTskAD7NHD7qprN2JB7HbIKfKFXu PURfbEDdUUm7Y02ytRAlOIqnRP7CMWY+Erickson+Bk3GSIAzZILpLWQdRaVqJKTALdIpW2TfG5LSw4KsQ2Zc WW56wXfxlsZxXGisQZ6QQF2xRHJlMXLSFP1TnGWsgF 9cgzXoBLLqRBZYGbKlP76qfWWvCLFzXNY9YFGuVz7SNXGzT9ZuoePozKnibyHgNBKuMJMVAP7AMXgdon TnbTUubShzHE15eDjkFN5PUq6MOhUzWO7mxf7PyKQdVe5YSDYzLr0APLBlHPExAHAtMPC4UGDrFrYoOH yzMLPwJAElHYT4YFMjXIMuIG4RTzHtIJLfIvypEKZh NQXvHZLfuf4RDYRnSFGxGCx3TvKfPGKqUXEnLVqjBJHpDOOgMRT7HTAqWHHkGE7QUqJwFZZvXHVgWKFf DESqCWKuxp7MYOHjBCPmNeL5XIIiXYDbCROlPHboHMIzHCX5HTD1TWRlXWIxHG2GLyFbVCEqTPptKhEi KOMdSRKxsf0EUSNaGTKqXXR3LCRrUGKeMPLaYWcqZF IrMURfWZD8WOTkOVWdFC2QQqHsTDZdQHX7ZJZeKBDqSASwli5KXOWxSCGyLNdlLDPkRTYlDCPfRUveTD NzFJOxQIh4BTLuZFOzVU6ZSwXhBZTgCXW0BWHzPBShYYNcfy1ZHXXjCLYzNdR1VKVaOPWaZAPcFZkkSO FwUYWyIpPpVDRjBELdAX0ZBiHaENOrPQQbLVStQUNd DCAlkh0NOTXuFDTxVCMaFUWbJPDlGNKrDSypOHMgUDG9ZLryJTCrTDGgPP3ORpLlIJAnZeT3HshzTLFv EHWtah6SSXKdUBGwFeW2HoJzIEImGCYnGXopBFGiFHP8NAy5SSVwYQRwKQ4NIzCcSXSiGiZ7BfYaHOXr DMAjzw9HBQWpWPRuBfn9APWbJIKrPQWeAKvqODBuDW O3XXI4QKUtNOOrYI0QLsQhUWQbIgpaUIUsSYMrSVFezq3CXNQeQEMxOLS6VMNbKKWmVENgJTnlWCZaEH T0HzMkRBWtWFKjIB1NFoHqPCKpEuHoMwOjKLBxRWHkiu0FZPJiYNGdFEE6XCRwEYCkZPJmSUjuWYJtUX WaFtb0HWUzDRCkIY5EXnPdLRvrNFMRVah4EMcgI1h8 IBIbTw4JO5Avt2MnYqUyUVQVZMosPR8uqlBwMEXpUg2KR8aUUgidOYM5UCDrSGDsQ8PoUTJ8GxPxFNBk COFnWCiqGMRoNP3tYTLzOoI9FkNsJfGbRhG8BKM9PMC3UODzFlLmQgTiLvHqQlNbOC2STj8UGdL6DNO6 nONpAt4FPkC1GXISTlNvMQ9FPVh= ID Date Data Source [id number] 10/08/2020 07:09:42 [facility] Name Value Range Interpretation Code Description Data Edna rce(s) Supporting Document(s) ABO and Rh group [Type] in Blood [facility] Blood group antibody screen [Presence] in Serum or Plasma [facility] Blood bank comment [facility] ID Date Data Source [id number] 10/06/2020 05:08:05 AM [facility] Name Value Range Interpretation Code Description Data Edna rce(s) Supporting Document(s) Leukocytes [#/volume] in Blood by Automated count 5.8 10*3/uL 4-10 [facility] Erythrocytes [#/volume] in Blood by Automated count 2.42 10*6/uL 4.1- 5.3 L [facility] Hemoglobin [Mass/volume] in Blood 7.1 g/dL 11.5-15.5 L [facility] Hematocrit [Volume Fraction] of Blood by Automated count 21.4 % 3 6-45 L [facility] Erythrocyte mean corpuscular volume [Entitic volume] by Auto mated count 88.1 fL 80-96 [facility] Erythrocyte mean corpuscular hemoglobin [Entitic mass] by Automated count 29.1 pg 27-33 [facility] Erythrocyte mean corpuscular hemoglobin concentration [Mass/volume] by Autom[facility] 33.0 g/[facility].0[facility] width [Ratio] by Automated count 15.3 % 11.5-14.5 H [facility] Platelets [#/volume] in Blood by Automated count 224 10*3/uL 150-400 [facility] ID Date Data Source [id number] 10/06/2020 05:19:46 AM [facility] Name Value Range Interpretation Code Description Data Edna rce(s) Supporting Document(s) Bicarbonate [Moles/volume] in Serum 24 mmol/L 22-29 [facility] Chloride [Moles/volume] in Serum or Plasma 106 mmol/L 98-107 [facility] Creatinine [Mass/volume] in Serum or Plasma 0.74 mg/dL 0.50-0.90 [facility] Glucose [Mass/volume] in Serum or Plasma 97 mg/dL 70-140 [facility] Potassium [Moles/volume] in Serum or Plasma 3.8 mmol/L 3.4-5.1 [facility] Sodium [Moles/volume] in Serum or Plasma 138 mmol/L 136-145 [facility] Urea nitrogen [Mass/volume] in Serum or Plasma 9 mg/dL 6-20 [facility] Anion gap 3 in Serum or Plasma 8 mmol/L 8-15 [facility] Osmolality of Serum or Plasma by calculation 285 mosm/kg 275-300 [facility] Creatinine/Urea nitrogen [Mass Ratio] in Serum or Plasma 12 [facility] Calcium [Mass/volume] in Serum or Plasma 8.4 mg/dL 8.6-10.0 L [facility] Glomerular filtration rate/1.73 sq M pre dicted among non-blacks [Volume Rate/Area] in Serum or Plasma by Creatinine-based formula (MDRD) >6 0 [facility] Glomerular filtration rate/1.73 sq M pre dicted among blacks [Volume Rate/Area] in Serum or Plasma by Creatinine-based formula (MDRD) >60 [facility] ID Date Data Source [id number] 10/06/2020 05:19:46 AM [facility] Name Value Range Interpretation Code Description Data Edna rce(s) Supporting Document(s) Magnesium [Mass/volume] in Serum or Plasma 1.9 mg/dL 1.6-2.6 [facility] ID Date Data Source [id number] 10/06/2020 05:19:46 AM [facility] Name Value Range Interpretation Code Description Data Edna rce(s) Supporting Document(s) Phosphate [Mass/volume] in Serum or Plasma 2.4 mg/dL 2.5-4.5 [facility] ID Date Data Source [id number] 10/06/2020 12:57:[address] [facility] Value Range Interpretation Code Description Data Edna rce(s) Supporting Document(s) Leukocytes [#/volume] in Blood by Automated count 6.8 10*3/uL 4-10 [facility] Erythrocytes [#/volume] in Blood by Automated count 2.44 10*6/uL 4.1- 5.3 L [facility] Hemoglobin [Mass/volume] in Blood 7.2 g/dL 11.5-15.5 L [facility] Hematocrit [Volume Fraction] of Blood by Automated count 21.3 % 3 6-45 L [facility] Erythrocyte mean corpuscular volume [Entitic volume] by Auto mated count 87.3 fL 80-96 [facility] Erythrocyte mean corpuscular hemoglobin [Entitic mass] by Automated count 29.3 pg 27-33 [facility] Erythrocyte mean corpuscular hemoglobin concentration [Mass/volume] by Automated count 33.6 g/dL 32.0-36.0 [facility] E[facility]throcyte distribution width [Ratio] by Automated count 15.5 % 11.5-14.5 H [facility] Platelets [#/volume] in Blood by Automated count 233 10*3/uL 150-400 [facility] ID Date Data Source [id number] 10/05/2020 07:11:37 PM [facility] Name Value Range Interpretation Code Description Data Edna rce(s) Supporting Document(s) Leukocytes [#/volume] in Blood by Automated count 7.2 10*3/uL 4-10 [facility] Erythrocytes [#/volume] in Blood by Automated count 2.71 10*6/uL 4.1- 5.3 L [facility] Hemoglobin [Mass/volume] in Blood 8.0 g/dL 11.5-15.5 L [facility] Hematocrit [Volume Fraction] of Blood by Automated count 24.1 % 3 6-45 L [facility] Erythrocyte mean corpuscular volume [Entitic volume] by Auto mated count 89.0 fL 80-96 [facility] Erythrocyte mean corpuscular hemoglobin [Entitic mass] by Automated count 29.5 pg 27-33 [facility] Erythrocyte mean corpuscular hemoglobin concentration [Mass/volume] by Automated count 33.1 g/dL 32.0-36.0 [facility] Erythrocyte distribution width [Ratio] by Automated count 15.3 % 11.5-14.5 H [facility] Platelets [#/volume] in Blood by Automated count 245 10*3/uL 150-400 [facility] Differential cell count method - Blood [facility] Neutrophils/100 leukocytes in Blood by Automated count 71 % [facility] Lymphocytes/100 leukocytes in Blood by Automated count 19 % [facility] Monocytes/100 leukocytes in Blood by Automated count 8 % [facility] Eosinophils/100 leukocytes in Blood by Automated count 2 % [facility] Basophils/100 leukocytes in Blood by Automated count 0 % [facility] Neutrophils [#/volume] in Blood by Automated count 5.11 10*3/uL 1.8-7 .0 [facility] Lymphocytes [#/volume] in Blood by Automated count 1.35 10*3/uL 1.2-4 .0 [facility] Monocytes [#/volume] in Blood by Automated count 0.54 10*3/uL 0-0.8 [facility] Eosinophils [#/volume] in Blood by Automated count 0.13 10*3/uL 0-0.5 [facility] Basophils [#/volume] in Blood by Automated count 0.03 10*3/uL 0-0.2 [facility] Nucleated erythrocytes/100 leukocytes [Ratio] in Blood by Automated count 0 /100{WBCs} 0-0 [facility] ID Date Data Source [id number] 10/05/2020 12:24:22 PM [facility] Name Value Range Interpretation Code Description Data Edna rce(s) Supporting Document(s) Leukocytes [#/volume] in Blood by Automated count 7.6 10*3/uL 4-10 [facility] Erythrocytes [#/volume] in Blood by Automated count 2.68 10*6/uL 4.1- 5.3 L [facility] Hemoglobin [Mass/volume] in Blood 7.9 g/dL 11.5-15.5 L [facility] Hematocrit [Volume Fraction] of Blood by Automated count 23.7 % 3 6-45 L [facility] Erythrocyte mean corpuscular volume [Entitic volume] by Auto mated count 88.4 fL 80-96 [facility] Erythrocyte mean corpuscular hemoglobin [Entitic mass] by Automated count 29.4 pg 27-33 [facility] Erythrocyte mean corpuscular hemoglobin concentration [Mass/volume] by Automated count 33.2 g/dL 32.0-36.0 [facility] E[facility]th[facility] distribution width [Ratio] by Automated count 15.2 % 11.5-14.5 H [facility] Platelets [#/volume] in Blood by Automated count 225 10*3/uL 150-400 [facility] ID Date Data Source [id number] 10/05/2020 09:44:57 AM [facility] Name Value Range Interpretation Code Description Data Edna rce(s) Supporting Document(s) [facility] ospital BQLMSv6bWsEEBnYxa8PkFfNsITAdPO8erhp4F1U4wRJiR3NchDGhp6gpT4EfC5WdAAHoDTLRBU7FwTOu jb2 [file] AT7//reducing machine [file] VtbdvGChaMxjASLDEqa8ZaBHGLBDS9I= ID Date Data Source [id number] 10/05/2020 09:44:36 AM [facility] Name Value Range Interpretation Code Description Data Edna rce(s) Supporting Document(s) [facility] FRPFWf9aOhXZSxPzq0XeZhNnVRDvKA2rboq6V1G3rHOuL7DabDKpj8wuC8IgV2DpEBKoWUFNPD3FvREo jb2 [file] pjF8cCk348YlFaEr01ONjYV0f16s0Bg4G2IeiS+8kUhmvbHIdW6AImSg4K2Z6g4GwO8cf4H/finance broker+0T7Z [file] jN1u99QPZp9oJF+hr9Dq5kNttKK/+military aircraft 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/uZzq+6fvV [file] 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/PLMPRI4B4nbIz4qhV6JeSKSi+odsp8sFOfSs32jHCJ4POg3uz+UDdJ7UiqGp6x1eb8UJfYqB8SSj 3ed+s+Ztjf1nb+Ba9sJgd/bwoLKQPcQy5Mgk9mmf/jJIt9Get+S2ojcaw905DvpgmKlkX9dcvq2mQTR2 3hyNFMpo5no6zLSbieN5gdLvSdh6PvqtWyMs84vjcS j+Wu8+71xrdxeEoUBc2ZIyByqKTqeoGByJz0fiAI0aRrgj5R5uC3z8b0O8fBurR66x/WjL+XI4rVb8r7 fY7fHO1MzBV1/k03O54GC90JG67WQ64MD37MM18RY93HH84YQ71EK10JU37BZ6Z9B0Y/BctT0J9dqfkq [file] HYTCawmUwGkUFkEplEFpFFxHkHlIFSBkoZKGWglIFS DbgGrB9MbYexD8snOlzQJ5JtipCi+YHGFJYVW0E9W6hTrHlj+v4ttl8G1kWwYJ3j+g9NHV3pwj6of6FM 3LIb4x0Af4BcW1W+5020Y/6K7lMJBkuwfzBPEJSWMKqVr63Sr4fgz42z+7Ey7ePf6hf81agowvqroGRJ jE/ksfjHmlYKu4UzEaYvDhSr5jBwEW594tQnljhkK1 tAgI42N+d6ArnldhUxxdBJWBXJUgFJAqh34qmnIfOHc6OFVxYiZ0pZp0TfNgqZ/CHstuoPS863fqKHCR bHAwFeWpLAkLXsKnsCYzYWbIzZC8yGi9Hkq9YNi0RFKtIfjInhQWg3JVW0NapNyqYFLbSKgySyc2E96o aITCKTyCKyiFAGgzKYlMGkDCZlMCmDSRlMymBSBpMy qQKWbUpQv4EOOndPfX4cS0bp1W+03E+ssha5n/eJZJqR5cnWbHlGAMzfYWSWRRPUdW+g5IwnY5xEnwbW SmWLK2pl4NbA683OuY5/MBor49aN+h4erO2SRt6SE4kUDZJTADdm3orvieUhOdQHYqdfaxYjeUcqKOIy 6ZsypOxu1tNlNuMTeO+sJ+lIiQJF6D562iVdobZjW4 ohleCaMlC9Jv48NWxV3mzRfjx6sitMcMpHiqKm+F4es1MX5CasAD/bj2a1Oy/4N/q00gBR6A3X60I1Yw 01xOunZkepVuPdovMQy4Tlt6ZF5vvb75Epg4AbHv9PbhofQEub46puFK3xz79dzHAkPo9S9knuDLwh03 wdFD5bd16lbYszFr/F3ecpCAet47nkDC3ey86vqWXi hi3H8dkdZfbm01ddSZ3Y8afvsv/V/AxYj4S8JQ8X0gckdw/V/Ywp5j9tHlZsS76izhlb/D2zXMMLx0w8 8ce/iRynOL5/5ReOD1+uC8fgC/pQayIr6IqmP/gd/A6+gW/gD/AH+TB9Oa3NT+BZaQhzKbR4SkNYsTyl IwF7MbOXgPtkRpM6PoGXbYsfByG7PcEGjFjaDmX8Jg PFwGf3OL2Y/k5iVcLFJCEtbc16yBEjqMZfDY5o9Iy8CsbMot/+sbK9yJd+AH/gPBP3g/G2HG/nf2e4IW /Qg5KdiedLgqNR7xu424Zs27m+IX0EwwMRHwYMvTSsJgGoq3hYBjmJDG6uzz792Lu5Yv7CN0Bs5Z/wJ/ gL/AW+g++Ab3fq4Bc4j0hr2VC9Ub6Sws72Qc9Qr5Rw 4Bv4A/wB/jxythhvHS/iS13rPP9b/hxoSAWE8U0Wc5D9Z+MdGO/OwEgNSaQwrbCHhQlifWPsEME8zQkx 8x4OvM/0r4ICvPHhR+u4zJi/aK2oYTi16Ow3Ju7KJY+HHEskq7IbrI13+/fjA4Ra65jqztmAYIHchJDf 34s4mwFNlKaQqA8gd470DfDc/uc6Ss2sfDGgcJ9++x pvxKHfx+stX0jzwUp9+I7f+05nFD5PAEMbUkZps+b6WrA79++6wfqgXhyAPyy08/7gq0m0aA/0Wgfjnm 8GYSQj6/oWF070nvyNLzQ8dncz5Oiw8QofmYues07nhpjhrS7v4+p9GkuKZbnaDiz+o934yuT4ogrLrw YIjU766mgL+udIvy7lc0R4rhaS0pP87X25MQ3QI1/g T/AX+At8vM/uDz+Shc4x+AK+gK/gK/gN/IroNtbh1Fx8I5/AH+IB7Zg3X/lI1c1ih6WC7ClWUxbhZTnL 8QrGKxivYLzSwO/gd/ANfAN/gD/An+TE0HSwfUgO4zXIAtSscBwI36LWYwNexXsS07KBVlNtnFnP60CO V/B4hVbjE5H+zjH4C/wFvoN/7JuUfpTVm3J5gscBC0 PZ6Rt0DygA/bVpZeo7x3vSgdlggGYmepakOVmDt9A49Qpw+tU+Bt/BP/jLpi5Rd+QSy2ui0xb5rKKw+A 38Bn5/vo+a+lU50+zCMfgD/AH+BH+Vy4Ml9Af6qnxkI+6s4CZ9PO/BV/Ab+A53My0Zs6p+duST+lUdD/ AH+JE7Zc1Do3Kl3VsvBvfeuejl+lW+W7mu9DlM+lW+ e+LVL7Dov2/zdxV7MC8LDl1Ixp39hc0cRHFHTLN/gj/WElnKrqOqt8x1/kaCzr7/dA00KYCBF+hXmvrV Xn3jdLwhL58c0oDW08021Um7eK7gWQpqdBDX6vPUKm/Pat+B7+Af/TwHcp9vF5tAHe33Nt/BV/Ab+A38 Oz9Q37X04Am4S/wJ/gR/gb/Ad/CPfRSJN+cYfIzXMV 3IoF0tmCzHZU6FeC2qqYsYDD6SsN9oyNjHSJ0ZkZ3usBcgX+bDi62jiS/yzt6I2Gs9Zlv6fcAtss/P+9 +oxoFEDh1NPaJUNUT4Hx1+nxx4fzOJLAQVXZykRoAD39vuA96ukT4YsnDGCNvWiYxC9YdxYTvnronyvE p3zj4CcWWrfSXcs8/9av/m1q/iI3kf3/ZCFuGObBrN SnqBIAGHIdMmpWVxSvWv5lGycnkh9XTPSLyWd7ls56/mGDE4GBD2b/77t6Bi2Luvp0Eez7kolyD6dG9s +6Ll/lXd83m+Qd3ohrz/axxa08zMxt5hSd40v7xw645QTj+sVy33r/R0vv0rCq3fv/ANfAN/gD/An+BP 5Jt8I5uJ6y+/4X0O/WofC/lIbtId2AY6AsWrOD/Gris eR2dEp7Pdw2Dn7ktIK2Yn3Q4kZ55+86+x06PrElzXb9Co0oH+pX+6a43hOnHH4Nhz1uB/dwDfwB/gD/A n+BH+Fl3W50E33FedAUNrMjr2R6+4Cs8oqXmqN+xjrVehX+1hB54Gn6KmjIXhAr6K/wJ/gT/AX+At8B9 8PP/Ld2zt8eCoMceQ63iBtlBiBDiyJ/rF/1fi6ddhH Yq6hJIjZoQd744g8X/n+DLzPA/G7QQ6EBq+8ihoRZm8+1eAFzwUJ8Jr0a0vC0zLc3tk9q6a7KqwQ8V/2 MfgG/tmva/Cr47T0nA/gT/AX+At8rM/Mhoi2s7Bn9QS5YF/BV/Ab+Z42Dl3E85VOvYvUo30+0hvJi22d gr/AX+A7+QcbEo5Aot+W03zbpP0uN+Eea2tTvE/lO5 w9Rd33rysgxnFkXv4y3B186C+12r+OgYQ1R8H76f1wJ+E8Rpns4zkZ19swgcR/+3TLw291s090Lqvca5 7/qKd+auB7gZ1wA8Vk5jOby0/BP/StXQG5i+YXN4WTOq8i6gQlCJH9awT67qc+nll3Xe9+eZ+3eTv4d3 Ddisw1rWwQm+Ar+D45Zs7Nh5Zb0Fb1tCtUMQ/ed5ng wxUP/aqLg3/qyv6MYkfY5LtXnaipAlbL7CrLqkorPbpG8JyDbckcUnfJ3LcBawwiJspS1HdSxpmnj4vc gvwVncRt9z/p3J873i20+QdXHj/cd3pbPojaC+V7m/uTrHWHRelFLp4BVAVOBHSfNzWnM2t5eEb+Zj77 /3VDpqcmCTdfte8cDz4Kq9sFUJVzHuGQOLENhXqq53 1Ntg8bdbqnCwIR3jeayYzqZ1oSMwYJBKq4FcjF2qaXqH2xRERqrohR++dsZ1ivmG3x4nCUJJp3g/xNjL fOH+Mdef77+V65noR+cMjg684+9jPmjB6M8vQG/Sut48e+6Ll/1ev4PF/1U1osBpY/7F/13L/KtcXO/k a3s7/DvGAK1vyT/tzt6M/dBvgD/An+BH+Zq7Y90S+9 0MexF/r5mDuaCCu7j9IIj/o8Gvgd/A4+vrnd7vFbVco7PMwJ0d9DShxwT/ke7Aiom201l8LY7RF9SB/f o9nAb+D3Rw/sqV/VoIIr5W/wB/gT/QCevjWUsTdEMt4K+nj5Nck22dnf8+M5FvDx/X7Mw075i+e4gd/A 7+H49L32E5+LM2Ee5V/wF/gLfAf/+FO6H/uo+Martinez+9A 00Nln3mn3+wQ7/PCbiT4r83OJf+lV3A9/AH+ET4Sc3U/vOc3Q9rQj4V/8Z0ns2HreaNG8Gi5hnzdrlpN XHrrO/IGoX4s32gBv/yuMO/cDi2CQ5X2l42kemwYbI7O/br58g3E7V+mZScjGdJke5moNMF8TW1HB0Fq +A23Yk1KeyMNvJL78+b1tFX21z+PPIU45/shA1B8ih /ZPiYK1mGoRY+AI+ni/0n2vusJFIw/Rn06M/G/avrPavkn/GF1D1ziQ/aVu3w1oQ/2smF6tt1J/8tfQP hi5k6R/cx+AL+AL+mb9W+lWcH/5Ba2c/l0iIi518l6B/vkeW+6iyf1d8V2o7W/cjA55pG/4qr1pdrCgv GOuWBr9bmei3917rhY215kdI6ninJ5qrLue6i4s/Ms RfGeKvDPFXhvgrQ/dMWu1KSP6gxR3spW1U55xCv7WIhqFxX7GGsqLq4Uk5EqgWFpZlCT6hfPohPoLeKU 6flFgyBmLlPP1daOewKaa6BGcY3h3L08X1V2V5KU4z4mIbCI8Y9u5vuaajuIqERL/NbUn5xcAldDJ8uG 5q2CMYJSuzv63xvxT0Z5YKS/3mthdWzsFbvyodPvIo Dillan/b/0d6qYso5WguwPD1r2givb8esM3e7rzgZEqXmjLPaHerois87h9Ux0Wm6N+ubcuA9ZjSAgHIwFE t90Ju950KsRgcwYE844a+zpM3MTeXliPpDxKJ8Yx+vIBuui2Xv4AVQxd+8Jy/ajgzfh8h0UZi00FIk5I w/6Y3y5OEmZ5/S122I0jkr66phZ7cSx882fP4+jPto 7+mQbEi7Rq6Uj5p47zp51y5JoxvLpbLOqEg5FwkK/u47wbOB/dwB/sN4dH0LyO0apsB4aV9vzO12L+Na BfjUvAF/AVfAW/gd/A7+G38O98H7+JR4Xt7I/wF/qUaAaq4fCYGeDccIaO9sLTIiWgdOqS4hEQOgLiqG zD6xQSKfCyrOpL8eGTQgWbrFuD05VPKcKvrBcT55IM VzFe+AcH/IMD/Renetta/WrAPzjgHxx6/GVDz/o8dII/wV/gL/Ad/ZFvqChr7rR/0OnOUqfj5PWkFI9dnSJ/ PbbyJ0Cm9OfmD/wRIrhs8H+crj622Z8/HqGjBJobhI3FI+Yt1T204/0d/Xx/R7/AF/AFfAVfwW/gN/A7 +B18A//3A3cMcEeP0pg4I/wF/gLfwT/+eGN7a3A3w2 E5p4V1GI6FM/0qzk1vbd4hsw2fab5wLF76H+8P9q+L9R96b83e1FAzPVz5Y4MF/adco46rcEM//tCR/s Z2xCoYDZOAYoM+wVH+fFdPh3RqbR/oi5vyfV7m8x/2F9mJnDvbO/wdskjhqWTln0ELUa+O8g/Gcyn/YB 2Dj+c7z/7zmAq+gt/AP/jomU7cxS705Q1bK/N3DvAH +OO1Pn3Ba6Vg6TV8Wk/bQjNagAceDQsGt3VC0I4Bn2Y7Z+NdGO/CeOEfHPAPDvgHB/yDA/7BAf/ggH9w QDskKR2xjB9lMylsFI3lzO9nGreyZG5hldIq/w7H++zHvz9y/yryCEbuX/XkH//sqX8awGsTj+p5/tCf G2s7dy53th/hbB9WfWf3ZKNyZC1i+xqTs4VNxuw4/O RZzFu/0mzFPG/6kgpZrKL2LPIgSoyJ0k6s8u1zj+ObH/6RGfFXXfKcka+x8h4i/rgf97948mJ7tWR31B sz4q+yGsGM+NmQ19kAa5Z6kBh8x6XeHywQXKq9J9+8Bxvsta1Q2KBs2Nop15yDsZZXEnrYg0yMr39ajr 4Jpz7u3YcrYk4sOc+a0K+gWE7vosxmf6Zi1aJH/8Tn RX1jJLH8m5AV/vPUE+87AsVO7Hb1GoiHdmeemPheI/gD/An+BH+Kg2U17N4++0R8+0R8+0R8+2wYL+Lb J/hOx788nUo4h2p7+Me/ORzyY7xGj468gM/gT/An+Hi+Dc+34fki/houston/houston/houston/houston/houston/houston/houston /ju1Wr4FE+PtGG/ObFjN2wTsozE8bEmcuW3d7Fyer4 uP8dLW3dRva6hA1vDS1qIlc2uP8fJF4iFil0pA39H+UN1mGNvWWH4NrM1XL2VBeSKSjWudgYBT3QL3GM /Bb+X89Qj8nl5x4P0P+AfnOPsbM/AqYp0nb5e+Oc5++my4FryF5g/q+GKzY5241BrL/AaDe3iHajv4xi zZ55uDn6iHcwn0uit8rbH/snPqRtUzHYtpQ6EmHr5Z 38E/5p9gYOmwZft7QrlJ168P55K7PwV/gY/v0ergG/gG/gB/gD/Ma3aCkgJBus47+TgT+4ku3T92zX/H /HXMXz/19CNYAQD8oA/pH7ySf/tD7hw5OShO60Ow2OI58ZXJrhfR+1fTMV4/1iV05b0n4zgdwE7tro9K /+cI3qw24VdX/KLqCMlfH7jxx0/BN/EVvzo0wr83nv b4E/wJ/gJ/ge/gH3t/ybH3F+KvFuKvFuKvFuKvFuKvFvSrhfirhfirhfirhfirhfirhfirhfirhfirhf irhfirhfirhfirhfirhfirhfirhfirpcd/kOD8p4Dt+Hi+ciopmL7J19j4kjvlF/AH+Mc+EamW9xL4rs kZT4qyC4W6ccbO/sGF/auV+1ehG6/Qr9K+UUVimu8y NX38F+vWr8p/sVp7/Qwy1v0Av7+3flX+o9LtV0ZsIsg9H5bIcD5y2kKT+MdWh8zSw4B+aGQkT80zvb1l Rryof8SpUT+7k0YkT5fgkUI63Ul0zaI+VxA9GdQzEC5aBiKItAbv9F0dLmxGqpL+njF7Viba2rw6jlzg oN4G5ej0BmpqQriwCihrLnqwfC0yq/zB1c/0eKwCr4 396BsL+uZrI10h4rWTaul5Jr8Dn+N70Rx2YmxI/yDOae21QadDo8G/wZ/g433G/tXC/tWyYy+sceyFNS 7wBXwBH+NF/uAaGO/UaCyCT09+ucbx76/Sr/J4gD/An+OV1Bz8S6r8B9YuOqBmDxSdIpXnFkJfBiHxBw JvnTq469j1++1rdvA7+Aa+gT/AH+JG3Cv2J8s0k2BR P/6FtY5/VW0kD3aIP/FXzIx3KYqpqUNkuYJXq/FfMn9NN3Pu9M/wJ/gL/AW+g4/5C/4aLs4ysvoweH0a /upK/nxpGYUhWbVdWm3nAg4v3C9B0QaD/OqWt9wZi3aJx0vPk4yTc5ii6N27BJ/PfxANPr6CT+Ar+Ap+ A7+P99Qr2Ao6Po1Nv0X/wZ/gL/AX+A4+hmr3B635J0 13K318C536B039Iw8hqBK744Dv/pWj/pLMtumPy2a03uI9T7nF/gT/mTT8yLxxV58NxiLF3Dw5BlhP/J N/5HryrVwVfAW/gd/Hd0jqSYv4bp454zq/gvzAmOlfbk1TR/+dOP/LoC17EIo0kLS/yhXPt+Y1Ocqtbg wjb2d/y6wKq5Yzu9pq14pXT+uztxP/1A6mG3j64QxZ +CtvA/wJ/gR/gX/sfW/J5uc33IGco427brCj1Bl0Qn9R13Cj3FdtL/gGvoE/wD/2r6M+g0O/ctRncNRn xFKkdSKtwRgTCf5Dj5/QUZ/BEd/uqM/gqM/gqM/gqM/a2aS11K36Oh4J14I7/lBH/StHfQbH/pUb5q+d /[facility]/SrnS+UPJv/UC/Jx/N2e+sO2NWw5p1IUTbPpk6 [file] QyPraBuMHKROWKfEVKEYpYWWX9r+LIcgIkSEiBJRIo 0BH2QIuMqjVxenOsdUMwoWJuJRZBQjI0b2X2ms4f3PqMH6WBFgGb+VcvYOl7Sij660wTzXMvMJezBft+ 7WMX/f6F6OvvzH+B+tkCJ8Cg3G4spjb1JhKDiId0Rgz8H3EGcXGrdA6LkBpFdJm0IeNtbWVlvZ5R4gQ7 pLeYfne0njYwfwYxqPgnA1OLkINefE0HwQpWuAx5Bw XfwLork0xJ6Jvt1Zfu5Nhv4Bdt5Krs4Mbe3Uoo2Qaj9Lwh6Shu2Ccm7Zmr6Nei4Yja6Dpr9Snb6Di/bU Ex+TUFCUwBVwfRsLlTm7w1xF/Ydn4SwIy6H/plf7R7Jrh7GyHpA8MNA2rcIOn/1YrnSRRD+WHV8V/Vh0 tisP6XzhaTv1ODLpMTsNfs0KX0I6DdPdq/2gOFJSw3 Nlv0SlBqufLcpnHaPoRKhN663snCOVl9Ik85p2H0k+adkPIhHZIKgf5Jvt0AgbglyhvqIK/Wt6zDHkT9 VL0+lLGpSOXZsjpAGzB5RlvZoNx3ZKkdTcX6DX4BhSPpLSexgFmWj9WKlyuX5a4TAItqp4HpE/lnopjP yKdu0jJiTSA0XMLKn74WOK9bnyKSs6S5BQLIHpMHBU nQUHQPh07GJSR54aYeZOPPXxLU4+FH8VkUiVvLKuWRvJZtUXPYrSJntMHwPsyep6QGm2myEHB5zGiblU kO+vbu3L44qjKdpEOxByvZL06iD8X0dif8A/gb1gqJ+o1Y/iRZf2EjCfLV+WhzjfbeN+CwAd8NYGPRqH +7Eo+7Eo+7Eo+7Eo+7Eo+7Eo+7Eo+6De8q2tqZ80da fu3rWY3WkC+YArbYPlPkJFu2yDNrIQEtspT20ugwuQ5ITlk78KwXzuVvonTphGUwyCLbJBIVTOCXWVsH JLVbfHJHS5IcYMSDT2OcjY4cELCDQDW3d6IZzAhgI+LMp+LMp+ZNhQZ5r/uo2Pqu0qOdbBiuTDA8ERRG F9+3TJh49zVVGkwbnqT72+DpHwM2GgKhP87FXU2f90 4W8XB67+YkAoQ6OoDvB69SZr/E0NehqTsumf51zLsn3yyqGO/A8HfjpjhrlN38LX68QK/hI1iibXyfpP 40AOuONLBPq0cRfsu5PhO0d8Hs7Ha8RdOwR+NlqpHKwR1eT9ZXZ5r4N5tMjH6pUFFBa7Cv7o89iH37SM O2l0WrsReCVITMM0AoUB8aoD8v3cU1xdEBMzNZ/FuJ 9Y/BtcKTAEDwlvvU5BSwBXQMBEuSHfbBwHqsKqN7232GjHdxcheBiAucHcS572SI1MhUNxXISHGEWbWd IGgSVqpRxuXr8SqMWkYiAoMCuBUsQhZ52/Nz/9/LR2BPQN6VqbXa9E96iO9177/j8/Pn2+sQh+ijTMG/ v+219//vlvP/3iF3/38b99+d0/r8JkQecZ94kwg/bF 4mbm6dP9hJZ5+fmRrJ/8r19+85M7K/jjQ+EGSn1te99n31JV6GW//lndK490l+8/f/r052goU/3s66++ /MXHr7/5+jefvvv+68///HW58yyIi8qyy/f7c28y8453/F2Mp60j9P3+EYotil1H58Xe05eV2A4yFt8/ 8+vvPz5/+dXP//mrL7/72ddf/pXf3l/h+8ctbUeU53 /69NXX//j1Vx/ff/748puffXz++O2Xv/b06jIJw/n2u19++QcVnf7L/0uN6sc//jtRt83t/Vbme354+P qbf/z03be/wA84m5qZc/7+q59/+cHig5zf15UenV/m49NX/+2v/CpJDJ4j/dlvk144JdPQb/ryu08/+/ jt159/fv/h49t//BGZfn6xbxC7e+R9yjAzgty89g94 H7/49pv/0bzOx2614Ffyak/+ac7xq5tW8GVq/GtxlqdQ8e6+T3ZkmNw+/tEw6vyvgG4t/irsd80bgjP6 n+/T/f+f6EDs7qO90ja//fvv//LHH/7t47//z4/f/P4Pf/jdX/7yw+/+8HcfP/vdn37/wx8+/gQ21a4N 3378+U8f8g/i/lAm6C69/6L1jy9/+D7wjJdVxb+q9s c//sN/8LK+5MByveA//kZ3l964O98by/8/HKOrr8R/++lxPZol0879kX4/W15J0pMnlhzsQxlQ++o1BT +yS1omnaPeG/juh3//4GSlR6JslSh64pzRm6/+6bcfP/305S8/kaw75Ai0mlUog73/R5vySiHfdPE/Zt NGl8WOR7MdJ2dNuey/zcff/PCn//z7j7/87j9/eDv9 67P+kUV+7h/98T9+dOuNycEue80Eo/ru4/d/+s8f/vJ//Tv5j4Whdp6p/tbkDrb+ytk39k/fff/xb//j de+///Jixhg4XSO8q9LhLQ8kef0/wz99/lfgr2+0Am+X/kMXfz+55s9eROt/3rnypQ42Bv5EAndqVuii S08xia2jE4/95PPH7/7vH/0yg41p30Sq+pN//PTTn9 jaVI3ui+vH//zLv/oto057F3A//vDH3/5a4EU6X/7V7/7Hv/7uP37/uz/12Cdj0PV9/Z9+/P8zX64//P f/+t9Hit/9+c9//QCdNd8OA/aIf/Hnf/1iUloR/XD6EwIu++Ff/48//x7sN6b9pggIp/9V98DjSi8cF/ 0i9a443av//EDBKf7lU8n96E2/+VoGv/+Cc/3+iP9/ /+K84qFk0ykqM4/733/4kI8///pCr6kd6/LcPS1hn06idsgR/PSzz6/V802MD0L863Qnb4v9x418oXzp xhpG3NAGz8102eugcT9yglvuzGaF4qj/X+ruo1JHOW3qd8OkWIIiZlNtMP1rrxjtFWAjKQ1wxag8A7Qh uGhjGWdSTIOfZi2dyRJzIJ2MHPR9RPugYEKrGVZxW9 UedB7eM51wsHPvCoAeDWVVCY7WvfT8ZOB8DIZ2QSMfXdYgCCUeKU55VQPgVHCIKy7txtQbLigWFeBtUQ 9rwmz9Q5C3wYAdB620bUovsvOaXK6Sc9GrtIWgQM1ZpRFdaEXcARRmVJSxR1mws3MlYGsrUAOFSr0mse UcFyoKKoFyDB1prls0U5I3cFcihxAbKDOLQXztGviq UN4rtYbeszmmT2HdiUXjIHPcK6DiWSWoz17WUSWiXThPZfVcUyHkYTO2PDq3YKslLfTdGKDwZWSzKWAp IG3GiPTjQCXpYJSZOMmkVojdPNXwiK3vqEZCh3BeS44ZWMiVXYvCWZEFKYSUBgEtVgSaUAY9UJIqY5Qh rpVqtTLaXOGGLKzfQoqtKWSxoZ2ugDuaN7GvSFR5w5 HbPP9LO9JgWUSvZAHGZBX3o7ZcTRThijgocozqFbMpOGXfHZZhFFHaGT2Lxq5ctSFsipGzVRAJDKeeDy ahWG1mzNkambthA4CjtNHtYWF+WbVbIG5imx4+JwSrTQMoEgh8ISZfXGiqAPJfXIWhQRNzU1dvJJFuCs HmNCQdStSvVW8Nd4RktEKeFz3xkdEcNtrXhJKtYelh NMItRNMfSBHpAsBUNCYrZRJkBKLkYJJ9AVEiBSKxIFmuFVPrDWT3AzR1VYYtYVEcRL5nIdEtIMJcWevb ZHZdWIYgNRAhlyQXRVQqBTB7XRS3TYFzLGCbQPXgOCcwUNQcGXHmMZSeMQX0PFN1NUXdKlJpSIGnCJTq FPJuJRXcUMVylcUWLUAuECKwNAC3MHAmMBQhSWGaGG qwZAUkPRPvCBswZWNyANMiOY9eGiQtCEXrESBrLRwvHUAzLDAfssVZFEGoTBYaTLAiLKZqKHSoNWIkYJ ayEGEjWBLuTIYcIHCoFEDyBB6qIzFpAKPzDVF1OSTpFFXbCKIwgwQIYCGaQBAeGGh0EEQsXIMdZQXkSH yvRSSvIAVzAVB8AYLyRFWgVV8lTfCnCYYyUZM7ClVc TSZxJPOoibWXMWTbRBQxDEH2QjGmEZNcZIWfLEsrTPXaUELmIPxuVRXaAWQkAI6pMoZtMDVbNZSkICzw SXUmMMOmuvVPBBAbWCZgBUDxQhCnSECyJDQyQFtgYWRrMXC9GYvwDWXtYCGuGB8eHaHeBNZrIDF3UKeq MDAwMDAgbiAKMDAwMDAwMTczNCAwMDAwMCBuIAowMD OmNJDpDOY0YRCrRJHrWO6oXzBkMXYwTFNpLJNqUbE3YkNwPjSNzPQjjLtogou1FOhcI7l4SLMnZPcnTG 4qybVfGSYkGhquMj5ibQE2FBSzZsjMLh1Si4CeggO7kfQgSoD4Ggz6QaZtRU8N ID Date Data Source [id number] 10/05/2020 09:44:07 AM [facility] Name Value Range Interpretation Code Description Data Edna rce(s) Supporting Document(s) [facility] ospital QOVYHo9cHkZSYlMla1MySnEtGTZmMT8bnxr7U5C7wQAhD7CufXKgq3gpM8NrA4MaXJKkAJLFLP7VsJDb jb2 [file] mjj4V1f6al/[employer]/jI3pX/44juy//RCC5Kqd2VSniw+lkf/eJrixG94EM/4eb/mKM9o34Tn7i65MIdyCQi 0t25Vi6DuTjrmP4+X3o7zv/ZZjg0rZfSijKOnM6/CUADRA/Cn5S/LXtU/f648cS8d5+S2aXb9juKGeOj3A73 Lb/W7u88aaRk2z8jV4ro34bmtJ49yy4W0bPw+3XfVx 21g36c5044wn0W8ASp+b7+y7i27wz+nRf0/65o9y+5uay84NX3MZdXe/Q/rvaFJOk/K8duPfE4dyhq+S 75I/UX7Hogx87lTJXP4zuazZN0U8HPgTjj95ukjslUSe9xn734mMI30M9zXg0/fyfr+jx/q8yco6jIqD n7c9+TfrwVG6JpgT14C/b/7pFcXHb6Pqaw2dQ/RFW5 7Gear04GkKsWLDJowCS/8tTN9+PaP/Vq2V1P4Nfab/+dimCYdz9/42vyq8MOlkNlm2j1ssmVGirM2/qw g4dz/6TrqAP/pOtJOHofuky/mm05PvKl998UXEK/HdI5g37eiCi/ubR1+yfMQoi3BQO1nJf/YAhG3JQ/ DGcC8/7/mwsiw06TFpd8YZ3W0/tQP6mT/7gKkBFjg9 cCw/fpdnNbXK0pneUh/yIG6Z382+n6m2bC0aIjzgU3/y+xifocvuRdKSPyR/UH49T53JsV9saF4h95mW /pLfx/qAy6k8uI+23/nGW7VKNhYDexpyAWpKepJAfBAL+W4d0ld2il4I7F3+0++0EQ8kuPcoRt94CvyM vmiw7IaMk2fT/bH3OcQRggwagzzoyX3152Vh7wwAv/ huwa/e9C0/+NWblt+NcuMtqTfv726Zu6jJv/Nv7Ku+x6mgUqsd7Gljw+Eh7pN+5I++uAgY/uETgX/Cxf o3vsCJ/QfynFLPV76n40v6//Sd0+E9/vT9t5T3IzV//Rb5P31/jOZ4Q65//E59K29XxY/LikcDXa0y7t 99l/xTw1FH67/p3rtM2h2VN17c/cuvht/09G0vRLTO 3+hb82ntP04U9Dv0qf0rqvrb+/TpmQlAL18E6kan87cv3/08T7xCULay8QV4Zx3tioQjnIX8g/hZP9/X 6bT9fF+koNWLxNENOAP9iSeP//r8mxU3wUp9lWp5yFtx+XFW4SP8ztl++3UFv+X2z1YTF/KX/H4XSd/8 0BhuEwNS0d0pd4Sh+6uS6Hr12ki/2txQk2F7PA7CcN EeTRxRs40Nqm5bl2JCXov+7CE46i2RR/aGj/dNS/6W/T7qs84dUjm65n31Wpyj6hq+xW8a/XlnU5g3q+ b7lgizru/L83XqpT8Wt7M2oy/6+mY0gYgbb+BXjnEp+FKtLjy2P8B2UM031x0tBRbb6A4mIcipkZKk/s 13kR/9xmRGrc2rWMn+famfHTbe9DBjcCk5uj58RfBK +/EQ9GxX1eg5Xns2xPXv/Xwi6N7p8G5eL02j/G27g487CCa+/M8TrliXm8HyZt+ijb9PhaC9Aw078dg3 Jvmib/Js0xQ3NY2Y/Gpi3At+KLaUgdom7Pns6ydB/vKzdylSxV3E0Nb+x+BXHFvmKpKW/GUAyTV6OzjJ 5Oh3Vsm898GyN1a98Poiz4WalP0T8dkb3F5921vpfb [file] n187z/janine+J+cB2A7wiask/adY753/PbuZ+fz/38f+P55t/yef2+f+b8ZT90R2gztl/8w8mxgm4mf211 Rdvu+[employer]visor/Z5G/v+v9224h83n0oyuzRz+f3+64xpj0m4 /vlc+/5xtCCN/m7anWv9r89qJx6ifReCXxxw7WjRCmdcN6l2/L51M+n/J53O/EeeJ+Jv3i8yzBvul/v/ U04F4zAZdmL3fCL2tiEiYG5V/+rqXI3/J5lc+rbK02p4HQrG4hu5h4of110xbgd4OV55/76/njf5j93e +819mq8q6iujjFxuOoyg1Wy+/6jKufW5k0/NaqfF6/ +8jth196/mxdPu/y+ZDPh3w+5fMpny/5fH1+bnG/NV0jsg2Qm5+LS9EjtV/nzscWh6JiG/j38/l6xQzW Pa+WwW++joLXHu/f+OFTTUJ4da3fj6zB54SxeHcxxEr/f/h4beXPOJO1f7rj0UzuK2jxgv+/2pXXnc/n MZ+BykJ960ZUG7qiy+45J0219/s439i9KzwD0VBy5j To350acsEegAyHh35bK/36z6jv/KJtTBlKDqRl8V0ftMjTgAjE9nIY90/dfe0Lm0IlJ+DB5zxv8P9jI5 pr6GwSS2s/X8UT9hcnZkyWSWAJCu8/5fMrn9/r51gbeZ+//CEkCvJawa/YhuBXbFvwq/y7f+3Hu0D7Wr +ihMF4+OMLH3WYkKCS+ir4VX7+3K/IEnx/z+875/Nz 8CtwiZAk+P7+Rr8j2cc8bxpaAh5I+aoN771+7/J5l8/L719vK5rp8Mx2L/cFkAGCOVn5jc/X55/gV+wz wa/SnI8hs1Jg+VOfF44a/Ue1ox0c+BW42QG/wnXBrzCOgl+xbwe/ZbaX4SQwwa+/6w8BehRo13wJm813 dz5Tv5xSuBHj9HUdPtnQ69/wmkV2l5NV5h+eYXPw/g 3FgXMHVQae+FMsChv2aUO83/n+tXiuc22Z9vuv/d3qYDM3/+7103VNww7wH5TuN+WkzXLiD680o9hK++ afh1/tPLZ/36uyG1SXUYoJ/h/4wcO2J43qmK/fA5YeGt/m0Qbjyp6qJKs2NwaITgwTu+V4I22r6ULkp1 W3KZ8MGOxlQ5CM92E7cG/vaE/wq8bC/Se6SeySJX+X mgvRp6FtCpZOC0IM6Qi1+n34M/aWYDURBIFKtY3FRZJ6/Ml3MJ0r+FVF/wl+HI3Sx1KuOyhZHUgKSL/C lkOoCbx/X/g8xi1DTUBsC4ASkM6DKqF2Z1ok9yy2a22Bbkt5s/3eQwS7V/84471RWhYiq7Y/X7+FgAB9 HvoBv+hIj0t7h0m/n+oKqakiC82c85p+bH883/0qB6 pQic8hP/v14S5nSFb+aDBhEE5rrtjYiIKV8TCKYSoAcFGPcy/mZ0qfYUWZjhRS1BwOBTNsIXR+[place]+RR [file] NqQHUyUyorZf8jiPI6UNFeMchSMi9Me8PgntS2mqIdQcq3XEJ9YwOhZP3K ID Date Data Source [id number] 10/05/2020 09:42:49 AM [facility] Name Value Range Interpretation Code Description Data Edna rce(s) Supporting Document(s) [facility]spital CSAMYq5dKrPJZcWas1CbXaTzVLCmFN4genf4B4E2lYBoM4QzpRGzf2fcI0ZeB1FbGPNySJAZGX9RlTBz jb2 [file] VWCRBd5j4PVDNwr4mLLsUNVZ1M+mokx3T0jaFzQJAU hNG15F7j3qAQDL4LtttjGXufyPT0UwLhv4g106SNhjmibq9chwXJKeyo5qrbzi0C5Zv68Yl5jA+6Kv+D bzrc6fiPFWG1Tpz7K/c9FplvU7UV/GQrLwb/yJMoKPWgtOznXfbP9tI9G8Cr9+d596Dd8qnKvJ48Mwwe AzTEPkEyWSMsVpdFT33N5Qz/c+k01SgF5u1fUKpcSV JfveI8pTqUT87khBN9XLJQcfExVlev09D65ZHWYvzTWWIEOqVS1JA+OLzcS+9AAf5faBu7kV/3HI6iZ1 z5rI167Vc8lx7PfE8t/UotWLvgpw30r+fv0vkIp9Qxbkc4ja1Enei3NVWg3uIQ30FTTx8Dgk9098eUfW S+m2pVMNE/+ivLZ+e9F13W/+9yTi1JfJY4aP6h7huo sxWawqxdb3GaEe/ZjH/MJvL/pfW56/++1Ml3ofOTaChn1O4DO+7E/6meFso3+wMt8sA+vU0nm/eWrp/H WxPsuppfPXDOebP7/LuCLmpav99pZa71tnxq0zGBj30i2n0uWVa6Mz6eH/0H6R+ebPL/pMLYFTS+fPg/ PHOTOGRAPHER FINISH/5ZXCe2yPgp9K6yNwFeTiu3A1/HIsEC7IuT36T3 [file] wOfgc/Martinez/wB/jj8P06/a0z3v8wSybEp+DaE2gaQre2o53pHs9wNbvL5Gbj8Q4u/yzEg3fWDkyKbo8ely B0fqmD3Yz4Pj7Mh+Ab+GhvOPjr+65ZHWv1wWqpnwKo aLujBhpB4o/9xeTu0d8oJZ/BH+CPw2/Xhetz/4l7xbh8t7is9/I4m9Wk58iV12oN+H3Vgb6gx2N9Ujva fnNrSI4btp/D+D7hxr5kB3t5os+/GuxyfRajVApJS9ONgFWdH8I5x8V1Ew3rpS4hH52y9L+9E8u8gI+O 8mxFwzu5z6n/QwCuwB8n41r1cA4+gq/g4/umgY/xmw 5+gB/pP50OhblN2mDywz28GsU9CG+APw5/IYqwfwe0GYJiSmQcvigzVA8jPG+Hn/V6+PrJS4wqkOqzqd Wr5WxtFy2YLBn2nm86AKk1p+l2q9tjr7J+q8ucV5H3kqgz9MJ9a1v95ieC1aza0iqfCm5c2jnG1eLxu9 dfs5menSuu1u/RMvN9f8K6MEr8/uVuYaF2f2X1vyC6 Dks06s6IIt+/Phrl468bvHAT0r2oVduQg8dTk+87YX59t//m/U8307mebeDNgQClPCsZ1i9ckel3891w V1eVIr+/18CdkqqJV7E2bu4sqn2O+FU5+yuLSG1WZr4IJlKacztrcpzZr4u2B2/HIIByaoxsP32eQ8DS Qeu6peVwj+4500Me7mM+KWgcN5C64gRv6wQIR+Ar+A q+gW/gO/iRklBj7QA3N2/g5m10af3s9w/3WjRao8Zb6apOZ/sTlaAlfNtaPGmC15I55Y01Ng/Ax/dd+t W+Br+V10CBeg8pDaPT9J9/9oIu/Hmz0VvD05z+1gXn2twS2V2+0Y4WwkYJy1BR/Kwe4B/5FgZj0aPvci Ihq1smg/9tJVC9GX+Af/RnjaM/a1zgC/bCpuIQ2QfD trSn3Nd7KO0T03Eu6VQ9H4+xfwp46zo9XG1YZ75126+2oz9rO+uRPaao5ZpuKCdD54U68D09u8f+3NCf G/haI39l9Q6O/refHlp264o+1AFr76AgwJ79Zyj+PsaXueEx2Uk2Zb1J1+A7+AF+gN/Ab+I54CMqTg0q 5rGpX+3rAf44/LwuXIOP+BehPltf63Z6sGquO/NzYn 5OzM+J+AajW9mWe6Haey/gJ/bDjbLkKZN5evrCtn4+gC/zc83Q54ncB3yXE5rZx2+Hdz/UESWbtkSG2gi FfjQZ+Bx/pk2z4NG07AH0O1WuIa9g8rabjYMyXB9/nzviaen+4dj97e0ymfaBl9IrbqrbuDhUuJmWqbb bG+trnNizJeNaqvtAv9orWo+An+IS8hy0SdIXV0NYk wD/jdwbTVJ+yfRCZoYQm9Ro4Fk5IT+Y82Kf2FgiW/jwChnQdjz2eo3NVuyGZqwn4gVS/QbdHSh4MzB5S 8VhTgtHKe4ptG1AO1BRonJ24bh5bwY6Ib4Or/QwpAy2DMp/l0IcF7z4X5+8VbD5yJKs03aGcG9FB4D6k BvAggxsvcsxJm6iF3OQusFBObmY/6FUtL2aKIF6y7e nXlH08qE41RaiM+Kx7EpBb4/eEidJuLebeMyu65E0l3Zuba7dTOq/j525U23pgwRB7oVdG5JhALuQnDx 1f/11beEOukrtQvDkize0PDuh6skiP73HaXHm3MFqs88p79ty0lEzYc02tEf6tS/OV+bEHzc/7l89Jyj kJs/unn/m1trYJZWGPWEkvdNIq+ztO/eq5Bn+APw5/ 8apPUgyJyeCy9Ij0Bx6B2+A7+AF+gN/Ab+L87RGtXJawkErHNFyG09Af05XlO0+90zJ9Mw/BV/ANfAPf wXfwA/aIb26i5f48Q7TrseJ0pE5y2itS+wumfyrAbsajj347iaV+6pivOubnjvkZ+jK7Wn5TB/sb1o/9 em2n8sRp7xbZ+zRr30mxD+xfWT/7sdbP/xu9Aq33/L V/ta/BF/IRaJOf5i/2ryzPfrvV/lVdgx/gB/gN/AZ+B7+Dj/bm2a+zxPxc+1dTVti/yaAeXBmkG6nIgR 3mXJpTxpNh7Rr6+K6A58FS1VY3Ne42hYR2T5YeZUG6LkMIKB7vEV8Kq4Ko+HWBL+AffcOvYy/4peAb+A a+g+/gB/gBfgO/gd/B7+An+MdemKEo5/e0It590TOH L+QpwZD2Zn7aRrkVG/2wkqvdO18uXwFKI5Ty3EmmP/gd/A5+gp/gD/SR8cdlDaf6dTvnj2th0tn3B78U /wzdWV1eu51b7fm/lup2bvqH437xdcPEb5HT4mklOiz5ny1/oMM/6PAPOvyDDv+a90YKyP2lsnl1D2+5 Hf+YI1jiEp4ax5kWkuS49MVs/+C6bs+87Wv/qq47+B 38BD/BH+CPw6/2e6ePP2TD1JS9Wu/AN/Ad/LMe+mUz7iZ3WayCbhd/g5/gJ/gD/GIq2se2zM6S+AI++v Rlg6bD2G/22xZHU352h1fD+MXwen7bA2/pgH4vQr6Q5dE/yyyPnt9Z4c75o4yrpyCYv+r+t/68wstmmI iuIrszSkRXcaQZJFL6/4tB9CRGgJuY4ZAi6/rW56fO IFJU3moQ2/rFl/r9bS+Ird/c9oJM/ZqYq8x88Rwgqnzr8V+s6KYuV1+zbnshin/cQ6ww5AiMXpebHvXj veco8f90l567L7SE0ypqNmYFbMXf4EjlgA55/Qi+4p4zrUMxL9/SO8ZvP/5f78d/1B4updy9bjtUvx28 3cHhe7cXAlGqg44+X7GGuwckB79PmBx0uW/wB/jHXv J59jDeSr2VN+Ar+Aq+gW/gO/zBlnPx3XK9apFkB3+Dn+An+AP8Yy/4OPaCr/6biqgnVLrPN4S54O73X2 /BD/AD/GMf+Np5nE7476ZwW/V7H67caUbb5/tAjI5cRn8DI+Ds2v21oqqscUnvCSwO//TnGclR/XwGcl T/n3Ecpc/MMI5z/BgLyS1M2NmH0TcT1NrKaVpEEo17 BCF2leJEsvLx7Nd0Au2Ol4fxcO8h4msSMKZqeC+G+6B3E4g0CjhR/gD/rL+haK+c9Ep9tEsJ/SpUwVfw PRlF46N20J+9EHrshdAGfgO/g9/Bx/yYzjJyVxb0McD+wYB/PBqmf0CGcm0Z9NK2y29P57XmMIj8X/7B pK3d2C9D+AcD/sGwo2+EoT8b+rOhP8M/GI7v6/i+fu xLzMEDk87lhh/1bIMuk9ndc0LIasSh5G/9qtTy7422o1HxxI/l00iGZnx8foXrUR5lgPZlv3Wi3atmox bfiHO+LuAfDPgHA/8DkE3c7M6S+AcD/fTZawunssHOK4wD4Pr8Rh7Pg9j2Y/4LiB2p0660j2j+wSUTnL 8K+AcD/sGAfzCag+/gB/gBfgO/gY/5qmG+apivGuar bbms3wz2kLfm78DC3DA6JJ/kfG3JKcNDd8rY/zjhSZ8N96Rl4CvoU/gJpp7sj4Z1rjjarWyTdN72+xtR /oY7ynXgT+lXU5+AaI7Mb2Vy/TsdAtQ9h3474LB3Q8hlrR736jVRKRGNccmsav22vU1709k4craMNbGN aSahkgd21WmJsWLq3uHW75wNo836lkq8/a1flQ4/4y O0+k3kI49VBOF10et5ve0Qvcori2wsYL4wv/6Ctq5j+whmYISuMoszLkJb/f62F/rP20dLIZ5aqaTTb3 Pdly4vf67/5e7one4Ho2g+rCpXCKyeG2c7R6m/X+hPr8B2oX7Y/hS2nrEr7v1SjKc7Ra4n77o/G/av2n Q5L3s32gg3vua5SepfgHdoO4Vo8LchMwu25Ndoc/A7 +Ed/bxbVt9a4nZ/6l8WfSma1zUnkIFcRH4X54P96B0/BD/OAqrVx1B9GCxxv/A5+gp/gD/CP/to21Q4L L/TOqIRheYbcNBlH56R18BB1zYqWYnJ80taGSM149RWvZ/R4Ee8P8O8W46cjoZ7q8/R20zhCxO0/pZmd /cixp4s6s08K/7dZgB/gn/1OOw5w1Wkrc966yNW/qt q2B6tqnDild/M5zc/52OYX+AK+gK/gK/jIctQb3Pn7Io1aW4ksl4dE5BbkQ/gJfoJ/zsc2P+djWxz/Qo uz/tQ1558AjHic1Te5Xw1O9+A7+AF+gN/Ab+B38Dv4+L6R4A/wz/rb2ll/W7vAF/DRXpy/atCvGvSrBv 4kTq9p6A4w9GaN/aq1Yw+8hnkW7lb8JwdBK/254fs2 fN+Y4un2evC3dw01zZKjE54BN/ACivXpH5o8e6J1mu/H+O0N/GUDxh22N0bw+S6paeRdS10epFkj0rUm rMRwWNprM4axxKarohTg+Aa+ge/gO/jz+/t30cOe0yFE8mjkZ/gd/AQ/cf+A15QwYZa/0RP1d3IYcL/a UB0OAh7/rP5V36Q26A62Lv/AD/Ab+P21Jb4KK7K//t A2MD+P4w/t17EH+2Ko7gdJA/CPfdSvs5/USiSnmCxwUfmOF3Sg0UrbZ/gd/AQ/wR/gn/Vi8AfgRxz3R3 4g9U913Ll44VgtgsBIpYt62o/ywhpF4i+OfdTX/gJPfhaLk863O9rmM8cOvwgpGLg4lA2zI2N/bASZ1/ wq44v6NUk+LXX9Xg8Ql/Vfup6F17sadkT/1FO61BWr p70wz/12zlep8IE6L3vW59/41b9rGa/neaTi3/JQ4I2bd0DA/7YXev0+fanTrfxIjwv6rrZ2wGAxnXR/ ub/fMgcMq3426dW+8/te6/fz+9p6zzN+vi07n3vCv4veFpa+E291ytki58ro82aglv2Dv59RqcR24EP6 AL+B38A/+auxes7HaaH/wR/gn/Oi3Y//t/cUzuNb0N b6Aw2Me+A7+A5+gB/gN/Ab+Givn/F5WtxB2RK4Gw18c6XpoL/gxZTc7Xb3Yg8+b+D7wj/GY3520R2Q3h fwfQPfN/O7l7IW5dljX5loaU9isw/3ds4/93aBL+AL+OjP7di/rS376F8Npz6YfiKzH/WG+bkd/bm3E1 /Q47yB2v9Qb2go7e913Dr5v4/b2a/r7ay/vZ/1t/cL zAHwpDilPTfK50N04J0U39i/5xl6D/Ab+A82pf2ul4LD5GBt7HCa4DP9I/1NrL+J+Sqx/shP82QbYAhY 28F96O45IF/qMtw3PalClpo/Martinez/wB/jm77L9X3g49K5N9k49v2J1Y+0daC/Ot/tN3n4qR0odLy42UT/o ohL7dTGd1G4bH/WB7zuO/pzXsX/zusA/7c3r+Remington+l KFz0us4Ng5roQs02HI9bz+lLwC/AC/gd/A7+B38M9+jP0RWxrx5L2UcbDId5+XcsZvyhm/KSf+Nyt+cP FX/O+7sb162OeG7vm53Z90AK/Ab+E96Co8gV2yz8uG1DT0pbkN14547c5Y+RkS+RkS+RkS+RkS+RkS+R kS+Mea9xUo+5/5KnH+KnH+KnH+KnH+CmYS76MW7AI3 Vf6P67hE49PByBEdcFbcc5jeLM3IIV8PQNigtM/wA/wGfgO/g9/BT/AT/HM+Xe010O6+mX6BL+Cf/avE +av0o2/k0q/muaBc+tX0I+TSr/Z1nN9g/Kd823Qmywpyml75G+aOjyEdsKR0Bjks/Hmef+rP6dO/UPc8 /oX06V+I+Z4x/QvzzE/GtBeKf+yFjGkvXOt6+hfWGI e3FuxyX5Y/Xur9EcY/Ts8ww390Naqu51ZwkG7/0hvjsZ0P/4D0IuA7E5hiGbkcb25+hfrNtBdk/SaPfK Z+aYqOrxbm6r3c1773XQ82zsIvvuOZKIV3scsdtx9gLgwyH1R09t+2Y/9mc/Ad/AA/wG/gN/A7+Ge/Rosemary EfTPgHE/8UjG7d2T0U8T8a/IMJ/0QXI4ihG2qSjyGO fAffwT/+wYR/MOEfTPgHE/5PwN8v5B6J6P5f/IMJ/1QWG0gwQ3SJ+AK+gq/gG/gEw6ADu/SK1gX5K+3N sx+befZjM/V0T7858C7A8bfbyUp+A50934N2RQ5UFI3BlD1C4+y3J/avcmB+PfsMExyuzos9SQ68j71A fge/g3/263KcfCMJ/2COs/6OpV/t6+e81ia2FmCf9W o4Qd2En0v91m+BbFXjcvAD/AC/gd/AP+fozG96C30G/6xHY+lX+/uf7kwRA649EBWWO/AVfAXfwDfwHX vKW8LO0Yy1LajTrgt/Martinez/wj/698VvBG62+0cHeMayQnWydJXxM24S44P68Ic/AD/Ab+L42By0E/9hHQx VyMtCez1URtIgXVeYG+AK+gn/C2vV60190DWdKKfTe m8lbiK7bV50snP027AnbHRzDMu1d1Jz2Pu6N/8RrDD/wzCrOHg5utq4+7MHh6M/RI4kMrdG7WcktR/w6 xq9j/PrxLww//oXhDfwOfgc/Martinez/wB/pYdpZo8kDA7eLAC+Ar+UjzoA4d8QdAsNxnKUs+YwUg6wQDsf2q 9OcRGL+S5SyEf1PjFwc/rZ6fvV8fNI/SoLcqP91Zw/ cgKi59jlKgKRpT55NF1FZ7jD/mYiX29XZ/doughnut icer machine/OOAfHPAPDvgHB/yDo2O+6pivOuarjvkK+gAFc1SchU [file] NurSTwXFUGUASGYSqTJXoUHfrJXqFImi9HcPYrteBJALVMMIRWphMFYLHJLBCNouUGTUZIFNCEpfFQYE CqMgguMBxywr2wguiz9Uts2Ney7ZzdJK/JCC8tcqrW 2Ldi0Vh+Y5NyWn3Gb10KevbS8KSYhGZjXljrWJe+UU6ZPM17BG/DBGC2VmENCnyvzgASB2pkjqyBRH76 tFh2QWBrOFKJNl3hOG+AIMsD7RseyRNOyTBFRjOvJq2qjD4ccOwNMjObyfFmIqLTvegehHSYSaadTEkV UgEg6UaKJKOXXINDCcTMsXSYxpFZFT1DJcriy2NYAA SRxgoVGMQtUYZDktrVQSWsTOZHjytFBRGswf0juHNKTHOMMoLeuKSGUFVKZpqcwkAwwLZ2MhlKu2hcEq rHht4AY2XEeLiurQfvsrhYg/dtyzQ2vnv6Bcnx3c3ywVi3TGBQVOTboM15bjq11n2vI0tcETIjv6MEAO /nJWTGOkVyGlwKDMKsJeZAz7a1U4P7j8iyjAphnSFj yARYWiPQYsQdzofxrGP5xMqjbR/KfmXTnZfYYgA0SaONfIkiUDLHsI+KQ5WvElfoj+YjHxvHl2kafMq7 mupFNhCfBRrbfd4CwSGrsXxmzw1cpaKpHsdHBwugiu1cqlI80b5dRtql6HrJ+w0K6E3cqp5xCR+4naBh PtE4LVJXbj9lGw69Nu8AGURf/XJ2yL2KKiJyxVbvr1 xFWPZffeDh/VsSEC6Mhj0EnwyktnPAevwij8XTz0CiB06XiPbeeJmBWfKIcEEGFIn2R2edX2Ym2afZiq WYlKgVIOWm4Yq7THDC+hNuuxvGaI+o/KvrgbK8VpDM46VBoudV88KHl1eFOPJqJtnhbwi5XMGfA0c1T8 htJVzPwlR0KdB/Gq/6q6hlVEx3aeYwjvM0tZ8kfRO5 dYEA5l5hVCFbJpQOcgHLAzfwsvVFTBg1R41X8Nf3VBSKTCgKEhWd3JCz6JhtiAIOFivmZ6+6UFr34Lft lJFapSYEC94UQnpRN8NgZBA7hq2dcN1jRBqM6f6R858evgnykm1FkgNh4itjNd9HYd6fo4Zb0KCri+we Zvh2ZzCIFlKVClKTStBWdb0Ei8OoLEGSYv0qDCAFNm WTlSCpICCMIlmsMPfSD4Q2N1UFL9377uyXNJ/4Ny9nFZ8R8zMvLDNHIfQYeP5fPf4hEkKFsjPVs2f5fY 1pBEoUDg6RBgrflFX5reD/7GHjyKquIMJ3wGVaoQfNwTP2X9QlV+onE/7ytlCRATOeI1p5xIk+Uh8OUM BpDHay1ybnbDXwUgoBTjA83n7VyCjMyCU5ejDjMv2G MdmBXAuIu8tQTHEHjOHaPE7TWVEUuGRkYPMqR3rfK4vraFJ8gCCCPJQAFESUsIJADNOOFAFYwACXYDLP SWUMiAFYHBJFYRWVcLIGCpfQkpVjJjKzg2V773ibt5HHEvOPmRZhkXxwwVlb9H505vjJ/RGtZGayeeSa 53UcuR35TcZFd0wd/WAnEOLOd41LeBZV822P4HUT7S BpAOFXiGqp4NMU6xwlozLZQPF0OMOQHuSclJMEbywGfyc51CgF4FOwkZoIhUo0tgNrdNSENgTG5LZG+r 7Ihxu1ROwRBncc0XilqGjEPZASWERB/duJ+23lT9hQWCAqnVsOrXC+JEnEhg/IxATxyNSCPSiXQiSSSJ qA6p36jtu8h8fK7+45AF8EWWaUJEfHjzlfgq3yeeZV lVj2Ud+0a9BWcYC1y2UPd8UrCthwdqgzUro7C+sSKE9otGcX4nHTFcwm0GKCLyfQdF5OE280Bza8wmGz dmF7yWl6JFhdMJV6yTMMuaqFMrRk19MZ2pmmX0dWSJ7DJBSju9ScXjb423I3m193kL4jKPpJ0KDLjS99 c7xuABK0jCx/q1S/nqrMfytHTqieXCWvVYVmEsXfVY 1djn9ETMwsiCW9emnRKaNVnT50mjfbj3WJ5uZQa5ikg3kfCzoOAGWauer6qPiCHk3jLlpwIM+B+cyXLE xdfgxoJym6bvkAvMPluuLLf6arnCKhJYzJtRT9HSJM4wvDVDGfjBDtdUVxfQGokVRugIAmjLPblBNauG JzrPJzrPJzrPJzrPJzrPJzrPJzrPJzrPJzrPJzrPJz aEGvfQLsoHYrwIYrzAIgpMPyqXXooZFbiCYixGOtoBIkjq0vbXej2s8HENq2J1VDoOv2MyQoJtHleGvf RPVA+bbL3695m4TAkqXyxY3UUCCbUigJUGV1+kVY+eeRwdmPAdaW51ZdXmOkzqp8EKNSKFbAzlFQiFQ2 wWmAKrV3tuD6nqFY/jYnazbnoVrSzkebmRSDy545mZ OBZ1+y7akhcu87lsf3s2gQ0+Z+d+iuQp4XJ7V/3OTr+j39M6v25hpZTKOvfeVMX37DswmHIvIGMLSlYb 7PQ7O/3OTr+z0+/mhBKxdteZ0ryZQwTpC3xEvQNHBNcSZvmMndSF5MiSoyu1g8TWjE3f8AZOka31s+7I n6g+tHRrf1E2PDRYzYZiLApIakhvO5XrO/rgnDhwXj m4nxgX+aEb4ETnuw9SEK+OFxLtdTLvrtti3awdO29hoqaTIx0t7T8u1DiwLtfOPMbwG8K4WfWJKbUQCQ SqYhI5TFGKwFB4yjqga67ysMXo9QaGYdIGDLBjJcYd2ockV33E5ivpeytgSXTRWSdMZvfmd+qxHIKIEG E/nC080jE9zLFwHu9Ch9VihlkFHsIZiTEgECyKQXKF CwWXsGG1d89njMjIo5IWIex0QS4IHRDeZB+seizL+vi3JK2MTSVnVIeIUgs5VGHOWVF3elAYI2y9m/La 2VQ51hZMVlDob/LXRD6h9uzXVyCebXZhiT90CQ8UmYMsx318KX00NZEFdqzCn4J63QGrjns7MX6hu/XE vyoq3xYDfyNeg2NsrEZQD7kcoCSrk5af0hoMElgxhm 5wI4Vcp4RkViYmz6uYoXlzuGdXKz4Vt83U5OHyejgRN2aMe++3WBsb86k9HQAnmuETYGkdU+FP4tD4db b3EwN1+3KMT3o7MUGe8LWTnKaNGDWcRKlCwLJflVfAGLdXZW4vYdVXaqPipWzLlMFRNmsDpVeO0QbmRi xttKWWAUSTEWnqvEFuIQPDJnHI4JZPn+UQRISIEFEi WeUXRInOn7bT/Valks2ilc/2KlER9CW0eNAHXWiWDjvIjML4L4C+nuqYGzj9lOoqrWrwlg8InNf0a315 TGLxrZZoBHxeJ6KpvpXRXu1SjZdwL5YjgTvZe039KC1FUHH2AeOc3YQyk2OppUgHZ8cIIrdBhItw82qN 6T8T0S2ioQoFBwbLchTMHkFQGSPSrimbIAWADEvpI0 aEO7lV9QMvh2TYL6CQeJgHYNRCfNYzJDnHeoB807DjuxcjoWqpy+7jv7/9l2/l7R/ePv4/b+8/3thchG SH7w208/WyUx66B59/+eU/qm8s2z52/mp3oIN7If/40mnzuH4ogz1W85r5d01+JP3n/+3dVz+/o4LfXi ksG9z6JfJfk8q9gyn/7qvfv/0nt852uCkw/dtv3v/q i8/ncbz0g6+++Pb9h2+++Oe5h3hx170lTqhx8Pcz8d21vQ/csidas5235A7rzsdy6+0+oqL8J908A/NJ X3z1u2/ePr77/Ne///ohp3381b9i/PZehe/f/vbrrz+8/fbD+8+/vn/93kmB44/12k1O11+++/b9i/31 f/3w/ggmjjf9a5wa1mh50cc7j3/95ey3c20+/XrrF/ S14h1J2n/rNu9++aQSF60m1dfLI//x7fOvv/rmi1+9//D2xVf//P7DF6+Hf/HN579+/5u/33Semap9q4 2Ht/ef/9e/20Fbn5a/4iPCp7v+/eLrV+tfv/ua4r1432481g6zd7v/d/50q/H3nz7/84//8ce//PD9v7 /99//99u0f//Sn7/7yl++/+9M/vv3qux//+S3b6j6b v0j+2z+8/fnHN/mFjF/Mzz0+c/3spae8+68ydH1KdpPgAgJCE34xGe81hKDlY5puWn/bKEO8580z7Y9u /24Ygy57jOFlyw4af9bTco1s9KwtTOfl3Ku5fijV3uqI5GCKx0+7fiqqWQfn/sGH7//j+7lefht44fhx DB8//xy1g903mGtamF/iKYNzy00sZo/y/l/W4Jppt6 1h7Kcn//C0dLSTaRUQ38hMZm2UCYo7+x//85/e/vLdf37/ye1fS+nbSqxz/+iHv/707huTlj+9+wZ/++ Htjz/+5/d/+X//0n5Z6jrDW080yN5cLA5fi3/Kp7o19h0j/+fr3f/45x9/smuKud6tr3+3eLB/+fiLf/ n4B+GywANMk4OjA5okN3y/XacTSz1d5yS4prZeHiSn HcweL5j92BI++/MPP//49t3/+o5unpntpy128k//+c2mx54yrwnMZUf2//2Xf/uHn/x6f4Z//v6H7/70 yQcen+Cff/c///DdX//43Y8/ucMWdbv++ONP/39Gy/Wn//63/31k+OHPf/3pyfeB2Rp/2S3+8s9/+Kw3 PsFtIp7QJwWN+f0f/u8f//iH1xt+9vbf3n/17stPVq R128jTAP28h//56nb//abej5swr8cDCJq+9W9+8/0lv591buL+r53/55/clpK+9Zp3f/vd//j+Td7+/B 2iqt7xc/n/TBtvb+8aT4wVL86/q4+v+hAhT49aBTscl4D7/+Omr6uw4I5SSH/vPv/743210ocad4av60 rH09f+mvujhDAIYJ8cr4VlTXDcEjXxCQ6romtoFXCd GU8koeh0P2BhyUanDHvBIVJuDo6xnPClYY0GFMV5BNskNSFlZJXtC5LsoQ3qW73ehUNiUsLdHZQGWV5W ipY6ATX6BZP5MFBlLoRxVWUcTS69SSKlUCVUXp7uavLlCurKVpOrAQ2rumv7V6D9lTViC256uQuhexJn UX5Xj2ZltZSpKV7BvTDyxROaRULkOCVfP8iuz8DsNH rxKPDHZs6jcjRtTwtPBzUbKU3tqjq7J7J5sErmxbTjARWZJTuyVuwyJA3meNkheolhU8DyiMTsIQOkL6 JtTQAsi02NNCBtBPlEKmNdNvJxDZN5CBq1QebjEmQbAGToWNMlUOGrEN8QgYSbFHKsGMEKYOmsIbsyQG RdfZ2qhNCUy7WbI40AXAhRZRdYZEDKEGSPVkMlXnKw DTV3SQYyU2VooxKdfVAvBRDMUBajThrwXTJbgK3yrGkmL1LxJGB7m1WjPO2BF1BvURJrFGFUKJJ0l1Bl FFSlvhclkzuxRtVgROXeYOTvDRZvPJ6Bqd7ifSTpkbIqDEQSHEgcRbpaAX2axIjklljkG9KwaHHqRNP+ BeHkLD6zkb0+IhVlMXBsIzc4OCThRSxoBMFpHFZbDK HlQ7tlIXOkHlUgARYgEuUsRL9Ux2IwrFBmKi7ezlMzJegGkGKaEpwcLVTkTCPjVCLlBkAEZAQaSXDaRL TwYXD2EYBwGAOgJTtcRMUuDLH7AHw7OFYrXFFkKO9zRjTbRIGvKqPqPDZrCVKzGHAiacBRSNMuXNL8Mf FnLUOkLTOiUIOsGJyvEYVzSPOxFGMqVSW3CDA4VLCs JxUrGBYrFZQcXHVzGVBsGJYiciFFIVOsLTPuIOD4RZSaGKXtXFOhDYtwAQXnRZBlTEqtATDhDZDkEK4k JbOzXQSsLOKsTJzjNTBsEHXcshRSMZTwTDLmJILqNJGtSXBjBGHrQPerTYDwCMHgGXUeMDMcBKEpVB0i SuEuMCPzTKR3BUEvJMKoWVFtvwEFOEEpRPKaQHi9XY FrVRMeMGGpGGyhYPJpEAIsMYQ3MPQoGFOgXT0rXnKnRYAsPGF8KzUrYOLeCUEzjnUDRTFmVWVyLLZ6Bu TnSJJoNQOjBXomMKDkRBXnCSqoFLSfDHAoVH9qEeWxFHIuUQOvIDecSTQqYFFghxNVOXPoEBQwIQByNx HmOTLgTYOqKVqhKYTwVHU3LWHiSYBoDPDgJJ2dHvXr KETpARC0FUajCWLnRAAyddAHTAUeZENkJBtdBLRkSZWtJRAhRLohYIIuKWNxZSO6HQSmLYCsSD7mUzRh LUHtXJBfEQIbRlX5CiIsDnGOtOYwlYynduz4WLvdC5y6JWNfPGxpKU2yknAeXSIsIdwkYz1zkIK7HVJy OaxHFt2Qi0MappZ3naMaVoA4XENkKgAmPD2C ID Date Data Source [id number] 10/05/2020 07:37:16 AM [facility] Name Value Range Interpretation Code Description Data Edna rce(s) Supporting Document(s) Leukocytes [#/volume] in Blood by Automated count 7.9 10*3/uL 4-10 [facility] Erythrocytes [#/volume] in Blood by Automated count 2.58 10*6/uL 4.1- 5.3 L [facility] Hemoglobin [Mass/volume] in Blood 7.5 g/dL 11.5-15.5 L [facility] Hematocrit [Volume Fraction] of Blood by Automated count 23.0 % 3 6-45 L [facility] Erythrocyte mean corpuscular volume [Entitic volume] by Auto mated count 89.1 fL 80-96 [facility] Erythrocyte mean corpuscular hemoglobin [Entitic mass] by Automated count 29.2 pg 27-33 [facility] Erythrocyte mean corpuscular hemoglobin concentration [Mass/volume] by Automated count 32.7 g/dL 32.0-[facility] width [Ratio] by Automated count 15.0 % 11.5-14.5 H [facility] Platelets [#/volume] in Blood by Automated count 216 10*3/uL 150-400 [facility] ID Date Data Source [id number] 10/05/2020 06:38:06 AM [facility] Name Value Range Interpretation Code Description Data Edna rce(s) Supporting Document(s) Leukocytes [#/volume] in Blood by Automated count 4-10 [facility] Notified Elyssa Mariscal on 5B at 0637 on [id number] by [id number] Erythrocytes [#/volume] in Blood by Automated count 4.1-5. 3 [facility] Hemoglobin [Mass/volume] in Blood 11.5-15.5 [facility] Hematocrit [Volume Fraction] of Blood by Automated count 3 6-45 [facility] Erythrocyte mean corpuscular volume [Entitic volume] by Automate d count 80-96 [facility] Erythrocyte mean corpuscular hemoglobin [Entitic mass] by Au tomated count 27-33 [facility] Erythrocyte mean corpuscular hemoglobin concentration [Mass/volume] by Automated count 32.0-36.0 [facility] al Erythrocyte distribution width [Ratio] by Automated count 11.5-14.5 [facility] Platelets [#/volume] in Blood by Automated count 150-400 [facility] Sample quality of Dried blood spot [facility] ID Date Data Source [id number] 10/05/2020 06:01:10 AM [facility] Name Value Range Interpretation Code Description Data Edna rce(s) Supporting Document(s) Leukocytes [#/volume] in Blood by Automated count 4-10 [facility] Notified Elyssa Mariscal on 5b at 0600 on [id number] by 8998 Erythrocytes [#/volume] in Blood by Automated count 4.1-5. 3 [facility] Hemoglobin [Mass/volume] in Blood 11.5-15.5 [facility] Hematocrit [Volume Fraction] of Blood by Automated count 3 6-45 [facility] Erythrocyte mean corpuscular volume [Entitic volume] by Automate d count 80-96 [facility] Erythrocyte mean corpuscular hemoglobin [Entitic mass] by Au tomated count 27-33 [facility] Erythrocyte mean corpuscular hemoglobin concentration [Mass/volume] by Automated count 32.0-36.0 [facility] al Erythrocyte distribution width [Ratio] by Automated count 11.5-14.5 [facility] Platelets [#/volume] in Blood by Automated count 150-400 [facility] Sample quality of Dried blood spot [facility] ID Date Data Source [id number] 10/05/2020 05:14:09 AM [facility] Name Value Range Interpretation Code Description Data Edna rce(s) Supporting Document(s) Bicarbonate [Moles/volume] in Serum 21 mmol/L 22-29 L [facility] Chloride [Moles/volume] in Serum or Plasma 108 mmol/L 98-107 H [facility] Creatinine [Mass/volume] in Serum or Plasma 0.70 mg/dL 0.50-0.90 [facility] Glucose [Mass/volume] in Serum or Plasma 93 mg/dL 70-140 [facility] Potassium [Moles/volume] in Serum or Plasma 3.8 mmol/L 3.4-5.1 [facility] Sodium [Moles/volume] in Serum or Plasma 139 mmol/L 136-145 [facility] Urea nitrogen [Mass/volume] in Serum or Plasma 8 mg/dL 6-20 [facility] Anion gap 3 in Serum or Plasma 10 mmol/L 8-15 [facility] Osmolality of Serum or Plasma by calculation 286 mosm/kg 275-300 [facility] Creatinine/Urea nitrogen [Mass Ratio] in Serum or Plasma 11 [facility] Calcium [Mass/volume] in Serum or Plasma 8.3 mg/dL 8.6-10.0 L [facility] Glomerular filtration rate/1.73 sq M pre dicted among non-blacks [Volume Rate/Area] in Serum or Plasma by Creatinine-based formula (MDRD) >6 0 [facility] Glomerular filtration rate/1.73 sq M pre dicted among blacks [Volume Rate/Area] in Serum or Plasma by Creatinine-based formula (MDRD) >60 [facility] ID Date Data Source [id number] 10/05/2020 05:14:09 AM [facility] Name Value Range Interpretation Code Description Data Edna rce(s) Supporting Document(s) Phosphate [Mass/volume] in Serum or Plasma 1.7 mg/dL 2.5-4.5 [facility] ID Date Data Source [id number] 10/05/2020 05:14:09 AM [facility] Name Value Range Interpretation Code Description Data Edna rce(s) Supporting Document(s) Magnesium [Mass/volume] in Serum or Plasma 1.9 mg/dL 1.6-2.6 [facility] ID Date Data Source [id number] 10/05/2020 01:23:54 AM [facility] Name Value Range Interpretation Code Description Data Edna rce(s) Supporting Document(s) Leukocytes [#/volume] in Blood by Automated count 8.5 10*3/uL 4-10 [facility] Erythrocytes [#/volume] in Blood by Automated count 2.44 10*6/uL 4.1- 5.3 [facility] Hemoglobin [Mass/volume] in Blood 7.2 g/dL 11.5-15.5 [facility] Hematocrit [Volume Fraction] of Blood by Automated count 21.6 % 3 6-45 [facility] Erythrocyte mean corpuscular volume [Entitic volume] by Auto mated count 88.7 fL 80-96 [facility] Erythrocyte mean corpuscular hemoglobin [Entitic mass] by Automated count 29.5 pg 27-33 [facility] Erythrocyte mean corpuscular hemoglobin concentration [Mass/volume] by Automated count 33.2 g/dL 32.0-36.0 [facility] Erythrocyte distribution width [Ratio] by Automated count 15.1 % 11.5-14.5 H [facility] Platelets [#/volume] in Blood by Automated count 191 10*3/uL 150-400 [facility] ID Date Data Source [id number] 10/04/2020 06:43:34 PM [facility] Name Value Range Interpretation Code Description Data Edna rce(s) Supporting Document(s) [facility] [id number]/[id number]DGbH6AeFQR0jY8iMDO8UFjTTkBgQxLcCXW1 lbm [file] [id number] ID Date Data Source [id number] 10/04/2020 06:11:46 PM [facility] Name Value Range Interpretation Code Description Data Edna rce(s) Supporting Document(s) Troponin T.cardiac [Mass/volume] in Serum or Plasma <0.01 [facility] ID Date Data Source [id number] 10/04/2020 05:49:02 PM [facility] Name Value Range Interpretation Code Description Data Edna rce(s) Supporting Document(s) Leukocytes [#/volume] in Blood by Automated count 9.2 10*3/uL 4-10 [facility] Erythrocytes [#/volume] in Blood by Automated count 2.76 10*6/uL 4.1- 5.3 L [facility] Hemoglobin [Mass/volume] in Blood 8.0 g/dL 11.5-15.5 L [facility] Hematocrit [Volume Fraction] of Blood by Automated count 24.4 % 3 6-45 L [facility] Erythrocyte mean corpuscular volume [Entitic volume] by Auto mated count 88.3 fL 80-96 [facility] Erythrocyte mean corpuscular hemoglobin [Entitic mass] by Automated count 28.9 pg 27-33 [facility] Erythrocyte mean corpuscular hemoglobin concentration [Mass/volume] by Automated count 32.8 g/dL 32.0-36.0 [facility] Erythrocyte distribution width [Ratio] by Automated count 14.9 % 11.5-14.5 H [facility] Platelets [#/volume] in Blood by Automated count 209 10*3/uL 150-400 [facility] ID Date Data Source [id number] 10/04/2020 10:49:[address] [facility] [address] ANGIOGRAPHY ABDOMEN AND PELVIS [id number] INAL RESULTInterpreted by:NORM WelchPROCEDURE INFORMATION: Exam: CT [...] (IV); COMPARISON: CT ANGIOGRAPHY ABDOMEN AND PELVIS [id number] 10/02/2020 4:54 AM FINDINGS: Lungs: Mild ground-glass [...] Name Value Range Interpretation Code Description Data [facility](s) Supporting Document(s) ID Date Data Source [id number] 10/04/2020 11:43:16 AM [facility] Name Value Range Interpretation Code Description Data Edna rce(s) Supporting Document(s) Leukocytes [#/volume] in Blood by Automated count 8.7 10*3/uL 4-10 [facility] Erythrocytes [#/volume] in Blood by Automated count 2.85 10*6/uL 4.1- 5.3 L [facility] Hemoglobin [Mass/volume] in Blood 8.4 g/dL 11.5-15.5 L [facility] Hematocrit [Volume Fraction] of Blood by Automated count 25.4 % 3 6-45 L [facility] Erythrocyte mean corpuscular volume [Entitic volume] by Auto mated count 88.9 fL 8096 [facility] Erythrocyte mean corpuscular hemoglobin [Entitic mass] by Automated count 29.3 pg 27-33 [facility] Erythrocyte mean corpuscular hemoglobin concentration [Mass/volume] by Automated count 33.0 g/dL 32.0-36.0 [facility] Erythrocyte distribution width [Ratio] by Automated count 15.2 % 11.5-14.5 H [facility] Platelets [#/volume] in Blood by Automated count 181 10*3/uL 150-400 [facility] ID Date Data Source [id number] 10/04/2020 06:13:34 AM [facility] Name Value Range Interpretation Code Description Data Edna rce(s) Supporting Document(s) Leukocytes [#/volume] in Blood by Automated count 9.0 10*3/uL 4-10 [facility] Erythrocytes [#/volume] in Blood by Automated count 2.47 10*6/uL 4.1- 5.3 L [facility] Hemoglobin [Mass/volume] in Blood 7.3 g/dL 11.5-15.5 [facility] Hematocrit [Volume Fraction] of Blood by Automated count 21.8 % 3 6-45 L [facility] Erythrocyte mean corpuscular volume [Entitic volume] by Auto mated count 88.4 fL 8096 [facility] Erythrocyte mean corpuscular hemoglobin [Entitic mass] by Automated count 29.5 pg 27-33 [facility] Erythrocyte mean corpuscular hemoglobin concentration [Mass/volume] by Automated count 33.3 g/dL 32.0-36.0 [facility] Erythrocyte distribution width [Ratio] by Automated count 15.1 % 11.5-14.5 H [facility] Platelets [#/volume] in Blood by Automated count 170 10*3/uL 150-400 [facility] ID Date Data Source [id number] 10/04/2020 06:30:17 AM [facility] Name Value Range Interpretation Code Description Data Edna rce(s) Supporting Document(s) Bicarbonate [Moles/volume] in Serum 21 mmol/L 22-29 L [facility] Chloride [Moles/volume] in Serum or Plasma 109 mmol/L 98-107 H [facility] Creatinine [Mass/volume] in Serum or Plasma 0.67 mg/dL 0.50-0.90 [facility] Glucose [Mass/volume] in Serum or Plasma 94 mg/dL 70-140 [facility] Potassium [Moles/volume] in Serum or Plasma 3.4 mmol/L 3.4-5.1 [facility] Sodium [Moles/volume] in Serum or Plasma 139 mmol/L 136-145 [facility] Urea nitrogen [Mass/volume] in Serum or Plasma 8 mg/dL 6-20 [facility] Anion gap 3 in Serum or Plasma 9 mmol/L 8-15 [facility] Osmolality of Serum or Plasma by calculation 285 mosm/kg 275-300 [facility] Creatinine/Urea nitrogen [Mass Ratio] in Serum or Plasma 12 [facility] Calcium [Mass/volume] in Serum or Plasma 7.9 mg/dL 8.6-10.0 L [facility] Glomerular filtration rate/1.73 sq M pre dicted among non-blacks [Volume Rate/Area] in Serum or Plasma by Creatinine-based formula (MDRD) >6 0 [facility] Glomerular filtration rate/1.73 sq M pre dicted among blacks [Volume Rate/Area] in Serum or Plasma by Creatinine-based formula (MDRD) >60 [facility] ID Date Data Source [id number] 10/04/2020 05:33:[address] [facility] Value Range Interpretation Code Description Data Edna rce(s) Supporting Document(s) Thyrotropin [Units/volume] in Serum or Plasma 0.524 u[IU]/mL 0.270-4. 200 [facility] ID Date Data Source [id number] 10/03/2020 07:46:[address] [facility] Value Range Interpretation Code Description Data Edna rce(s) Supporting Document(s) Leukocytes [#/volume] in Blood by Automated count 12.2 10*3/uL 4-10 H [facility] Erythrocytes [#/volume] in Blood by Automated count 2.95 10*6/uL 4.1- 5.3 L [facility] Hemoglobin [Mass/volume] in Blood 8.6 g/dL 11.5-15.5 L [facility] Hematocrit [Volume Fraction] of Blood by Automated count 26.5 % 3 6-45 L [facility] Erythrocyte mean corpuscular volume [Entitic volume] by Auto mated count 90.0 fL 80-96 [facility] Erythrocyte mean corpuscular hemoglobin [Entitic mass] by Automated count 29.0 pg 27-33 [facility] Erythrocyte mean corpuscular hemoglobin concentration [Mass/volume] by Automated count 32.3 g/dL 32.0-36.0 [facility] Erythrocyte distribution width [Ratio] by Automated count 14.8 % 11.5-14.5 H [facility] Platelets [#/volume] in Blood by Automated count 166 10*3/uL 150-400 [facility] Confirmed ID Date Data Source [id number] 10/03/2020 04:23:14 PM [facility] IR RENAL ARTERIOGRAMFINAL RESULTInterpre edgar by:Paul [...] Bentson wire. Over the wire, a 5 [place] Omni Flush catheter was introduced into the abdominal aorta and aortogram obtained (20 cc/s for 30 cc). 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 The catheter was exchanged for 5 [place] SOS 2 catheter and the left renal [...] rce(s) Supporting Document(s) ID Date Data Source [id number] 10/03/2020 02:45:17 PM [facility] Name Value Range Interpretation Code Description Data [facility] rce(s) Supporting Document(s) Leukocytes [#/volume] in Blood by Automated count 9.9 10*3/uL 4-10 [facility] Erythrocytes [#/volume] in Blood by Automated count 2.95 10*6/uL 4.1- 5.3 L [facility] Hemoglobin [Mass/volume] in Blood 8.5 g/dL 11.5-15.5 L [facility] Hematocrit [Volume Fraction] of Blood by Automated count 26.1 % 3 6-45 L [facility] Erythrocyte mean corpuscular volume [Entitic volume] by Auto mated count 88.6 fL 80-96 [facility] Erythrocyte mean corpuscular hemoglobin [Entitic mass] by Automated count 28.9 pg 27-33 [facility] Erythrocyte mean corpuscular hemoglobin concentration [Mass/volume] by Automated count 32.6 g/dL 32.0-36.0 [facility] Erythrocyte distribution width [Ratio] by Automated count 14.7 % 11.5-14.5 H [facility] Platelets [#/volume] in Blood by Automated count 160 10*3/uL 150-400 [facility] ID Date Data Source [id number] 10/03/2020 10:12:33 AM [facility] Name Value Range Interpretation Code Description Data Edna e(s) Supporting Document(s) History and Physical [facility] BOZOXr4iBhDODeDe25/VHEquQNXhl8CfIEcyXJt4BStyYGCkK7HxZCG4sV9nNDB6QMiPJwZzMnRtTYK7 lbm [file] h3Qb0x5a1JAK/6rEm/h9Zjl1Dk7NZFBiUF+pazZDDo7geXq5gKS8BJ71mlHNGjl6UsXl1/RTdnaHw/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 [file] ICAgICAgICAgICAgICAgICAgICAgICAgICAgICAgIC AgICAgICAgICAgICAgICAgICAgICAgICANCiAgICAgICAgICAgICAgICAgICAgICAgICAgICAgICAgIC AgICAgICAgICAgICAgICAgICAgICAgICAgICAgICAgICAgICAgICAgICAgICAgICAgICAgICAgICAgIC AgICAgICANCiAgICAgICAgICAgICAgICAgICAgICAg ICAgICAgICAgICAgICAgICAgICAgICAgICAgICAgICAgICAgICAgICAgICAgICAgICAgICAgICAgICAg ICAgICAgICAgICAgICAgICANCiAgICAgICAgICAgICAgICAgICAgICAgICAgICAgICAgICAgICAgICAg ICAgICAgICAgICAgICAgICAgICAgICAgICAgICAgIC AgICAgICAgICAgICAgICAgICAgICAgICAgICANCiAgICAgICAgICAgICAgICAgICAgICAgICAgICAgIC AgICAgICAgICAgICAgICAgICAgICAgICAgICAgICAgICAgICAgICAgICAgICAgICAgICAgICAgICAgIC AgICAgICAgICANCiAgICAgICAgICAgICAgICAgICAg ICAgICAgICAgICAgICAgICAgICAgICAgICAgICAgICAgICAgICAgICAgICAgICAgICAgICAgICAgICAg ICAgICAgICAgICAgICAgICAgICANCiAgICAgICAgICAgICAgICAgICAgICAgICAgICAgICAgICAgICAg ICAgICAgICAgICAgICAgICAgICAgICAgICAgICAgIC AgICAgICAgICAgICAgICAgICAgICAgICAgICAgICANCiAgICAgICAgICAgICAgICAgICAgICAgICAgIC AgICAgICAgICAgICAgICAgICAgICAgICAgICAgICAgICAgICAgICAgICAgICAgICAgICAgICAgICAgIC AgICAgICAgICAgICANCiAgICAgICAgICAgICAgICAg ICAgICAgICAgICAgICAgICAgICAgICAgICAgICAgICAgICAgICAgICAgICAgICAgICAgICAgICAgICAg ICAgICAgICAgICAgICAgICAgICAgICANCiAgICAgICAgICAgICAgICAgICAgICAgICAgICAgICAgICAg ICAgICAgICAgICAgICAgICAgICAgICAgICAgICAgIC AgICAgICAgICAgICAgICAgICAgICAgICAgICAgICAgICANCjw/sIPlX0gtkQLzykT6I0ysFs3CGl8YTY 8ng9SuPJGkXKnmytYuHxhSCnPnFUTpItuEKre0GJkfNN2YqNNvT7NcK9LoZBtqDL3GRMHlNRNovGQlMD VzXXRqBuC3FZHmTBbsVQ9YtUEnQHjkNHHeITMhNaEg VUWrNGAgWXFmOS5RDJBaN434naPqDg7JLn4EOiCjFL4txd5JAwRpSNPcFqzWNqz4WIpuBQ9BkMDqzUWc MoZsIHELBaTrD5mbo1UzAhrpYCOQVSxnLB5Hy6OmuYIaOGe+Gp1WLN9ka4KyLHcuJiVvJJ5tfx3JAPmR KqReJ1VheMdmTQhtGWXprKMDTWBisBvtqd6kM04gGZ ogc5erDGBEEDArnQWaMyH6KoMiBvDwYET4KLJiZK7iHUusVA1BUWT1MHefESFkLSAxA2kZMiIkCLAnRp TgwRmpUH5OTgKrM2JojrXemFQkTtYoWYFGZk4+CMwggdRmTlzOEnQ4ASCdv0UuULm0MU9WLNEqEBxgCY 4BATEsvZ7cNIfiSX2RGfUjZUQyLYMYAqBoE39bgUQu SBj3U0FdBjJxIGUnPdtrSKJlRVulYnKoAGSrJuDrXGgwAA1+ID4+ZCykNM7WPQfafpEgYQZhTb8YTSAo NDHuRG2xWAZgMDCpZ1U0nXmjBZHEWxPrU5ibgggsKH9gQNOyH631cIpabqEtHPC5UBRfZl1MYWJxGBA6 FCJzzAKgJnCcVVUPJGsiZZ6GjSSwHYG1oX0iEAvvBJ LsJUVyM1oEJnTatYwmQX85qPistfSjgIZuSDa+Ib0GTS2hh6VrKQr8xnScDYfnTRK1PJvpQMOyMXVfFW GnSWQ0YTU4TEVZMxPmCPYjFTCbXNfdTHDgPPFuuu7XEHPdOCKcBpl6PeXqBZJxICUuKLdoONIoKSI3Ok rgXRFjTKGmNW2GVdCcIGZhPEUaCKimIZCgBDKkxn5B MSYvSFBxXvukWRSkOUKtQDBoFDyhIXMkOLLqQWJ8IWAgYJKdBU6PXjWgKRVfKXLyKTLqRZDnNRVulw1Z ECBoTWFzNkL0IMKjFYIrXKNkVSqbEDOeUMZ3Gwj4WVEvVBHjBS6WXfTiBBMpWHf3FIheUYFuFYWifa9K AKZbICTgCCU2BGQtVMKnGHNgBEllLUByZYH1HhY2XP EqPHSyQF1OUbFxRTBvUCg9RkawANQfQKRibd3MRWZhXGZjFUa1IhKzPWGxPSBmHKpaGCBzSVDlIHl2GV QxEAQoDZ5OMaAxBQAwJOMoWUeoNEXlDSUybr9APWNyVYEiOMC1EgNvIFCrTEEmHEroBMZnUSHkPTS0RF NvNHNgOG2ZLkLoKJVcPGY7UhrnUFMcHABtgd6OPDLb DDFxLhNzQrFhGYScXUOxOLfjKWYkNRVbDeNjNMCbXGRgRI5UZmSnHNXhAoH6KxjjAPRhBLTlag0KMKKd EYJaVfx1DGIiFHEkYOAwJHcgGKKlQRXgMFG6RCEzRDKqOS1RBxXbEUAvMyAfECIgTSGqINGkcj1JJWEt QVOrSEf1VEHjOVNvUVKuHWyeYEIwBNY8HALxRHOzXA UjBK9HXwYvEGEyCxPvSAZgCWEhRVKsur4LxRAgmKtyqp3CWAwKAq5YcHltLGF3DVszDe8jhJHrXAOmJL HRBq4KgsTgFOLjNHXJMLqfDNXuIZI9WMXhSKNoWAR1KzA7GyVkX7UlTgRwOdA4UAVeE1UwRpV1MSx4Ia V9CCS5SgDvViYwYFPvJlHjYRTjDEx6OOH8PTM+IF0g DQo+Pv2Tq1GsblO3kkDcKQeiPsK0MR1KPMKDC7ZQHj== ID Date Data Source [id number] 10/03/2020 10:11:22 AM [facility] Name Value Range Interpretation Code Description Data Edna rce(s) Supporting Document(s) [facility] WJPBRz6lDxWBBzOv44/YRQokATEub4JmXXwkKCs5ZCxcFNCnQ8LgAHE8mF6kMUQ9ZVeULgTfPtHrSKV7 lbm [file] BURRER OPERATOR+Xv5BOZTxQGv3E2H6GOYuOBe2G4RNB0NWNRNpCP exAKsiUAAdZEd8O8N1YZIuP9LDZ6Pfuuokib1+EZ0AK51ZNBPwDZh9Z7B7uVQgB3E3vMjRbPQ2UR3MHI 1VvMe7vZKqxW5+QW6DJ1YPUgRiAIg8L8K6tXOoB6U9pTkUsOJ0MI8KOT1WfANqTUZpkuSyEc9lS0RCQT bTZyPLYES0IQ9UjOGpEA5KpMISW6AbkYMzEw3iGBtl bZCboE6iWz3rVQfbSW8SBfMAAUiQHRZ3QP6ClFYwJX7CuXRIQ1UtqXZlOa3cIMuhyJEylj5+TJ8EPPVq Fd1BYc7+FVnfjqIzZcpTWaQ5QJAkb6ItEZz8KE8WZX3loWgsNOE4Qy4CvQM5vAAiZ7zVZG0MvJIhB76f qWMeGKVhUs0KShA5ldZriL7OXB45vZDfo8S5NJNfH6 bpPEvys79qIAcsUMxLIQ6oHADRTDvySOjePGL6XlYvcyiaMKIcEt1NCtLsMFb0eT8hxAW8FLU3RqjodG KoNGbeDgPcAdNgGxU2sQqhmpn9CSvgAI8cUKodzqdxHQDzDxx+RIyeLTSrVTTlRgeWPHCsqH3gjpJ7lp HwAWiexBEvQp7rt2k5QvsqOk8wNu4jBCp3ZdIdWxXg FDVcNj3rfG10VZqrsbEqKj5HCqMwJSD9Y6RvKfdJIPO+GZgvDEkofLh0gXVlZGTpJa3ZYNImOWMxGZZw ICAgICAgICAgICAgICAgICAgICAgICAgICAgICAgICAgICAgICAgICAgICAgICAgICAgICAgICAgICAg ICAgICAgICAgICAgICAgICAgICAgICAgICAgICAgIA 0KICAgICAgICAgICAgICAgICAgICAgICAgICAgICAgICAgICAgICAgICAgICAgICAgICAgICAgICAgIC XoVACpEAVyTXTkXQOrYQRtGUCfBAHrFVIhXBRxSTYqRQRsFQVrSFGwFM0LLZEvXDZjDXMxMVQbQGBxVC AgICAgICAgICAgICAgICAgICAgICAgICAgICAgICAg BEGyABMjGFIlJTBvKEHiIKZyIHDrJRDdAHXfOIUpOGLxDLCcVZLoJJAeQIUjAKIvOOYyMZ4PEGVpVGLs ICAgICAgICAgICAgICAgICAgICAgICAgICAgICAgICAgICAgICAgICAgICAgICAgICAgICAgICAgICAg ICAgICAgICAgICAgICAgICAgICAgICAgICAgICAgIC GdPR5EWZXfVTCkGIXoFJDqMLMnUBTdSDKgAUJdLNWuMLOtDUMqMNKxVZPqLWQdUUEyPPYmFJYdOFVqPP UmJJUtBVNlWXBlXJLiYTRbKCGtUPBzOUFhWBTnVZTvRPPzBNRfLPXfHEPvOO4FZDGiUZPxZATqAJQhEZ AgICAgICAgICAgICAgICAgICAgICAgICAgICAgICAg VRDtJUBzTSUnIEGdCCUlWTWdNVZiNJVzQIAmRVXvNSWfZCEfSRGzMFFzZVNdLXUyUIQdQRVhHB3FBLOm ICAgICAgICAgICAgICAgICAgICAgICAgICAgICAgICAgICAgICAgICAgICAgICAgICAgICAgICAgICAg ICAgICAgICAgICAgICAgICAgICAgICAgICAgICAgIC GiCVGvEN3PQAOqHIDiPUHyWBYeRUGkAHDcVFXrKCUpVIKaXCAqOEHlGSAtAQWyJRDeYNQlKRXdYPMtDW YwCGHmDRPqIERiLYMbAENlEMJyPXBuECYjNKGkFBGiJIMcMZAqRBVvBBBfSHSjUJ5HQIBmHSGpLKThOQ AgICAgICAgICAgICAgICAgICAgICAgICAgICAgICAg CRYuSGKmNKQcMQJiMFTdVVTsOPByWWXiYUTsNSDsAOZmHBSkXMDpIXWeYSWeBJFoJAGnYVWwTYMoSS8U ICAgICAgICAgICAgICAgICAgICAgICAgICAgICAgICAgICAgICAgICAgICAgICAgICAgICAgICAgICAg ICAgICAgICAgICAgICAgICAgICAgICAgICAgICAgIC SnZLIrDBVlZD0FGQ68lCXty6W2LYHdEM4yosp/Za2DNGlzcvSglYNbDH0SMyLxHS2avh8DMpJgHS4zwu 9DYVrYYkSxZ6T3fVMrTWWkABXKXfTuX85qZTmmFg60UJeoRIEtBqUjDUi9Mh2JSfLmO3cyCNEcKrV7JK FzLpV5BLJnWbB4MRDmYiKoZJCeQXCbVSQmZYIRAE7J RtFiV9KbjH27CWPIAk1+XItqhiGqDmwQJfHcCPQll1MfXMy3VC1FRIClDdqtu5VlDjQeCARUOZwiWI8T CLG5CMKzBEVfAl8KICGbH044mtWlSL8XGy8BElAlKJ5jek9OYyJoGWFuOlyWRxy6ABkaQR5GpNSoNLnM x88neHd0pnHreMMANXYzjNqnsp6qZ58eDRdss2tuZE WHTXPixXFeFvA3BdBfHhEzNXs7YnqsWD8jEWelEI6DNOE9POobAFMnSFFaM3nUNoNcYRJtDnDowGopSQ 0ZBoWsN9KhjvJbxBItTVAjVRAOEp9+MZzukcHbFuyYLtLjUQBkb6XfIFr6ME4OUWSzJOgeEL2ARDHkfL 9bHLaqRI7XUsFdYGGsXUQVFdLhR58koJMbSXs3V2Oe YmVkZGVkRmlsZXMgPDwvTmFtZXMgWyBdDQogID4+ID4+RGgrBQ6KQJmellDeOLZoLb8ABYFiUFXsHO1a GOOzUMRlL0R2qUrqSTWPGsRjX8hktvtgVK5bYWSzL687vXinksTeIXDfZFIoHy8EYCSoKRP2ZBZddYMu KhwjXRCKAMogLY2FhUJvXWI2mF2pTEsuTDVqVVUoN4 eVJiQwnTmeIE35jTkrgkJjtRMaQXh+Os4VNY3tn1WxOIa7xyMcQFmmJVPqBIfrOQPxMMXcEAPbOZH6SF I7EXURElZnSWQxLBDxUPiaARPdEUGfki8FTKArVHXyMQT9NxMpYQNhVCIvXWlmKSHxDCNdNOS4VVJyUO GwLL8YDwTyAMMaMFWfTVtmCFBcOCAvpx1ZUKUeSXAm WlX7HXNxACPnIVMtTUbwRXAuWSCuHQR2UZHjLWKoGP1MDkJfCJHsBNY0BAFpCNQtTPVuqp7VJNEdKXDn IAi3StCdTAGzCCZvIQtzXTJlGAJ4HWW9TPJxNJPxTH9GXoKxQVLeCKtlWmDfWMXkRTYtjc0XFVRpLELr TcH5RcDfRVXsPSPnRCogWQYfMBJiMul3KBSlCNYdBT 9UJaHvZTDdYAF2YoliATIgEOCazo9UXQVaOUViGXi1PEWpDZSeEJDuMRqnCPPaRKZ0OMR3HSWnFGYnNW 7HSaWmSQNjCSPfBSPqLKQmIDQexq3GVHUtTQLbSdH3RDAoGGXjFSOiWWpjSQIfPIO3GKJ5DCRnRRYrPS 9FWqLvXSXyNMoqLKMsHUMkRLEqez7BCOHpWHFpMjQm AFYrOPKoZNChXIgdXWQrHAF8XMm7FQRoYWFjFL2DKhWjCYTjWBw6YKRyMGWzIEMhpq2EYLKwWNVyZOq4 VBWtLENcJGRwDCycBNQeRFAdNrO3ORNsSQGyWL4PMfHeLPKpVqS4DeibMIYmGAOsnr7NSJCrRSWlWAl6 TdTnJHAxKUFpPFddHSEnRCCtUUD6ASQaJKPjRZ1PEu QtXELkIjQgCzYbHODlGQEatl9PLOYkMTFlAME1TDEiMJGtJDTaIOkdJTIeYUHsWOIvXJDqWKFqTK3NOs CdEEHxMhEuZmBjFYUsPKAgex8ECHQuCZGaNkV5RTBeMIGkIDGiNLq0vtXwdYOvXQa9ZM1WP2SacpBrWg UVLs6Wz559PVFuVRGlWj2TS7ijEl0iJSQhWFBWUo4J JRo5TqAtILZ8SqAgQZZ8USDfNpTqHOeyZHEtCEDaBvF2ISF+FPoiHlQ4JLz4WaDnJkndKUTuVIVbA4W1 UOG6CFN0AxaeOh7wUGFRMj1+HIesjCNuaAujHBBARzCmTAQ8KVosFXQOGn2E ID Date Data Source [id number] 10/03/2020 06:14:32 AM [facility] Name Value Range Interpretation Code Description Data Edna rce(s) Supporting Document(s) Leukocytes [#/volume] in Blood by Automated count 8.8 10*3/uL 4-10 [facility] Erythrocytes [#/volume] in Blood by Automated count 2.73 10*6/uL 4.1- 5.3 L [facility] Hemoglobin [Mass/volume] in Blood 7.9 g/dL 11.5-15.5 L [facility] Hematocrit [Volume Fraction] of Blood by Automated count 24.1 % 3 6-45 [facility] [facility] Erythrocyte mean corpuscular volume [Entitic volume] by Auto mated count 88.5 fL 80-96 [facility] Erythrocyte mean corpuscular hemoglobin [Entitic mass] by Automated count 29.1 pg 27-33 [facility] Erythrocyte mean corpuscular hemoglobin concentration [Mass/volume] by Automated count 32.9 g/dL 32.0-[facility] distribution width [Ratio] by Automated count 14.7 % 11.5-14.5 H [facility] Platelets [#/volume] in Blood by Automated count 172 10*3/uL 150-400 [facility] ID Date Data Source [id number] 10/03/2020 06:39:29 AM [facility] Name Value Range Interpretation Code Description Data Edna rce(s) Supporting Document(s) Bicarbonate [Moles/volume] in Serum 21 mmol/L 22-29 L [facility] Chloride [Moles/volume] in Serum or Plasma 110 mmol/L 98-107 H [facility] Creatinine [Mass/volume] in Serum or Plasma 0.79 mg/dL 0.50-0.90 [facility] Glucose [Mass/volume] in Serum or Plasma 102 mg/dL 70-140 [facility] Potassium [Moles/volume] in Serum or Plasma 3.7 mmol/L 3.4-5.1 [facility] Sodium [Moles/volume] in Serum or Plasma 140 mmol/L 136-145 [facility] Urea nitrogen [Mass/volume] in Serum or Plasma 14 mg/dL 6-20 [facility] Anion gap 3 in Serum or Plasma 8 mmol/L 8-15 [facility] Osmolality of Serum or Plasma by calculation 290 mosm/kg 275-300 [facility] Creatinine/Urea nitrogen [Mass Ratio] in Serum or Plasma 18 [facility] Calcium [Mass/volume] in Serum or Plasma 7.6 mg/dL 8.6-10.0 L [facility] Glomerular filtration rate/1.73 sq M pre dicted among non-blacks [Volume Rate/Area] in Serum or Plasma by Creatinine-based formula (MDRD) >6 0 [facility] Glomerular filtration rate/1.73 sq M pre dicted among blacks [Volume Rate/Area] in Serum or Plasma by Creatinine-based formula (MDRD) >60 [facility] ID Date Data Source [id number] 10/03/2020 12:46:20 AM [facility] Name Value Range Interpretation Code Description Data Edna rce(s) Supporting Document(s) ABO and Rh group [Type] in Blood [facility] Blood bank comment [facility] ID Date Data Source [id number] 10/02/2020 11:58:[address] [facility] Value Range Interpretation Code Description Data Edna rce(s) Supporting Document(s) Leukocytes [#/volume] in Blood by Automated count 10.0 10*3/uL 4-10 [facility] Erythrocytes [#/volume] in Blood by Automated count 2.38 10*6/uL 4.1- 5.3 [facility] Hemoglobin [Mass/volume] in Blood 7.2 g/dL 11.5-15.5 [facility] Hematocrit [Volume Fraction] of Blood by Automated count 21.1 % 3 6-45 L [facility] Erythrocyte mean corpuscular volume [Entitic volume] by Auto mated count 88.9 fL 80-96 [facility] Erythrocyte mean corpuscular hemoglobin [Entitic mass] by Automated count 30.3 pg 27-33 [facility] Erythrocyte mean corpuscular hemoglobin concentration [Mass/volume] by Automated count 34.0 g/dL 32.0-36.0 [facility] E[facility]throcyte distribution width [Ratio] by Automated count 15.0 % 11.5-14.5 H [facility] Platelets [#/volume] in Blood by Automated count 176 10*3/uL 150-400 [facility] ID Date Data Source [id number] 10/02/2020 06:56:[address] [facility] Value Range Interpretation Code Description Data Edna rce(s) Supporting Document(s) Leukocytes [#/volume] in Blood by Automated count 11.8 10*3/uL 4-10 H [facility] Erythrocytes [#/volume] in Blood by Automated count 2.86 10*6/uL 4.1- 5.3 [facility] Hemoglobin [Mass/volume] in Blood 8.1 g/dL 11.5-15.5 L [facility] Hematocrit [Volume Fraction] of Blood by Automated count 25.1 % 3 6-45 L [facility] Erythrocyte mean corpuscular volume [Entitic volume] by Auto mated count 88.0 fL 80-96 [facility] Erythrocyte mean corpuscular hemoglobin [Entitic mass] by Automated count 28.4 pg 27-33 [facility] Erythrocyte mean corpuscular hemoglobin concentration [Mass/volume] by Automated count 32.2 g/dL 32.0-36.0 [facility] E[facility]throcyte distribution width [Ratio] by Automated count 14.9 % 11.5-14.5 H [facility] Platelets [#/volume] in Blood by Automated count 217 10*3/uL 150-400 [facility] ID Date Data Source [id number] 10/02/2020 12:47:29 PM [facility] Name Value Range Interpretation Code Description Data Edna rce(s) Supporting Document(s) Hematocrit [Volume Fraction] of Blood by Automated count 27.0 % 3 6-45 [facility] ID Date Data Source [id number] 10/02/2020 12:47:29 PM [facility] Name Value Range Interpretation Code Description Data Edna rce(s) Supporting Document(s) Hemoglobin [Mass/volume] in Blood 8.8 g/dL 11.5-15.5 [facility] ID Date Data Source [id number] 10/02/2020 10:31:[address] [facility] Value Range Interpretation Code Description Data Edna rce(s) Supporting Document(s) History and Physical [facility] ETQTTj0sSpWRZiIi36/UQQxiARMqt1MqCFuyUNm3BRohPKWzY4CkZNX5fM6zQTR9BMzJJcFvHrIyIMH4 lbm [file] ICAgICAgICAgICAgICAgICAgICAgICAgICAgICAgICAgICAgICAgICAgICAgICAgICAgICAgICAgICAg HMSoKWRmGW9ZWKWaBZYhRAYyKNOgGOIuAWSoHXRyFD AgICAgICAgICAgICAgICAgICAgICAgICAgICAgICAgICAgICAgICAgICAgICAgICAgICAgICAgICAgIC LdIVKdQEUiFOFvPPAlBRTyVI4NADSuBSEsGTNtUPWxJOCiCLFdFEAhXYNzMZXsSVAgPBOtAPEcUETrQJ AgICAgICAgICAgICAgICAgICAgICAgICAgICAgICAg XCClBYNlIFLcBIRwBBAnSDTkBBRiAKVmCYGiGL2PZTCsQLQrUDEqPWPkQMBdCCUwOHTaFUMxNOWmHIDn ICAgICAgICAgICAgICAgICAgICAgICAgICAgICAgICAgICAgICAgICAgICAgICAgICAgICAgICAgICAg IIHmRFTnNQMgYL3QWVIoQYUeHXHrMSCtUAIrDGGeOS AgICAgICAgICAgICAgICAgICAgICAgICAgICAgICAgICAgICAgICAgICAgICAgICAgICAgICAgICAgIC SvEVKsZKXbOAWjLASfXBXxETEaBR4WYWPiUDYbXJUsRAYfSZPyURZxNTWbEHUoMBLcCZKnONQhASAhTW AgICAgICAgICAgICAgICAgICAgICAgICAgICAgICAg ZCJcDLOjTJNxKYWxNMVqDBQtMMHiHAAdXWCwRYQcJT4CGNUaOPJyUQJgDZXeJGSzIQYbKJFzVIYcXBAc ICAgICAgICAgICAgICAgICAgICAgICAgICAgICAgICAgICAgICAgICAgICAgICAgICAgICAgICAgICAg LIAxTXHyAZQwHIXkTT8PFBHrOTGwFFNnPRYrOGDkJG AgICAgICAgICAgICAgICAgICAgICAgICAgICAgICAgICAgICAgICAgICAgICAgICAgICAgICAgICAgIC LyZKLtPUToPZWrASKiHNHyTTCrLDTaLB3UKMShQTUeLHZhAMYuJGOrOXOkATQvITXlOCItCGThPQBqER AgICAgICAgICAgICAgICAgICAgICAgICAgICAgICAg IOJsPNKlRRAcBRDeJWXxYFZhTDQeFTKrAVQaRBQvMGLgJN3HGPTlPUPhNEKlFWDiFNRlFESsGQNjOLFe ICAgICAgICAgICAgICAgICAgICAgICAgICAgICAgICAgICAgICAgICAgICAgICAgICAgICAgICAgICAg LJObBINbKWIhECWoLOEkFH5SDC19fBQrx3H4SFLfZJ 0ndyc/Pc7AOUeporUhyANyQS7JRlHiBJ0rfc9WEtDmPL9hhb5BWFmECiJgY8H4sIXuDQImMRGERdNfU0 3rREkcVm58HXjpSFTgHeRfUUy8Lw1SJrHrG8ciLBLqZkH2KCTxGeZ2GNGaGjQ2YNFgPnGkPRNhQWCuGQ IoHFGRHX7JDtIfP3ZyqA48SXNGAa5+DQplbmRvYmoN MqHvQKHxt4XmZQb0DV3MJZPgOgney6RoBzNuWKUNVCccEP2ZPRY6MZOrDTZtHz8PMLGzO211dwViNT2F Dw9LUxQwTF0lfk8JFvViXAWjOjeQXfs3WDvmWU6PxKAfTFuGOlMnGhavA12agk3fCZqiYZ8nkGOjt6Yf zaopDRHbDKTfQK5mXc5nSAOhAHVjIuQ6LSCZRH7DUE TwEFLceFRqMXJxFFYRKX2OZPhzBDX6TISeqmEasQCzPWacIE9SLEInqdZuMeJpUTPIGGc+Du1XVF9fw1 DcVRoaIsAsBA9jqt9RSYbLLrAdH3E7tUXdT8C9YMdzLi6DFYYgNSRjVatsEIUPPGtzNB9LRR0fjeI0AM 5OuBFkOEGdFBIfqNLcPFe2Y79npWYbGRtyPV4CPGB+ Erickson+Jy9APOZnIRXyXGFcWqToCWUJBkUkC6JiF3VKd3RoV7WcAV06aNycwpZrETsfXB6SDV6zRCHrMXLY JJ9QjBYpyF5pedXuUPYuIJLECbNvW12boQHeSJVbPWB6XHOlTl1OMTOhK2EtaqYfvRqcctRzHLNhQLNT NN7XMJutloKjoAEfkJajCJ64aMbaSO2VHr4DVbDsNQ 2ajf6XkXYuHg7CVCJlAg2NNBBxFJZiUXUvADL8COQaGvLeRPeeGNGeNHNoQOY5MFEmQIWdLI9IBoPtOT CeHgs5LJUvKZYeTGSsyh6YUCJgJLWrKXY6AKVzMMQyPMXsQQkjNTWwAYTmOSD7CJGqFOVbDS7IHmHyHD AoFHQ5FVzzGFUsELXppa6FVSXvHBEpVZOlLzJiISOk OQCoJKhuQIUqUAT1RSS5LXAdNXPwVS7WCaZuDQFoDQMyIFCeTHOyHSZhli4OPABpUSKkPFE8HEUeYPWu VCEzPCfiGLPuKPT0HzGdZGFgCIExBJ1VBxKhUFJbHVPkQYAqNVUwYMYxfr1ZTOTnWKChEoGpBUCcLQIw GEKnYEquZNIwXGPeBKGsPZAxFDZrQU0YOwTwWSVhDF UvXXHgXJDjZQDueq5WSWPbVRDjDQZ3PmIbIAQhGNDdDJwxYBEhXLI4FZQoOJAfFGCbQJ9GNeXlVUWcQF I9TRNaMXYrFMZowj6BWRYcHOEnJMFiASEsQGThIMJiYVwkPRLrLKA0JXE0NKPlWWLkSA1ZDdBeWFYeCI U8JJFrLYAvNJTuwu3GHHDfMGDpAkk8LQFeNCYjJSLr JXcySAWwSHY5SLGaTUOqZTFrXW6QSkVkXMLeESroYfMnQQSoMEOkfu7VKGXnQHGkFSksBATwGIMkJBUm LVxwTLIfFXV5DKD0GGLcKKGiVF4HXwLjNKEvWopeOAkyACOoXHHtwh7DKMWxJIFqRGE4ZhClFCPrRJSc QYmbKYCbQMC4BlZqCHEgRLPwWO0KAoUqQPJtPzBsRG gjGJUnPMTkyh7DJXEcFEZyGHOpWiRnDOPwXPTxXUyfZYOnKTNsKTa4JYCaITFpDR5BWhFoEZXjDnL7Xk mhSVXfQLCuah3YdKEosOoiju2TUAaDOk7YeIkcBJSpHBgaSn3uoSOeYfEzFSBSFh5HmeZjTKMpSGFGYO hgNNLyNPguDaI2XnEvFUAgTmG3Own2PIFeWjC9HARk AfTqYhG8DoB6FZPwCPtoPHR3GdCcHDK4OJD0ZjVoDjM6LDJ8FFQxPWt+JY7hQZy+Ql2Hj2KvfaE4gdKl GGcmQXe5VO6TJXXUF4UINx== ID Date Data Source [id number] 10/02/2020 06:47:[address] [facility] [address] ANGIOGRAPHY ABDOMEN AND PELVIS [id number] INAL RESULTInterpreted by:Elena Villalta MDPROCEDURE INFORMATION: Exam: [...] rce(s) Supporting Document(s) ID Date Data Source [id number] 10/02/2020 05:43:00 AM EST [facility] Name Value Range Interpretation Code Description Data Edna rce(s) Supporting Document(s) SARS-CoV-2 RNA 2019 nCoV Real-Time RT-PCR: NOT DETECTED [place] This lab was ordered by [facility] and reported by [facility]. ID Date Data Source [id number] 10/02/2020 03:56:52 PM EST [facility] Name Value Range Interpretation Code Description Data Edna rce(s) Supporting Document(s) Specimen source [Identifier] of Unspecified specimen [facility] SARS-CoV-2 RNA 2019 nCoV Real-Time RT-PCR: NOT DETECTED [facility] Assay Performed [facility] Patients first test for 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 When did you start to experience these symptoms [Date and time] [Phen X] [facility] Patient was hospitalized because of this condition [facility] patient was admitted to ICU for condition [facility] Patient resides in a congregate care setting [facility] status [facility] ID Date Data Source [id number] 10/02/2020 06:59:[address] [facility] Value Range Interpretation Code Description Data Edna rce(s) Supporting Document(s) Hematocrit [Volume Fraction] of Blood by Automated count 27.5 % 3 6-45 [facility] ID Date Data Source [id number] 10/02/2020 06:59:[address] [facility] Value Range Interpretation Code Description Data Edna rce(s) Supporting Document(s) Hemoglobin [Mass/volume] in Blood 9.2 g/dL 11.5-15.5 [facility] ID Date Data Source [id number] 10/06/2020 07:50:[address] [facility] Value Range Interpretation Code Description Data Edna rce(s) Supporting Document(s) ABO and Rh group [Type] in Blood [facility] Blood group antibody screen [Presence] in Serum or Plasma [facility] Blood bank comment [facility] ID Date Data Source [id number] 10/02/2020 02:53:[address] [facility] Value Range Interpretation Code Description Data Edna rce(s) Supporting Document(s) Leukocytes [#/volume] in Blood by Automated count 14.0 10*3/uL 4-10 H [facility] Erythrocytes [#/volume] in Blood by Automated count 3.46 10*6/uL 4.1- 5.3 [facility] Hemoglobin [Mass/volume] in Blood 9.9 g/dL 11.5-15.5 [facility] Hematocrit [Volume Fraction] of Blood by Automated count 30.2 % 3 6-45 [facility] Erythrocyte mean corpuscular volume [Entitic volume] by Auto mated count 87.3 fL 80-96 [facility] Erythrocyte mean corpuscular hemoglobin [Entitic mass] by Automated count 28.7 pg 27-33 [facility] Erythrocyte mean corpuscular hemoglobin concentration [Mass/volume] by Automated count 32.9 g/dL 32.0-36.[facility] distribution width [Ratio] by Automated count 14.5 % 11.5-14.5 [facility] Platelets [#/volume] in Blood by Automated count 230 10*3/uL 150-400 [facility] Differential cell count method - Blood [facility] Neutrophils/100 leukocytes in Blood by Automated count 90 % [facility] Lymphocytes/100 leukocytes in Blood by Automated count 6 % [facility] Monocytes/100 leukocytes in Blood by Automated count 4 % [facility] Eosinophils/100 leukocytes in Blood by Automated count 0 % [facility] Basophils/100 leukocytes in Blood by Automated count 0 % [facility] Neutrophils [#/volume] in Blood by Automated count 12.50 10*3/uL 1.8- 7.0 H [facility] Lymphocytes [#/volume] in Blood by Automated count 0.90 10*3/uL 1.2-4 .0 L [facility] Monocytes [#/volume] in Blood by Automated count 0.62 10*3/uL 0-0.8 [facility] Eosinophils [#/volume] in Blood by Automated count 0.00 10*3/uL 0-0.5 [facility] Basophils [#/volume] in Blood by Automated count 0.00 10*3/uL 0-0.2 [facility] Nucleated erythrocytes/100 leukocytes [Ratio] in Blood by Automated count 0 /100{WBCs} 0-0 [facility] ID Date Data Source [id number] 10/02/2020 03:03:[address] [facility] Value Range Interpretation Code Description Data Edna rce(s) Supporting Document(s) Prothrombin time (PT) 13.3 s 12.5-14.9 [facility] INR in Platelet poor plasma by Coagulation assay 1.00 [facility] Routine intensity oral anticoagulation I NR is typically 2.0-3.0. Target INR must be clinically individualized. ID Date Data Source [id number] 10/02/2020 03:15:[address] [facility] Value Range Interpretation Code Description Data Edna rce(s) Supporting Document(s) Bicarbonate [Moles/volume] in Serum 21 mmol/L 22-29 L [facility] Chloride [Moles/volume] in Serum or Plasma 104 mmol/L 98-107 [facility] Creatinine [Mass/volume] in Serum or Plasma 0.79 mg/dL 0.50-0.90 [facility] Glucose [Mass/volume] in Serum or Plasma 144 mg/dL 70-140 H [facility] Potassium [Moles/volume] in Serum or Plasma 4.8 mmol/L 3.4-5.1 [facility] Sodium [Moles/volume] in Serum or Plasma 137 mmol/L 136-145 [facility] Urea nitrogen [Mass/volume] in Serum or Plasma 14 mg/dL 6-20 [facility] Anion gap 3 in Serum or Plasma 12 mmol/L 8-15 [facility] Osmolality of Serum or Plasma by calculation 287 mosm/kg 275-300 [facility] Creatinine/Urea nitrogen [Mass Ratio] in Serum or Plasma 18 [facility] Calcium [Mass/volume] in Serum or Plasma 8.2 mg/dL 8.6-10.0 [facility] Glomerular filtration rate/1.73 sq M pre dicted among non-blacks [Volume Rate/Area] in Serum or Plasma by Creatinine-based formula (MDRD) >6 0 [facility] Glomerular filtration rate/1.73 sq M pre dicted among blacks [Volume Rate/Area] in Serum or Plasma by Creatinine-based formula (MDRD) >60 [facility] ID Date Data Source [id number] 10/02/2020 03:54:51 AM [facility] Name Value Range Interpretation Code Description Data Edna rce(s) Supporting Document(s) Choriogonadotropin.beta subunit [Moles/volume] in Serum or Plasma <5 [facility] ID Date Data Source [id number] 10/01/2020 09:34:00 PM EST [facility] Name Value Range Interpretation Code Description Data Edna rce(s) Supporting Document(s) SARS coronavirus 2 RNA [Presence] in Res piratory specimen by SANTI with probe detection NEGATIVE [place] This lab was ordered by [facility] a nd reported by [facility]. ID Date Data Source [id number] 07/14/2020 10:25:00 AM EDT [facility] ([facility]) Name Value Range Interpretation Code Description Data Edna rce(s) Supporting Document(s) Lamotrigine [Mass/volume] in Serum or Plasma 7.5 ug/mL 2.0-20.0 [facility] ([facility]) Testing on this sample was performed by homogeneous enzyme immunoassay. Detection Limit = 1.0 Performed at: [email or web address] [address] [place] [id number] House Calls Nurse: Farzaneh Echols [facility], Phone: [phone] ID Date Data Source HEPATITIS B CORE ANTIBODY IGG 03/25/2020 10:05:52 AM EDT eCW 1 ([facility]ly [facility]) Name Value Range Interpretation Code Description Data Edna rce(s) Supporting Document(s) Negative eCW1 (Formerly [facility]) ID Date Data Source [id number] 03/25/2020 10:05:52 AM EDT eCW1 ([facility]) Name Value Range Interpretation Code Description Data Edna rce(s) Supporting Document(s) eCW1 (Formerly [facility]) ID Date Data Source HEPATITIS B SURFACE ANTIBODY 03/25/2020 10:05:52 AM EDT eCW1 ([facility]) Name Value Range Interpretation Code Description Data Edna rce(s) Supporting Document(s) NEGATIVE eCW1 ([facility]ly [facility]) ID Date Data Source SYPHILIS ANTIBODY (RPR SCREEN) 03/25/2020 10:05:52 AM EDT eC W1 ([facility]ly [facility]) Name Value Range Interpretation Code Description Data Edna rce(s) Supporting Document(s) NONREACTIVE eCW1 ([facility]) ID Date Data Source HEPATITIS B SURFACE ANTIGEN 03/25/2020 10:05:52 AM EDT eCW1 ([facility]) Name Value Range Interpretation Code Description Data Edna rce(s) Supporting Document(s) NEGATIVE eCW1 ([facility]ly [facility]) ID Date Data Source Comprehensive Metabolic Profile (CMP) 03/25/2020 10:05:52 AM EDT eCW1 ([facility]ly [facility]) Name Value Range Interpretation Code Description Data Edna rce(s) Supporting Document(s) 90 eCW1 ([facility]ly [facility]) 13 eCW1 ([facility]ly [facility]) 0.88 eCW1 ([facility]ly [facility]) 4.5 eCW1 ([facility]ly [facility]) 141 eCW1 ([facility]ly [facility]) > 60.0 eCW1 ([facility]ly [facility]) 8.7 eCW1 ([facility]ly [facility]) 111 eCW1 ([facility]ly [facility]) 43 eCW1 ([facility]ly [facility]) 26 eCW1 ([facility]ly [facility]) 69 eCW1 ([facility]ly [facility]) 7.0 eCW1 ([facility]ly [facility]) 0.4 eCW1 ([facility]ly [facility]) 75 eCW1 ([facility]ly [facility]) 1.1 eCW1 ([facility]ly [facility]) 3.6 eCW1 ([facility]ly [facility]) ID Date Data Source CHLAMYDIA & GC DNA AMPLIFICAT 03/25/2020 10:05:52 AM EDT eCW 1 ([facility]) Name Value Range Interpretation Code Description Data Edna rce(s) Supporting Document(s) Chlamydia trachomatis rRNA [Presence] in Unspecified specimen by Probe and target amplification method NEGATIVE CHLAMYDIA DNA AMPLIFICATION eCW1 ([facility]) ID Date Data Source UA URINALYSIS 03/23/2020 04:12:56 AM EDT eCW1 ([facility]) Name Value Range Interpretation Code Description Data Edna rce(s) Supporting Document(s) eCW1 ([facility]ly [facility]) ID Date Data Source CBC with Differential 03/23/2020 04:12:56 AM EDT eCW1 (On license of [facility]) Name Value Range Interpretation Code Description Data Edna rce(s) Supporting Document(s) 5.0 eCW1 ([facility]ly [facility]) 10.9 eCW1 ([facility]ly [facility]) 95.2 eCW1 ([facility]ly [facility]) 35.5 eCW1 ([facility]ly [facility]) 3.73 eCW1 ([facility]ly [facility]) 178 eCW1 ([facility]) 30.7 eCW1 ([facility]) 29.2 eCW1 ([facility]) 15.0 eCW1 ([facility]) 54.6 eCW1 ([facility]) 8.0 eCW1 ([facility]) 1.8 eCW1 ([facility]) 34.4 eCW1 ([facility]) 2.7 eCW1 ([facility]) 0.4 eCW1 ([facility]) 1.7 eCW1 ([facility]) 0.8 eCW1 ([facility]) 0.1 eCW1 ([facility]) 0.0 eCW1 ([facility]ly [facility]) ID Date Data Source CHGCTV - CHLAMYDIA, GC & TRICH AMP (Microbiology) 01/28/2020 12:00:00 AM EDT eCW1 ([facility]ly [facility]) Name Value Range Interpretation Code Description Data Edna rce(s) Supporting Document(s) NOT DETECTED NEGATIVE Trichomonas vaginalis ( AMP) eCW1 ([facility]ly [facility]) Procedure Social History Code Duration Value Status Description Data Source(s ) Smoking 03/23/2020 12:00:00 AM EDT Never Smoker completed Never S moker eCW1 ([facility]) Smoking 03/23/2020 12:00:00 AM EDT Never Smoker completed Never S moker eCW1 ([facility]ly [facility]) Smoking 01/28/2020 12:00:00 AM EDT Never Smoker completed Never S moker eCW1 ([facility]ly [facility]) Vital Signs ID Date Data Source UNK Name Value Range Interpretation Code Description Data Source(s) Diastolic blood pressure 80 mm[Hg] 80 mm[Hg] [facility] ([facility]) Systolic blood pressure 120 mm[Hg] 120 mm[Hg] M EDENT ([facility]) Respiratory rate 16 /min 16 /min [facility] ( [facility]) Heart rate 68 /min 68 /min [facility] ([facility]) Diastolic blood pressure 64 mm[Hg] 64 mm[Hg] eCW1 ([facility]) Systolic blood pressure 108 mm[Hg] 108 mm[Hg] e CW1 ([facility]) Body temperature 98.6 [degF] 98.6 [degF] eCW1 ( [facility]) Respiratory rate 18 /min 18 /min eCW1 ([facility]) Heart rate 101 /min 101 /min eCW1 ([facility]) Body mass index (BMI) [Ratio] 48.24 kg/m2 48.24 kg/m2 eCW1 ([facility]) Body height 59.75 [in_i] 59.75 [in_i] eCW1 (formerly [facility]) Body weight 245 [lb_av] 245 [lb_av] eCW1 (On license of [facility]) Diastolic blood pressure 76 mm[Hg] 76 mm[Hg] eCW1 ([facility]) Systolic blood pressure 122 mm[Hg] 122 mm[Hg] e CW1 ([facility]) Body mass index (BMI) [Ratio] 47.85 kg/m2 47.85 kg/m2 eCW1 ([facility]) Body height 59.75 [in_us] 59.75 [in_us] eCW1 ([facility]) Body weight Measured 243 [lb_av] 243 [lb_av] eC W1 ([facility]ly [facility]) ID Date Data Source [id number] 10/08/2020 06:37:22 PM [facility] Name Value Range Interpretation Code Description Data Source(s) WEIGHT RECORDED 256.62 lb 256.62 lb [facility] Body height Measured 60 in 60 in [facility] WEIGHT RECORDED 240 lb 240 lb [facility] Body height Measured 60 in 60 in [facility] TRANSFER FROM [facility] Patient Treatment Plan of Care Planned Activity Planned Date Details Description Data Source (s) emtricitabine 200 MG / Tenofovir disopro xil fumarate 300 MG Oral Tablet [Truvada] 03/23/2020 12:00:00 AM EDT eCW1 ([facility]ly [facility]) emtricitabine 200 MG / Tenofovir disopro xil fumarate 300 MG Oral Tablet [Truvada] 03/23/2020 12:00:00 AM EDT eCW1 ([facility]ly [facility])
[2020-10-14 21:13] LABS: BASO % 0.2 % (0.0-1.0); EOS % 0.2 % (0.0-3.0); HEMATOCRIT 29.8 % (36.0-47.0); HEMOGLOBIN 9.1 g/dl (12.0-15.5); LYMPH # 1.1 10^3/uL (1.5-5.0); LYMPH % 12.4 % (24.0-44.0); MEAN CORPUSCULAR HEMOGLOBIN 28.5 pg (27.0-33.0); MEAN CORPUSCULAR HGB CONC 30.5 g/dl (32.0-36.5); MEAN CORPUSCULAR VOLUME 93.4 fl (80.0-96.0); MONO # 0.7 10^3/uL (0.0-0.8); NEUTROPHILS # 6.9 10^3/uL (1.5-8.5); NEUTROPHILS % 78.5 % (36.0-66.0); PLATELET COUNT, AUTOMATED 394 10^3/uL (150-450); RED BLOOD COUNT 3.19 10^6/uL (4.00-5.40); WHITE BLOOD COUNT 8.8 10^3/uL (4.0-10.0)
[2020-10-14] MEDS ORDERED: ACETAMINOPHEN 325 MG TAB PO ONE (21:15)
[2020-10-14 21:48] LABS: ALBUMIN 3.3 GM/DL (3.2-5.2); BILIRUBIN,DIRECT 0.3 MG/DL (0.0-0.2); TOTAL PROTEIN 6.7 GM/DL (6.4-8.2)
[2020-10-14] MEDS ORDERED: NS 1,000 ML IV ONE (22:15)
[2020-10-14 22:55] VITALS: BP 130/71
== END 2020-10-14 23:01 | disposition home or self-care (01) ==
LOC: M ED 17:28 → EDBD 17:28 → M ED 23:01
DX: R50.9 Fever, unspecified (principal); Z20.822 Contact with and (suspected) exposure to COVID-19

== ENCOUNTER 2020-10-31 00:33 | Emergency (ER) | payer MEDICARE, BC ==
[~2020-10-31] VITALS: Ht 152.4 cm; Wt 109.1 kg
[~2020-10-31 00:33] MED LIST changes: +LISI10TA22; -LISI10TA4
--- OUTSIDE RECORDS SUMMARY | 2020-10-31 00:39 | CCD | Summary of Care ---
Author Author [facility] Organization [facility] Address Unknown Phone Unavailable Care Team Providers Care Cytogenetic Technologist Name Role Phone Pranay Hayes DO PCP Reason for Referral * Diagnostic Radiology (Routine) Referred By Contact Referred To Contact Status Reason Specialty Diagnoses / Procedures Milly Colmenares MD [address] [address] Email: [email or web address] Authorized Radiology Diagnoses Hematoma of left kidney, subsequent encounter P rocedures CT Abdomen Pelvis without Contrast Reason for Visit * Diagnostic Radiology (Routine) Referred By Contact Referred To Contact Status Reason Specialty Diagnoses / Procedures Milly Colmenares MD [address] [address] Email: [email or web address] Authorized Radiology Diagnoses Hematoma of left kidney, subsequent encounter P rocedures CT Abdomen Pelvis without Contrast Encounter Details Care Team Description Date Type Department Hematoma of left kidney, sub sequent encounter 10/27/[address] Scan [id number] Encounter [address] [place] [address] Allergies No Known Allergiesdocumented as of this encounter (statuses as of 10/28/2020) Medications End Date Status Medication Sig Dispensed Refills Start Date Active LamoTRIgine 200 MG TB24 Take 200 mg 180 tablet 3 by mouth 2 2 (two) times daily. 10/05/2021 Active Labetalol HCl 100 MG Oral Take 1 tablet 60 tablet 11 Tablet (NORMODYNE) by mouth 1 every 12 (twelve) hours 10/06/2021 Active Lisinopril 10 MG Oral Take 1 tablet 30 tablet 11 Tablet (ZESTRIL) by mouth 1 daily 10/06/2021 Active Ferrous Sulfate 325 (65 Take 1 tablet 30 tablet 3 Fe) MG Oral Tablet by mouth 1 daily documented as of this encounter (statuses as of 10/28/2020) Active Problems Problem Noted Date Renal hematoma, left 10/02/2020 Partial seizures Static encephalopathy documented as of this encounter (statuses as of 10/28/2020) Social History Date Tobacco Use Types Packs/Day Years Used Never Smoker Drinks/Week oz/Week Comments Alcohol Use Not Currently Sex Assigned at Date Recorded Not on file Date Recorded COVID-19 Exposure Response 10/27/2020 8:20 AM EST In the last month, have you been in contact with No / Unsure someone who was confirmed or suspected to have Coronavirus / COVID-19? documented as of this encounter Last Filed Vital Signs Not on filedocumented in this encounter Plan of Treatment Care Team Description Date Type Specialty Jeff Meyers MD [address] [place] [address] [phone] 11/02/2020 Telemedicine Urology Date/Time Name Type Priority Associated Diag noses 10/27/2020 8:[address] Abdomen Pelvis without Imaging Routine Elvis hayley of left kidney, Contrast subsequent encounter Order Schedule Name Type Priority Associated Diag noses As Needed for 1 Occurrences starting 06/2021 until 10/27/2020 CT Abdomen Pelvis without Imaging Routine Elvis hayley of left kidney, Contrast subsequent encounter Health Maintenance Due Date Last Done Comments MMR Vaccines (1 of - 1978 Standard series) Varicella Vaccines (1 of 1978 2 - 2-dose childhood series) DTaP,Tdap,and Td Vaccines 1984 (1 - Tdap) HIV Screening 1990 Cervical Cancer Screening 1998 5 years Influenza Vaccine 06/17/2020 Pneumococcal Vaccine: 65+ 2042 Years (1 of 1 - PPSV23) HIB Vaccines Aged Out No longer eligible based on patient's age to complete this topic Hepatitis A Vaccines Aged Out No longer eligibl e based on patient's age to complete this topic Hepatitis B Vaccines Aged Out No longer eligibl e based on patient's age to complete this topic IPV Vaccines Aged Out No longer eligible based on patient's age to complete this topic Pneumococcal Vaccine: Aged Out No longer eligib le based on patient's age to Pediatrics (0 to 5 Years) complete this topic and At-Risk Patients (6 to 64 Years) documented as of this encounter Implants Device Identifier Shelf Expiration Date Model / Serial / L ot Implanted Type Area Manufactur er 03/16/2023 [id number] / / [id number] Pva-Embsphr [id number] 2ml Sy - MERIT [id number] MEDICAL Implanted: Qty: 1 on 10/03/2020 by SYSTEMS Paul Madison MD at [facility] INPATIENT 06/16/2021 [id number] / / [id number] Vas Julissa-6fr Angioseal Vip Platform Right: Groin TE RUMO - [id number] MEDICAL Implanted: Qty: 1 on 10/03/2020 by CORPORATIPaul Castro MD at [facility] IN[facility]IENT documented as of this encounter Results Not on filedocumented in this encounter Visit Diagnoses Diagnosis Hematoma of left kidney, subsequent enc ounter documented in this encounter
--- OUTSIDE RECORDS SUMMARY | 2020-10-31 00:39 | CCD ---
Author Author [facility] Organization [facility] Address Unknown Phone Unavailable Care Team Providers Care Anthropometrist Name Role Phone Delaney BRYANT Unavailable Unavailable [...] Onofre MARTINEZ MD Unavailable Unavailable Paras ORTIZ [id number] Unavailable Unavailable Delaney POWELL MD Unavailable Unavailable [...] is protected by Article 27-F of the [facility] Public Health law. If you continue you may have access to information: Regarding HIV / AIDS; Provided by facilities licensed or operated by the [facility] Office of Mental Health; or Provided by the [facility] Office for People With Developmental Disabilities. If such information is present, then the following [facility] mandated warning applies: This information [...] law may result in a fine or intermediate sentence or both. A general authorization for the release of medical or other information is NOT sufficient authorization for further disc losure. Allergies and Adverse Reactions Type Description Substance Reaction Status Data Source(s ) Drug Class NO KNOWN ALLERGIES NO KNOWN ALLERGIES [facility] Encounters Encounter Providers Location Date Indications Data Source(s ) Outpatient Attender: Jeff Meyers 11/12/2020 12:00:00 AM [facility] Outpatient Attender: Jeff Meyers 11/02/2020 12:00:00 AM [facility] Outpatient Referrer: LIT BRYANT 10/27/2020 12:00:0 0 AM EST Minor contusion of left kidney, subsequent encounter [facility] Minor contusion of left kidney, subseque nt encounter Outpatient Attender: LUANN ORTIZ [id number]: LUIS FELIPE ORTIZ [id number] 10/03/2020 12:00:00 AM EST [facility] Inpatient Attender: Jeff Lemon er: LUANN ORTIZ [id number]: TIFFANY MARTINEZ MDAdmitter: LUANN ORTIZ [id number]: LUANN ORTIZ [id number]: ELIDA POWELL MD [id number] 10/02/2020 12:00:00 AM EST - 10/06/2020 02:19:00 PM EST Minor contusion of left kidney, initial encounter [facility] Minor contusion of left kidney, initial encounter Patient discharged. Outpatient Attender: My [facility] Main office - [facility] 07/06/2020 02:00:00 PM EDT MEDENT ([facility]) Unknown [address] [facility] [address] 03/31/2020 12:00:00 AM EDT eCW1 ([facility]) Outpatient [address] [facility] [id number] 03/23/2020 12:00:00 AM EDT eCW1 ([facility]) Unknown [address] [facility] [address] 02/19/2020 12:00:00 AM EDT eCW1 ([facility]) [facility] [address] [place] [address] 01/28/2020 12:00:00 AM EDT eCW1 ([facility]) [facility] [address] [place] [address] 12/12/2019 12:00:00 AM EDT eCW1 ([facility]) Medications Medication Brand Name Start Date Product Form Dose Route Admi nistrative Instructions Pharmacy Instructions Status Indications Reaction Description Data Source(s) Lisinopril 10 MG Oral Tablet Lisinopril 10 MG Oral Tab let (ZESTRIL) Lisinopril 10 MG Oral Tablet (ZESTRIL) 10/07/2020 12:00:00 AM EST 10 mg Oral active Take 1 tablet by mouth daily [facility] ferrous sulfate 325 MG Oral Tablet Ferrous Sulfate 325 (65 Fe) MG Oral Tablet Ferrous Sulfate 325 (65 Fe) MG Oral Tablet 10/06/2020 12:00:00 AM EST 325 mg Oral active Take 1 tablet by suhail th daily [facility] Labetalol hydrochloride 100 MG Oral Tabl et Labetalol HCl 100 MG Oral Tablet (NORMODYNE) Labetalol HCl 100 MG Oral Tablet (NORMODYNE) 1 12:00:00 AM EST 100 mg Oral active Take 1 tablet by mouth every 12 (twelve) hours [facility] emtricitabine 200 MG / Tenofovir disopro xil fumarate 300 MG Oral Tablet [Truvada] Truvada 200-300 MG Truvada 200-300 MG 03/23/2020 12:00:00 AM EDT 1.0 {tablet} active Truvada 200-300 MG eCW 1 ([facility]) emtricitabine 200 MG / Tenofovir disopro xil fumarate 300 MG Oral Tablet [Truvada] Truvada 200-300 MG Truvada 200-300 MG 03/23/2020 12:00:00 AM EDT 1.0 {tablet} active Truvada 200-300 MG eCW 1 ([facility]) 200 mg 12/17/2019 12:00:00 AM EDT tablet extended release 24hr 180 TAKE ONE TABLET BY MOUTH TWICE A DAY TAKE ONE TABLET BY MOUTH TWICE A DAY SOLD: 12/19/2019 Adaptive TCR 24 HR lamotrigine 200 MG Extended Release Oral Tablet LAMOTR IGINE 12/17/2019 12:00:00 AM EDT tablet extended release 24hr 180 CLARK E ONE TABLET BY MOUTH TWICE A DAY TAKE ONE TABLET BY MOUTH TWICE A DAY SOLD: 08/14/2020 [facility] Insurance Providers Payer name Policy type / Coverage type Policy ID Covered alliance party ID Covered alliance party's relationship to [place] Policy [place] Plan Information MEDICARE [id number] SP [id number] BCBS FEDERAL EMPLOYEE PROGRAM [id number] [id number] MEDICARE A [id number] Self [id number] EXCELLUS C [id number] Child [id number] BC BS [facility] B [id number] S [id number] MEDICARE C [id number] S [id number] U50 MEDICARE A [id number] Self [id number] A Medicare Part B Medicare Primary [id number] Self [id number] BC/BS Of [facility] Part B [id number] Family Dep endent [id number] ANSI-Commercial [id number] ANSI-Medicare Part B [id number] BCBS FEDERAL EMPLOYEE PROGRAM [id number] FA2 [id number] MEDICARE [id number] SP [id number] A BCBS FEDERAL EMPLOYEE PROGRAM [id number] [id number] Medicare Part B Medicare Primary [id number] Self [id number] Medicare Part B Medicare Primary [id number] Self [id number] EXCELLUS BCBS B [id number] D [id number] MEDICARE C [id number] S [id number] A EXCELLUS BCBS B UNAVAILABLE D UNAV AILABLE MEDICARE C [id number] S [id number] EXCELLUS BCBS FEDERAL [id number] FA2 [id number] Medicare Part B Medicare Primary [id number] Self [id number] Medicare Part B Medicare Primary Self BC/BS Of [place] Commercial Family Depende nt Medicare Medicare Primary Self BC BS [place] FED[place]AL [id number] Problems, Conditions, and Diagnoses Code Display Name Description Problem Type Effective Dates Data Source(s) S37.012D Minor contusion of left kidney, subseque nt encounter Minor contusion of left kidney, subsequent encounter Diagnosis 10/02/2020 03:34:37 AM [facility] S37.012A Minor contusion of left kidney, initial encounter Minor contusion of left kidney, initial encounter Diagnosis 10/02/2020 03:34:37 AM [facility] R69 Illness, unspecified Illness, unspecified Diagnosis 10/02/2020 12:57:00 AM [facility] Large hematoma L Kidney Large hematoma L Kidney Diagno sis 10/02/2020 12:57:00 AM [facility] Results ID Date Data Source [id number] 10/28/2020 10:06:45 AM [facility] CT ABDOMEN PELVIS WITHOUT CONTRAST [id number] FINAL RESULTInterpreted by:Aaron Gomes, Nataliia Vanessa MDINDICATION: 44-year-old female with a 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 No oral contrast was administered. Coronal and sagittal images were reconstructed from the axial data. Automated dose lowering techniques and/or adjustment according to patient size were utilized for this exam.COMPARISON: CTAs of the abdomen and pelvis dated 10/04/2020 and 10/02/2020.FINDINGS: There is suboptimal evaluation of the visceral organs and bowel due to the lack of intravenous and oral contrast.There is incomplete visualization of the dome of the liver and evaluation of the lower thorax and upper abdomen is limited due to respiratory m otion.Lungs: The visualized lung bases are grossly clear and there is no gross evidence of pleural disease. The visualized cardiac structures are grossly normal.Liver: The superior aspect of the hepatic dome is nonoccluded on this study. The visualized liver is normal in size and grossly normal in density relative to the spleen. There are no focal lesions within the visualized liver and the visualized liver is unchanged and grossly normal.Gallbladder: The gallbladder is normal and there is no evidence of gallstones, wall thickening or pericholecystic fluid.Biliary Ducts: There is no extrahepatic biliary ductal dilatation. Intrahepatic biliary ductal dilatation cannot be adequately assessed on this unenhanced exam. Pancreas: The pancreatic tail is not well evaluated secondary to compression from the large left renal mass and adjacent edema/inflammatory change.There are no focal lesions or ductal dilatation and the remainder of the pancreas is unchanged and grossly normal. Spleen: The spleen is unchanged, measuring 142 x 51 x 104 mm and there are no gross focal lesions.Adrenal Glands: The adrenal glands are unchanged and grossly normalUrinary System: The contours of the left kidney are not well-defined due to mild to moderate surrounding edema versus inflammatory change. There are large cystic regions predominantly in the upper and midpole that have increased in size, with the largest measuring approximately 7.6 x 5.4 x 6.5 cm.There is stable heterogeneous fat density and increased soft tissue density throughout the mid and lower pole regions and the left kidney measures 178 x 111 x 127 mm (prior 149 x 105 x 117 mm).The left ureter is nonvisualized.The right kidney is normal in size and shape. There is no evidence of nephrolithiasis, hydronephrosis or perinephric edema.The visualized right intrarenal and extrarenal collecting systems and ureters are grossly normal and there is no evidence of ureterolithiasis.The bladder is collapsed and cannot be adequately evaluated. There is no evidence of bladder stones.Reproductive Organs: The uterus, ovaries and adnexa are unchanged and grossly normal Bowel: There is suboptimal evaluation of the bowel and mesentery due to lack of oral contrast. The stomach, duodenum and small bowel are grossly normal and there is no evidence of obstruction. There is mild diverticulosis of the descending colon and sigmoid colon without evidence of diverticulitisThere is a mild amount of stool throughout the colon and the remainder of the large bowel is otherwise grossly normal.The appendix is normal and located within the retrocecal aspect of the posterior inferior right pericolic gutter. Peritoneum: There is no evidence of free fluid or free air throughout the peritoneum of the abdomen and pelvis.Vasculature: The abdominal aorta and inferior vena cava are unchanged and grossly normalLymph Nodes: Para-aortic/retroperitoneal nodes are relatively stable. The most prominent left para-aortic node just below the level of the left renal artery measures approximately 1.0 cm in short axis (axial image 192 of 482).There is no evidence of mesenteric, peritoneal or pelvic adenopathy.Body wall: There is a stable small fat containing umbilical hernia with a stable s mall sclerotic focus within the right lateral T11 vertebra that is consistent with a bone island. The remaining muscular and visualized soft tissue structures of the body wall, pelvic and hip regions are unchanged and grossly normal.Bones: There is stable mild osteopenia throughout study. The visualized vertebral bodies, pedicles and posterior lamina are intact and the vertebral body heights are normal.There is stable marked disc space narrowing with mild degenerative bony endplate change, a mild central partially calcified disc herniation and moderate canal stenosis at L5-S1.There is stable moderate disc space narrowing with mild degenerative bony endplate change, a mild posterior disc bulges versus disc herniations and mild canal stenosis at L3-4 and L4- 5.There is stable mild to moderate degenerative changes lower thoracic and thoracolumbar regions with a 10 degree thoracolumbar and mid to upper lumbar dextroscoliosis and moderate degenerative change of the lower lumbar facet joints.There is stable mild degenerative changes sacroiliac joints and hip joints.There is a stable small sclerotic foci in the right ilium, adjacent to the SI joint; sacrum, just lateral to the right S1 neural foramina that is consistent with a bone island. The remainder of the bony pelvis and sacrum are normal.IMPRESSION:1. There is been interval enlargement of the left kidney and left renal mass with surrounding inflammatory change versus edema that extends superiorly to abut and partially compressed the tail the pancreas due to increased cystic change superiorly. 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 However, other renal masses are noted entirely excluded.2. There are stable prominent retroperitoneal nodes measuring up to 1cm in short axis.3. There is no evidence of peritoneal or pelvic adenopathy.4. There is stable mild splenomegaly.5. There is stable diverticulosis without evidence of diverticulitis.6. The remaining visualized solid organs and remaining bowel are grossly normal.7. There are additional findings as described above.This document has been isabel ctronically signed by Aaron Gomes MD on 10/28/2020 10:04 AM Name Value Range Interpretation Code Description Data Edna rce(s) Supporting Document(s) ID Date Data Source [id number] 10/08/2020 06:37:22 PM [facility] Name Value Range Interpretation Code Description Data [facility] rce(s) Supporting Document(s) ED Provider Note [facility] LOMCOb9dTwTABkJi62/WQMzwQQJqq1RsIIapJQu3FKdyDBVzN3TrQNS2bQ7zMEN7JQmRGzUlGyFzOGXc [facility] [file] ZiMzU+KJ9pJIm+Wq9Wq7BopcE3jeQaAYa0UKn7KL2HSNJDR8EXIe== ID Date Data Source [id number] 10/07/2020 10:31:33 AM [facility] Name Value Range Interpretation Code Description Data Edna rce(s) Supporting Document(s) Discharge Summary [facility] EULJZw1fYlIFCkIz09/AWFydEDQjq3JxKVuiCFr7IZceRVPcN8DiAIQ4eS0jYJX3MFkOHnLhOjSdBRTf lbm [file] ICAgICAgICAgICAgICAgICAgICAgICAgICAgICAgIC AgICAgICAgICAgICAgICAgICAgICAgICAgICAgICAgICAgICAgICAgICAgICAgICAgICAgICAgICAgIC AgICAgDQogICAgICAgICAgICAgICAgICAgICAgICAgICAgICAgICAgICAgICAgICAgICAgICAgICAgIC AgICAgICAgICAgICAgICAgICAgICAgICAgICAgICAg ICAgICAgICAgICAgICAgDQogICAgICAgICAgICAgICAgICAgICAgICAgICAgICAgICAgICAgICAgICAg ICAgICAgICAgICAgICAgICAgICAgICAgICAgICAgICAgICAgICAgICAgICAgICAgICAgICAgICAgDQog ICAgICAgICAgICAgICAgICAgICAgICAgICAgICAgIC AgICAgICAgICAgICAgICAgICAgICAgICAgICAgICAgICAgICAgICAgICAgICAgICAgICAgICAgICAgIC AgICAgICAgDQogICAgICAgICAgICAgICAgICAgICAgICAgICAgICAgICAgICAgICAgICAgICAgICAgIC AgICAgICAgICAgICAgICAgICAgICAgICAgICAgICAg ICAgICAgICAgICAgICAgICAgDQogICAgICAgICAgICAgICAgICAgICAgICAgICAgICAgICAgICAgICAg ICAgICAgICAgICAgICAgICAgICAgICAgICAgICAgICAgICAgICAgICAgICAgICAgICAgICAgICAgICAg DQogICAgICAgICAgICAgICAgICAgICAgICAgICAgIC AgICAgICAgICAgICAgICAgICAgICAgICAgICAgICAgICAgICAgICAgICAgICAgICAgICAgICAgICAgIC AgICAgICAgICAgDQogICAgICAgICAgICAgICAgICAgICAgICAgICAgICAgICAgICAgICAgICAgICAgIC AgICAgICAgICAgICAgICAgICAgICAgICAgICAgICAg ICAgICAgICAgICAgICAgICAgICAgDQogICAgICAgICAgICAgICAgICAgICAgICAgICAgICAgICAgICAg ICAgICAgICAgICAgICAgICAgICAgICAgICAgICAgICAgICAgICAgICAgICAgICAgICAgICAgICAgICAg ICAgDQogICAgICAgICAgICAgICAgICAgICAgICAgIC AgICAgICAgICAgICAgICAgICAgICAgICAgICAgICAgICAgICAgICAgICAgICAgICAgICAgICAgICAgIC DbROAzADKfLVVyUMBtLKw6V0ujHDVkIBCnNW8qNHx2Wk9+ZAaTCsMvBGX9iyXcgC5RHE5vm0QmRKedNX Xho9OrISz0AM7EYZTtPJssRP2UONomyx7GQURvTYId zFCVw5poUxDnEPJ6QZGdLggtEU4SEVSfB4btbrZqPMRoQHZENMadFKOFNBniKNEHTV7UHcRsV5LiiL59 IDMNCj4+ZHwpeqKeJetRLlA8PMNdn4VoDPe4ZT8HUYErSpwqh9JtExXlRKWQPGthHN2DDER0HZBtSDIw Ci9DBEAhO134ioQbXK9QLy1ENiKaHJ5goe7LIxLoZK EbFlzZWds2ZKzdNW1KkZIxJHkIcDFnmAFzE0RqD5IlmEIqnKChmTNAREGlRWIHRR3sL9NiyNkxNYPeQT MiMR2qHW3zQHVwGSYaTuA4CUHZLI9VSQXaYGYquCWcGTDzPIUBOB1YNCbeIRW9MEEzggBctOFyXIbdLA 9QYXJlbnQgMjkgMCBSDQo+Rv6EOO0tl2OgGSwqYSXu CG1vqv9ZMRxPRxJwF2B0vIVmY6F8MUlmEg6BBMAsOOXaIfmoNVERZLfePQ1ADY1sqaE6KQ4UvFWoNKNj YUEcwZPrRXi1H28alJZnCOsgWD9NGFG+Erickson+Ad8ZCBJiBRRnTBWdYcTcQXRGKuDgG5LhG8LQw8VvW7Lq OQ87uRtpcpOnSZmpAM8DKR1vWZGdBHTSCO1EfSTuoM 9xeiEaYVPsTRYWYaQcO18fwVKtSSIfUQS3ZQWzFz2KIYHoS1PaqmJkfNsllfGoRACtKGCESL0BRAehrj DetYHpkKceKO13lSzeEZ6DTi2TJjUeJE1woh0AzAXmNp2QGFZcIv4EXNBiNDLqCPRqFTH3AFVwCeIsXX daYHHqPBRkDYG2XFMmAWHsSF6UUdMfHDKvCzwqIFTt DUAiNDWpwq7JDLBeZCHtXXl7RkInORFdKMXvYVtyRTKaVMSlMIC2IXDlNOPqKV6OVrFaWJFyWYBsJDQx JZFbZIOzxv6OKVLmCOQcByT0LBTiJSLbMVBgRGknXDPbFFK1NFA5JASpMDMxQY1ICiCjPGTxQUkbBzUj GZAlHUMbcu3UUGYjMBVrQOP2EHVhHRIxZISmZXisLE CnACNbIDX0SRLrFLTzHN9ASkRuJMAtWUX6QUOdDGTmGOJteu5CCBVzBHEdQVjyPHMxOEQlARUfJPcjPC MmTALfJEh0IPSzXWZsUT7ZEaCyHWViAKQ2PBEdOLIvUENvrb0ZQVPdWUWiWjL5VMUfGEVkJDNrQIksZE QuHHUeFjHhFHNvJRQtCJ0ANdFtZPByXFQzSFCnFOKq OQRzey8BNAOcJJSrUAQqWPXwJHRjODUvBMbsFYUfDNT6PWalLDHtTQSyAZ8YGwWrOERdSvF6CsqxMMUh MXZcdl0BGXCpWTTsKmU9MeFaTOVmETBfIGtxAGAlUDA6SFw4DUCcUGZpMF0RVoIlXZMhMnX2ZwNhBRPy PJPzkm8JROQiPVTeHnf0YOGgQCWhSQWhXMyoWLFmKX I9SNV7DQYzHMSrVC7YLyBwUXZiAntrBPLqKVVeSRFmqd3QKNHySHOdYAH1MTLqBHPyOTYeOTfsWBDgXR A3YaYyKYIqKZThZG7ZZdBdUGJmYwUrJqOtYTHtWSWuql0DWNFyZQIwVOQ2NXBmHCOvSIUyZVmeGFQuUZ XkFar1UDIeNSMaVG3EFnUqDYumRCHRQht7FZlkY2t9 TRYjNi4QX8Xeo7UxNdQkNARLWGepSP1tjlTrVLYhUg0ID4hQZpbjRRV5CBBmFQSmM3EwLWW2GrXjBINv NXZyPGssJOYhFJ9lUYWrRiB1LsVnEvRnDjS3EPX7GBR0DUMkDnOeCnQeSyKmPpUnUG4QLu4NQeI7QJA1 zYVaIo7EIxW8CXFCUpBvPP8COCh= ID Date Data Source [id number] 10/08/2020 07:09:42 AM [facility] Value Range Interpretation Code Description Data Edna rce(s) Supporting Document(s) ABO and Rh group [Type] in Blood [facility] Blood group antibody screen [Presence] in Serum or Plasma [facility] Blood bank comment [facility] ID Date Data Source [id number] 10/06/2020 05:08:05 AM [facility] Value Range Interpretation Code Description Data Edna rce(s) Supporting Document(s) Leukocytes [#/volume] in Blood by Automated count 5.8 10*3/uL 4-10 [facility] Erythrocytes [#/volume] in Blood by Automated count 2.42 10*6/uL 4.1- 5.3 L [facility] Hemoglobin [Mass/volume] in Blood 7.1 g/dL 11.5-15.5 [facility] Hematocrit [Volume Fraction] of Blood by Automated count 21.4 % 3 6-45 L [facility] Erythrocyte mean corpuscular volume [Entitic volume] by Auto mated count 88.1 fL 80-96 [facility] Erythrocyte mean corpuscular hemoglobin [Entitic mass] by Automated count 29.1 pg 27-33 [facility] Erythrocyte mean corpuscular hemoglobin concentration [Mass/volume] by Automated count 33.0 g/dL 32.0-36.0 [facility] E[facility] distribution width [Ratio] by Automated count 15.3 % 11.5-14.5 H [facility] Platelets [#/volume] in Blood by Automated count 224 10*3/uL 150-400 [facility] ID Date Data Source [id number] 10/06/2020 05:19:46 AM [facility] Value Range Interpretation Code Description Data Edna rce(s) Supporting Document(s) Bicarbonate [Moles/volume] in Serum 24 mmol/L 22-29 [facility] Chloride [Moles/volume] in Serum or Plasma 106 mmol/L 98-107 [facility] Creatinine [Mass/volume] in Serum or Plasma 0.74 mg/dL 0.50-0.90 [facility] Glucose [Mass/volume] in Serum or Plasma 97 mg/dL 70-140 [facility] Potassium [Moles/volume] in Serum or Plasma 3.8 mmol/L 3.4-5.1 [facility] Sodium [Moles/volume] in Serum or Plasma 138 mmol/L 136-145 [facility] Urea nitrogen [Mass/volume] in Serum or Plasma 9 mg/dL 6-20 [facility] Anion gap 3 in Serum or Plasma 8 mmol/L 8-15 [facility] Osmolality of Serum or Plasma by calculation 285 mosm/kg 275-300 [facility] Creatinine/Urea nitrogen [Mass Ratio] in Serum or Plasma 12 [facility] Calcium [Mass/volume] in Serum or Plasma 8.4 mg/dL 8.6-10.0 L [facility] Glomerular filtration rate/1.73 sq M pre dicted among non-blacks [Volume Rate/Area] in Serum or Plasma by Creatinine-based formula (MDRD) >6 0 [facility] Glomerular filtration rate/1.73 sq M pre dicted among blacks [Volume Rate/Area] in Serum or Plasma by Creatinine-based formula (MDRD) >60 [facility] ID Date Data Source [id number] 10/06/2020 05:19:46 AM [facility] Name Value Range Interpretation Code Description Data Edna rce(s) Supporting Document(s) Magnesium [Mass/volume] in Serum or Plasma 1.9 mg/dL 1.6-2.6 [facility] ID Date Data Source [id number] 10/06/2020 05:19:46 AM [facility] Name Value Range Interpretation Code Description Data Edna rce(s) Supporting Document(s) Phosphate [Mass/volume] in Serum or Plasma 2.4 mg/dL 2.5-4.5 [facility] ID Date Data Source [id number] 10/06/2020 12:57:51 AM [facility] Name Value Range Interpretation Code Description Data Edna rce(s) Supporting Document(s) Leukocytes [#/volume] in Blood by Automated count 6.8 10*3/uL 4-10 [facility] Erythrocytes [#/volume] in Blood by Automated count 2.44 10*6/uL 4.1- 5.3 L [facility] Hemoglobin [Mass/volume] in Blood 7.2 g/dL 11.5-15.5 L [facility] Hematocrit [Volume Fraction] of Blood by Automated count 21.3 % 3 6-45 L [facility] Erythrocyte mean corpuscular volume [Entitic volume] by Auto mated count 87.3 fL 80-96 [facility] Erythrocyte mean corpuscular hemoglobin [Entitic mass] by Automated count 29.3 pg 27-33 [facility] Erythrocyte mean corpuscular hemoglobin concentration [Mass/volume] by Automated count 33.6 g/dL 32.0-36.0 [facility] Erythrocyte distribution width [Ratio] by Automated count 15.5 % 11.5-14.5 H [facility] Platelets [#/volume] in Blood by Automated count 233 10*3/uL 150-400 [facility] ID Date Data Source [id number] 10/05/2020 07:11:37 PM [facility] Name Value Range Interpretation Code Description Data Edna rce(s) Supporting Document(s) Leukocytes [#/volume] in Blood by Automated count 7.2 10*3/uL 4-10 [facility] Erythrocytes [#/volume] in Blood by Automated count 2.71 10*6/uL 4.1- 5.3 L [facility] Hemoglobin [Mass/volume] in Blood 8.0 g/dL 11.5-15.5 L [facility] Hematocrit [Volume Fraction] of Blood by Automated count 24.1 % 3 6-45 L [facility] Erythrocyte mean corpuscular volume [Entitic volume] by Auto mated count 89.0 fL 80-96 [facility] Erythrocyte mean corpuscular hemoglobin [Entitic mass] by Automated count 29.5 pg 27-33 [facility] Erythrocyte mean corpuscular hemoglobin concentration [Mass/volume] by Automated count 33.1 g/dL 32.0-36.0 [facility] Erythrocyte distribution width [Ratio] by Automated count 15.3 % 11.5-14.5 H [facility] Platelets [#/volume] in Blood by Automated count 245 10*3/uL 150-400 [facility] Differential cell count method - Blood [facility] Neutrophils/100 leukocytes in Blood by Automated count 71 % [facility] Lymphocytes/100 leukocytes in Blood by Automated count 19 % [facility] Monocytes/100 leukocytes in Blood by Automated count 8 % [facility] Eosinophils/100 leukocytes in Blood by Automated count 2 % [facility] Basophils/100 leukocytes in Blood by Automated count 0 % [facility] Neutrophils [#/volume] in Blood by Automated count 5.11 10*3/uL 1.8-7 .0 [facility] Lymphocytes [#/volume] in Blood by Automated count 1.35 10*3/uL 1.2-4 .0 [facility] Monocytes [#/volume] in Blood by Automated count 0.54 10*3/uL 0-0.8 [facility] Eosinophils [#/volume] in Blood by Automated count 0.13 10*3/uL 0-0.5 [facility] Basophils [#/volume] in Blood by Automated count 0.03 10*3/uL 0-0.2 [facility] Nucleated erythrocytes/100 leukocytes [Ratio] in Blood by Automated count 0 /100{WBCs} 0-0 [facility] ID Date Data Source [id number] 10/05/2020 12:24:22 PM [facility] Name Value Range Interpretation Code Description Data Edna rce(s) Supporting Document(s) Leukocytes [#/volume] in Blood by Automated count 7.6 10*3/uL 4-10 [facility] Erythrocytes [#/volume] in Blood by Automated count 2.68 10*6/uL 4.1- 5.3 L [facility] Hemoglobin [Mass/volume] in Blood 7.9 g/dL 11.5-15.5 L [facility] Hematocrit [Volume Fraction] of Blood by Automated count 23.7 % 3 6-45 L [facility] Erythrocyte mean corpuscular volume [Entitic volume] by Auto mated count 88.4 fL 80-96 [facility] Erythrocyte mean corpuscular hemoglobin [Entitic mass] by Automated count 29.4 pg 27-33 [facility] Erythrocyte mean corpuscular hemoglobin concentration [Mass/volume] by Automated count 33.2 g/dL 32.0-36.0 [facility]th[facility] distribution width [Ratio] by Automated count 15.2 % 11.5-14.5 H [facility] Platelets [#/volume] in Blood by Automated count 225 10*3/uL 150-400 [facility] ID Date Data Source [id number] 10/05/2020 09:44:57 AM EST [facility] Name Value Range Interpretation Code Description Data Edna rce(s) Supporting Document(s) [facility] IWKQOh2aEtZQCzJtd0AzLlNwKTBwXU7vrnx4G8F4oRVzB3WopUUsn5smO1QfF4TvWDMtMRCUFJ4OmAOf jb2 WajdgeN4Tcg9JOm269DE9DzB7erc3My5skTENezBacRi7jblAaVuwBSQM0VZCke5ZvVEhrGGfmHSAcWp 3drTRgW0RzcMlzZQSvMLnmHXGlK99ypREdS8pCLJAxTW2ok1MvdgrcK8ntfnIfs3kAunKpPMgyIdHdZc AoLZPpkmLpC1gxwBIerKldTG0+JY0ld4UsLzDuTWAb AH7frly7Q9B6zTQcY1XdtnEoR8G4ZyJ0fTNeE5Z6gWDnHA8IBE1dTW0ZScNyE0AlG48awH2xQJ8MjX7G qhYeET2za9RlfxsjV1Dla2HMo330KE0FHEa4SBOlT8EaCc2tXE9+AN2ou7TlGoSnCMYzFP1qdpl3H5M5 dNNgY1NpklLaL5B6NiR3zATiI8V1lQPbRH4HRD9sYV 2IYPPoO1BiK20bjR8fRG1YaD4VlsXdLG5lp6ZnkdokN9Zgq1IUc450BX4RFQg9IHEyV0KxS4PpyIW7FD 4+QR4yb8QqFdLbZILgZK5euza1U3Z0cXSuS4SymfYyQ3Z6XnT6eXUrR4I5cUSfVT6QVS2hQW4YCnanK7 EkA94xjT6vCS8CfQ3CatKmTQ4oa2SvzkecL8Qmg5GK i459XW0JRMo8PWFxR9ZwEy2fOZ8xvRkbzBD+MaKcZQ3zxyoqHCCcLMKeAkd3NQ8GrIPyWI2Ak867RR3G cWO9eTOdUT7BnEMdEQFrOoAlMECdI4HxCE5VauNtCWknBdDiJ5ykUS4uoTWvC79ljE3dOY6VONXjZr0t yOLxZ452rsqcbr6+TU6la7CcMsNcTgReBZ3iiyy2W1 F4pDUhH3MqqaPiP6I1MkH8xNLrI9O4uPPxDP4IGO7uDD2PZdNzY6HpS99jbT3dRN8FwC8UahEoIH9uk3 KzkfauE8Niz9MAb775AX9Dn4QajHQjXWLxbWS+BjHbET0trujrNXVrGTYdQdl7XY8ByWYeSU8Kb132ZK 7GjOL7xDDdVT8UkAIwTPBnVmIlTXAmF7rcZE5AtqHt APtxHyXuH3yaVR0ezGDeG80zbG2mWS2QFKPnDl8yaNUaF664fgqmtv5BAfdqqFVhCi7ktvZtNhzTRZZ1 WMKqg2IrHDjiMTjwWLCuVq4xcDIpB1EltWayAQOnIXvfDUOsN24adRTrU4ZDZTMsVV6sv2AmbpxcG1ay oaQzr4xAbePrNXfiUaEtDeVnOKMgunLoN9HfbJFpQX HiJt6gSE1uxJsifJL+VrNlIA8ifuxjWHUqSCHjTny8IX9AoYWyWA0Js201KB4HwVE8vNLuHK4QpQByJE ZgRjHxWJQiOYBgCY4PjjJqGBtmHrXtM6dgWV5iiOSyZ96ukQ2qEE2MBXOgXc3miBIfICyeFJXaDg2aKL 4+SeYdJU1mthwlCBOgZDVbEir9AM2BkTEsMU4Qu221 JF6FcTW1eHCgUN8DyNZaJPEuOcNeHTMwQORwXP8FihNvMXpbNzVaN2ljWU6qtOPaN21wkQ1nQG2PZXFe Ew0cwBFuNCcwLDOjLb1vHT8+LU5cs2YmXjVhMjScZT1rcvd7S2C0fYHbW1ExifVlB7D2WyD1eZVoG1A2 sMYoFO9RJL1pRT8JWMEbO0XdU89vjG7sEI9PyA2Ghp TxCT0va4CmvfhhR8Vmw3JKj824JE0UcT6rut1UmNAxcUK+VwBpCM5fwkgkOZmwJNQcZob7HJ2WDGG7FT FxYtFiWXEeYHZaHYAcJ7fYQUrfXTCPGX4AExaeDUNrZUTIWW9KCULmUIQmPHKcH6FAGZWeARUkFgReZ3 snQKPpBTGKFL7YJqnxRXYhGTYCTU7ZEHMuBUApOWTb F7VSURZ9QDHiGuUxJBjoBXdzDTBXEF9GVohfSgJfXKD+BdVdXU1mplsrLqDoBO5loqy7G4Zgg1RYINBq Mi5AIDPtT8FzuKTvQM3Vn046PRE9TZNuIl8+FM8it3YeAvBwBGLcc7UiCDakTVmhLTOhGFXxXNUxDRUa eHSSk1chSbQaTEP9DBBtDwyaFPIzBTGdNK91WUJzYS JCRJ6AMUWsyHWhDWWuEzOvKZLSIJ9Qj258LZ10gcGkKPHaUWRqU1GirZJ1VHN7PYCyJF1ae8EhHExhQw 1napFdCwnJRrEdJGLuUdi9BHTsMFKkV1AoPBN7BbCvOK0VqUo7XOFkV8YuGOHxQTWre8McHq0Kv2JrIW GiHfpokO36zu47q72E41iMhF9Kzc9LnYQRBRKTR5ae TzrLRNoe1NgN9QtKjw/jNupAxcd92c22qJdvSBFC7/nz/Icnz9L+/C/74vnTU/78+3/+259/Uvvz//3z AT7//baseball hand sewer++L/+ec//uuf//Vf/9ufkp8///q///lP//uige9zGY8+w3jy+7/V8vrzX//[id number]//PNv [file] JzyrhOYmcEstLLHUFdo8DeXAKIXXD1F= ID Date Data Source [id number] 10/05/2020 09:44:36 AM [facility] Name Value Range Interpretation Code Description Data Edna rce(s) Supporting Document(s) [facility] YUPWPk8bYqEGWpAcg6EvFuLtKYAsKD6nkbg4Q3T0qYTrE5JvpNBol3rdF6UdJ8EzYAIwXQSKKT2NhDIe jb2 [file] hlC9iQt387EgKtRf44JLuNK9w19x1Nm4K6IquH+9zFwkckSPdJ5WBzHy7R9C2c9LrT8zs6J/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+0T7Z [file] dS2k73KUKf5jVR+gf0In5pWynYK/+scrap preparer/uZzq+6fvV [file] 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/NIYPCG8T5pcGo9guU0CpEEAd+wbcf1fLIdVq59nLHP9HFu7du+FNvV7AcwMe2o0qv1LKzIuZ1IYp 3ed+s+Tyao8st+Qc0pKbg/mwiQETLgJn9Otd9tyh/eVJc3Qmw+T5orlhz582LnbybKlwI1walv6zFYX2 8ldQQVup8oa1bXZcapO2kjNkUuc9SuhdPkQc77zrcY j+Wu8+63spxtgJdWSq0CXyXpuNScmdJDtDx5akHO9xEaci0O5aR5k8i7H4iVyyJ95f/WjL+MJ8aCc2o8 iB5hVN8TiOX1/y44K27AP49OA91VX85GN01ND32EA13FJ35TM12GU61WC75XH8Y9J4D/PcyM8H0klfpy [file] IaJmyNdACPZJLSlYBLCUuAMQM7r+LIcgIkSEiBJRIo 2VA8ZSbDenObrjGrjLGgoCSwJOZLKoB1l7P0cs9u3BfTQ1ENBuVp+QczUMq6Icf834zBcTYtHWriGsc+ 7WMX/f7V3YkfyS+B+udAV5Bn7E2tysa1DuSTqFx3Hqr0N7REzUOfaS7WjWxPzWr6SnDmmXCveP9P7mC6 eWuKwhe7ahSttsDpyUddR6EXtYDstL7IxIcJiKm0Rl NlxUgny1aA2Dyr1Wru9Kcr8Zpd0Uol1Rgt0Ihx9Rox4Xgd7Tmz9Zim0Skf1Fcj3Zzr0Wfa8Izu4Sy/bU Ex+IVHAGmHMfqQbBqIv6r3lK/Ydf7JbTz8G/eso1D9Bph7MzGwI7PTM0qrKXl/1YrnSRRD+WHV8V/Vh0 mktL7PrzfGe0ZBNtAQkUoa9VN0M1EcCyo/5mOOELo0 Jzd3QoQjaxEhnuKvBtQOwA290rjYKEq8Mq21c0F8v+ixqTWmLFXAdh6Xpm2RhgzzlksvGS/Bc7lADcT5 VL0+hZHlUBGHrrpHQiP9DrhRbKi9UMsyWmN4MH1TjWMwVSclsZkQn0ACbzbA0q4FPOjxq4ExQ/lnopjP uKdd5zLfMDG3NGEYg20SKA4bjmWHo7R8QETNXvXVAM dNPLKHx74VINU08vPgCKKLLbBV4+PN4WdHsHzECtEXyABrPAEWsXTbbNMiZflot1THv9uxGAN8fXgjbY kO+eiq1O82mjHngSAkKjjFZ10jQ6B7liv0R/gb1gqJ+o1Y/wEYs1EaBhDQ+WhzjfbeN+NoLm7XUWODiI +7Eo+7Eo+7Eo+7Eo+7Eo+7Eo+7Eo+5Ex0w3jxL69zs jy2fJN4DmP+MGpfZCmViXPa8oNJwJRNknqF78rxaoI3WSbi85NbQtyFqvpLbgFAomOVtLFQKQQBFBXiA IVQvwHIWI6MhEEBGU7FgaQ9nEDBMCGA8z8NLrGaqW+LMp+LMp+HZoHY7s/lu0Otz6zZpsBufIRM0ZZEJ F9+5KNz90lMCFmwlmwH01+JyEjW6HlTvU13BWC2l74 4K2EK45+NyIlR5PtMhT31SMd/J0ChfkPwlvq12aRxy0zdlDO/F3XylssnygM28JR58BH/sV2sidHlgtG 59BLkHMPJZt9rXvca8SkU8p8Ji4Ae0IoUtF+BietSLaV4sL4LZA8z1B4sEtX2pWOADd7Ch2p76mE09QY A7k3FkjCdSMJDPM6IcXF1oeR6q8yZ1kmWVWiEJ/FuJ 9Y/DwbQXAJSxxuzG9BDmSJCXXQwVMnnFjLcpJnD7324UsOtmyogXxSouWtC262XH5HqKJpFXNVZCHhIt YGdIKuhYpnKn1ThECjJjJcPEwOZqYwM75/Nz/9/ZC4UKSV3TpaAa1N21yP5548/j8/Pn2+sQh+ijTMG/ v+219//vlvP/3iF3/38b99+d0/w6LjGsbZ67nlx/bF 3ylk0oR8qOW0+fmRrJ/8r19+85M7K/jjQ+FOWv0jx43l20UA5YV//kngM097z+8/f/d689mpU/3s66++ /MXHr7/5+jefvvv+68///CL33vuMe3fyo/r5a34y7729/Q1By19p1P5+VMclay9K56Rp69dU2Q5zIg0/ 8+vvPz5/+dXP//mrL7/72ddf/pXf3l/h+4jyeDlS61 /69NXX//j1Vx/ff/748puffXz++O2Xv/n74mDEf/n2u19++UzJya8L/0uN6sc//ldOs39b/Ltud411+P qbf/z03be/gY85k0kDa/7+q59/+bWma6uk21JkgO/m49NX/+2v/ZkJKF2q/yjck420LjSIa/ryu08/+/ jt159/fv/h49t//UOYvh9hjsW1u+R9mxMibuc10s60 H7/49pv/8wnYa9086Crlrf/+wv2aj1cA6VAw/IifswqY7d8+D4YmeZm+/bOd8niejS4v/btui99dnzC3 n+/T/f+j2UNl5eS69ny//fvv//LHH/7t47//z4/f/P4Pf/jdX/7yw+/+8HcfP/vdn37/wx8+/oX62e7E 3378+U8f8g/i/dKc4S68/6L1jy9/+O3iqPvAew+q9s c//sN/8LK+5MByveA//uD0j821Y52gk/8/SXAkz6D/++yyFBmu0375qI1/Q69B7hFsmaywCmuH++o1BT +kF5pjqcEhX/juh3//5SEnU7PdjGq71sqKa6/+6bcfP/305S8/djv16Ht3anFwn21/P3xjPgGlkTF/Zt UVv5EPA4EeX5hCpat/zcff/PCn//z7j7/87j9/eDv9 67P+kUV+7h/98T9+dUpRuzLdv07Ix/ru4/d/+s8f/vJ//Zb3v8Zrci5r/tbkDrb+ytk39k/fff/xb//j de+///Glbfk6XZA6w0YvCC9ipv1/wz99/lfgr2+0Am+X/kMXfz+81e1hAFx/9chwcH23Fz2LZymwIemr R43oye9fM6/95PPH7/7vH/8ae35m72Ca+pN//PTTn9 wiQO4em+vH//zLv/wco525B4B//vDH3/9w0EH6Q/7V7/7Hv/7uP37/uz/94Ben1GI3/Z9+/P8zX64//P f/+t9Hit/9+c9//IPzNj5OE/aIf/Hnf/1iUloR/BS4KvJc++Ff/48//q7rV0p4dxoRo/6K89DkOj3lX/ 0i1p361dy//CENQs6eJ3k98E2/+VoGv/+Cc/3+iP9/ /+Z58rUm5mqmJ5/733/4kI8///nNv0mh8/IcLV4zw40csuoL/PSzz6/F686GJ6S560Lrd7j6z300sEdy dwmS8AADf2243tdnnY6aiggffVdZ5bd/X+vyk5NVDO6mg8NaDNXwQqQgAY4blwmnPBRrZF1zuiz2V7Po pBjfSYqVUHKkIe0jjIKlDM2LQPN0PVhlHOErVSMpI1 QmeC1qH76gyCLiPkQxWYVDDJ7ZizU9SBF6GCJ9ELWqTtJcDBYfWC66NTAoYQRIOx0qelFeRjdVIqTnXL 9rsac2L6Q6wIVjJ108aVxmlpWxRO1Me8AoePWpRC0BlOZptRWkSVYwQQSdS0nem7BrPBfnQSKLYl9hkh MsLvaBCdBqJT8wwtr7H2H6pCzauyLvUUNDIXjtSrgv WB2slWjgcsqnF0FzeXWkNQQnK5KwEVCai28BAFApIIyMKzWyToYnYDG6MCe2NFfaMtCkYRCgTKVlGCUn YR7UcIBlEIWzGVHMONypKfesEDOyuI6qiVULj1WiZ34GGFoUJDoYEUQWMIYREcInFtBfLBA4MGVwD0It qhHckWYuHCMFNZhbOefwIWWhuF7gaRrnZ8TePQB0u7 OoES0PN2OuSLCcFQREVKL1o7AqEEFkhilnnamvWaOpRBZoHPEhFRVdAB6Scs3iqFBqnmCcNFWKWXloRn tcKX8dxCivxtxjL6HwxCGhFEG+IgDgLF8fqj1+ZwPiAXNlCxh2TORdEOrhBJVqSVEcWQLvK9mlQMJxJh ZwJPBeDuCoKI7Du4YgiKGkQy0gjbMhAhkJlFDmUngf ANWpTYFgINMkBbYZCMVaRSOlOEBrTEC8WZTeTAArREdbSNLaGTY9WdV5GWMuKVPfWI7aZnIuOTWrGzes ZBRjEQTeVSLmehJXLEFxCSO3ERK6STLhAAVqEYWtXCsxIUClJRLxRRQyAFK1WYY2ISYaKuVwGSBtCVHb ZIIyXASbZYIspmPZTELeVDYjXGZ6XRGfODKjJQSxLX rkCRKnNIGuSCadLAVbEWDmNA4cFlUxIRWmEPKnELqbQJEuQQXtbzYULGGvODUvLVNyNSOiVHAoFRAgPX glEYDuUGPyCLOwXSIwBOCcCO0uUlVqXWCiBHO9TBCkJZQcUWJfunRCEYClDZItGRa0TTMrXNVpAHGdHD fgKQDjZEEcUZA8EBTvJACqWD1xHpJkTAVoARV9SnZw RCVjIDUcidLHENExQVPvTPT9RgGfPDSsVTYpRQbeKHEgQLPoOGnsQKFpJBYuHE4zJwQmADMqAWZtDBhm SMNwVDQqfdAZJZZcUVWnULFbMlZqLKZgDWNkIFutFWMqUVA9IJveOPHrOPIyNG9vGbOiYMQkLCH4OWht MDAwMDAgbiAKMDAwMDAwMTczNCAwMDAwMCBuIAowMD IaKPMsIZH0JYYqTJFwFB1nMlVgFXHgFBKlSEViFgV0KtGaDjJOuRZpoKokbyr3MAywD1w2LUAtANlkSI 0rfkMmPSLkPsjoKq4peQU0QULaJlfUTo4Te4CexsV4scBkRpF7Zfb5VlYzIZ5P ID Date Data Source [id number] 10/05/2020 09:44:07 AM [facility] Name Value Range Interpretation Code Description Data Edna rce(s) Supporting Document(s) [facility] FECWYf3bWvBCHvCdo7VcTpEnLJOyXK0idwl7B2V2bBHdE5BvsJCus1vnL0EqV9ScCHCjFIAKWU6FhNUf jb2 [file] lui8O9e7as/Brim Greaser Operator/jI3pX/44juy//QGD6Onx3QYtvn+lkf/kSwytZ38QQ/4eb/lKE8u91Pa4c75QPlpOQa 4l60By5EaJgyiK4+X3o7zv/RJdz5eNyLlxGErQ0/CUADRA/Cn5S/LXtU/g725jI9f1+P4aFw6bdXVeXh4P55 Lb/M7d05avXy9o4oG0jt14sykD23no0M4qBc+3XfVx 51c33b5428pj3O9WDw+b7+q9c54vo+nRf0/65o9y+3roe56VM5NWmMn/Q/rvaFJOk/C0oqHmE9rvka+S 75I/PC5Drha08oDAYY9imtuQU6Z1HOiQdz70uxghbMKm8el511sNU33A8zJy1/fyfr+jx/n9iwz6xPhJ n7c9+RjkhTZ2IreK20H/b/5cKpSEi5Eosp3hE/RFW5 1Kcas71WgFmTGYYamIG/8tTN9+PaP/Uj7A9W6Tzid/+dimCYdz9/97hxp8VWanGee6v1ddfMUnzJ5/qw g4dz/6TrqAP/pOtJOHofuky/rz51FbQq795INRA/MkH6r20umAz/ubR1+owURim1HCW1sDz/CBxC6EB/ DGcC8/7/pbepn46XSid3QM5L9/tQP6mT/1nXrIPex9 cCw/lrndRvWR2iemLt/cXZ0M753+s1x2fD9rGgarQ6/y+xifocvuRdKSPyR/PR48N33KcR9lgB1r87fD /pLfx/pWh8k0sC+23/zQB3BYQpPNzuuzAGzIvkVDtKTJ+T6o1cv7bw5G3Y4+0++6AJ9pbQwlMm19FsqS lely6SmAj9rM/mB8XbVJjywgrsihqI7388Dm6vkFj/ huwa/e9C0/+NWblt+NlqDfmXwk066Ll8iXq/Nv7Ku+a3wdOfzi1Ster+Eh7pN+5I++uAgY/uETgX/Cxf o3vsCJ/RdfjHPRF98h78i9//Sd0+E9/nS1s4C0RiK//Rb5P31/nXY1Q69//O65P96FoW/AlrfQBq4l0l 99l/uBj7MK47/v3caB5y7VU58w/cuvht/94S6vFJQG 3+bs18qiO19P9Vg4jf2mcgjl+/KenHgJX58I0ruc46au0/45L4kVHRpa4KW6Mx8bexJgsVL4m/hZP9/X 6bT9fF+nwVPJvYSFGBS7nVtB//b1gaS7dDk3xVg1yIcf+AHN3AI4rcd++3UFv+M5l4UZP/KX/H4XSd/8 7BdaRhMU6p9ce1Dd+2qD3Kq46zc/4ymTu7N9PB7NyE RgOIhRg29Pkx1op5FTXql+7UE32s4ZL/aGj/dNS/6W/F1uh46kTqe90s00Pydy5sy+xW8a/SbdE9h1s+ y3kbncrw/R62IzzC8Gy2H6tf/6+nI7tWwgw+BXjnEp+YPfKdn4C4C3KB929z9pJOcf5A2vCouuhCCv/s 13kR/9azUMlc8fNQe+kpheQRwz8LMpcRo6zh49StLM +/ZU6QlQ3aj2Dlf4aGTx/Qah9Y8e3U0pL07f/M47s895ETt+/G4GiuxTx6FlTx+cda0HlzV2Bu064it7 Jvmib/Db7jI7IR3C/Gpi3At+HXmFrhdf5Jsz4lxN/wTbzoeYiT0E4Ud+x+BXHFvmKpKW/GPEfYD3JtoZ 3Yd3Mve879EwI8y67Qxhr2DnzU4G9jpn2O3215fwqd [file] n187z/janine+J+qB3W7kmuly/edT472/PbuZ+fz/38f+P55t/yef2+f+t0QV26E2slcp/3c9kafi5rs540 Rdvu+Brim Greaser Operator/Z5G/v+k6380h93x3amgbDm+f3+34nmf9i3 /vlc+/5xtCCN/g6ciJg6n96pLk4voIhDKwul1MnCZfqnU9u7/L51M+n/J53O/EeeJ+Hs0l4ktHetq/v/ Y20P9eFEmgL2xZQ2kxYmBC6G/+rqXI3/J5lc+qzD82x6ZHoD2ch4s7wk835rtfz4EX55/76/qrq1x04d +176pn7q3vhkxNgxKngo3Cp+/6jJokC7m7/NaqfF6/ +4lff444/mxdPu/y+ZDPh3w+5fMpny/5fH1+bnG/YX9mcf1Qg5+UH9OsyT/rwqwXx0OlF/j38/l6xQzW Pa+WwW++joLXHu/f+KJPHRX4ef0wd2cG83LukHzsjTm/f/l3nzHCVNI7s4tf0OocN6oyvo+/2pXXnc/n MZ+KlaL201IKG4xyt+68G5121/m536i9UnrA2PUy6h Kp770ttdLziYaVu18fR/36z6jv/UJyLAzZXrJs3S6xpXpRxNtD5hEW97/lka0Qu3EoK+MO4grp3W5uT3 mr9ItVT4b/D1KU3lniLiyDTJHZDk1/5fMrn9/f10xonM+//CEkCvJawa/YhuBXbFvwq/y7f+1Rd6F1Yv +ihMF4+LHKX7QGfCKR+ir4VX7+3K/IEnx/z+875/Nz 8CtwiZAk+P7+Tj2c2yg6sqsgGb1Y+pcH154+7/J5l8/I348sE2fn5Zu7A/wKbOPJQUz6no/X55/gV+wz wa/LjH6vj1Rh+YLwJ59b/Lc0um2l+BW42QG/wnXBrzCOgl+xbwe/RhkP1WYaly+/9t7ZhrBh82hXo781 dq0Ir9bEvTZh3YPuSqoP60/tgoR7t6TX2x+eYXPw/g 3FgXMHVQae+FJsEnc8eUZ49/n+zJeqi11N4imm/r3uQBF3/+5903SPzz1rN8TdT+FztSSoN799r3aD++ afh1/tPLZ/18paA7WABLuO/h/3ibY7X77gwB/gU9GnPx/x6Nmaxd8eXXe8NgyCCvbVd+D1G11l9AJvg9 S7XN8UKFuvK9YH99W9nY/vaE/wq8bC/Cc7SdeDMJ+X lanRb5MzTyFFQ9QK9Bf4+n34M/qKQFXWCZUAeJ8ILCH5/Zg2JY7w+FVF/wl+WQ0Mx4DuWfrCNUuGLU/C lkOoCbx/X/m9zf4BURFzR4YXcA0YTfO2L0ay5yn7d41Ruif3z/7aTxZ3R/03642MAyUnb1X/X7+FgAB9 HvoBv+cPc9n4z0s/n+wGkdxcX38c38q+bH883/0qB6 gTls1rT/u71O3sYIm+nRQnQC7xdmuCuNKU7RCLCLlWwSUCjo/aZ0lrXRYNymUE2PaTLGUgDFP+Bakari+RR [file] PvFFReLmdjFu6jcXE5FTLvTgaXUe7Bs3AmriB8foLdHmj7IJT1EaTdRK5H ID Date Data Source [id number] 10/05/2020 09:42:49 AM EST [facility] Name Value Range Interpretation Code Description Data Edan rce(s) Supporting Document(s) [facility] TBHXPp4wCzNPUzVed0IeBiPcVUKiPB4wwbs4X6Q2hQGzY8KzoXXcx4niE2OpQ8DhWKLjCBLOSW7JfFJw jb2 [file] RZNLTh4l3RKGTtq4kUAqAIMU0V+nrpp4U2hnYmCIYQ oQD62G0j0hQKGY2RshgqVEqkoOT0QgJmz3d276JWebeikg4owrSSRbsq4umcld4A9Cz66Wp8rT+6Kv+D hiwe4oqFUZN1Kzm8P/d0LhuvK6AA/GQrLwb/gYVrHZHvjLcfQyaY1qM1U1Zl6+v154Jx1frEoX19Nnqd DwJCVmXuVMIiUrsBA10E1Hd/c+z74VnE9h0xBHrpMR DsfzW3qWcPE18dfLF3GJMDsgQpRcqd33Q25BHWQdnZMTMBEoAT5GA+OLzcS+7EUa1jrIa8mM/8RI9qY3 e9cV992Ow3no0NwD1o/UmvDFvvpn93z+oo5spAz9Qqzwf8uy7Wxgs1RYGk7gPO74HKZs3Fap0898xDzR S+g6cVMWL/+ivLZ+e9F13W/+7zOp9RlSL5kP0n3hmx vmFfqoolv9BdHm/ZjH/MJvL/pfW56/++9Pl1suSRwTww0Y7HC+7E/9lwRxy5+wMt8sA+vU0nm/eWrp/H WxPsuppfPXDOebP7/TdMIgxxm35vUt89fzuf4fCCs04a0x4nNHl7Vr5aA/0H6R+ebPL/pMLYFTS+fPg/ PROGRAM MANAGEMENT INTERN/9BGXz0rYal7M2uCdAlWtn9S0/ZTsPF0JvR99W8 [file] DkeMNpYWPKXBQDFUrBUDdXJduJBtHLqd4PxVEmarSOFMNLPDMSbnFLWVXLFLNHljAHFJCPCLQLnxXQBU NtIjlfLRkrjq6mwcyz7See4Nvg3WugKB/BHZ9vgsyV 4Hlu1Zb+Y1KaCn0Oe65FcmuT8RPNmYIrLmyuBHt+FU2MJS65OJ/LEZP6WjKMBjckqjNUT7cmtfuBCU39 qGr5TWNbJETHHo8qWA+NOUgE6SqshUXAyZHTHhVaRl2ylS2oiJsPQsPskpTkDgPPerzerRSZPvmwGBoR UkNj9XwZPGHIQIYVGlWHyCOMhhRWVG4KMrkwt2AOUT LWtllSSSDaAOBGpowKTREjULQHojlIMKBzav9ksNBDMQDYRcBvcDMBBTNLAeguhmWzhJD5OqcQi6acGo yBlx9DE4UGzJoggJoemmmQh/tzgdM8enn2Tqxo1s8btRl1CMVGZVEpqR31xdh32a0xR9lrAQOkl7WUFL /tYWZWCjGsRnjXBJClUvYSn5b4Z9J1y5wogPqyvWDt rPDOVaZZDsKdgzgtqZF8iIxspZ/TbmATlZiIAoR1SaVVsMmaHYDOeU+DH6ZkBhqex+GsWahLv6jdwPg5 hyiFYqMoXAcziv8PnNZukEhzcf4zylZhWshWNhvtbe0guoC49a3dNfwp5UgE+m3D9I7muj8zNG+4naBh VpW0XTBQto7zWw42Mj3VCXNr/DQ4jI5IQaEfmPogz0 xFWPZffeDh/BcBOK0Kvt8LztwusrMKgzmwf9KEq0WzY16OjLpxaJbFFrKJyHLQWCe8Q8zeA1Dk0lpHjt JLpRwALSKt6Yx0YQSB+hNuuxvGaI+o/SkztbV2TvDQ22FAqtoF72QLu4nAGSUrTqfqvkl5NMAwH5w8A2 zwXQvTlkO0PdD/Gq/7b2opVWi6ecNdoaQ1oZ3kgEB5 uLXN2m6sPPYlIrODduEDFiluyzELIBq9N46X7Na8QQJWZCjRXdIo7GFs1VzhsUCIMvmlL5+9PMj67Gtn bGAfkSTLA73PMecCE8GvAFJ6vt5vyQ8bERuA0u1V089nkmvffa9RzfNt3xmlNh8LTg8uf9Hz6VPyz+we Tsg4CtUWLbBZUoHMGrVAdk1Tn9LgUDALNg9lRWSHFz EJsLSvLIIVZrzeRFzXY5F4Y1IIF7409pgZUS/2Wm9uBF3F8cDiFDKGAhGZbC4wIz4tXqHXpqKLo1g6aG 2oEFhKTg7LAkwbwZP3naZ/8COhdKelDDP7oGBklWwQnGC4O2YnM+onE/5pftGVSGQaP8u4vIk+Uh8OUM BvUHyi1desgKAmGcwIYfA61a4RpHnOcWC3njKcWs1I IzfSYPcKb0oCWLCJxNLpPL8DQMQWfWGuCXQbG9ipD0mnwWH9wBNPHFQJUJDSiTBGEGBFFHMNgPUPYJQE BHWPfWCHTXNHRKVPwBBGIehFukDaHoDfz5D727dsf4EALsELkQYkxTfhnYyl5R105poA/RGtZGayeeSa 61MgbE36TpVWh3qb/YMiKZBJq21IvOJT437B1LOB2T KmPTZIrFnf0EAX1wjwqdLITQL1ZSEKAjUbxCOAhdzVsbw21VfX7IGxeHwXqVg0zpProVOPCuLA8BWN+r 7Drzb5JAyPHapo1HjcoQyBKRFLPHXR/duJ+04mV8yTIYTqjSuHxOF+JEnEhg/IxATxyNSCPSiXQiSSSJ fO7j66kgj4b9qY0+74BZ7GMDbNFLgIjhtffz3velZR lVj2Ud+3c4ELoBS1j5WUy4LmUvliboecCpj3H+uIWR3zoFkQ6cAPRxek8MRJDocSyN6ZU438Qym1ueFz rvY2cTt0AXsiIWO4pAYXabpMXpOu32VV9bvdV9qZZH6IDCJrp2TfAei119D5x696bI6oSZrG8CKNfP06 s4qiMOQ0cSt/q1S/nqrMfytHTqieXCWvVYVmEsXfVY 8gzx9IXKvfnSR0ydaFYnJSkQ51eyzig2JY3kCMl3jxi2srElcPYJObqgg2fBgXEf3eYeawFK+B+cyXLE pxrfzqFke0kfrZgMLiepCUm7zhqDKgTNrQxFJ7QSNM0klKHNLuyNBkaLFisYLhlTNayGYnfSEytSDigP JzrPJzrPJzrPJzrPJzrPJzrPJzrPJzrPJzrPJzrPJz sEQcmFLstCOpbHPvyFMyrHTglRCpyAWpeSDwaOZmdINaqf2dmSie3n1SQQl5N4BSuXj1XbIxVmZdtOot RPVA+czR6663w4OOecOqqQ0FFURsAioYAQL6+kVY+dcOgjoYIejT52NeXwChuwv4SHVPKGjUawHXvQL9 dTpWJyF5abL8byII/iMyvqlkjEkBqokafQKTm407hF OBZ1+l3liyov97znd0z4nB4+Z+d+jsEz9NM0S/3OTr+d93F2u32bqVCEYjhdLAH95PpibYWvGHBCCuXb 7PQ7O/3OTr+z0+/kzIMuqujB7xnOIeGxE4gUqYLFSAkHOckAkrNH5NnFmtx1k2NRvP6p9QGCjl99g+7I n6g+lIYhv4C0EOEMjRGgRUmPdowcI3DiK/rgnDhwXj m4nxgX+lJp1NMxzj5LKC+BYqQyvDQotesx5cyaF07eziePGl6d1A0z8JkjPuyPMXceV2J7QaKVYyEIDN FcSmP6ISCQqEH3snhsv22vhMGc6KaWYgRPDUIeNcQz9wufB54Y7fubxqsnVHTNCBaYPjbfv+qxHIKIEG E/tD420qK6xKSqZa0Uy7QfnfxQMvAOsZZiURfODCVL QvBApNW8i78nsPfRx0TFTgo2UI5GNSLhGS+seizL+ph4DS4ZFIMfNZtECac3EKWCSDV7huZVL7l7s/La 4CU35oWFBqDdy/UVQX5r8lwGJlPusWJsdY49QZ9SvZCmg740YU60ISVZrigVj1E76FVsayw8FK5pp/XE iibd6bDBlqOge9GkjPDRA7cfeDVvq7sf9poNEebsnx 0xP1Ayc6EdObWjk0rAdEbyuIgKIb4Yg44N3FRuzjdYF1dAz++3ZFrt87f3TPHxniHBURsjY+SK2eB2pa b3EwN1+1BYX5k3UBZw7WOWtPjDJPMfSTlNbZJkeMkNOZvTFZ5dAuDGgvMppHvTcKHVOqyZrQdD2BrrEk wvpSKTFVHOOBucwTZzDQRSPjOU6PHWr+UQRISIEFEi XcCJYWyCn4eM/Xslmy0lxl/9LbAT4RB1xSEVLAoJZaoQiRV9W5D+dzgKBuf3gBqczBhorl9QnCu5j343 MFPhoUPwOWckX2AfenFDIc9XgBycS0JncDbCy249WC8EWLN3OvHs1MIlv3SntXjRP1aNIphZuKwj96xU 9A3Y2L2pxOmXCpqJuzBXFzDVMIEUwrubSUPORHloL7 kFW8sA6BNol4IQP3AEcFkMHPRAfJGkZQmYodW311WmsybygXmak+7jv7/9l2/l7R/ePv4/b+8/3thchG HO5x831/JoVz42P44/+eU/am8i6h42/xj4kOL3Jb/09qigdU6uzf5O44v7l08+JP3n/+3dVz+/o4LfXi blJ4g5PgUfg9k4vlp/7qvfv/2dv232iLll/dtv3v/q i8/wssu9t2+++Pb9h2+++Rr6z2jj955yKrqi2Lil0q34sY/zrxflb5263K7rbsnl5+0+vfJ9V738C/NJ X3z1u2/ePr77/Ne///stg5762z4p/PZehe/f/vbrrz+8/fbD+8+/vn/87ktO95/75h6R45+++/b9i/31 f/3w/woseqo5c7by9dj36wr9p4/35zg7n19+/XrrF/ L51u7Z0i/rNu9++eBUE61u5inWJ//x7fOvv/rmi1+9//D2xVf//P7DF6+Hf/HN579+/5u/69Tojgl4t7 2Ht/ef/9e/23Pcj9c/2fDKt4i+/eLrV+tfv/nb2w8395108r9rr7v/d/50q/H3nz7/84//8ce//PD9v7 /99//99u0f//Sn7/7yl++/+9M/vv3qux//+M1p1h1q v0j+2z+8/fnHN/mFjF/Mzz0+c/3spae8+12jzU8HgcCvJjBOT77lFm69cBHhO5bxMg/oZJH3379w4Z9o /98Oxb36oPTzid2lw9cFxw7k2RhfXOor6Gn3mvwC6onC0ZNSl0+7fiqqWQfn/sGH7//j+3rvgtm27nrm DB8//zs1y470iGccfE/rITOay23aNx/y/l/Q2Lmxx4 1h7Kcn//G8fWJIaIXJ96aNEy5XREo3+x//85/e/vLdf37/ye1fS+nbSqxz/+iHv/707huTlj+9+wZ/++ Htjz/+5/d/+X//0w3Q0cmQR256gH0wTS1ca9/Eu7x86j8a/+fr3f/45x9/qoaQpm3vy5+3eLB/+fiLf/ n4B+MheOPUm0LgN6mdZ0b/UahETo5v1iJ5xnFrVwOp YhubM5v12LY++/MPP//49t3/+i0eogsbvt205d//+q9kj39ooijCVBi0//2Xf/uHn/x6f4Z//v6H7/70 yQcen+Cff/c///DdX//43Y8/ucMWdbv++ONP/39Gy/Wn//63/31k+OHPf/4fltuC8Ji/2S3+8s9/+Kw3 YaCqVn5RHxWP+f0f/u8f//iH1xt+9vbf3n/17stPVq S893nNVE13k//56nb//hdwn2yxv5cUSHt+9W9+8/7pc298riR+r53/55/clpK+9Zp3f/vd//j+Td7+/B 0usf7ms/n/TBtvb+7cZ4sCK32/q4+v+bFeQ20oIDoxs0K4/+Ero8zm2O4UGP/vPv/471636jdpa2ag01 rH09f+jameoFWMYS4kn6FfRFWbZrTdCA5pshvdQVPg QA8pesd8U5EcyOkqXEiOYFPgNl5rdPFaUL8EAWB6ZFpwPJBaRMQwA0SycV8iJ29scVMrFtPzBUHKTV8F phC0VNT9AEV4WIJpZtZtMBAbWG30MOJmLAYZSt7akrSmLdiPVhOlXI6ubnx2C0J2bTNaJ007aAusflOk MZ1Rl2QjfTEzVD7VmIZcxBIbDCYmEUVqL8aps2CyOB zpSKGWJs6sqxTiFvvNDoKzUA8tljo2K8T6bGwjboZaYEWHXSxbJccxWG4plUtwziboD7DneOKbXEIlE9 BwFGRzi77NCXUxRUbIDhWwHqRaQYN1LHe7ZztdSnOgRRQvMIEqVIEiTM9PxLXiJBOyACMYBZrkAszxYN OzzX0imRHOt0JqL04TDHyKVHyDKDOVAJLEMrEnPeBa BRL3ISCxZ5EcaxJgiXSsRRMJXHeaDiolLQEvmW6drWegN3PrOCS5f8AfHQ8RW8EnFKCtNBDTKQQ5e3Tw XELtmnshihtlKaPvCFDlYVAuDGBeHX4Ddu5cqHHhvcEoRIKOYVlvGigiOP1vyFtgchbxE9VcjCSpLFA+ BbTlUE2qbx4+TgUmRBXyBvm7VEYdPPipUXWdKROcUY QqW7uxSGNsUiXpUSRgWtHlAD9Yy2KfdFWhOr4gohYdKtqOvYCaVoghDWZuIXKbGMYyBoSYROZyAZCaGN SwXEA7BGIzUTChTSslPUGsRQT5SDp7RDVjKZHsUO7jUhRcPGUqIrWsQATlNVYsVZTtvnPXRWCrRVT8Gh ZvZVLuQNDlCRZyUAoeNIReYJBuZZAjVFC7ZBY4UTOh TjYkXLBkCTMoXECvFQIiSAFhajYYAMTrWDKsANU5UQNoUFXzKAKyIBbgKATwGTKcEJwiZBJyVEGtXY5v AzSdOSUtPNJcQGjoSEHhJRPfnjKLSYTbXCUjIXKwQSWrQFCwUPDvIYeoEEHiJWImLVBbYCEfOVHtOB4m WdMlSAVbSEU4QLKtUZHqLBFjcfRAFFBjDQNxTCt9QG SiTXSoUILwYYrpTSJmTNWxRPM9EUQwBKGlVT1pBuZlHAVbXGD1EtYsAGWeQMAgbjUEQMPmCWLaEWL8Jh GbKYYwQWRtTOddSQTfJAOoZPpvKHHfHNQaWC3cIfUgVIImAZGvFVklNJSiZEMhseGFNCEpQAPdJWUwCq ZoVJXnPDHbYFlsXYPfAPT5AERtMJQtUGApXO0dWtFz EVCaOPJ8OApuESJtSHPltlQSUALxBHMrBSriPIJqACIrGHLtJYntBSItYKWySTK8UJQgBBOeYG9kSqPn KIHnJHFuEPTmQjD0DnNwYkZKnVHcaJtvijz4ZBaeU6g9ONRhRPjjWT0ygiVuDNQpFxhzDy1iyDC2VIVh BisHMs2Fv7TpdcX4ayVhUrG3YKXoFlRpZQ8F ID Date Data Source [id number] 10/05/2020 07:37:16 AM [facility] Name Value Range Interpretation Code Description Data Edna rce(s) Supporting Document(s) Leukocytes [#/volume] in Blood by Automated count 7.9 10*3/uL 4-10 [facility] Erythrocytes [#/volume] in Blood by Automated count 2.58 10*6/uL 4.1- 5.3 L [facility] Hemoglobin [Mass/volume] in Blood 7.5 g/dL 11.5-15.5 L [facility] Hematocrit [Volume Fraction] of Blood by Automated count 23.0 % 3 6-45 L [facility] Erythrocyte mean corpuscular volume [Entitic volume] by Auto mated count 89.1 fL 80-96 [facility] Erythrocyte mean corpuscular hemoglobin [Entitic mass] by Automated count 29.2 pg 27-33 [facility] Erythrocyte mean corpuscular hemoglobin concentration [Mass/volume] by Automated count 32.7 g/dL 32.0-36.0 [facility] distribution width [Ratio] by Automated count 15.0 % 11.5-14.5 H [facility] Platelets [#/volume] in Blood by Automated count 216 10*3/uL 150-400 [facility] ID Date Data Source [id number] 10/05/2020 06:38:06 AM [facility] Name Value Range Interpretation Code Description Data Edna rce(s) Supporting Document(s) Leukocytes [#/volume] in Blood by Automated count 4-10 [facility] Notified Elyssa Mariscal on 5B at 0637 on [id number] by [id number] Erythrocytes [#/volume] in Blood by Automated count 4.1-5. 3 [facility] Hemoglobin [Mass/volume] in Blood 11.5-15.5 [facility] Hematocrit [Volume Fraction] of Blood by Automated count 3 6-45 [facility] Erythrocyte mean corpuscular volume [Entitic volume] by Automate d count 80-96 [facility] Erythrocyte mean corpuscular hemoglobin [Entitic mass] by Au tomated count 27-33 [facility] Erythrocyte mean corpuscular hemoglobin concentration [Mass/volume] by Automated count 32.0-36.0 [facility] Erythrocyte distribution width [Ratio] by Automated count 11.5-14.5 [facility] Platelets [#/volume] in Blood by Automated count 150-400 [facility] Sample quality of Dried blood spot [facility] ID Date Data Source [id number] 10/05/2020 06:01:10 AM [facility] Name Value Range Interpretation Code Description Data Edna rce(s) Supporting Document(s) Leukocytes [#/volume] in Blood by Automated count 4-10 [facility] Notified Elyssa Mariscal on 5b at 0600 on [id number] by [id number] Erythrocytes [#/volume] in Blood by Automated count 4.1-5. 3 [facility] Hemoglobin [Mass/volume] in Blood 11.5-15.5 [facility] Hematocrit [Volume Fraction] of Blood by Automated count 3 6-45 [facility] Erythrocyte mean corpuscular volume [Entitic volume] by Automate d count 80-96 [facility] Erythrocyte mean corpuscular hemoglobin [Entitic mass] by Au tomated count 27-33 [facility] Erythrocyte mean corpuscular hemoglobin concentration [Mass/volume] by Automated count 32.0-36.0 [facility] Erythrocyte distribution width [Ratio] by Automated count 11.5-14.5 [facility] Platelets [#/volume] in Blood by Automated count 150-400 [facility] Sample quality of Dried blood spot [facility] ID Date Data Source [id number] 10/05/2020 05:14:09 AM [facility] Name Value Range Interpretation Code Description Data Edna rce(s) Supporting Document(s) Bicarbonate [Moles/volume] in Serum 21 mmol/L 22-29 L [facility] Chloride [Moles/volume] in Serum or Plasma 108 mmol/L 98-107 H [facility] Creatinine [Mass/volume] in Serum or Plasma 0.70 mg/dL 0.50-0.90 [facility] Glucose [Mass/volume] in Serum or Plasma 93 mg/dL 70-140 [facility] Potassium [Moles/volume] in Serum or Plasma 3.8 mmol/L 3.4-5.1 [facility] Sodium [Moles/volume] in Serum or Plasma 139 mmol/L 136-145 [facility] Urea nitrogen [Mass/volume] in Serum or Plasma 8 mg/dL 6-20 [facility] Anion gap 3 in Serum or Plasma 10 mmol/L 8-15 [facility] Osmolality of Serum or Plasma by calculation 286 mosm/kg 275-300 [facility] Creatinine/Urea nitrogen [Mass Ratio] in Serum or Plasma 11 [facility] Calcium [Mass/volume] in Serum or Plasma 8.3 mg/dL 8.6-10.0 L [facility] Glomerular filtration rate/1.73 sq M pre dicted among non-blacks [Volume Rate/Area] in Serum or Plasma by Creatinine-based formula (MDRD) >6 0 [facility] Glomerular filtration rate/1.73 sq M pre dicted among blacks [Volume Rate/Area] in Serum or Plasma by Creatinine-based formula (MDRD) >60 [facility] ID Date Data Source [id number] 10/05/2020 05:14:09 AM [facility] Value Range Interpretation Code Description Data Edna rce(s) Supporting Document(s) Phosphate [Mass/volume] in Serum or Plasma 1.7 mg/dL 2.5-4.5 [facility] ID Date Data Source [id number] 10/05/2020 05:14:09 AM [facility] Value Range Interpretation Code Description Data Edna rce(s) Supporting Document(s) Magnesium [Mass/volume] in Serum or Plasma 1.9 mg/dL 1.6-2.6 [facility] ID Date Data Source [id number] 10/05/2020 01:23:54 AM [facility] Value Range Interpretation Code Description Data Edna rce(s) Supporting Document(s) Leukocytes [#/volume] in Blood by Automated count 8.5 10*3/uL 4-10 [facility] Erythrocytes [#/volume] in Blood by Automated count 2.44 10*6/uL 4.1- 5.3 L [facility] Hemoglobin [Mass/volume] in Blood 7.2 g/dL 11.5-15.5 L [facility] Hematocrit [Volume Fraction] of Blood by Automated count 21.6 % 3 6-45 L [facility] Erythrocyte mean corpuscular volume [Entitic volume] by Auto mated count 88.7 fL 80-96 [facility] Erythrocyte mean corpuscular hemoglobin [Entitic mass] by Automated count 29.5 pg 27-33 [facility] Erythrocyte mean corpuscular hemoglobin concentration [Mass/volume] by Automated count 33.2 g/dL 32.0-36.0 [facility] Erythrocyte distribution width [Ratio] by Automated count 15.1 % 11.5-14.5 H [facility] Platelets [#/volume] in Blood by Automated count 191 10*3/uL 150-400 [facility] ID Date Data Source [id number] 10/04/2020 06:43:34 PM [facility] Name Value Range Interpretation Code Description Data Edna rce(s) Supporting Document(s) [facility] [id number]/[id number] lbm [file] [id number]== ID Date Data Source [id number] 10/04/2020 06:11:46 PM [facility] Name Value Range Interpretation Code Description Data Edna rce(s) Supporting Document(s) Troponin T.cardiac [Mass/volume] in Serum or Plasma <0.01 [facility] ID Date Data Source [id number] 10/04/2020 05:49:02 PM [facility] Name Value Range Interpretation Code Description Data Edna rce(s) Supporting Document(s) Leukocytes [#/volume] in Blood by Automated count 9.2 10*3/uL 4-10 [facility] Erythrocytes [#/volume] in Blood by Automated count 2.76 10*6/uL 4.1- 5.3 L [facility] Hemoglobin [Mass/volume] in Blood 8.0 g/dL 11.5-15.5 L [facility] Hematocrit [Volume Fraction] of Blood by Automated count 24.4 % 3 6-45 L [facility] Erythrocyte mean corpuscular volume [Entitic volume] by Auto mated count 88.3 fL 80-96 [facility] Erythrocyte mean corpuscular hemoglobin [Entitic mass] by Automated count 28.9 pg 27-33 [facility] Erythrocyte mean corpuscular hemoglobin concentration [Mass/volume] by Automated count 32.8 g/dL 32.0-36.0 [facility] Erythrocyte distribution width [Ratio] by Automated count 14.9 % 11.5-14.5 H [facility] Platelets [#/volume] in Blood by Automated count 209 10*3/uL 150-400 [facility] ID Date Data Source [id number] 10/04/2020 10:49:12 AM [facility] CT ANGIOGRAPHY ABDOMEN AND PELVIS [id number] INAL RESULTInterpreted by:NORM WelchPROCEDURE INFORMATION: Exam: CT [...] (IV); COMPARISON: CT ANGIOGRAPHY ABDOMEN AND PELVIS [id number] 10/02/2020 4:54 AM FINDINGS: Lungs: Mild ground-glass [...] DOCUMENT HAS BEEN ELECTRONICALLY SIGNED BY OKSANA Henderson document has been electronically signed by NORM Welch on 10/04/2020 10:49 AM Name Value Range Interpretation Code Description Data Edna rce(s) Supporting Document(s) ID Date Data Source [id number] 10/04/2020 11:43:16 AM [facility] Name Value Range Interpretation Code Description Data Edna rce(s) Supporting Document(s) Leukocytes [#/volume] in Blood by Automated count 8.7 10*3/uL 4-10 [facility] Erythrocytes [#/volume] in Blood by Automated count 2.85 10*6/uL 4.1- 5.3 L [facility] Hemoglobin [Mass/volume] in Blood 8.4 g/dL 11.5-15.5 L [facility] Hematocrit [Volume Fraction] of Blood by Automated count 25.4 % 3 6-45 L [facility] Erythrocyte mean corpuscular volume [Entitic volume] by Auto mated count 88.9 fL 80-96 [facility] Erythrocyte mean corpuscular hemoglobin [Entitic mass] by Automated count 29.3 pg 27-33 [facility] Erythrocyte mean corpuscular hemoglobin concentration [Mass/volume] by Automated count 33.0 g/dL 32.0-36.0 [facility] Erythrocyte distribution width [Ratio] by Automated count 15.2 % 11.5-14.5 H [facility] Platelets [#/volume] in Blood by Automated count 181 10*3/uL 150-400 [facility] ID Date Data Source [id number] 10/04/2020 06:13:34 AM [facility] Name Value Range Interpretation Code Description Data Edna rce(s) Supporting Document(s) Leukocytes [#/volume] in Blood by Automated count 9.0 10*3/uL 4-10 [facility] Erythrocytes [#/volume] in Blood by Automated count 2.47 10*6/uL 4.1- 5.3 L [facility] Hemoglobin [Mass/volume] in Blood 7.3 g/dL 11.5-15.5 L [facility] Hematocrit [Volume Fraction] of Blood by Automated count 21.8 % 3 6-45 L [facility] Erythrocyte mean corpuscular volume [Entitic volume] by Auto mated count 88.4 fL 80-96 [facility] Erythrocyte mean corpuscular hemoglobin [Entitic mass] by Automated count 29.5 pg 27-33 [facility] Erythrocyte mean corpuscular hemoglobin concentration [Mass/volume] by Automated count 33.3 g/dL 32.0-36.0 [facility] al Erythrocyte distribution width [Ratio] by Automated count 15.1 % 11.5-14.5 H [facility] Platelets [#/volume] in Blood by Automated count 170 10*3/uL 150-400 [facility] ID Date Data Source [id number] 10/04/2020 06:30:17 AM [facility] Name Value Range Interpretation Code Description Data Edna rce(s) Supporting Document(s) Bicarbonate [Moles/volume] in Serum 21 mmol/L 22-29 L [facility] Chloride [Moles/volume] in Serum or Plasma 109 mmol/L 98-107 H [facility] Creatinine [Mass/volume] in Serum or Plasma 0.67 mg/dL 0.50-0.90 [facility] Glucose [Mass/volume] in Serum or Plasma 94 mg/dL 70-140 [facility] Potassium [Moles/volume] in Serum or Plasma 3.4 mmol/L 3.4-5.1 [facility] Sodium [Moles/volume] in Serum or Plasma 139 mmol/L 136-145 [facility] Urea nitrogen [Mass/volume] in Serum or Plasma 8 mg/dL 6-20 [facility] Anion gap 3 in Serum or Plasma 9 mmol/L 8-15 [facility] Osmolality of Serum or Plasma by calculation 285 mosm/kg 275-300 [facility] Creatinine/Urea nitrogen [Mass Ratio] in Serum or Plasma 12 [facility] Calcium [Mass/volume] in Serum or Plasma 7.9 mg/dL 8.6-10.0 L [facility] Glomerular filtration rate/1.73 sq M pre dicted among non-blacks [Volume Rate/Area] in Serum or Plasma by Creatinine-based formula (MDRD) >6 0 [facility] Glomerular filtration rate/1.73 sq M pre dicted among blacks [Volume Rate/Area] in Serum or Plasma by Creatinine-based formula (MDRD) >60 [facility] ID Date Data Source [id number] 10/04/2020 05:33:40 PM [facility] Name Value Range Interpretation Code Description Data Edna rce(s) Supporting Document(s) Thyrotropin [Units/volume] in Serum or Plasma 0.524 u[IU]/mL 0.270-4. 200 [facility] ID Date Data Source [id number] 10/03/2020 07:46:52 PM [facility] Name Value Range Interpretation Code Description Data Edna rce(s) Supporting Document(s) Leukocytes [#/volume] in Blood by Automated count 12.2 10*3/uL 4-10 H [facility] Erythrocytes [#/volume] in Blood by Automated count 2.95 10*6/uL 4.1- 5.3 L [facility] Hemoglobin [Mass/volume] in Blood 8.6 g/dL 11.5-15.5 [facility] Hematocrit [Volume Fraction] of Blood by Automated count 26.5 % 3 6-45 L [facility] Erythrocyte mean corpuscular volume [Entitic volume] by Auto mated count 90.0 fL 80-96 [facility] Erythrocyte mean corpuscular hemoglobin [Entitic mass] by Automated count 29.0 pg 27-33 [facility] Erythrocyte mean corpuscular hemoglobin concentration [Mass/volume] by Automated count 32.3 g/dL 32.0-36.0 [facility] Erythrocyte distribution width [Ratio] by Automated count 14.8 % 11.5-14.5 H [facility] Platelets [#/volume] in Blood by Automated count 166 10*3/uL 150-400 [facility] Confirmed ID Date Data Source [id number] 10/03/2020 04:23:14 PM [facility] IR RENAL ARTERIOGRAMFINAL RESULTInterpre edgar [...] Bentson wire. Over the wire, a 5 Vincentian Omni Flush catheter was introduced into the abdominal aorta and aortogram obtained (20 cc/s for 30 cc). 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 The catheter was exchanged for 5 Vincentian SOS 2 catheter and the left renal [...] rce(s) Supporting Document(s) ID Date Data Source [id number] 10/03/2020 02:45:17 PM [facility] Name Value Range Interpretation Code Description Data Edna rce(s) Supporting Document(s) Leukocytes [#/volume] in Blood by Automated count 9.9 10*3/uL 4-10 [facility] Erythrocytes [#/volume] in Blood by Automated count 2.95 10*6/uL 4.1- 5.3 L [facility] Hemoglobin [Mass/volume] in Blood 8.5 g/dL 11.5-15.5 L [facility] Hematocrit [Volume Fraction] of Blood by Automated count 26.1 % 3 6-45 L [facility] Erythrocyte mean corpuscular volume [Entitic volume] by Auto mated count 88.6 fL 80-96 [facility] Erythrocyte mean corpuscular hemoglobin [Entitic mass] by Automated count 28.9 pg 27-33 [facility] Erythrocyte mean corpuscular hemoglobin concentration [Mass/volume] by Automated count 32.6 g/dL 32.0-36.0 [facility] Erythrocyte distribution width [Ratio] by Automated count 14.7 % 11.5-14.5 H [facility] Platelets [#/volume] in Blood by Automated count 160 10*3/uL 150-400 [facility] ID Date Data Source [id number] 10/03/2020 10:12:33 AM [facility] Name Value Range Interpretation Code Description Data Edna rce(s) Supporting Document(s) History and Physical [facility] OWQBXf5uHiDFKeUl04/WWPrgQNImt6QkMTxlKZw4XJvwFVQaN2DqBTS5bA1cDOU5UYlWBuUtNyInHKH1 lbm [file] b9Kp3d0s5QAE/6rEm/x1Xfg3Zo1GEAIjNB+pvzSLVb3gbHs0jAM2XA48mlVTOfm0FtVn4/RTdnaHw/satin finisher [file] ICAgICAgICAgICAgICAgICAgICAgICAgICAgICAgIC AgICAgICAgICAgICAgICAgICAgICAgICANCiAgICAgICAgICAgICAgICAgICAgICAgICAgICAgICAgIC AgICAgICAgICAgICAgICAgICAgICAgICAgICAgICAgICAgICAgICAgICAgICAgICAgICAgICAgICAgIC AgICAgICANCiAgICAgICAgICAgICAgICAgICAgICAg ICAgICAgICAgICAgICAgICAgICAgICAgICAgICAgICAgICAgICAgICAgICAgICAgICAgICAgICAgICAg ICAgICAgICAgICAgICAgICANCiAgICAgICAgICAgICAgICAgICAgICAgICAgICAgICAgICAgICAgICAg ICAgICAgICAgICAgICAgICAgICAgICAgICAgICAgIC AgICAgICAgICAgICAgICAgICAgICAgICAgICANCiAgICAgICAgICAgICAgICAgICAgICAgICAgICAgIC AgICAgICAgICAgICAgICAgICAgICAgICAgICAgICAgICAgICAgICAgICAgICAgICAgICAgICAgICAgIC AgICAgICAgICANCiAgICAgICAgICAgICAgICAgICAg ICAgICAgICAgICAgICAgICAgICAgICAgICAgICAgICAgICAgICAgICAgICAgICAgICAgICAgICAgICAg ICAgICAgICAgICAgICAgICAgICANCiAgICAgICAgICAgICAgICAgICAgICAgICAgICAgICAgICAgICAg ICAgICAgICAgICAgICAgICAgICAgICAgICAgICAgIC AgICAgICAgICAgICAgICAgICAgICAgICAgICAgICANCiAgICAgICAgICAgICAgICAgICAgICAgICAgIC AgICAgICAgICAgICAgICAgICAgICAgICAgICAgICAgICAgICAgICAgICAgICAgICAgICAgICAgICAgIC AgICAgICAgICAgICANCiAgICAgICAgICAgICAgICAg ICAgICAgICAgICAgICAgICAgICAgICAgICAgICAgICAgICAgICAgICAgICAgICAgICAgICAgICAgICAg ICAgICAgICAgICAgICAgICAgICAgICANCiAgICAgICAgICAgICAgICAgICAgICAgICAgICAgICAgICAg ICAgICAgICAgICAgICAgICAgICAgICAgICAgICAgIC AgICAgICAgICAgICAgICAgICAgICAgICAgICAgICAgICANCjw/yXFmL3jgwSAgchZ6I0vsPj8DWx3RRH 5lj2ZySSWmOFltvgIfSloEHwRsKZJxUebTDmm6ZSedXR3OqAFeM9MqK4QiFWvyYE9IDGEpPJFbfQAwAB GbTJPvKvH8RVMqITgmSV2DsBHmYUcvAOTfUUIwOsTn PVXvPXZzWGDkMT9IHZDyP845svXbIw0TUu3FGpQcJL0gwb4HMpUqZCZiQjfXLvy2OCtqYI2UrYSgvDDz JjBvDTLCTcPcQ0ben0FvXghsLWDDVSyaWO5Bw7BwwOZjLCt+Xy6NCW4bd4YtPQauGyRzNI3cfd5OGMjE ZnNrV3YsmFjuDChpKNCeqWFHNJUnvPkyft9qS21sGG pgy4whFVCAPHOopQHdIsF9WnMyRdTvJYV7SXAaSN4eRLraRA9KMPQ0QEhpHLVhGGNzT5sDLwTaQXNbGa IncAimXH3KKxPnR4DkzqDsrKGvPnDtJLQCSn0+CLajotMjWaiMHeH8KIHjo7HdASa5JP2BPWXkSMxyLE 3JHYGxbV0fEMrsTG2AQkCpQSLaBRMMAnOfR18cmKGo RFp3Z1GnRnNpLUGoUblaXNYpXIjdKaIaKULyEwLiZSlcVR4+ID4+OFjmXN4YOEfemxHhEIAwWu7AHKOd MQTvGS6hBHChFFTpZ2G4gHfvXCDUFnAtP4fttiwtTC7tIFBqS260jLkbctZoAXA3KFYiRy0AQDFgPMA5 BHJbzXWrUvQpRYFHIRgpWT7QwNBhBZE4uT1mHYezHC YwHRPsB1jIRmTfpEjtJV98cUaewkOxvMUwJJc+Aq5JNZ0pd6KsHPf0wfLxCLwjNZS5INoeNJSeNOGbUC SmPQB3EVA7MLMYBiVoYMIiFRMaIAleWWRkSCOvhc6IDBTiIFAoLjf8UmLoZZCxPFExXNqwYSYsKPX3Ne dpWRQwNZTzRX1EVlVuRHWhKWQeTWuuQQIhXNJfuo8W GTNeCRGxHydgTFDqUWRlRVTaCPijDJAoJUQsMSB5IGNoLCHlQG5VGlVmBGJiFCPrVJRkBHPtKCIwky0Y GERaIJReAbT5KXGnSYByJDLyAStfQCSaSWS7Bca7QOLgYBWyLY7TOjNwRYZgUHb6EOnpGLPcWRWgyx1P FYZyBTDtDOC0PKSoASPxNAQoRRjfRELiKZE6WoA1IY VdUCDeOU7HCxEeOALvETs0YepfPFCmWVOzcj1GOIVmFQXkDKs4MvMsAXQrHUDnJBdoGSRoGSMuDYd2EN MyMRMoCM2SXiGcNYOmVZUhBBisKFZcAFRevh0PYABiZZMgIPJ1DqYhPPNrVKAjJCknYGDdJOHuXDK6ZW LzJDWvWN3CBhGrSQCjBZN9OonpGCKmMGNtww0LZGLn YWXsTkEjVkKcRROfCSQkBLcvZSPxKLXqXgHeBMDmLGQdQZ8JUfSzOSQsTeS1QnlgTYHsCEOycs1BGETn TRXeEfx5FWBtQAXpPLYfBXzdSXVsICQpQFK3CJBfBHPvXV1NQtDpCRTtTfDeUKSsFUHxAMAiqx6PZJAu SMGiBUr5QJKgOIMmTEAyINghYRZiIPP3XPKoHDNcYD DnWC1BKgUqHJOcRdXaOTDbGLOqJIIbev2HvFJqdXgbep1GPVpAAd4ZvFjuAQL9MOklUh9whDQcWBJeFM MGTi7CnkRaHJUpLSPVHFzoWOKpPZT0XEVcALQoTMB6KuC4NlBjM8VoBeXePeJ4OTHyK4BbZmI8DKr7Iz P8TQY7FnDgHaKxLZAjClYgDOFnYXj0CUU2FYC+IF0g DQo+Yo3Sl3XjdvE6nxMqUOskCtW3NM0BXUBHG4SVIc== ID Date Data Source [id number] 10/03/2020 10:11:22 AM [facility] Name Value Range Interpretation Code Description Data Edna rce(s) Supporting Document(s) Consultation [facility] YYNEQz5pMpCTWoDn30/SMLuxUNXti3FfHDuiKPe5HImuNHRhU2GtCSK5qM0xQOY7TWaMYqAeYnVsQNW2 lbm [file] [employer] BASIS ADMINISTRATOR+Ru1GLTSmBIc9Z5J2AWFjWOm5E8IKX7EGAAYdXN yfWIllPWErLNz4T2B2VHMtW1TGR0Qgopdghw4+DV1HI72OUWCgSQp5I8S1uWZlT9A9fAxMbLN9XU8HEB 6YoPx2tAZlaD2+KS3XL8UMPhIbSVm0U8Z4yWKcZ9A9fAmFfKS8MK6ULL9KpMHqXEDwduYnAa2bT2HWFD aGCaDAPNK9OU7ChQUdBZ4KsYLST4DduXSmCo7zDVrm qCSocC6uOx9zJUbvCG9ALbQYEXcWDBZ0HQ4BbKSrPV3KfZGKI7UyqSFfOb2tVNvrqBSnec8+FH9YMTCd Rn6NIb7+YVojctIpAnjDPeZ5EKDhp1YjCOo6EU7IPF8yqIxuAPP4Yf7FmTV8rCPbW0wDQJ0UfKHqD39w oMNoDDSvGr9SLhE5ckHtwA7BNR90kNTxs0B9MASbT8 wtNGzjj56gYXzbFWfNPF6pPHOYFInrULjdDQW9OrVphbcvQEYnGu7MZdNmMXc9mG4ewQI4UTG8AjpvbA KgJYxuDgVfBrQsSiR6jHosljg6QXizPR2hDUnluqhpQBQtNpm+XFwaOGIeMSJiWhdAHBHarE0bmyT5jr TwOBqpjXUqPj9jt0r5TxzuKa1wOd0iEAn9UpRoOiVb FDEsHe5elO23KFgypuMsXf0WWzEkJIT0U6MrWnwUZEZ+NHokPLzcoBi1nOUmCDLdKb2UQHMcNEPjIHSr ICAgICAgICAgICAgICAgICAgICAgICAgICAgICAgICAgICAgICAgICAgICAgICAgICAgICAgICAgICAg ICAgICAgICAgICAgICAgICAgICAgICAgICAgICAgIA 0KICAgICAgICAgICAgICAgICAgICAgICAgICAgICAgICAgICAgICAgICAgICAgICAgICAgICAgICAgIC VdURTwFLGwASEuNFHdOOWcQHQpHUPyXMTpVFTnLHExJDSwNWAdGURcPO8CKSFjLIJrSPAkJYBeFQDiDN AgICAgICAgICAgICAgICAgICAgICAgICAgICAgICAg WRIhMZAgIWFyDSOqUWIpNWAvXCWeTHWzDOGnZOOeJOGrFDMlRMCzZZNcJBPvWPCkCUXkZP4TZWPwIUMu ICAgICAgICAgICAgICAgICAgICAgICAgICAgICAgICAgICAgICAgICAgICAgICAgICAgICAgICAgICAg ICAgICAgICAgICAgICAgICAgICAgICAgICAgICAgIC KzIL9YPODkIVPsWSJeVAPoSGKdYKHsJUQcWHQdOFGnBVXdEDVxQNDoCNCbGZLlMBZfMWLvNOJwYMZmTG SkYAAjXZHeOVAoSOOhMVRjPZWxMDAcEGGbMLJcHCDoVRDnMGOnKTSlCPXlPS2PJUPpAVFbAOVuTRNzQU AgICAgICAgICAgICAgICAgICAgICAgICAgICAgICAg SRNeXSYhFECwOQJuIMWkGSYgJENlKDGbAZXwJGBrBJLnJNVdMHXzASLnWNXoSVAxKMFuMEIwCU7WMPXw ICAgICAgICAgICAgICAgICAgICAgICAgICAgICAgICAgICAgICAgICAgICAgICAgICAgICAgICAgICAg ICAgICAgICAgICAgICAgICAgICAgICAgICAgICAgIC TiFUVjUT5MHUNeUSDgKKWaOKMsAQJjFKFhLTSgQHKyFPRqECHkZRTzMYQrGFGpJLRtJOGaJOZzDBBlXD TwLOQpETBhICFoMSFlXNIiHHSfYNRtGTZcRKVeDEXgAWDvRPGxAGZqBFIjIOLtUV3SYSVmCYYyTYOqCY AgICAgICAgICAgICAgICAgICAgICAgICAgICAgICAg SYThRFSbOPKuTCSrPKEiEMXhNWLeYJLvLPFaHZYzTAKhSHXoYJZeNKDaRBByWUTvMVDcPXTwOKIsYJ1C ICAgICAgICAgICAgICAgICAgICAgICAgICAgICAgICAgICAgICAgICAgICAgICAgICAgICAgICAgICAg ICAgICAgICAgICAgICAgICAgICAgICAgICAgICAgIC PqRJGgPPRdRA8XYC63gQSis8V6GBAaLE5dntg/Yb3YXFpqbfYneSNzVC0MMiZlUQ2hph3GRdSwXK8nlr 9EDKhIBnQaI7L0wQWgGFIyLSHFXdTgR01kYYczJo45SCtxXIWpFcPmHFs2Mr3LGiKdH2fdBQElWfK6HM JjJpX1FNUzUvP8PYPpOhGkXMYmCANzTYFgLHDQDC5Z DdMoK3PbrK45EHDEUi1+BNiyvdSgIbdTVmVnZMLmq1DdFEv4RH7RNVGoKogkh3IlCyHnVZOMCNcjIV3T GSM9NAWkHCHaYc5OZZDiW300axBhGN4MDr1SJwCwMX5ysy0CHjIvOXTbHqsYLym0IQewSX5RwIArNFnL e44guBf4gvHwyOPDAIMokQtjni6uU02jYBokz9saSF RCWOBvaSGeKlN0OmQgNeYnTQm8DebbKW8mRZhsRK6XZYL6JIuoTEQmNOIdY2rWZcSlYDIzLuMynBinLT 9SIgXkN3XcxgRbnCVhKJWkIJDRJx7+JViykmIbQtqIDsDjDMJrn7FzJMi2OH2EAOMdFBmmAJ3PCMUmhZ 2uERrnCB1UDzWzQBOlLDRHPrQgN87gxKNzNFv1L4Ao YmVkZGVkRmlsZXMgPDwvTmFtZXMgWyBdDQogID4+ID4+THxzGP6TGGnmtgIgTMUsOb7BTNOaGJRbYF2u BYTkCXSmE0R8hHbxBISPWpWxX7hwfpjyXV7lWKQoL876eLnskgBjWQWuNALjTx8ASJEtXWP8IKFvfLXm NjrlBUIGADjbIL6WrOHaDVE0vD9zCFgjRKKyZRZyM7 fZWqMpnEfwET39dPdldkUmvYXwKIj+Mz5IYM6xs9CjTQs9xkYnGCvmPFDyUKtmDEZlOTUiEKDlKIN1QJ B0RQBWGyBbNKUjEQXkXWjhEAZaMBHbod1QAFWpIGYjHIW5CvLoYIEvZGMuEPbbALAwFDVeCDX6MXNiYO BpIC8PMmPwTNMhEQEuPNocIUGjBIOxmj8MPSGtCGSa ZiD1WZApRAIpWMMyYJdkEUYeAZCxPCM2BTBtDMLcYX8DLiTnBMLoVFN4OMAqHGLnGHCnxy5ZVWKsAZSw FJe1PkIwLKRfWZYdXNzhRPDdJNO4ANE1ZAOgQAAoSZ5LIpWoWTOcIDjsHuAhRWVgULWpsr7WPVXpIBJd WwA1RnDcTXCnEMHfTGvrBPWpVFMoOwf3GNXoKECqEK 3HFeTqMGSxNXP2HrtiFZLbVDWqjr6NHPTySHYkXRx3YVErGBGpMEEiBLbbGDPfGYR5YDN8GBPrALJnAF 2KVkQnRYRcBARlLQWcSFXnBYQbwp7LLCWqPKErYvQ7NSHvSFDlNNJbTWlmXMIqMIY6NZY5KEDmCHTeSK 7LHkXmBLSgWYudOBJbQNZnCCLqvs3WYMMyFGUjUjSs JVSsOQVfPSHmARdvUZEnSGT4FFq8NEZpKJAeSL2WIwAzIIOaKQi5MISkSPFzCMQqxf5NIEKmOIPxLPa1 VNEkVHUpSNGySCksVHOhAQZmPgU8JOSmXKOyXU2LNsZsEHIlBjE9NzjiPOOpNSPjnl8SZKKvXRQdAEu4 HzBaZAOuECIoEPcsSKKgJALoIYS8TZPzMQCfIE6NKj ZlTFXxZuNfBhKiMVTbKGDurc4GARKcUHFsRBW7TJTzYNDeYOIaPPljYNMfZOTuWHSgZXWgMXGmCQ6OVh QqVTGaTkJlMwWbLBVcJUQlrv2LVTDxCKVwGeC5RGTyBYCjAHAgCIc6jrWiuZAaAJv1JY4XI8LigpOhZn OJXm6Mg395KAWaTIMzXp9KI8dhYj9rPOMvMWUHDy9P HIs6ZoHhWOR8EvAiUSU2NCWqFaNzZNdkNTUsRQEsNaJ3GYI+OKhiSwF0SOr7RfKoOhxdEWKjZNAhS1M2 ADC9JLF7EiolCr4fTMMMOi2+NXrknNPyoNrsQZVGFpXuMLW9JJmqNRFBCs3F ID Date Data Source [id number] 10/03/2020 06:14:32 AM [facility] Name Value Range Interpretation Code Description Data Edna rce(s) Supporting Document(s) Leukocytes [#/volume] in Blood by Automated count 8.8 10*3/uL 4-10 [facility] Erythrocytes [#/volume] in Blood by Automated count 2.73 10*6/uL 4.1- 5.3 L [facility] Hemoglobin [Mass/volume] in Blood 7.9 g/dL 11.5-15.5 L [facility] Hematocrit [Volume Fraction] of Blood by Automated count 24.1 % 3 6-45 L [facility] Erythrocyte mean corpuscular volume [Entitic volume] by Auto mated count 88.5 fL 80-96 [facility] Erythrocyte mean corpuscular hemoglobin [Entitic mass] by Automated count 29.1 pg 27-33 [facility] Erythrocyte mean corpuscular hemoglobin concentration [Mass/volume] by Automated count 32.9 g/dL 32.0-36.0 [facility] distribution width [Ratio] by Automated count 14.7 % 11.5-14.5 H [facility] Platelets [#/volume] in Blood by Automated count 172 10*3/uL 150-400 [facility] ID Date Data Source [id number] 10/03/2020 06:39:29 AM [facility] Name Value Range Interpretation Code Description Data Edna rce(s) Supporting Document(s) Bicarbonate [Moles/volume] in Serum 21 mmol/L 22-29 L [facility] Chloride [Moles/volume] in Serum or Plasma 110 mmol/L 98-107 H [facility] Creatinine [Mass/volume] in Serum or Plasma 0.79 mg/dL 0.50-0.90 [facility] Glucose [Mass/volume] in Serum or Plasma 102 mg/dL 70-140 [facility] Potassium [Moles/volume] in Serum or Plasma 3.7 mmol/L 3.4-5.1 [facility] Sodium [Moles/volume] in Serum or Plasma 140 mmol/L 136-145 [facility] Urea nitrogen [Mass/volume] in Serum or Plasma 14 mg/dL 6-20 [facility] Anion gap 3 in Serum or Plasma 8 mmol/L 8-15 [facility] Osmolality of Serum or Plasma by calculation 290 mosm/kg 275-300 [facility] Creatinine/Urea nitrogen [Mass Ratio] in Serum or Plasma 18 [facility] Calcium [Mass/volume] in Serum or Plasma 7.6 mg/dL 8.6-10.0 L [facility] Glomerular filtration rate/1.73 sq M pre dicted among non-blacks [Volume Rate/Area] in Serum or Plasma by Creatinine-based formula (MDRD) >6 0 [facility] Glomerular filtration rate/1.73 sq M pre dicted among blacks [Volume Rate/Area] in Serum or Plasma by Creatinine-based formula (MDRD) >60 [facility] ID Date Data Source [id number] 10/03/2020 12:46:20 AM [facility] Name Value Range Interpretation Code Description Data Edna rce(s) Supporting Document(s) ABO and Rh group [Type] in Blood [facility] Blood bank comment [facility] ID Date Data Source [id number] 10/02/2020 11:58:43 PM [facility] Name Value Range Interpretation Code Description Data Edna rce(s) Supporting Document(s) Leukocytes [#/volume] in Blood by Automated count 10.0 10*3/uL 4-10 [facility] Erythrocytes [#/volume] in Blood by Automated count 2.38 10*6/uL 4.1- 5.3 L [facility] Hemoglobin [Mass/volume] in Blood 7.2 g/dL 11.5-15.5 [facility] Hematocrit [Volume Fraction] of Blood by Automated count 21.1 % 3 6-45 L [facility] Erythrocyte mean corpuscular volume [Entitic volume] by Auto mated count 88.9 fL 80-96 [facility] Erythrocyte mean corpuscular hemoglobin [Entitic mass] by Automated count 30.3 pg 27-33 [facility] Erythrocyte mean corpuscular hemoglobin concentration [Mass/volume] by Automated count 34.0 g/dL 32.0-36.0 [facility] Eryth[facility] distribution width [Ratio] by Automated count 15.0 % 11.5-14.5 H [facility] Platelets [#/volume] in Blood by Automated count 176 10*3/uL 150-400 [facility] ID Date Data Source [id number] 10/02/2020 06:56:32 PM [facility] Value Range Interpretation Code Description Data Edna rce(s) Supporting Document(s) Leukocytes [#/volume] in Blood by Automated count 11.8 10*3/uL 4-10 H [facility] Erythrocytes [#/volume] in Blood by Automated count 2.86 10*6/uL 4.1- 5.3 L [facility] Hemoglobin [Mass/volume] in Blood 8.1 g/dL 11.5-15.5 [facility] Hematocrit [Volume Fraction] of Blood by Automated count 25.1 % 3 6-45 [facility] Erythrocyte mean corpuscular volume [Entitic volume] by Auto mated count 88.0 fL 80-96 [facility] Erythrocyte mean corpuscular hemoglobin [Entitic mass] by Automated count 28.4 pg 27-33 [facility] Erythrocyte mean corpuscular hemoglobin concentration [Mass/volume] by Automated count 32.2 g/dL 32.0-36.0 [facility] al Erythrocyte distribution width [Ratio] by Automated count 14.9 % 11.5-14.5 H [facility] Platelets [#/volume] in Blood by Automated count 217 10*3/uL 150-400 [facility] [facility] ID Date Data Source [id number] 10/02/2020 12:47:29 PM [facility] Value Range Interpretation Code Description Data Edna rce(s) Supporting Document(s) Hematocrit [Volume Fraction] of Blood by Automated count 27.0 % 3 6-45 [facility] ID Date Data Source [id number] 10/02/2020 12:47:29 PM [facility] Value Range Interpretation Code Description Data Edna rce(s) Supporting Document(s) Hemoglobin [Mass/volume] in Blood 8.8 g/dL 11.5-15.5 [facility] ID Date Data Source [id number] 10/02/2020 10:31:14 AM [facility] Value Range Interpretation Code Description Data Edna rce(s) Supporting Document(s) History and Physical [facility] PGVORv3bEzIXUcQn99/SDOuuEZXsz5FqMGixDUm7CGhjOLJcL4PfHPX0vT4cOND6BSrFJgNcNeNiIYH0 lbm [file] ICAgICAgICAgICAgICAgICAgICAgICAgICAgICAgICAgICAgICAgICAgICAgICAgICAgICAgICAgICAg INDrBQZqKI8PGULzJULnXMShHOFyTDLuJQXnIPOxGF AgICAgICAgICAgICAgICAgICAgICAgICAgICAgICAgICAgICAgICAgICAgICAgICAgICAgICAgICAgIC UuZKZoRBZsGFWlFGNpCLGsTV0UMZLvDIXiVKPqATNcSHHnWOHbQIUiZTCtHPQbWVHgQGYyEPHdWNOdDF AgICAgICAgICAgICAgICAgICAgICAgICAgICAgICAg EQBoINPxPMVqDPNkNUIfPKDrCICzZLOjBHZfFX4RHQClZPPrPSZgEMKlVCAwSXUlTNWiBMOuWQAxGYRg ICAgICAgICAgICAgICAgICAgICAgICAgICAgICAgICAgICAgICAgICAgICAgICAgICAgICAgICAgICAg NAAbINWfSMKfSZ5GUVKaNIJkUPImQFXgOTFfLSLkUO AgICAgICAgICAgICAgICAgICAgICAgICAgICAgICAgICAgICAgICAgICAgICAgICAgICAgICAgICAgIC MqXDQtDRQiBIYrBNRmYBJrJPYpRX6OTMUdOBTmIZEpIDLvVZZdXZVtAUJkCLQbQYQlVIQnAZGkINZsBE AgICAgICAgICAgICAgICAgICAgICAgICAgICAgICAg FGWgVZHpCIQiCSGrLICaVFYlEFYkTTZmYMEhGEVcZZ5ZFDWyMUFwVPNiLPUlTFLkJBArOGBmQSStRCBd ICAgICAgICAgICAgICAgICAgICAgICAgICAgICAgICAgICAgICAgICAgICAgICAgICAgICAgICAgICAg CWCcFAJzPJZgTDXiUF2NZHXaXXYkRHCoHTUjSYAzXV AgICAgICAgICAgICAgICAgICAgICAgICAgICAgICAgICAgICAgICAgICAgICAgICAgICAgICAgICAgIC XaWFInPQVqKYIhBPSyFSQzJLViXNPqFN1ZBZYcFZOoATHbCHFlWIBhVDRyQHPbJWSuOEVuDSGqOURoNC AgICAgICAgICAgICAgICAgICAgICAgICAgICAgICAg VFWdTWFhFFGeFWRoFHZaJKKrUZMiOVPzVPLaWLTnTHWgNZ9LKDGvCPUqLFNrYVSvJKEuXXPuBDYjMTLu ICAgICAgICAgICAgICAgICAgICAgICAgICAgICAgICAgICAgICAgICAgICAgICAgICAgICAgICAgICAg IEEbIYUqVPDzYYDpJYXsJS7BVA69lYEvx3B0PWMjFL 0ndyc/Kz5XBWfpvaFkeIOdBQ5DObWeBJ1mfv3OUcLtYB6byz7AMSmBIiKiX3Y6pUNmWPBhKMIGPfYfW2 3eDKenRr22RLnkKCYtYsIbUMt9Vd9TQeBoU9brZCNdHuE8KCRgNlF3DWQuRcG6IWStHqMbUUPyMZWaOA ZcHWUAPM3CVjQoZ6EbkC04XAGKNj4+DQplbmRvYmoN BaIdKWRjh6RdSNz1BB3ZSQNgDktub7MePnBdIFBVGOsvNQ4QZKG3YGCxMHEoHk7TJZIeX953lxZrHI4A Nd7RHaKtEN1abz6THeSfZAObGpbLKhw0FVwdQL4WkRShNJqXXaBeTzuoU32fox2sDMbzND6beFGpq3Za cwfiNDApMIShTY7cPp7uXWIjWIWfNoJ9SPYOOW5KUB BrDPJywIAvGPIwUBONRT4FZLwtRGX8WMVmtuSwxXHqUUhbMK6SYFUmpbHjVyHvTBIPVBu+Df6ORI0fa1 KeLIpcPcSrHM2dbw2JGIkNEaWiQ4P5aYKmW1K4HBpkEb6IMLNkKLKkIkunVSNGMUvqIC5YXA5qiyF2MI 9KbSMkNGCfOLNxbTBoRUh4L37vnOUqMAxfFU8GOMA+ Erickson+Lp7SFYIrIWIuJCNhNwRyXSPSVqVyF4HuD8AWu0BbU2KtGF63pGvbnyNeKZasGP0PAM4jWRHiREIZ HR9KxLOkhO3xjvDhLAJsOLWBYyTcK47deYZsEBOnWZB8TPKjXo3HRVBuD8OfznEakWccvjYpKXZqLRZI OJ1KZHbbdrIhjRHzeOkiFQ29oPimIK1DQg5KFrEvVO 9rxa4KqCBrUm3IVUMjCp3MAIImSIUkMKHjILJ5MZEvXwRaBHohLDXmZJArBZW5IDSjVOBdLI0WDmIqLR LuCpd4UPKxRQBjKHCsfg5YUWGiRQLyTTU1JVMvBMNqWFCbFCgjYOIrTIEhEJU0WMDkYHMsXE7TOyPoMA OwVAW7KHpoIFOkQVCwuk6EAOJqSCEeMZMdKpVbUDGh RRHkTLzjPREtFMW0GCJ2GOSkMMGwKW5XSxHiWNEjJBJhYAYyEVVjSNFctu8GURGmWKVjFNE2PRZgDQLu VEPuKLlfNXMoWOK3GoWwRUWxLIOzNV4EJfUmTZAaQJDaDKPdIIUrDUZoin6NCXXmGOUkCkOcAAOyVKLl CFPmJKadEUOdUCGbWFHbCMYgPSRtGI3VMvKkJFDvNP YiJIAvFSDvWTAscd4XCDIeVEWnZVZ0OgXcJACxUPSdNDxlSQXdATK2JRGdBTFoIFTiDG0PRyCkOMCsRU U2FWUwJLNqIVXkbb8IWLYqOJAhDJTqNXNsYCPyIFLgNPpoZIMgYGH3IVY9AUXbNTPzPA8VQuSkARQoOH M5EULeDEBqCUTbje2NDOLmMLEaYbb6QATtOAUhLSAx MZfeJMKpALT7OMAxAMXqAIRiSI2NFqUpGSOiKKvdZkMxXDWsIPUaxk4BWHQmEUTjFAqvBOIvOKRyEMWv URkzWSInVKN2OHT4XEXsXXGdXE0BMoIdROFfTpzcLEssVOUrMXRvxd5RWHAqRAVsTQH4XfQtAPGqCCQi URahIJFxEDI5OtHuZGVkAVPdMX2VDbBsNCVrHbAoLO jiNCAxHUSszp3OMDOkYEHaCSScRqPqAVNjWUDqQUdhPBHhGOQiHXf9YDThSGWrBI9XKiSpXVKlWzX3If hmEGEmQXHjur8WiSUrqGlabz6MHWaDEm0YsCtySLAfMIllQh9ymRIlXzUgYYGMFl5MkwHlRXKfXMIKSN gmIZAcZMutGlB5KhNpGMApBpY7Tzj2JVQzEvB0LWWi HrRrSeF1XsP5IVDdPOohUEI2OcCuSIK4HDN6FjDhInK8PHV7SDDyYVz+ZS6cJZy+Vo0Dr0HxckV9buZy IPxiMKp6FE5VIBYLI3RQLb== ID Date Data Source [id number] 10/02/2020 06:47:56 AM [facility] CT ANGIOGRAPHY ABDOMEN AND PELVIS [id number] INAL RESULTInterpreted by:Elena Villalta, MDPROCEDURE INFORMATION: Exam: CT Angiography Abdomen and [...] rce(s) Supporting Document(s) ID Date Data Source [id number] 10/02/2020 05:43:00 AM EST [facility] Name Value Range Interpretation Code Description Data Edna rce(s) Supporting Document(s) SARS-CoV-2 RNA 2019 nCoV Real-Time RT-PCR: NOT DETECTED [facility] This lab was ordered by [facility] and reported by [facility]. ID Date Data Source [id number] 10/02/2020 03:56:52 PM 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 Value Range Interpretation Code Description Data Edna rce(s) Supporting Document(s) Hematocrit [Volume Fraction] of Blood by Automated count 27.5 % 3 6-45 L [facility] ID Date Data Source [id number] 10/02/2020 06:59:25 AM [facility] Value Range Interpretation Code Description Data Edna rce(s) Supporting Document(s) Hemoglobin [Mass/volume] in Blood 9.2 g/dL 11.5-15.5 L [facility] ID Date Data Source [id number] 10/06/2020 07:50:00 AM [facility] Value Range Interpretation Code Description Data Edna rce(s) Supporting Document(s) ABO and Rh group [Type] in Blood [facility] Blood group antibody screen [Presence] in Serum or Plasma [facility] Blood bank comment [facility] ID Date Data Source [id number] 10/02/2020 02:53:18 AM EST [facility] Name Value Range Interpretation Code Description Data Edna rce(s) Supporting Document(s) Leukocytes [#/volume] in Blood by Automated count 14.0 10*3/uL 4-10 H [facility] Erythrocytes [#/volume] in Blood by Automated count 3.46 10*6/uL 4.1- 5.3 L [facility] Hemoglobin [Mass/volume] in Blood 9.9 g/dL 11.5-15.5 L [facility] Hematocrit [Volume Fraction] of Blood by Automated count 30.2 % 3 6-45 L [facility] Erythrocyte mean corpuscular volume [Entitic volume] by Auto mated count 87.3 fL 80-96 [facility] Erythrocyte mean corpuscular hemoglobin [Entitic mass] by Automated count 28.7 pg 27-33 [facility] Erythrocyte mean corpuscular hemoglobin concentration [Mass/volume] by Automated count 32.9 g/dL 32.0-36.0 [facility] distribution width [Ratio] by Automated count 14.5 % 11.5-14.5 [facility] Platelets [#/volume] in Blood by Automated count 230 10*3/uL 150-400 [facility] Differential cell count method - Blood [facility] Neutrophils/100 leukocytes in Blood by Automated count 90 % [facility] Lymphocytes/100 leukocytes in Blood by Automated count 6 % [facility] Monocytes/100 leukocytes in Blood by Automated count 4 % [facility] Eosinophils/100 leukocytes in Blood by Automated count 0 % [facility] Basophils/100 leukocytes in Blood by Automated count 0 % [facility] Neutrophils [#/volume] in Blood by Automated count 12.50 10*3/uL 1.8- 7.0 H [facility] Lymphocytes [#/volume] in Blood by Automated count 0.90 10*3/uL 1.2-4 .0 L [facility] Monocytes [#/volume] in Blood by Automated count 0.62 10*3/uL 0-0.8 [facility] Eosinophils [#/volume] in Blood by Automated count 0.00 10*3/uL 0-0.5 [facility] Basophils [#/volume] in Blood by Automated count 0.00 10*3/uL 0-0.2 [facility] Nucleated erythrocytes/100 leukocytes [Ratio] in Blood by Automated count 0 /100{WBCs} 0-0 [facility] ID Date Data Source [id number] 10/02/2020 03:03:22 AM [facility] Value Range Interpretation Code Description Data Edna rce(s) Supporting Document(s) Prothrombin time (PT) 13.3 s 12.5-14.9 [facility] INR in Platelet poor plasma by Coagulation assay 1.00 [facility] Routine intensity oral anticoagulation I NR is typically 2.0-3.0. Target INR must be clinically individualized. ID Date Data Source [id number] 10/02/2020 03:15:01 AM [facility] Value Range Interpretation Code Description Data Edna rce(s) Supporting Document(s) Bicarbonate [Moles/volume] in Serum 21 mmol/L 22-29 L [facility] Chloride [Moles/volume] in Serum or Plasma 104 mmol/L 98-107 [facility] Creatinine [Mass/volume] in Serum or Plasma 0.79 mg/dL 0.50-0.90 [facility] Glucose [Mass/volume] in Serum or Plasma 144 mg/dL 70-140 H [facility] Potassium [Moles/volume] in Serum or Plasma 4.8 mmol/L 3.4-5.1 [facility] Sodium [Moles/volume] in Serum or Plasma 137 mmol/L 136-145 [facility] Urea nitrogen [Mass/volume] in Serum or Plasma 14 mg/dL 6-20 [facility] Anion gap 3 in Serum or Plasma 12 mmol/L 8-15 [facility] Osmolality of Serum or Plasma by calculation 287 mosm/kg 275-300 [facility] Creatinine/Urea nitrogen [Mass Ratio] in Serum or Plasma 18 [facility] Calcium [Mass/volume] in Serum or Plasma 8.2 mg/dL 8.6-10.0 L [facility] Glomerular filtration rate/1.73 sq M pre dicted among non-blacks [Volume Rate/Area] in Serum or Plasma by Creatinine-based formula (MDRD) >6 0 [facility] Glomerular filtration rate/1.73 sq M pre dicted among blacks [Volume Rate/Area] in Serum or Plasma by Creatinine-based formula (MDRD) >60 [facility] ID Date Data Source [id number] 10/02/2020 03:54:51 AM [facility] Value Range Interpretation Code Description Data Edna rce(s) Supporting Document(s) Choriogonadotropin.beta subunit [Moles/volume] in Serum or Plasma <5 [facility] ID Date Data Source [id number] 10/01/2020 09:34:00 PM EST [facility] Name Value Range Interpretation Code Description Data Edna rce(s) Supporting Document(s) SARS coronavirus 2 RNA [Presence] in Res piratory specimen by SANTI with probe detection NEGATIVE [facility] This lab was ordered by [facility] a nd reported by [facility]. ID Date Data Source [id number] 07/14/2020 10:25:00 AM EDT [facility] ([facility], ) Name Value Range Interpretation Code Description Data Edna rce(s) Supporting Document(s) Lamotrigine [Mass/volume] in Serum or Plasma 7.5 ug/mL 2.0-20.0 [facility] ([facility], ) Testing on this sample was performed by homogeneous enzyme immunoassay. Detection Limit = 1.0 Performed at: [facility] [id number] [place] [address] Coffee Taster: Farzaneh Echols [facility], Phone: [phone] ID Date Data Source HEPATITIS B CORE ANTIBODY IGG 03/25/2020 10:05:52 AM EDT eCW 1 ([facility]) Name Value Range Interpretation Code Description Data Edna rce(s) Supporting Document(s) Negative eCW1 ([facility]) ID Date Data Source [id number] 03/25/2020 10:05:52 AM EDT eCW1 ([facility]) Name Value Range Interpretation Code Description Data Edna rce(s) Supporting Document(s) eCW1 ([facility]) ID Date Data Source HEPATITIS B SURFACE ANTIBODY 03/25/2020 10:05:52 AM EDT eCW1 ([facility]) Name Value Range Interpretation Code Description Data Edna rce(s) Supporting Document(s) NEGATIVE eCW1 ([facility]) ID Date Data Source SYPHILIS ANTIBODY (RPR SCREEN) 03/25/2020 10:05:52 AM EDT eC W1 ([facility]) Name Value Range Interpretation Code Description Data Edna rce(s) Supporting Document(s) NONREACTIVE eCW1 ([facility]) ID Date Data Source HEPATITIS B SURFACE ANTIGEN 03/25/2020 10:05:52 AM EDT eCW1 ([facility]) Name Value Range Interpretation Code Description Data Edna rce(s) Supporting Document(s) NEGATIVE eCW1 ([facility]) ID Date Data Source Comprehensive Metabolic Profile (CMP) 03/25/2020 10:05:52 AM EDT eCW1 ([facility]) Name Value Range Interpretation Code Description Data Edna rce(s) Supporting Document(s) 90 eCW1 ([facility]) 13 eCW1 ([facility]) 0.88 eCW1 ([facility]) 4.5 eCW1 ([facility]) 141 eCW1 ([facility]) > 60.0 eCW1 ([facility]) 8.7 eCW1 ([facility]) 111 eCW1 ([facility]) 43 eCW1 ([facility]) 26 eCW1 ([facility]) 69 eCW1 ([facility]) 7.0 eCW1 ([facility]) 0.4 eCW1 ([facility]) 75 eCW1 ([facility]) 1.1 eCW1 ([facility]) 3.6 eCW1 ([facility]) ID Date Data Source CHLAMYDIA & GC DNA AMPLIFICAT 03/25/2020 10:05:52 AM EDT eCW 1 ([facility]) Name Value Range Interpretation Code Description Data Edna rce(s) Supporting Document(s) Chlamydia trachomatis rRNA [Presence] in Unspecified specimen by Probe and target amplification method NEGATIVE CHLAMYDIA DNA AMPLIFICATION eCW1 ([facility]) ID Date Data Source UA URINALYSIS 03/23/2020 04:12:56 AM EDT eCW1 ([facility]) Name Value Range Interpretation Code Description Data Edna rce(s) Supporting Document(s) eCW1 ([facility]) ID Date Data Source CBC with Differential 03/23/2020 04:12:56 AM EDT eCW1 ([facility]) Name Value Range Interpretation Code Description Data Edna rce(s) Supporting Document(s) 5.0 eCW1 ([facility]) 10.9 eCW1 ([facility]) 95.2 eCW1 ([facility]) 35.5 eCW1 ([facility]) 3.73 eCW1 ([facility]) 178 eCW1 ([facility]) 30.7 eCW1 ([facility]) 29.2 eCW1 ([facility]) 15.0 eCW1 ([facility]) 54.6 eCW1 ([facility]) 8.0 eCW1 ([facility]) 1.8 eCW1 ([facility]) 34.4 eCW1 ([facility]) 2.7 eCW1 ([facility]) 0.4 eCW1 ([facility]) 1.7 eCW1 ([facility]) 0.8 eCW1 ([facility]) 0.1 eCW1 ([facility]) 0.0 eCW1 ([facility]) ID Date Data Source CHGCTV - CHLAMYDIA, GC & TRICH AMP (Microbiology) 01/28/2020 12:00:00 AM EDT eCW1 ([facility]) Name Value Range Interpretation Code Description Data Edna rce(s) Supporting Document(s) NOT DETECTED NEGATIVE Trichomonas vaginalis ( AMP) eCW1 ([facility]) Procedure Social History Code Duration Value Status Description Data Source(s ) Alcohol intake 10/02/2020 12:00:00 AM EST Ex-drinker (finding) comp leted Ex- drinker (finding) [facility] Smoking 10/02/2020 12:00:00 AM EST Never smoker completed Never s [facility] Smoking 03/23/2020 12:00:00 AM EDT Never Smoker completed Never S moker eCW1 ([facility]) Smoking 03/23/2020 12:00:00 AM EDT Never Smoker completed Never S moker eCW1 ([facility]) Smoking 01/28/2020 12:00:00 AM EDT Never Smoker completed Never S moker eCW1 ([facility]) Vital Signs ID Date Data Source [id number] Name Value Range Interpretation Code Description Data Source(s) Diastolic blood pressure 80 mm[Hg] 80 mm[Hg] [facility] ([facility] ) Systolic blood pressure 120 mm[Hg] 120 mm[Hg] M EDENT ([facility] ) Respiratory rate 16 /min 16 /min [facility] ( [facility] ) Heart rate 68 /min 68 /min [facility] ([facility] ) Diastolic blood pressure 64 mm[Hg] 64 mm[Hg] eCW1 ([facility]) Systolic blood pressure 108 mm[Hg] 108 mm[Hg] e CW1 ([facility]) Body temperature 98.6 [degF] 98.6 [degF] eCW1 ( [facility]) Respiratory rate 18 /min 18 /min eCW1 ([facility]) Heart rate 101 /min 101 /min eCW1 ([facility]) Body mass index (BMI) [Ratio] 48.24 kg/m2 48.24 kg/m2 eCW1 ([facility]) Body height 59.75 [in_i] 59.75 [in_i] eCW1 ([facility]) Body weight 245 [lb_av] 245 [lb_av] eCW1 ([facility]) Diastolic blood pressure 76 mm[Hg] 76 mm[Hg] eCW1 ([facility]) Systolic blood pressure 122 mm[Hg] 122 mm[Hg] e CW1 ([facility]) Body mass index (BMI) [Ratio] 47.85 kg/m2 47.85 kg/m2 eCW1 ([facility]) Body height 59.75 [in_us] 59.75 [in_us] eCW1 ([facility]) Body weight Measured 243 [lb_av] 243 [lb_av] eC W1 ([facility]) ID Date Data Source [id number] 10/08/2020 06:37:22 PM [facility] Name Value Range Interpretation Code Description Data Source(s) WEIGHT RECORDED 256.62 lb 256.62 lb [facility] Body height Measured 60 in 60 in [facility] WEIGHT RECORDED 240 lb 240 lb [facility] Body height Measured 60 in 60 in [facility] TRANSFER FROM [facility] Patient Treatment Plan of Care Planned Activity Planned Date Details Description Data Source (s) Lisinopril 10 MG Oral Tablet 10/07/2020 12:00:00 AM [facility] ferrous sulfate 325 MG Oral Tablet 10/06/2020 12:00:00 AM [facility] Labetalol hydrochloride 100 MG Oral Tablet 10/06/2020 12:00:00 AM [facility] emtricitabine 200 MG / Tenofovir disopro xil fumarate 300 MG Oral Tablet [Truvada] 03/23/2020 12:00:00 AM EDT eCW1 ([facility]) emtricitabine 200 MG / Tenofovir disopro xil fumarate 300 MG Oral Tablet [Truvada] 03/23/2020 12:00:00 AM EDT eCW1 ([facility])
[2020-10-31] MEDS ORDERED: ACETAMINOPHEN 325 MG TAB PO ONE (01:30)
--- NOTE | 2020-10-31 01:48 | REPVR ---
PROCEDURE INFORMATION: Exam: XR Chest, 1 View Exam date and time: 10/31/2020 1:40 AM Age: 45 years old Clinical indication: Chest pain TECHNIQUE: Imaging protocol: XR of the chest Views: 1 view. COMPARISON: CT ABD PELVIS W/O CONTRAST 10/01/2020 7:34:27 PM FINDINGS: Lungs: The lung volumes are low. No lung consolidation or pulmonary edema is noted. Pleural spaces: Unremarkable. No pleural effusion. No pneumothorax. Heart/Mediastinum: The cardiac silhouette is magnified by the AP portable technique and low lung volumes. The mediastinal contours are unremarkable. Bones/joints: Unremarkable. IMPRESSION: No acute findings. Electronically signed by: Pranay Fuchs On 10/31/2020 01:48:41 AM
--- OUTSIDE RECORDS SUMMARY | 2020-10-31 01:50 | CCD ---
Author Author [facility] Organization [facility] Address Unknown Phone Unavailable Care Team Providers Care Copy Operator Name Role Phone Delaney BRYANT Unavailable Unavailable [...] Onofre MARTINEZ MD Unavailable Unavailable Paras ORTIZ [id number] Unavailable Unavailable Delaney POWELL MD Unavailable Unavailable Delaney POWELL MD Unavailable Unavailable Delaney POWELL MD Unavailable Unavailable Delanye POWELL MD Unavailable Unavailable Delaney POWELL MD [...] is protected by Article 27-F of the [facility] Public Health law. If you continue you may have access to information: Regarding HIV / AIDS; Provided by facilities licensed or operated by the [facility] Office of Mental Health; or Provided by the [facility] Office for People With Developmental Disabilities. If such information is present, then the following [facility] mandated warning applies: This information has been [...] law may result in a fine or senior care sentence or both. A general authorization for the release of medical or other information is NOT sufficient authorization for further disc losure. Allergies and Adverse Reactions Type Description Substance Reaction Status Data Source(s ) Drug Class NO KNOWN ALLERGIES NO KNOWN ALLERGIES [facility] Encounters Encounter Providers Location Date Indications Data Source(s ) Outpatient Attender: Jeff Meyers 11/12/2020 12:00:00 AM E [facility] Outpatient Attender: Jeff Meyers 11/02/2020 12:00:00 AM E [facility] Outpatient Referrer: LIT BRYANT 10/27/2020 12:00:0 0 AM EST Minor contusion of left kidney, subsequent encounter [facility] Minor contusion of left kidney, subseque nt encounter Outpatient Attender: LUANN ORTIZ [id number]: LUIS FELIPE ORTIZ [id number] 10/03/2020 12:00:00 AM EST [facility] Inpatient Attender: Jeff Lemon er: LUANN ORTIZ [id number]: TIFFANY MARTINEZ MDAdmitter: LUANN ORTIZ [id number]: LUANN ORTIZ [id number]: ELIDA POWELL MD [id number] 10/02/2020 12:00:00 AM EST - 10/06/2020 02:19:00 PM EST Minor contusion of left kidney, initial encounter [facility] Minor contusion of left kidney, initial encounter Patient discharged. Outpatient Attender: My STYLES Main office - [facility] 07/06/2020 02:00:00 PM EDT MEDENT ([facility]) Unknown [address] [facility] [address] 03/31/2020 12:00:00 AM EDT eCW1 ([facility]) Outpatient [address] [facility] [id number] 03/23/2020 12:00:00 AM EDT eCW1 ([facility]) Unknown [address] [facility] [address] 02/19/2020 12:00:00 AM EDT eCW1 ([facility]) [facility] [address] [place] [address] 01/28/2020 12:00:00 AM EDT eCW1 ([facility]ly [facility]) [facility] [address] [place] [address] 12/12/2019 12:00:00 AM EDT eCW1 ([facility]) Medications Medication Brand Name Start Date Product Form Dose Route Admi nistrative Instructions Pharmacy Instructions Status Indications Reaction Description Data Source(s) Lisinopril 10 MG Oral Tablet Lisinopril 10 MG Oral Tab let (ZESTRIL) Lisinopril 10 MG Oral Tablet (ZESTRIL) 10/07/2020 12:00:00 AM EST 10 mg Oral active Take 1 tablet by mouth daily [facility] ferrous sulfate 325 MG Oral Tablet Ferrous Sulfate 325 (65 Fe) MG Oral Tablet Ferrous Sulfate 325 (65 Fe) MG Oral Tablet 10/06/2020 12:00:00 AM EST 325 mg Oral active Take 1 tablet by suhail th daily [facility] Labetalol hydrochloride 100 MG Oral Tabl et Labetalol HCl 100 MG Oral Tablet (NORMODYNE) Labetalol HCl 100 MG Oral Tablet (NORMODYNE) 1 12:00:00 AM EST 100 mg Oral active Take 1 tablet by mouth every 12 (twelve) hours [facility] emtricitabine 200 MG / Tenofovir disopro xil fumarate 300 MG Oral Tablet [Truvada] Truvada 200-300 MG Truvada 200-300 MG 03/23/2020 12:00:00 AM EDT 1.0 {tablet} active Truvada 200-300 MG eCW 1 ([facility]ly [facility]) emtricitabine 200 MG / Tenofovir disopro xil fumarate 300 MG Oral Tablet [Truvada] Truvada 200-300 MG Truvada 200-300 MG 03/23/2020 12:00:00 AM EDT 1.0 {tablet} active Truvada 200-300 MG eCW 1 ([facility]ly [facility]) 200 mg 12/17/2019 12:00:00 AM EDT tablet extended release 24hr 180 TAKE ONE TABLET BY MOUTH TWICE A DAY TAKE ONE TABLET BY MOUTH TWICE A DAY SOLD: 12/19/2019 [facility] 24 HR lamotrigine 200 MG Extended Release Oral Tablet LAMOTR IGINE 12/17/2019 12:00:00 AM EDT tablet extended release 24hr 180 CLARK E ONE TABLET BY MOUTH TWICE A DAY TAKE ONE TABLET BY MOUTH TWICE A DAY SOLD: 08/14/2020 [facility] Insurance Providers Payer name Policy type / Coverage type Policy ID Covered republican ID Covered republican's relationship to [place] Policy [place] Plan Information MEDICARE [id number] SP [id number] BCBS FEDERAL EMPLOYEE PROGRAM [id number] MEDICARE A [id number] Self [id number] EXCELLUS C [id number] Child [id number] BC BS [facility] [id number] S [id number] MEDICARE C [id number] S [id number] [id number] MEDICARE A [id number] Self [id number] A Medicare Part B Medicare Primary [id number] Self [id number] BC/BS Of [facility] Part B [id number] Family Dep endent [id number] ANSI-Commercial [id number] ANSI-Medicare Part B [id number] BCBS FEDERAL EMPLOYEE PROGRAM [id number] MEDICARE [id number] SP [id number] A BCBS FEDERAL EMPLOYEE PROGRAM [id number] [id number] Medicare Part B Medicare Primary [id number] Self [id number] Medicare Part B Medicare Primary [id number] Self [id number] EXCELLUS BCBS B [id number] D [id number] MEDICARE C [id number] S [id number] A EXCELLUS BCBS B UNAVAILABLE D UNAV AILABLE MEDICARE C [id number] S [id number] EXCELLUS BCBS FEDERAL [id number] [id number] Medicare Part B Medicare Primary [id number] Self [id number] Medicare Part B Medicare Primary Self BC/BS Of [place] Commercial Family Depende nt Medicare Medicare Primary Self BC BS [place] FEDERAL [id number] Problems, Conditions, and Diagnoses Code Display Name Description Problem Type Effective Dates Data Source(s) S37.012D Minor contusion of left kidney, subseque nt encounter Minor contusion of left kidney, subsequent encounter Diagnosis 10/02/2020 03:34:37 AM [facility] S37.012A Minor contusion of left kidney, initial encounter Minor contusion of left kidney, initial encounter Diagnosis 10/02/2020 03:34:37 AM [facility] R69 Illness, unspecified Illness, unspecified Diagnosis 10/02/2020 12:57:00 AM [facility] Large hematoma L Kidney Large hematoma L Kidney Diagno sis 10/02/2020 12:57:00 AM [facility] Results ID Date Data Source [id number] 10/28/2020 10:06:45 AM [facility] CT ABDOMEN PELVIS WITHOUT CONTRAST [id number] FINAL RESULTInterpreted by:Aaron Gomes, Nataliia Vanessa MDINDICATION: [...] rce(s) Supporting Document(s) ID Date Data Source [id number] 10/08/2020 06:37:22 PM [facility] Name Value Range Interpretation Code Description Data [facility] rce(s) Supporting Document(s) ED Provider Note [facility] WAHMPo8nFnVZFwFw53/HBDrbPNDjx6JsLAndNPp2ATsoTGOzW3CfGYZ9dU8fCWR0MYdAHnFxMiJyLALz [facility] [file] AgICAgICAgICAgICAgICAgICAgICAgICAgICAgICAgICAgICAgICAgICAgICAgICAgICAgICAgICAgIC AgICAgICAgICAgICAgICAgICAgICAgICAgDQogICAg ICAgICAgICAgICAgICAgICAgICAgICAgICAgICAgICAgICAgICAgICAgICAgICAgICAgICAgICAgICAg ICAgICAgICAgICAgICAgICAgICAgICAgICAgICAgICAgICAgDQogICAgICAgICAgICAgICAgICAgICAg ICAgICAgICAgICAgICAgICAgICAgICAgICAgICAgIC AgICAgICAgICAgICAgICAgICAgICAgICAgICAgICAgICAgICAgICAgICAgICAgDQogICAgICAgICAgIC AgICAgICAgICAgICAgICAgICAgICAgICAgICAgICAgICAgICAgICAgICAgICAgICAgICAgICAgICAgIC AgICAgICAgICAgICAgICAgICAgICAgICAgICAgDQog ICAgICAgICAgICAgICAgICAgICAgICAgICAgICAgICAgICAgICAgICAgICAgICAgICAgICAgICAgICAg ICAgICAgICAgICAgICAgICAgICAgICAgICAgICAgICAgICAgICAgDQogICAgICAgICAgICAgICAgICAg ICAgICAgICAgICAgICAgICAgICAgICAgICAgICAgIC AgICAgICAgICAgICAgICAgICAgICAgICAgICAgICAgICAgICAgICAgICAgICAgICAgDQogICAgICAgIC AgICAgICAgICAgICAgICAgICAgICAgICAgICAgICAgICAgICAgICAgICAgICAgICAgICAgICAgICAgIC AgICAgICAgICAgICAgICAgICAgICAgICAgICAgICAg DQogICAgICAgICAgICAgICAgICAgICAgICAgICAgICAgICAgICAgICAgICAgICAgICAgICAgICAgICAg ICAgICAgICAgICAgICAgICAgICAgICAgICAgICAgICAgICAgICAgICAgDQogICAgICAgICAgICAgICAg ICAgICAgICAgICAgICAgICAgICAgICAgICAgICAgIC AgICAgICAgICAgICAgICAgICAgICAgICAgICAgICAgICAgICAgICAgICAgICAgICAgICAgDQogICAgIC AgICAgICAgICAgICAgICAgICAgICAgICAgICAgICAgICAgICAgICAgICAgICAgICAgICAgICAgICAgIC AgICAgICAgICAgICAgICAgICAgICAgICAgICAgICAg GHNiACd7G3qxOBRpPDCbKS1lMWs0Kf8+IAyXCaFiMJM1ltXnuZ2BFW3tm9CdFExlYAJub0HmPMi5ZR8A BJHaVYybFS3WFMyzut8REJZpVXYmdJEBe6ghRjNsKTL4SHDlPbeoIM1INIQlD9ssjfWqVQWzWRIATNkc MCBSIDkgMCBSIDExIDAgUiAxMyAwIFIgMTUgMCBSID R1HVHvSbZcAIHeIRJgRK3XBOReF962ggFmRV8JSl7BDpWzIY2qzo6VWuPfKSPgWtcIKkh6MIthLR7CpS IcgEIcDqLyLHYWCzQlG8adq3EdVajiFLUICUukBH3Nu9QumJAqKHp+Up6BIW9jy8OuWMiwDzChTX6zlz 2YHLpKDyXjB5IutVphJINRUXAei7PtTPFgQI6wfTUn CBV4MSgwmw2iWDXCd0znQIUTMORqdKSpAxQ1CbHgFpKiSRH1ZoDyMV7tRHyiNX0XATM9LNzcYJSrDGBl A8oHIaWlWKruAKRejVcoFB2RYoSqD5AccgYneAZgGvCaMXVHOpIrB29lfTBvBgzdNELBXUl+Qp7DEJ6v j9YiOTaaMDTuGB7and2QECaRJkBeR9PptSbhHQJUOE Cgh9VqYLJbXQ0gkNUvHBC6OVugku1eFHPHy6fyWYRXOMTwkNQtLbX6UwVgLfKeZLX5LrXgMF1jXPceXN 8JGME2VEhwESKoACDLEP7AORgzSQThHFAogjJgqVXlRHxuZT1ALTDcmpGmAuQfZBOEBCceCU8UzcV3KI Z9VPEfLs7ULAHuLrE5wMTvERDqFODLUu5+DQplbmRv ChoWQzJ1RKGcv8UhKWt9BY4YEOPvYOj4fEQnGFKaVWJuAQpyFW1noRSzAJV1KWZyHPWgksJZuc22agmr Ou7tVJGvEQ0zLn5xSFDgGBBeFwA9CKYKGC2UTZNjWZLbxZGjTER5METbIyLfHWdvYTBiGpQeWW31eRiq JI6PQMCnJSGpTA91QTY4NMDzZu2GVCTzFRMxucPuIS AwIFINCj4+OUdwknAyZjfUYdMvVFJvf3LgIZv5SC7KEUHeMMniBC1WKHKbjU7vYTwoKN2HLqNoHAIxHW JELeWyV86qsONuYMj7P4OjHbWoUOYcFbkpGBJyJEprUnJgUBTxJzWlTUdsCT0+ID4+LRauYE7JGPcnic DaXEOyFf2KTPWhVOKyNU6xVXFoNUDqQ4F4aAfwQOHD QnDgI7dnrdhcOL2vWVVrB323rNtaohGgXJA6VSUeMa9PQXDgCCR6XWSptNDaNzSwIQFKEVleOQ2DcAUf HGJ2oB8lBAwqCHAgGSTzD0wVVhUyyAwhKL59yEvfopDqsCRfHQy+Eq9OVQ7hx7ThPQd0aqZeXSvqASNh AUzdYRWcCVDdDOJpZUJ9AMX9AAHZKcTyLMZnCCEdCG ozZBIcXQHzfy6IWUVzDVF6DhW6HzMnXVSnSTOiGTnpCHPwIXFcMGrjTQWwLZVhWN3PSlUhCCMnSGRfTZ rcGSLtSAIlim1ZVFLfAZPrElNtTsZkVHGiNCJeCDqrQYAmOHLwKCYuMSTrTHWnXB9CAlGuSJFzPZR3WC JbNEXaCDScyg7BCOIaQZNlMzn7TBHrDMToCOKtOStu CVTpUIAeArX8CQQiYHSxHY2ZOyXkXKFbGOU4TuZuNWWcIXInts0JOXMxRSLvCvc8CKEkMMDsLAZsQRba RCFaGCO5UAu2XRXyRVBhTU7HZpDoPGInFES4PRbgKZXnZWIkvo1CKLYoPTVrLxGuGRDsZCHdLJEkONag JDYgOCX0ETI9CLRfSIPhXO0ASuYiVMVeQbLqVpEpAK FtMXFekw9OWJNmQIEeGkWvEySlNTKlBLGrMIhvAHPnHWElCyXzMEJzAAUcQK3OPzScJQCvNgI8UIBxTQ TbVHHeqj1OKPAsLEMvVPq5GULmKZIyZDDoHCuaJKQvEMT4HIC6ZBPeOHVwRU8CFwFeLJKjQlmhAMMiSO NaOXRyqn2PMTNzEPXfVzXdWGKsHHJyVMBoOWelBHWj TYU0ZOj0BWErGCYbAZ4FHaTiATYjGsc2VINwUNXvLWRreh8HBYOdDKVpXWC1CFUwDCDqMEKdDRskPAVt UQC0NER4WFApJKPoZB3YHeObPSRpTeu2SPHmGTUiDYYgqs2VCVDsQBKeHGgsDCDvNHWmBVOvFEvcWRQe AWZbMrLgDIUhJGPnML7ZJzOgIAPhAEV4MnBbJHHeZQ Zzyh8ARUHmRFH9ISw0THPlXKDyYISwCIasVBWuXNJrJPw9SUQoWMAqZX2SNiOsVHWxLVZbDdIrHKNlZK Vkar5CLNUkXNA2AmI8ZaOhQOHvSXCcBNqeWIBaYDS4IEV2CLBgINLqXD7PJjIcXDIrCIXxYDbeWUYgTG Hgwq4WYYYaBTY7CGB9SlEeWOVhZEAaYPxcVCQqYPB1 PIJ8GMKcOFRgCQ2OVuCeHQGoNML0CUQjIXMgGIXxkr0IsNApcXgchb1SHYuDFz5EoLgwUELxMFwrEr6k jJN1MNFmJNQPBm0ChnViUESjPFTEUVtwIBJeYIXwKJl2BZS1C5J0TDEkADF8FRRwOwGcYwB3AoK6FtV7 ReU4SaAdRLA9UJm2XEVjToAoJMG0RBF1RpWxAoauKM ZiMzU+VJ2hCPy+Zp1Bq9ZddgQ2gwWxAPz0KVr8PU5OHKHSI5RTXc== ID Date Data Source [id number] 10/07/2020 10:31:33 AM [facility] Name Value Range Interpretation Code Description Data Edna rce(s) Supporting Document(s) Discharge Summary [facility] QQPVHu0ePjUBElYf19/STArzCUDov8BjZDwxQLb1MUedXIMxC7TeTLI5rR2pWAT3CHcVLbQzIlUbJFDs lbm [file] ICAgICAgICAgICAgICAgICAgICAgICAgICAgICAgIC AgICAgICAgICAgICAgICAgICAgICAgICAgICAgICAgICAgICAgICAgICAgICAgICAgICAgICAgICAgIC AgICAgDQogICAgICAgICAgICAgICAgICAgICAgICAgICAgICAgICAgICAgICAgICAgICAgICAgICAgIC AgICAgICAgICAgICAgICAgICAgICAgICAgICAgICAg ICAgICAgICAgICAgICAgDQogICAgICAgICAgICAgICAgICAgICAgICAgICAgICAgICAgICAgICAgICAg ICAgICAgICAgICAgICAgICAgICAgICAgICAgICAgICAgICAgICAgICAgICAgICAgICAgICAgICAgDQog ICAgICAgICAgICAgICAgICAgICAgICAgICAgICAgIC AgICAgICAgICAgICAgICAgICAgICAgICAgICAgICAgICAgICAgICAgICAgICAgICAgICAgICAgICAgIC AgICAgICAgDQogICAgICAgICAgICAgICAgICAgICAgICAgICAgICAgICAgICAgICAgICAgICAgICAgIC AgICAgICAgICAgICAgICAgICAgICAgICAgICAgICAg ICAgICAgICAgICAgICAgICAgDQogICAgICAgICAgICAgICAgICAgICAgICAgICAgICAgICAgICAgICAg ICAgICAgICAgICAgICAgICAgICAgICAgICAgICAgICAgICAgICAgICAgICAgICAgICAgICAgICAgICAg DQogICAgICAgICAgICAgICAgICAgICAgICAgICAgIC AgICAgICAgICAgICAgICAgICAgICAgICAgICAgICAgICAgICAgICAgICAgICAgICAgICAgICAgICAgIC AgICAgICAgICAgDQogICAgICAgICAgICAgICAgICAgICAgICAgICAgICAgICAgICAgICAgICAgICAgIC AgICAgICAgICAgICAgICAgICAgICAgICAgICAgICAg ICAgICAgICAgICAgICAgICAgICAgDQogICAgICAgICAgICAgICAgICAgICAgICAgICAgICAgICAgICAg ICAgICAgICAgICAgICAgICAgICAgICAgICAgICAgICAgICAgICAgICAgICAgICAgICAgICAgICAgICAg ICAgDQogICAgICAgICAgICAgICAgICAgICAgICAgIC AgICAgICAgICAgICAgICAgICAgICAgICAgICAgICAgICAgICAgICAgICAgICAgICAgICAgICAgICAgIC RxIIXtXNCxHLUuAPJdQOi0L9niADUgTGPhPF5cNXo4Wb6+BSlESgEgIGI0glSseZ5EWT8yo8GkIOygSD Tkl2KiFBz0YG3VPLQuQQhfQC5RKCqesc1VNBJkOSFd hYSWp3usKyDiIXO2HGYvSrxgHD8LJGDpP1bvreHbBQJnTAIVQDwgOZVEUHcwSQRTDR8JYvSbX8HibR71 IDMNCj4+VByzbpWfXkyXToF4SECxo7IxSBx1CM0TJVXoJnxav9TlKyWhAFUINWalFK0VBDP6PSNdGLWv Vt7NZAMmC031uaYsZU7LNz9KFkEhRJ2gpv6LZhFuFC PhKonYGag8AOxpVP9RkTTzUMeCiKQfdAGbK8DhF3ZppTIezIRxqHGHHJNmJTXLNU3xF4NkbMrkOPSgOQ NfIA2oHR3uEYWhVMRdRjI3UPBHKI4HPEDwNOEpoXWySWPxLCIZJI9ZSHbiMZF1REBzmdZqvXAjMSzcQV 9QYXJlbnQgMjkgMCBSDQo+Dr0EDW1re0TjOTkrHKZd CC0eja2ZXRaQWjKhC9E4zTKqB8D3OKkrFz6MCTMjHGTnMaoiGFBYIJlkCZ7UWI0nmbG4FM5JrVYvYGAw FBZjvYRkMTz2H07orMYzOHsoEG3BRTY+Erickson+Qg3VZFTeTIRmBNVyZrGaAEAJBmLlI5LjX8TKv4QiI5Xp YX03yGmqspNkBZsrTH3OTG6lBJBsIMGEZU2DpAIkmR 4mnuBkFRFdXZDOZtNmB81emMPiOKDsDRK9LKHlVz6EVJAxF3TkfkTlhClptpHhBBAxGPEAWR0NSTzibs EqoETgiPjqFI85gLalKO3SIi6GOqRiDF3twp1PtNYxSa6FYEDrWb7ZAESiISImYLDrONR5BCUlBwNaWV pkDIZwAEIsQNV0XWPqLQQbEI3JXdOnZXOrWdxdCANp IEObEFAeul7BHIHsLOZrFYf5JqMoOJJgVZNlFFutQWVhCFEhZBY3DDCxCSKyIN5SIcSaKQXgNXIvHRGt DRRfVUNrow7RJLElLDVuHdZ8KIHoPOAyPNXvEBkbAIFiHZK5BPH1ICPuMQZcLJ2DZdCkUYYkVAecAfUo QYRqYQLbnk4KKNAfFOCvHQP6KZBvDYWhHCGxKRuyXT HtXZTdKHW2YRAtOGLjPS5NEsDrOBWoVBN6UFYuFKDiYRSbhy3PHYHkAHDyNEtoOUXaTNDfRQQlGJluJS PgIVInVFt1RYVxEEOjJV0ZPfZzPHHoFXK6TDAdEHNaIBEwfc5PZZOkWVHwEwZ3CUGgBMNtKSDsWOznHO WvIEKuJdEtUPUcREVkGO0JLqJjQXGvUMTcVLXfLIWi SSXyul7ZCLEcPGPrXKKvLDVvUXUgCEIuZXzcAUWoCJY0UMwpLKBsQZGoSH1QKsDcEHVnEyJ1YsxnPZWa OPZrym2MCMEtSAIxDmG4JeKpXCTcSPSwJOitVYUjPZY3XJv1HZHsLJOmSM4BDrEdPQOxZdD5MxOcHSZu SMBigx8FDTJnQHEeMcu3XRFaTHWcSYJiCLnzRQXcVL U5JUX2ZVKaLDYqBE9BUzMmPYKzRyoqILKzQYKpGIJihn3UBGAiFRAdWGB1XIHzFTNsJWHlEHbnTBYzXI U9FaGpZGDjVCNkTS4JBwDkLWKnOtTlYvQtSCXpFSMzdf0WTTKeKHQxNKK3NSXrIUZzULTfIPhoVYGoTD DdCci7UPIbAKBbQU1QUbWaHSucXWUXKjv6JXjpS9t1 VUPnQk5MV8Pbr2VtEbEpWQOOQKisTK0rgwFtHTMaBh7NC8iCFnlwVUU5KSUbGSJuM9BrJEH0AaWyHXPl CVYiVQyuRLAqSR2bXCIhMsB6IkShBfOuGgW6MNZ2DQX0HMCqDfCwIoNkHbAzGuLjHJ6FEd5DQxU3OMI4 bBMoNx4LXnK3RHHAIiVcGS9ZIWt= ID Date Data Source [id number] 10/08/2020 07:09:42 AM [facility] Value Range Interpretation Code Description Data Edna rce(s) Supporting Document(s) ABO and Rh group [Type] in Blood [facility] Blood group antibody screen [Presence] in Serum or Plasma [facility] Blood bank comment [facility] ID Date Data Source [id number] 10/06/2020 05:08:05 AM [facility] Value Range Interpretation Code Description Data Edna rce(s) Supporting Document(s) Leukocytes [#/volume] in Blood by Automated count 5.8 10*3/uL 4-10 [facility] Erythrocytes [#/volume] in Blood by Automated count 2.42 10*6/uL 4.1- 5.3 L [facility] Hemoglobin [Mass/volume] in Blood 7.1 g/dL 11.5-15.5 [facility] Hematocrit [Volume Fraction] of Blood by Automated count 21.4 % 3 6-45 L [facility] Erythrocyte mean corpuscular volume [Entitic volume] by Auto mated count 88.1 fL 80-96 [facility] Erythrocyte mean corpuscular hemoglobin [Entitic mass] by Automated count 29.1 pg 27-33 [facility] Erythrocyte mean corpuscular hemoglobin concentration [Mass/volume] by Automated count 33.0 g/dL 32.0-[facility] width [Ratio] by Automated count 15.3 % 11.5-14.5 H [facility] Platelets [#/volume] in Blood by Automated count 224 10*3/uL 150-400 [facility] ID Date Data Source [id number] 10/06/2020 05:19:46 AM [facility] Value Range Interpretation Code Description Data Edna rce(s) Supporting Document(s) Bicarbonate [Moles/volume] in Serum 24 mmol/L 22-29 [facility] Chloride [Moles/volume] in Serum or Plasma 106 mmol/L 98-107 [facility] Creatinine [Mass/volume] in Serum or Plasma 0.74 mg/dL 0.50-0.90 [facility] Glucose [Mass/volume] in Serum or Plasma 97 mg/dL 70-140 [facility] Potassium [Moles/volume] in Serum or Plasma 3.8 mmol/L 3.4-5.1 [facility] Sodium [Moles/volume] in Serum or Plasma 138 mmol/L 136-145 [facility] Urea nitrogen [Mass/volume] in Serum or Plasma 9 mg/dL 6-20 [facility] Anion gap 3 in Serum or Plasma 8 mmol/L 8-15 [facility] Osmolality of Serum or Plasma by calculation 285 mosm/kg 275-300 [facility] Creatinine/Urea nitrogen [Mass Ratio] in Serum or Plasma 12 [facility] Calcium [Mass/volume] in Serum or Plasma 8.4 mg/dL 8.6-10.0 L [facility] Glomerular filtration rate/1.73 sq M pre dicted among non-blacks [Volume Rate/Area] in Serum or Plasma by Creatinine-based formula (MDRD) >6 0 [facility] Glomerular filtration rate/1.73 sq M pre dicted among blacks [Volume Rate/Area] in Serum or Plasma by Creatinine-based formula (MDRD) >60 [facility] ID Date Data Source [id number] 10/06/2020 05:19:46 AM [facility] Name Value Range Interpretation Code Description Data Edna rce(s) Supporting Document(s) Magnesium [Mass/volume] in Serum or Plasma 1.9 mg/dL 1.6-2.6 [facility] ID Date Data Source [id number] 10/06/2020 05:19:46 AM [facility] Name Value Range Interpretation Code Description Data Edna rce(s) Supporting Document(s) Phosphate [Mass/volume] in Serum or Plasma 2.4 mg/dL 2.5-4.5 [facility] ID Date Data Source [id number] 10/06/2020 12:57:51 AM [facility] Name Value Range Interpretation Code Description Data Edna rce(s) Supporting Document(s) Leukocytes [#/volume] in Blood by Automated count 6.8 10*3/uL 4-10 [facility] Erythrocytes [#/volume] in Blood by Automated count 2.44 10*6/uL 4.1- 5.3 L [facility] Hemoglobin [Mass/volume] in Blood 7.2 g/dL 11.5-15.5 L [facility] Hematocrit [Volume Fraction] of Blood by Automated count 21.3 % 3 6-45 L [facility] Erythrocyte mean corpuscular volume [Entitic volume] by Auto mated count 87.3 fL 80-96 [facility] Erythrocyte mean corpuscular hemoglobin [Entitic mass] by Automated count 29.3 pg 27-33 [facility] Erythrocyte mean corpuscular hemoglobin concentration [Mass/volume] by Automated count 33.6 g/dL 32.0-36.0 [facility] Erythrocyte distribution width [Ratio] by Automated count 15.5 % 11.5-14.5 H [facility] Platelets [#/volume] in Blood by Automated count 233 10*3/uL 150-400 [facility] ID Date Data Source [id number] 10/05/2020 07:11:37 PM [facility] Name Value Range Interpretation Code Description Data Edna rce(s) Supporting Document(s) Leukocytes [#/volume] in Blood by Automated count 7.2 10*3/uL 4-10 [facility] Erythrocytes [#/volume] in Blood by Automated count 2.71 10*6/uL 4.1- 5.3 L [facility] Hemoglobin [Mass/volume] in Blood 8.0 g/dL 11.5-15.5 L [facility] Hematocrit [Volume Fraction] of Blood by Automated count 24.1 % 3 6-45 L [facility] Erythrocyte mean corpuscular volume [Entitic volume] by Auto mated count 89.0 fL 80-96 [facility] Erythrocyte mean corpuscular hemoglobin [Entitic mass] by Automated count 29.5 pg 27-33 [facility] Erythrocyte mean corpuscular hemoglobin concentration [Mass/volume] by Automated count 33.1 g/dL 32.0-36.0 [facility] Erythrocyte distribution width [Ratio] by Automated count 15.3 % 11.5-14.5 H [facility] Platelets [#/volume] in Blood by Automated count 245 10*3/uL 150-400 [facility] Differential cell count method - Blood [facility] Neutrophils/100 leukocytes in Blood by Automated count 71 % [facility] Lymphocytes/100 leukocytes in Blood by Automated count 19 % [facility] Monocytes/100 leukocytes in Blood by Automated count 8 % [facility] Eosinophils/100 leukocytes in Blood by Automated count 2 % [facility] Basophils/100 leukocytes in Blood by Automated count 0 % [facility] Neutrophils [#/volume] in Blood by Automated count 5.11 10*3/uL 1.8-7 .0 [facility] Lymphocytes [#/volume] in Blood by Automated count 1.35 10*3/uL 1.2-4 .0 [facility] Monocytes [#/volume] in Blood by Automated count 0.54 10*3/uL 0-0.8 [facility] Eosinophils [#/volume] in Blood by Automated count 0.13 10*3/uL 0-0.5 [facility] Basophils [#/volume] in Blood by Automated count 0.03 10*3/uL 0-0.2 [facility] Nucleated erythrocytes/100 leukocytes [Ratio] in Blood by Automated count 0 /100{WBCs} 0-0 [facility] ID Date Data Source [id number] 10/05/2020 12:24:[address] [facility] Name Value Range Interpretation Code Description Data Edna rce(s) Supporting Document(s) Leukocytes [#/volume] in Blood by Automated count 7.6 10*3/uL 4-10 [facility] Erythrocytes [#/volume] in Blood by Automated count 2.68 10*6/uL 4.1- 5.3 L [facility] Hemoglobin [Mass/volume] in Blood 7.9 g/dL 11.5-15.5 L [facility] Hematocrit [Volume Fraction] of Blood by Automated count 23.7 % 3 6-45 L [facility] Erythrocyte mean corpuscular volume [Entitic volume] by Auto mated count 88.4 fL 80-96 [facility] Erythrocyte mean corpuscular hemoglobin [Entitic mass] by Automated count 29.4 pg 27-33 [facility] Erythrocyte mean corpuscular hemoglobin concentration [Mass/volume] by Automated count 33.2 g/dL 32.0-[facility] width [Ratio] by Automated count 15.2 % 11.5-14.5 H [facility] Platelets [#/volume] in Blood by Automated count 225 10*3/uL 150-400 [facility] ID Date Data Source [id number] 10/05/2020 09:44:57 AM EST [facility] Name Value Range Interpretation Code Description Data Edna rce(s) Supporting Document(s) [facility] ABRBHa7hIoLZOhJab9BtPjDaMNYrPJ4pdfb5L1I5vAAvO5CwwALtm6beT0ClD5LpNTDpNZJPDW7DnRDo jb2 [file] AT7//cut off machine helper++L/+ec//uuf//Vf/9ufkp8///q///lP//ests8qII1+w3jy+7/V8vrzX//zY116q1D//PNv [file] FaeopNGymMrwALZKAvo2SmNDWFIGY9W= ID Date Data Source [id number] 10/05/2020 09:44:[address] [facility] Name Value Range Interpretation Code Description Data Edna rce(s) Supporting Document(s) [facility] SFDLDx1qGjUVDuRtv0UeZxSsERIgST5ncsd3N9D6uNAnO9CylFZlj7liV1BwV5OjPIGmSJUVFB6FzCUj jb2 [file] gzT2yYs617NpIpDn25RJyRJ1j81i5Xr5P0UxdQ+9fEtkwxMQvC6VNwQy5J7S4p7PrB8pj2H/real estate associate+0T7Z [file] oV5k92SEQq3sQV+rl9Zj0hPgoPV/+general scrap worker/uZzq+6fvV [file] PILE OPERATOR/EHLDBM5A7nyVx9wmR6DvTESr+yqly2jQLpZq08pVYV0GRq8li+CZyZ2ClvKo5x1np2QRzBdM1EEe 3ed+s+Tjrc4zp+Wq5yMzg/nndLFJFnPd5Qfj1kbt/zKJo2Uho+Y4vjyjy647VegtwPczY0mwqn4wHBL3 1ujUUBgv2ip3yXBtthW2sgGtJrp0RsrbNiNr73igcS j+Wu8+20iwjkpAiGXx2OHvCxlNNpusGYxCl6zpJD0rBoot8J3cS4i9s0U4jWurQ21e/WjL+HR4lQs6a6 bL1oBX6SfSI8/a96H50AH38GV59OY92PH11IH97BL99FR13NF15LS21UY58JG9G6Q4S/HclN1T7xwnpw [file] HYTCawmUwGkUFkEplEFpFFxHkHlIFSBkoZKGWglIFS WfpXhR1RtBynT7otScfFG4OlndBs+QWXQHSVP1Q3D9yZnPnn+d4uuq8B7aXdUM8c+d3MNS6zcn9ee2TP 7QLv8h9Np3ScC4Q+5020Y/3U5tUEGvhioeEWRKDCSSkEz44Qk7flr43h+9Ph9yRp5et20bkjxflmiMYF jE/zihmKrqWEk9AbDxDcRgFs0rDsOP906pWvntifK7 yQxZ17C+d9FttznuWhqvKKYUMSOvNQWll67nhhXaWMl6OBPcMqO5tFa5KfDbdA/UFlpgtUU832sbYGPT zVIwZvVaVDwQBnSwsBZiYXdRtKM4wRl9Gwf3GSh8BZAdKfqMpaLAk3VDW5RjsIdtUJXqAPamDpe2I53i aITCKTyCKyiFAGgzKYlMGkDCZlMCmDSRlMymBSBpMy bGNJaLaSs7XMYxgFuC0jN4xb6Y+03E+ssha5n/rIQGvJ1vxOqHgFIRjpVTWRDMCSwB+d6ZyqM0iZentE JnDQY1xu9ElN701YtV0/SWia00mB+b3pvU4DFy0YF2gYGNBTWPua4yevfxSjMiUFUkhzoyDjqGfaQCNr 6XuukDne8bZwPsHCnG+sJ+bUdYUJ1K771pHokuLxX3 cqzlMfTcQ9Tf32JFaX3yrGfyq9dyuIuXfPwbYy+P5dw8IZ4IvpLF/bz6l9Bb/4N/q05yIL9F1Y92V5Eh 18lGykGiiqRiWgcjRHw4Czo3EU5qrs73Hrb3NhXg9EscisJPpz18wbWD5hc12ryDUhKj9E7yixWUem05 xaWD4sq42peZfoFy/F5tgkSUdw39hmGQ2kz77hqEIl qy7P7itwFofl01qfBN1Q8bcyoe/V/ExUb6J6WI9N2ispnd/V/Ntw1j5dMrXnZ01svanc/G8cGMBTs5t6 8ce/iRynOL5/5ReOD1+uC8fgC/mYrbBl7JwyI/gd/A6+gW/gD/AH+GI0Ad3RI+YTxSnoYmB8AlFUsNaw FdL6KgNSsHklSeN1BmEIpHpyNkZ8ZeHXwUmmMlT1Ft BRpVb9HS3K/a2kXvFWIQSohv07oMJtoSApHB0i7Uz6KxeZiv/+kcX5fGb+AH/gPBP3g/G2HG/zv9c8WW /Vb2ZwghlWfmLX5ii981Wk42m+DN6AmcSDImIJgMSdLvSfy5uHBdrJDL8yzf519Vj1Ci1ID1Fl7S/wJ/ gL/AW+g++Af6ae0Zt6m9ck5QT0Lb0Wxn15Mz1Wa7Tu 4Bv4A/wB/jxythhvHS/bV61iFZ3h/wlzPVJZ0S9Sf7K1O+MdGO/AdHfMHhMxtwJSmInqdKUiNOU7nCxs 8x4OvM/5w4TQaXFqC+u4zJi/lD7ySXy65Dh5Md5UQG+XJSrgw6QeyU27+/qnZ5Kw76jmfuwGKTYfzAMf 17q1jbNQnUwHwR3uz326DlXz/am8Zm4qkQKswG4++x pvxKHfx+fjN8fuwEu7+I7f+42iQM5LHFDaHhFbl+u5GaC17++6tpliPrdXWhn57/6go0o9rI/0Wgfjnm 6MJFPs8/jWQ616ghnMWkB0nuvb3Mqp5VlyaRmwe84jawlanK4i9+g5YwvDJrhoLvq+r532fpO6obyItd NHzE378rlI+vcKdy4fr4B8oksM7bW11L89KS0IJ5/g T/AX+At8vM/uDz+Shc4x+AK+gK/gK/gN/MfcSfgt5Rp6Y1/AH+PT2Dd2E/wM3h3an8PV5CtVUsttSNhN 8QrGKxivYLzSwO/gd/ANfAN/gD/An+FX6HBwyXbK2jFXBfGzkFpA14RBIaUarLdR81ZGDhHujUiW04IX V/L2lIdkM5N+zjH4C/wFvoN/6UpDqbEFg5W4vsnFZ4 SL2Dx1ShdY/oPgObm8a6xBilqplLGccjfdTHrEt6R61Iob+tU+Bt/BP/oMel9Hw+ODr5ld3ux2xLIc+A 38Bn5/vo+a+lU50+zCMfgD/AH+BH+Rf3Vr7Wv3ytmoE+3w7WO8LZ/BV/Ab+U66Gp5Zu9t+duST+lUdD/ AH+ZG6Ow8Ov9Uf7IyjXnnmsptc+lW+J3jr2TlT+lW+ e+SVF8Msz1/kxpR7JD8YZi3Sgu86it0yPUOKKEX/gj/ZVnxHbsWtz4c7/kaCzr7/qQ28GQQJO+hXmvrV Jb9lhBcpV94u2nVK81415Uy4rE7mIFyjoWXV2nUQLp/Pat+B7+Af/ZhPbs7uX3oEFz28Ek/BV/Ab+A38 Np7I09R58Cv4R/wJ/gR/gb/Ad/CPfRSJN+cYfIzXMV 4ZvG7npRiCXD1TyC7awOfGQW6FjX0snIkGAZ6VdD3qgJykV+kFw86ihU/ghj3G9Cj1Nbg2prSmyb/P+9 +dphNVQn5UMfQPBPB2Cb3+kdi1unFYFFSEDOpbYvOK23yzC23bcL7NjaWZRTqFgIfA0ApdBMpzlcgwmJ o6dr5IpPFviGDcl4/9av/m1q/iI3kf3/ZCFuGObBrN YboEIFIWHaTipLIoZwLl2tOktgeb9WIXFYwQw3yo05/tABL7VRK7s/60t1Ue6Pbdw5Jrs7padkQ4vJ1k +6Ll/lXd83m+Pn0ttmh/grsg24pLin4jWj64k7ee904TKf+sVy33r/J5tw7eMx4my/ANfAN/gD/An+BP 3Yy0Z4dI3c+/4X0O/WofC/hHnqIc2PS3JbDoXQ/Gris sB5xUj8Wga9Yc7yoRW1Is1Z8hI92+86+g88UtJtmUs8Qh5sJ+pX+9v90kSeQN4Psx6kX/dwDfwB/gD/A n+BH+Wa9K82V24AaeLBXeYel1P3+0Wp9lvQzcE+xjrVehX+1hC93Js4MirKWbXv6R/wJ/gT/AX+At8B9 8PP/Xg8kh4kQdCzbJ03fPnqXxNUukF/rF/4wr2gvlR Hk7bLSnJwFr088k4D/n+DLzPA/F2TG0HIi+4iadIGg7+0bSIllCS7Rx6h1iZ2aSe5gm5g8g9LfzF7Y/2 MfgG/tmva/Rg65Q6nS/gT/AX+At8rM/Jaee3q6Gu7ES3PA/BV/Ab+O59Tk2T82TVgAhIz09+9arAo99m gr/AX+A7+MumSf2Yyg+I65aqlW1uX+Afh9mCeZ/lO5 q4Wi07jniibqTmJr1a3P303D+12r+BbRQ5W5W06e1oR+N5Peov5osC55puxhW/+4IHf848b088Zaxis9 7/qKd+imT6aC4wE3Jg0oBbj1/BP/CrQCH4h+YQM7WFRb6l8lBcFET0kaY19jx+ily4Kv9+eZ+1zBz1s2 Wtwcf0xRkDr+Ar+C51Tu3Dm4Ks0Ai5yRjTQS/ed5ng wxUP/aqLg3/inq0DExaG1LiVfljrSmqK1CfZegvuQdwP9UeWtnawVdxG9PoCirigYbqS5VuAgeuyr9ve sdpJatRt3i/t4E579h11+QdXHj/vl2yxQvzeA+V7m/oBtVFELpgUEo4QCXICEVAbRvBnR1x4oKb+Zj77 /0ACngigQWjymb5aLz4Of1zNATXlAqTVJQPGbJal27 1Kaq6llejtFwNM4rytuFptH0qYBhKZNGh6SgsI9qeHmQ8pAYMlqveD++gnM1vpsQ5e9wKDBZx5f/xNjL fOH+Mdef77+V65noR+iVtq574+7uAmtS7L9tWZ/Sut48e+6Ll/1ev4PF/4U1hmZvX/7F/13L/KtcXO/k a3s7/FmQHE8lpB/tzt6M/dBvgD/An+BH+Sx2C42F+9 0MexF/s4pYtzXBv9r3YEu/o8Gvgd/A4+wzww8wOhBnk1XUcK7a9GPmzfL/hd7Ptjt821l1PI9IB7RM/f o9nAb+D3Rw/sqV/YeRZu9I/wB/gT/TEriyKNgQbVOh5J+kp7Syq38ejp1+M5FvDx/K8Sj842s+e4gd/A 7+X14V00Q7+QJ2Le6Z/wF/gLfAf/+FO6H/uo+Martinez+9A 33Eaj2je3+wQ7/CTvuU3z64HPb+lV3A9/AH+JR1Bz2F/uSz6B3cQu3O/8Z3sj0YevtKZ1Mv3oaknimsT XHrrO/HSqA0w74fGe/yuMO/vVi5MP4V8j32pwomWpT0L/ep35x1M0J+sZPhcVfVxo7ghKDY2SV8ER6Ue +H46Qv1DpkTHxZY18+a5hUL16l+PPIU45/qnF3G1jv /OOfXM0hDkWL+AI+ni/6b7shtPBAh/Rn06M/G/avrPavkn/KP0V4djZ/xOt9a3vM/2ryF4wb7W/8tfQP hi5k6R/cx+AL+AL+mb9W+lWcH/5Ba2c/n3eIy431s2B/vkeW+7yzh0t9L1o7M/bnG14wZ/4qi8gphJms ZDuDYp1tnlh9390cvQ109qzG2lxeM5owCes9y2b/Ms RfGeKvDPFXhvgrQ/iMHm2RDO5wpH7sfJ6Q79nHs4LKtwVqQ7ZGjnYe8Am0BgeCZeGiAO8akPvaGzRvTO 2tfYgmWvHuOF3nmSyqExf0OGrM7e5A57S9X7Z2QU0e7pPsZG9B7o6dpfdowNtZBO/NfCq5uoFssJF8rW 6q5DFDZWqhi06wqxY2E0PWU/3mthdWzsFbvyodPvIo Dillan/b/1c5mVbe5QryaBZ6c1coth2kiU9i3nfkVMqYzvZHjVvhcda10k5Op8Qy6D+ubnpU7FjOMkDWxRO a33Qd909BvIzmtJI921a+grC1SSsRfhKbBoAE9Dw+oELqnk4Yd0NYUmk+8Jy/xsqbqd5x3NGk91RBl8K w/1D8n1MGvJ1/R454V4wmo71kiO0hMm710wU1+jPto 7+bFgLp2Ak3Og4k80iw85n4KotwFjsDUoSm7OqfB/q99cdGF/dwB/jS0oM8LjD2kfkG5yD2msG01V+Na BfjUvAF/AVfAW/gd/A7+P24S01M9+RD5Ja6J/wF/pTpVnr7aIUDfRydLqW8pJMTuBsvDmJ4rGHHsSenM lP0eIRKdZytCrQ7bEAWjEzlRaA33WYRlNkfFjF10IG VzFe+AcH/IMD/Renetta/WrAPzjgHxx6/GVDz/o8dII/wV/gL/Ad/INkjHda0xB/4OkDSwng8NTvPL6goFW/ JbkuG3Rg6UzuE/fMIbeh0G+skl453C6/GpKzOBapqW5BY+Qr0A897/0d/Xx/R7/AF/AFfAVfwW/gN/A7 +B18A//9W3iRiErG8hb5X/wF/gLfwT/+oRK2z4S8f3 T7k5Z6DX6JY/1tqz4nxd7azm1eab2yUL09D+8P9q+F8R21o29h2NHrDJv1B6EA/jecv97rsUO//tCR/s G2zSgBAREWQnN+wVH+jBiFe2InrA/tm2peyH0q6w/0R9pJnDskF/qklohwrWTzr5JHWg+O8g/Gcyn/YB 2Dj+c7z/7zmAq+gt/AP/salY3etQ539N4zG/N3DvAH +SP2Ah8Kw9Eg6ZI1Fa/uLuLehIjuAJuTm4UB1R0Ts7K9S+NdGO/CeOEfHPAPDvgHB/yDA/7BAf/ggH9w GBnzBX5paY1lGmidOS3ynI7uFqrrWR3etnHu/w7H++zHvz9y/yryCEbuX/XkH//pgF9vqKmOh+p5/tCf L5p4va85kf/dwO6GrNc1YNHiAH6p+dzNx5USfly2/O RZzFu/0mzFPG/6uxxFyBA8LCDhZypM3k9p2t1rx+ObH/6RGfFXXfKcka+x8h4i/kov57208xC1eQB67V sz4q+yGsGM+YtZ97mRm6M5dJe2k1FmZzzYQJu6U1+5Owjtsc0S9CKc1Dsf47pOgPABOekGg9jJj35qla 2Zqv0r1RsvYo5sZn+a0K+jEM6ykawjl1Xr6tXH/8Tn ND5nKYE2m6JO/vPUE+23DxVS1Ks9RqgXlevybNghD/gD/An+BH+Qv5F20W3++0R8+0R8+0R8+2wYL+Lb J/cOt186xHs2m4u2+Me/GLwnC0fSm817jA/gT/An+Hi+Dc+34fki/houston/houston/houston/houston/houston/houston/houston /ml4Gd5YK+PtGG/XhXbX7jKhpvK6aQhgpY0y8Afuk7 fO6kQM6jIvd8zA2pSG7aVyj0kQ0tQC3qFcl2iW30O+NV8pLLqSWK6WxA5BN2OBbQJXsYcmpYDW1WR3GY /Bb+R82Nz0wk4w5U1X+AfnOPsbM/DpOx8iw6h+Oc5++ru5VsbY0i/q+EAqD9880ApF/XwJw5yAuwy4rs kL45wFh5wBdlb8oci5ejV/hbCtHlJbPOlgG4ZpOv2H 38E/5k8wRVmwNtt2BmeA193E89W4AdR/gY/v0ergG/gG/gB/gD/Yp7vUhiXRdp89+TgT+1yp9V37zS/H /HXMXz/95KYJYLQ3iY/pH7ySf/zP3jm1STsS83Dg7IX69MZUnuwL+1fTMV4/0pS56g6p2gfhwD3pts3S /+wR9uz48AvW/HMyWDacI2ckd6/BN/EFgqa6ej61hr b4E/wJ/gJ/ge/gH3t/ybH3F+KvFuKvFuKvFuKvFuKvFvSrhfirhfirhfirhfirhfirhfirhfirhfirhf irhfirhfirhfirhfirhfirhfirhfirpcd/pKH3t1Pg+Hi+ywedeX0F81m1heniE/AH+Mc+QzmP6cZ6dv gZQ2sqS4M1wmpP/sGF/auV+1ehG6/Qr9K+WXSxkn4d NX38F+vWr8p/sVp7/Woa0y8Zl1+3flX+j8WdF9WlIkl9P5gUpS9x2jLG+YjJj4hCx9N+kZGeO14owj3e Kusnu7FnSQ+4r8BdJ2dapSZ76Ua6tvP+YlE5PjBqHR5bLqVVpAio5W1pZaiSvbY+bcJ8Fhco6ye3voym tL3U1ul5FswbCkslZyzdCacflU8nf/zB1c/4jSzRv0 396BsL+aSoC68f5iNUvph2Ee6Di+R18Zt0FneI/uAHdo24RuvZm6A/wZ/g433G/tXC/tWyYy+sceyFNS 7wBXwBH+NF/uAaGO/UeWuGO50+ucbx76/Sr/J4gD/An+ID9Xz2L1i7S8FxBoIvNjXzVpIcEcXxLnObFx QurUl690e9++1rdvA7+Aa+gT/AH+CS6Fl0A5a3d0OP P/6FtY5/US4cE2xLR/GCuTk6IDtzhOJtyUJJf/KaGk2RN3Yu4S/wJ/gL/AW+g4/5C/8gPg6qquotwI7i /upK/ljvMYIfGqNyIz2tGi5g7I2Q8NpX/MfWq4zHi3gWt5aPk4aHw1gq6T12OA/KxiNROc8NC+Ar+Ap+ A7+A37Cg9Zy8Ss2Du8B/wZ/gL/AX+A4+xoy0T382A2 88B209Y546A914Qj4hfPZ460Ls/pWj/kZEcokVt7b08eQ3M4dY/gT/yUB6jJqrU44RxfFV9Nb8CahA/J N/5HryrVwVfAW/gd/Xf5itUWm1qf560ii/hdaIxBisgj9ZK/+dOP/OiS02BSw4iBJ/yhXPt+O7Wzbesp wjb2d/t3yPf3Izd7kb76rSU+uztxP/9X0sC6m45GrG +CtvA/wJ/gR/gX/sfW/F4jt98JYqw795inYn5Ch5Dh2T43Ck2HudE/gGvoE/wD/2r6M+g0O/ctRncNRn zRUnvSUhtRaPJy5Ts8/QUZ/BEd/uqM/gqM/gqM/gqM/f3xS35X80Ut6W99E2/lBH/StHfQbH/pUb5q+d /RUBBER CURER/SrnS+UPJv/UC/Jx/N2e+cM1LIi9v3YBAyFqd8 [file] WhJqnUiWIVPVXDxVNWLEpCEPS3h+LIcgIkSEiBJRIo 4JB7CSbFymSizhDfqGDrfCWcUBSYMyS6u9F9wy6i8EtGF3JCFvEm+WtbECz7Aad772xRuAXyGBtgIbo+ 7WMX/t9T8ZwjtL+B+reOH6Co3X7csey9LkBToKn5Bgg6J8GXuEKjqM3ZaRpRcZs4PrLmbZRvqS7F7lC5 mUoIknj9fsZccnAflNlpT0FTgNNmmJ0PeEyBuHg5Fb BlgAcgz3yF7Ite2Ckh7Hwc7Gcn5Mlg3Ckq0Zlp7Vsb9Bap2Ape6Gte0Qxw7Spu6Zxt2Clm9Psz9Zo/bU Ex+EDDZKiZBjfDxOgPi6s6kZ/Dnx7YlYy3I/uiw2O0Wkz7WfApW3AER1mcJLd/1YrnSRRD+WHV8V/Vh0 duiG3PcqyUh2XTShOZiJzh0ZY9M2OxFty/6uASEXz2 Xfm6PdGnrmNlyuTuIhGEqE768fvZZKy1Vt53r9Y9w+getWPsDBTRta6Stf7QckgjwoinNC/Qz0rJFuS8 VL0+aIUiESTCuznWDbK6HezQqMy4NYzyCbV2DI8GaJElPGzduYfEz8GSqenO9e4FMNupg9DcN/lnopjP cXfi9rDdSAJ1DVZIa34APV2hswLEr5S2KKDKMkRDDQ oTLLVUz13RYSZ73iQoKQROIuXP1+VG9CaSeYbKAvYMpXPaGVCCkZYcrNNiAahrg8AKg1cwKNL3jUdjwQ kO+zem9H96cmCkqVBgMgaJZ01qW0A3hsn3H/gb1gqJ+o1Y/fIRe2ZpStPX+WhzjfbeN+QqIw9EOIZGqR +7Eo+7Eo+7Eo+7Eo+7Eo+7Eo+7Eo+3Na9b0umK77fn wf4bHU7ZqE+NMrtSTkPoFFo4zRIkSIFzubG36rtesP4KNuj04JmIliLqbqLmrNHtnHYhMGYSXFGKBPuL PBHleHXYK8RvRRXHW1MmrK9yWPTIMMR8p0OYnDjeG+LMp+LMp+CExJP3u/ef2Xje9zRywLrvHSU3NLSL F9+9BHb60hJCRtoiicP74+OkRnO1JpVoE62PHW1q71 3C7NG55+GbBeU3ZqCjM72ZRk/C0WwgrKqvyu44sHdw1hpzSK/K3ZfmbzgeqK24EO26BR/sX0xbsSknoB 17NGlJRTRWz1wFflk9DvM3w8Ba0Js4IuBmF+BfqyUVuQ9qE7HID5j8U6dIiT4mCLYBz5Ge4u72aK31MW H0k6GceFcJOTJFL2HzMF1vzC8j0fQ1noCHUnMI/FuJ 9Y/EahYFKWQaisrX4ZKxXKKCWGfFPdeBdBkcZxZ8492FvDkiprgJmQmbHvV990ZC0RhSNwOXCJWNBoXl QCoCVhpEwaLn0KlNCnQhGsPRvBSrZzS13/Nz/9/LH5LZSW5HqfQt8C03lE4335/j8/Pn2+sQh+ijTMG/ v+219//vlvP/3iF3/38b99+d0/z7UlIgeC35mup/bF 5kff0lA2sBJ9+fmRrJ/8r19+85M7K/jjQ+IRTj4ox43w80ON6CB//hetV810i+8/f/w431eiL/3s66++ /MXHr7/5+jefvvv+68///AZ13xfQo3vpr/x9y10a8456/V3Xg24a2P3+UTckbt0M15Vs57aR1E4mZc2/ 8+vvPz5/+dXP//mrL7/72ddf/pXf3l/h+4pfzWqF49 /69NXX//j1Vx/ff/748puffXz++O2Xv/k94zDKp/n2u19++SxItg2X/0uN6sc//xoAy32x/Jpin582+P qbf/z03be/jD20j4dQw/7+q59/+tFee0ee36HvjV/m49NX/+2v/CyWGU0a/dozi574YpMWx/ryu08/+/ jt159/fv/h49t//WWBwh2ucqT7s+E5rkNghrw78k11 H7/49pv/6ooXx8885Fjpgc/+me1vj9jF5GKf/MfvfagU3o8+J9XefVb+/qIn7ikcpC0d/wdxw31cgmQ9 n+/T/f+b8OMw2eC19ht//fvv//LHH/7t47//z4/f/P4Pf/jdX/7yw+/+8HcfP/vdn37/wx8+/eK89v1E 3378+U8f8g/i/vUw5T20/6L1jy9/+P5egVpBlg+q9s c//sN/8LK+5MByveA//vQ6y600X00pt/8/CXCfo1P/++thUCmw6246zQ6/H20N9gTpngalRuuK++o1BT +aI5wfldBxA/juh3//8QYlQ8CfkLz58opSo3/+6bcfP/305S8/ctm73Pv0zfNio04/Q9mxYsBquXH/Zt YMh6JBC8PhB1sIlzk/zcff/PCn//z7j7/87j9/eDv9 67P+kUV+7h/98T9+mQoOcvHen79Bf/ru4/d/+s8f/vJ//Ka6f7Oupe2q/tbkDrb+ytk39k/fff/xb//j de+///Ewctp9KQV6u0LzVK4ceu8/wz99/lfgr2+0Am+X/kMXfz+18w1mYWd/0sizaJ76Gj3SYbpmFynz V55rxv8kI6/95PPH7/7vH/8lc53l44Nc+pN//PTTn9 upID1bg+vH//zLv/heo364L6Z//vDH3/2u8DP9G/7V7/7Hv/7uP37/uz/25Qgr8HV0/Z9+/P8zX64//P f/+t9Hit/9+c9//PKpYv8QN/aIf/Hnf/1iUloR/QS3OnRf++Ff/48//t4iD2g7febSl/0H76OzGz9zB/ 4l0f324ha//PPLVx9iT9p13Z3/+VoGv/+Cc/3+iP9/ /+C29dCm2nviM3/733/4kI8///aSl4sk0/TpIK2fm06mjjxH/PSzz6/I343UV9D206Uxr4y4z210dPpp xchW8PPTu1560gxomQ7bwybenKjE3zy/X+bwh5NCEJ1bp3FtEHLsRzTwMI8mfklzBBRpBI6sozf1V7Ww pPslBRtDPBVtRm6jqZKrKL5VCKH9CBxkNBWmNJFhY9 VzhE5dD99ztCTxSaHdZFSOUP5PqyS8OFV9NTP3IVHoKlNjYLOeME55BEDjUTYDIv4phiUoVgkWBpQbJS 7iznl8W7P2xVFcA929aKytpcIyYJ5Bq4QquITpNM6MaTLiaOHrJEToTCIcT4hxm6XjYOzhDAYRKu9rcq EaYyxSEzTbNI4gsum2G2P5lFupuuOtXICLUJltTnkp VR9fwJjxzegwD8TwhQWlVYNgW4QpPMYbu74JKCQxQUfWDzKvDvWwSVI1XQz2LHuvXoJqERVxDICcVHHu XT5NeUUnMSVkLZHDNNglSabqDVLokL1xcYDAz4WiW84EFAnBARgANEWSJZNNEoSxIcGdUDR8EQFdS8Bx spBumQYxEYADRPsnIlnsEDEdhR6xgFtpK0BmEXI4g3 BvEB3XY6MdWLByGLEAAIL0r3XeURTappoaljooBzZxAYFcHUBcZFReZT1Jrf1hkKUqqeDvXLTQVVnoMp yhTE0bhIqemljfA1WsxBCaHIB+CxYqOF9jox0+BzFnDPFsCmt7TIWpJAxbSZXoNEEnYUVqH8lpHXVyTl XzGMQmNnTgAT6Wg6FejMNfXs8zcxWtXytBbKArIone JHGmENVgTPBpIoGXMTBkSLSxGCXqRSR3VASjKWFnGBsbPPJoWVO6EiC6AVXpVIMiBK1bYqOsYWFmHnge GQFkSHDxVKGwgiAJFJJaVKX5KXC6MKZgYBJaQIFgHLzeJSRpYEZjNHFfLZP5ZMG3NLTuMlJdHQNyMQBh LNZbASOzPQFoxxMTDAGbTDPqGSQ7NKUrOGQlLSRsWB giCBFhSCJmPComZAJdBVXyKX3dZzDrJUCiOPLzOTfzKAAbGWSwplUJPGOeYFZsQGFiJSWiHUMyTELgOY qmLYXtMFRtJRKqIYUsYSYoMD8tSlZxRTGbJPN6AAMhDPBgOHLsmwUAJICiSSBtONr4RFThOLKgBUToPL trRXTwTSHrDAO2DHBtUAXfNG6zQlZsTSJtCBQ3NtLw LUMdALNebvCWMKIvJIEkRTD4FxMoBANeOUAtJGboEOErABFzCVleZKGwHCBuSC9uAmLgMHPhXVBcNAro MNIdXEEfsuXVHXKcDNPoGBImPbJlZEClZZZfHEsiBQIzGJN6HOorUKQkWDYsAB2cHaMoWFEoJMN9CVuv MDAwMDAgbiAKMDAwMDAwMTczNCAwMDAwMCBuIAowMD VlGYRaSKF0OMVmPELySP3hNsSqJSVhLIOjVCVuNeD4XmPzHmRLrSKnuGmtakj3AEilC4f2SOUrIFbuKU 3dolGbTZJfYgfpNh2tcCA2GTKyPbnDAs6Qz4YavtB0giIgXpI0Buh2DzZqRZ1H ID Date Data Source [id number] 10/05/2020 09:44:[address] [facility] Name Value Range Interpretation Code Description Data Edna rce(s) Supporting Document(s) [facility] JGDYNi2wSoYDYxUuh5UvHsAqTZGuCP8xhsi7W4X5rUTkU8KwhPEnc1hcV8BfL3LtQTSqDAGHEZ3QhJGv jb2 [file] tgd0Y5j7cr/[employer]/jI3pX/44juy//QJZ0Yhd3VMlum+lkf/fKdhnG06HX/4eb/iHE5z10Wz5h75YIydRIz 7c95Kb4JcEfmnI9+X3o7zv/MPqj8dCcViuXOxY2/CUADRA/Cn5S/LXtU/v778eK9f6+D0wQs0jzIKcMt6B78 Lb/Z0g34wxCc7p7pT9ov72ximZ66sj9K8bTt+3XfVx 61p42b6999fl2J4OUj+b7+x1m93tc+nRf0/65o9y+9ojk18JL3VKbAb/Q/rvaFJOk/D2roDbJ6iwch+S 75I/LQ5Avkr61wUABZ7huffHE0Q1UIhRcd45nfhxqYUe4ug139eYE78Y1fNk6/fyfr+jx/d4rut5wSbT n7c9+NscwXB9XxnW97W/b/0gHdGPp4Bntu2sD/RFW5 9Udqw98NcGlQIZGfqSO/8tTN9+PaP/Uv5P0M0Ogyq/+dimCYdz9/31jgk8SNimPyc3r7ysmYEbpI6/qw g4dz/6TrqAP/pOtJOHofuky/qb94XsKl909GETQ/GfM9c78aoDz/ubR1+nnFHdx5JGZ3oDa/QNtM2RS/ DGcC8/7/ygnqb41VXco1AY6I8/tQP6mT/1aPpJMme7 cCw/ombvPhLH2jutWm/bPO1E747+j4m3iZ4cQmfxZ4/y+xifocvuRdKSPyR/NT26U36ApJ6ppG5v19fU /pLfx/nRu6u8yW+23/kWR9TXIgOZmevcQKoFasLIrTGH+B3s8xa9ez9K9U9+0++7PY4ciFdlKa60FyxU hyvl3MsPc1iH/cB2GrAXhbiemwwifB0915Of1tuYo/ huwa/e9C0/+NWblt+MutUblUfz014Ay6eDh/Nv7Ku+u4haCgtc8Bjjh+Eh7pN+5I++uAgY/uETgX/Cxf o3vsCJ/FphlXHZC92p90a9//Sd0+E9/kT0f9D8DeH//Rb5P31/vLQ6T60//H80W91NuC/KcrgEKj5o2d 99l/eHb9XU88/x9grA8d9YB58k/cuvht/97D0xZVNA 3+fl46aeJ53J3Lk9zl9qrwri+/RuwKwEO57D0hud05pg2/02F7cPMPyi9OJ9Rg8vfhPvxQQ7i/hZP9/X 6bT9fF+qxMYGhBRYUWS9qQpE//f2dbN9sOl8kMs4fYdt+DJV5PF2igm++3UFv+K8f2LPM/KX/H4XSd/8 9WdaHtZE6h5me1Jw+6gM4Xu14en/7iiZl3A5GP1DdI HyAFkJz53Oqm7ve9FOMqq+7JH62u8IF/aGj/dNS/6W/V0re92wWjv96s47Hzxc5rx+xW8a/DaoF0q7g+ r7kceqst/X47UymQ2Ej6D0ac/6+gM9vVclu+BXjnEp+KVbYoz3Q1E8IN107q8rSMpx6G2fZswbsPNy/s 13kR/0lmSWgc7fYDq+ecvvKYje5NRwgEd2ya90DlPK +/RD3QnQ2rn5Ltj7bOZh/Onz1U3w6Y5vW33z/T83n746JKd+/X7SgamHn6SdEh+ycy5UbdC3Oo698vp7 Jvmib/Nc5zC4NX0H/Gpi3At+VFiPwjsg6Zaw3fyK/bNuxgaPvR5C9Km+x+BXHFvmKpKW/PYEfLY8AevL 1Ry5Vwv850VpN7h12Zrrw5BctZ4R5oat3X9584ffuo [file] n187z/janine+J+zH7K4lksxb/cpC855/PbuZ+fz/38f+P55t/yef2+f+k7YS79Z7vjnr/8u9qtgi9qy737 Rdvu+[employer]isher/Z5G/v+s6083d51q3ohiwOu+f3+39qhb4v6 /vlc+/5xtCCN/f0wqZl5f06dJx4rvWlHLjbs7MgYKbsrJ4l8/L51M+n/J53O/EeeJ+Ro9k8imVzrf/v/ F52I5rKMdtW6hPM5mxSmUE3R/+rqXI3/J5lc+jaB84c0HLlP7zd1e8pw985srzq3LJ66/76/jzq0i86e +980im8n1icqiSibVqyk1Gp+/5yYtrL2k2/NaqfF6/ +1dty043/mxdPu/y+ZDPh3w+5fMpny/5fH1+bnG/SF9wbq0Er4+XV3DkfM/miumRk8JuO/j38/l6xQzW Pa+WwW++joLXHu/f+LVHBBA6ql1ew5tX53OqzBignXr/f/c5lqDYOWY1d7nw5KtxT0lqrb+/2pXXnc/n MZ+UyaW435WTS9yeq+64I2825/c017q4LebO5GYh3x Lb934wsoJnzLuYm73wZ/36z6jv/DJdDHvFDpLq1N8urTwMhJrM3oWS17/maz1Qe3QzD+GB3jnr5P0qT9 as7PlUN4w/P0WA8rphYalNEUUBXw8/5fMrn9/z35kmgV+//CEkCvJawa/YhuBXbFvwq/y7f+1Fy5J0Jr +ihMF4+ACHN3BJbFDY+ir4VX7+3K/IEnx/z+875/Nz 8CtwiZAk+P7+Nl9q3nt8cnipGl1X+jxP390+7/J5l8/P976mC2ic7Ls5M/aIjGZHFGx9tg/X55/gV+wz wa/HvT8gu0Jg+OSxH29c/Wc1rp5y+BW42QG/wnXBrzCOgl+xbwe/MebG1PCawd+/4r9YsuHl58sUm222 yl6Dc9jRmHTv5ZHzVtmM52/ccbU3h4MG5b+eYXPw/g 3FgXMHVQae+XLfHtu1rPD93/n+xEuxq31F5cny/j2pCKH8/+4875IGbl3iQ8LxU+TryZCgC135l7jY++ afh1/tPLZ/42yqI6BHKUiV/h/4dlI0Y34vsJ/qW2JhRt/u6Ccwxk3wAHy6NcvLHybIk+E9S82n3QGxy0 H5KS0SPDfbP2GP71K4fR/vaE/wq8bC/Hh3JhaXVF+X hpjUe1OeOuLDY6TY4Wx7+n34M/sLWDFZUVNAkA6LLIH9/Wg5BR8z+FVF/wl+HK3Ni5XuHohBKWbHXU/C lkOoCbx/X/p9nh4UVSRnG6PFgY0FFjU3A2ar1nc9f55Jgmb6w/4eSfO5T/42698FLvNuk6O/X7+FgAB9 HvoBv+yOd8d0n7u/n+uPdccyN49c16b+bH883/0qB6 xIec4pT/u99H3uCAp+xVLpXI7bchhQbATW3WDLBPdQnXGTck/cA0prBITKeuHP7MmDUNBgBLX+Bakari+RR [file] PrKIUfSuzhRt8peJI3FHJbEqwFPp7Ku3TqxlX4bpFnNcf3AOW3YkNbBE7H ID Date Data Source [id number] 10/05/2020 09:42:49 AM EST [facility] Name Value Range Interpretation Code Description Data Edna rce(s) Supporting Document(s) [facility] ZZNLVv7jQeVOIiWyp1ZoSfHoLGLbCX8qogh6U1P9jAZhH0XbyTFwd5tfX9HpP4MaUYVaNRBJMS0TgSXj jb2 [file] ZFCBCi0r1ZEPKao1lWWpVMCA5L+nsfg2L9tkRwOREZ hHI88Y6x6sJBJP9QglmyXZokoBC0RcHys0k361KXuefryz1lxoDYEdqp9qhqzg0U5Zy35Zx3gB+6Kv+D eaer9soTSBQ9Khi6B/f7FpfnC8CI/GQrLwb/wAZtSLVhpPfgJnvW8wG9J6Pg5+y719Sk1cpLmH84Hdaq SeCLSbSoTXCvTexLR88W8Ho/c+p49XaG0l0qTAfrJL OforX1kQxLB03gmXR3KBOPsuYoKzcm61I43ATRDllUWQRBGvYC0ZU+OLzcS+1RHc2jvDp9pT/5SI7nO6 z8mX165Ni1fa4VaH2l/YvaCDdqgx50y+ch5vwPa5Isuhe6ix8Rrjz4GDEy6gYZ81OLNv3Jjo7346dCtY S+n3mHOZR/+ivLZ+e9F13W/+7uTz8BqPA8wU8r7ifp upKjcnmlk0JyNd/ZjH/MJvL/pfW56/++2Yk7dfOLoVgm0V0ND+7E/8fwVyx4+wMt8sA+vU0nm/eWrp/H WxPsuppfPXDOebP7/VqNYgzjo12uTy08vczc6vVYi06t1h1rWSf5Oa0aI/0H6R+ebPL/pMLYFTS+fPg/ HOME INSPECTOR/9MLYg1lPwv6I7uEsVvHhn3Y7/RRuVK7LmF15F1 [file] LqrUPvOLIYNMPXGOzHKHbCPzsXEnNDxw4JpHZmdlUPQIBSXNZQerRTDSPYLPZXiuMKYAFXJKEMgnWOAY SxMxhbJEmfmi5iulgq1Akw0Bpw7UzrMA/JSY7xqjvU 7Rcy1Ms+U7NnZt9Fv90GqaoW7YAMtBQbPgskFTr+MI2UXU69OL/KZCF1TnGSYeqoknUPF7ceeccQZS22 xMr3VYXnGMHOOo6jFX+NLIoI7XbwdPGIoUOSQcZrXo3viH1alQjWNgYygeNmDxAFfamngQPRWvexHYiF JtJd4KeRQEHEKDFKOqEZmNZCciMGAS5MAazys7ZXXX ETgkrUPVOgBGKHxzzDHEXxFSTQwnvTMGYytp2jnIHTEWHDGwHobSYSTUDTAfltxwTiiMM5KkpWu5erKt pJgo2MU0SEtVwzrBmxhnoRu/fjcsQ1lri8Ldnf1b0weIa9QLRKAYIxkA07xmu48l2lF9rtCGLyv6KOYO /yZADTDrNvWivXSPChMsQMj7w8K0T9h4bfjTryiLTo qAOFUdSKDgCuusmndVC9mRxelH/HzoNXcJgRNnH7WkVDrInaHQFOrH+SX5BeIaeah+IiWdaDq8ikjDj3 iveKQxNjIXlctg3YfLKzeMafpb0zlbRtXiaXTsjsai3svtS15z5sPwft7SxH+p5E2V6bsc5xYG+4naBh OpA3SYNLgp6qWu22Rq6SCJCw/TI9yM4PRvAqiJvjw4 xFWPZffeDh/SvVTU1Zag6GjkdozfELikpnx0FBb1MvT44KzFniuMzZGrDKkAKOIGn2A0mfY6Zm1tpLou EFrHcFHBOh1Rn0MUYX+hNuuxvGaI+o/MrhegO6UqGX85JGnqzP54MBz8jFLIEoVlwsvvp1IRIcP1y3B9 inGLpGxdQ3FaK/Gq/1x3nnHTm5gyWeftB3gM9mxBG0 pSEW6u4wIEUjXnMHwgSTZewybdUQQLk5J84V4Gg7MZATJCkPYyCj3UMd6EuxkYQGCtypB0+2TPb34Cer aVWpjBXMX52DAjoSS3QdKLN3tn6byH8aTShI8s3Q115eehfygk8GkmSd5nueHu7GIj7mq6Jv1YJzp+we Ylq6TbPLQqJCQhEYElZVid6Lk0HfREJBFi8gHQTQMj PDmYCiZTKDRzdsXUfFD1M9X8RLQ8737rcTJU/4Bl7fUT8M6jRhCFKHTxBLwB6sSn2bBrLTooZDv9b2jO 1pNVsKFb0BPwpctPC7akT/2EUhcNkoDTJ8rQFjeMcBqCB1B3UbX+onE/6tgnLCPBQaT7q2sUs+Uh8OUM IcFIwq2pqxdZRrSliPZxV91f9KhByEcSE6dqXvIz5R OyaARWsXv7cYBIFGaSJiWQ6PITPGmLPjIFHnV3buJ4zopGC2tKSYHDAUXMBHqYYTQJYURFQUkZLMUKKP XZLXjRTPBWVMSYZVjDEPRvcXzjEyTtCjt9P649gaq2XCNsIBjKSxyMjneEef1M034jtU/RGtZGayeeSa 72TkyH44LtUZi1sb/QXaKHEQf25SrGFH138S3KDP5V CtYHRKsNvk4HXO9yjhtvOPUHW3TYCDTdChrMZInlqQoou35ItK3AFlhEhVjHf0olXckHBEAiZF7CXW+r 1Uodj7WRzZYogn4IjbyRvXZLPLYGYQ/duJ+35tH9vDPHEmyRvWkJD+JEnEhg/IxATxyNSCPSiXQiSSSJ kP1w94oeb2b1vT6+23DA2MBWrPTCyMidvagd5aozHR lVj2Ud+3v7QMlYR0z6WRz9EjJfqhbxngTcm0V+fXJZ6axPpU3qSCUdbn3APWPbyFvG5NZ542Ltw3hkHz wlX4nCn0WMfbHPW5oUTPcicVEtBu43AG3jyuK4hTBP4BOHYav2EkWlo072W1t423bE4uBFbL7LAAeI75 e5lfDLN2oUv/q1S/nqrMfytHTqieXCWvVYVmEsXfVY 0mss6IKWcgoTV1aynHNcNQkX23lstwz2ST2oVAn2cuq1kwVqcVKNUgeis2kPbUKd0kBekcKK+B+cyXLE xfmwalDcb5yjzVxVMxpwBKl2qudJNqUGvCxIA3KQCU0kwBMIGpyZPhrKTeqNSfaXMllBNrpTGhqVDfyK JzrPJzrPJzrPJzrPJzrPJzrPJzrPJzrPJzrPJzrPJz cOMhcVOtxGRobLHiaIAvmZGmbNYbaQMwjJSxvUQejOAhsb9ebSfw4z4ITIw8J0KEaZc8NkVaDjKqwKuv RPVA+vyT3796j0KEkyNkkU6BXGBwMgsMTYD5+kVY+qhMalbPVqeV58QkXfKdwdd1JBLFKDwAfmPOuIK3 kGlCPqS8edG0hiWX/jGilgpsxMjMyvbamLHJl400vH OBZ1+h1cxnan09sfr9v5vB8+Z+d+xmRm5RC0D/3OTr+j50T9x97nsAHCIldyWFV66YaneYGfTBGVBrTm 7PQ7O/3OTr+z0+/xcHYtqqnI7twEYxTzG8gAnRYOQNmFRjcYxfJA5VqCftj2r3QLbD1d8EZKza30k+7I n6g+zXSok5S8WTKRwQBqQGkZonobW6JiN/rgnDhwXj m4nxgX+vQr0SGyti0CIE+HXmZdvFGcjhrv3vdjE22imbgEOa9j3S1x8ViyMfkYQNyzY9G9MdBJVbOVRV AgBrS8HMLWePG9cfouf62kyADe8LsONeAPHLVzZlQf4gsnF95W1jxzoqecHUZELTgWRcvyt+qxHIKIEG E/bW661bR4wUTrYx3Ye2KzpvhUMoLHpRYuLXvHKQEH SsFZqLH9u86bbQyYq9JTWbf4GS2QDBTaRC+seizL+ib0XP6ZCXEhSNaDFag9ORNEVJE3nqIVU5y1g/La 4XD21tLGUeBun/OFCV0z3gvOYfJfcPNhfQ36KK3GpBQkd996PY27MNJIfjaVr5H50SFpted9EP0qv/XE klhm0fJIjzIzw0AeeCVVK2pnyMWod1hv8mgWEnyhst 2yO4Vxi9PeIuSnd8yHlMqrlKwCWi0Nl04L0EYqnpaUH8cCi++7QRnb90o5RBHpsbCRJPgwM+QS3vQ2ay b3EwN1+0ZSQ9f2DFRd2OGDvKnUTDJwUXmXbVBiyIqZSHjALT8fAfRApmNpkVdQzWYVIkbTdEsT9CwiHq oteRQBNOHFXBoshIYcTFBPLaHO3OXKh+UQRISIEFEi JcPQGJfEw3wL/Ngrcc2fmz/9QeVB1FR1xVDJOVlRPoiYiYI4U0S+fvsOAxy4oKtovEwjfv8QaLm9h826 CXLfbHGsAVmeN1MneiAMFj6PrQlwX5RyuIdZx669SU1VZCQ1PtDp8CVyp9NmfOqMY4qMWgyEfEwg22oD 1G5I6M6kdIoWAioPfwRSFpWVJBNZnvoiYRATNAlxY3 kVY7wG0CHqu8AZX7UWeReAHXJFePOlEXcShjD765QhypasrTlzr+7jv7/9l2/l7R/ePv4/b+8/3thchG BU5v533/MoFu90T09/+eU/mv2p4z48/ac7tEP2Ns/97abqkA1ovu6U56g7h63+JP3n/+3dVz+/o4LfXi guD6i4ZuJkm3f8tun/7qvfv/3ux359uMgy/dtv3v/q i8/hfvo4a2+++Pb9h2+++Yj8f3ln088wNxeb8Lfj5j81uY/dlvetk2168D2oxxsk9+0+ysW1C850F/NJ X3z1u2/ePr77/Ne///rpy8926j9r/PZehe/f/vbrrz+8/fbD+8+/vn/53qcQ98/36c4W62+++/b9i/31 f/3w/xtwsyi6u3tn6qn95dc4j9/42dj8q28+/XrrF/ O68r4Q0j/rNu9++qMYP18e6jcMV//x7fOvv/rmi1+9//D2xVf//P7DF6+Hf/HN579+/5u/92Seyem6b7 2Ht/ef/9e/53Cmm3p/3zGVq5o+/eLrV+tfv/iy1t4008508v0dt9x/d/50q/H3nz7/84//8ce//PD9v7 /99//99u0f//Sn7/7yl++/+9M/vv3qux//+T5k4l8w v0j+2z+8/fnHN/mFjF/Mzz0+c/3spae8+42yyE8PjlIpXnERU61wFt46fTGmT2mgLd/wQUF1394o7I0a /55Msw12lUAyob1kc1mOpd2d3QqbHMvg5Pt3dwoQ8opI5NPWk6+7fiqqWQfn/sGH7//j+1zfxpp62ewf DB8//gn6q882gHyssT/iMXFpc74wYr/y/l/R6Tdkt3 1h7Kcn//O7vPPUtZYM74fURy3VVMd6+x//85/e/vLdf37/ye1fS+nbSqxz/+iHv/707huTlj+9+wZ/++ Htjz/+5/d/+X//3x3I7qcDV022yH3nFI7vl9/Vf4l12o1y/+fr3f/45x9/jmfNft9pp3+3eLB/+fiLf/ n4B+BzpMQTn2TzX2zvL9k/BnkEPl9n8dU8ruGlReMd MnhqN5j57VY++/MPP//49t3/+m8bksumvf751r//+c3vv68whbrEQGt8//2Xf/uHn/x6f4Z//v6H7/70 yQcen+Cff/c///DdX//43Y8/ucMWdbv++ONP/39Gy/Wn//63/31k+OHPf/2ydneP4On/2S3+8s9/+Kw3 IdMiIg4KAfLZ+f0f/u8f//iH1xt+9vbf3n/17stPVq R629pSRB97i//56nb//wtek9xxg2xUMLc+9W9+8/9re285jgA+r53/55/clpK+9Zp3f/vd//j+Td7+/B 3jts0ng/n/TBtvb+1zH3lTK81/q4+v+pZlR73xQNbhs2P7/+Ijg7xt1M0LQJ/vPv/733571nnpi9md26 rH09f+cqlocZIFBC7nx0QqIEXeUvEwVQ0oczdtTSIw ZJ3tank0C8YzaDtoLEmIVHCwFu3fuXNqHB3OXPN7HCsnEDOzKBFiC0OgyV8dY00nhXKuUpCcLRUOMO9M rlU1MHP3WAV0AHGsYsVrWOEcSR54UGVvHRFSUg8jlqOyVrkVQfSeLU6walr2P9N5jNXhG011dIwhqoZf WV6Xb7TpcOOkLI1ApMIktJCsHKHiOEPoN4hve3YzQY lpADSMBq2yeyItFynIReIxYU2ieze8O2G8gRbwgjGvODGNSSfcNioyPZ7wgSpjmhpoF5SojVTzQFYjP6 OfTVRbz77DEAQaTXwNCyPpIfRjCMB9GFc4ZzspSvBbBBIzQANxAEIsUG9EnFQmQHTbSZJBYRfqJqgdDN QsgS6mxFYHj9OsA26CJJrUPFdJSPXROTZFRuMaUaBy ISP8TLCqT6WzruDakJBuJMFMVWqoUizpTAOrkN8wpEaaR2YvMWI9d8LmYG5NF5EdXDFlBPRSGCM8p4Rn YOSufbbxidxrTvNuFMUiTASbBPCjXN0Xnn3hxRBtwsHmNBCOTKueQngkBY6gmLnydpxcU3VdiVSiCEA+ RkXqSW2tvg2+JkLsIIEiCzh3MLEuOOenBGWfUBOjNS WdW5qeSLHuBdJnIPSaTmExZP3Ee1DckUXuWw3keiSgFwsRxEKjTpenYNCvHNWdXBWrJcOBATBdMHIiPB CeRRB3OKMbVNKgIHsfDOMnIMX2MCr7XRDmDPJvZJ2iVaMeKMGxZdSwOAPzBTCyRVAiyvYGAWGeXOW3Jb FjWEHqQRQbIJAtCBcsETQiCBVuYTBnYZO7VMM7NWTg MkDhNTOeBZMyGDFeWAKdJCYisoLANQTaTAMdMDM8YJFxKHTeIEGhZYcsZDJpBMAvCEpoRZSuJFFqFK1u VbEdWTPlYBJmUTidCWHrHFGcjhZHQAEaFHXnSVPhHECfQUNcTMOiDJwmQOQvUJCrUAXeFBNbJXJeXV9y JnKxFLFeZRK9BRGxBMKzUYYuprFCGEYzATGnJPk1VW YcGHHkGMFoMPwtQPQkTHCpATA6MHMfHTFuJR2fXvGxOAGsAET2HePiKMItMCHeozIQVFBzGEJzYQS2Zh UiGLWlTWPvTSelQVScRZFdSWglSMYhQKZoFX3cCnXpTWMgAYMeKMbwBDMeCYCtyiRRVGQlJLLsVIAiZi YtCIIaGHGtHAeaUTLnXEZ9WJWsDAIbEEOxMG9fBnZh MVUuVHR2DPjlDJFoBUBijyDXIBLjTNNqHWhbUNSwTUHtWBAzYEhjTBJvKRVlEGE7MIHmESOoUI9iFpLc YSEkOXLrARHpEuA1JdPjMcEDhPHmfPlhgta0TJllX1b4LZQsIPmzJA5xbqPgTXJwUfsfHb8aiKP1LHJr ZhfZZk0At2VfxyQ5keHtJqT2RZQzXrKtCB6H ID Date Data Source [id number] 10/05/2020 07:37:16 AM [facility] Name Value Range Interpretation Code Description Data Edna rce(s) Supporting Document(s) Leukocytes [#/volume] in Blood by Automated count 7.9 10*3/uL 4-10 [facility] Erythrocytes [#/volume] in Blood by Automated count 2.58 10*6/uL 4.1- 5.3 L [facility] Hemoglobin [Mass/volume] in Blood 7.5 g/dL 11.5-15.5 L [facility] Hematocrit [Volume Fraction] of Blood by Automated count 23.0 % 3 6-45 L [facility] Erythrocyte mean corpuscular volume [Entitic volume] by Auto mated count 89.1 fL 80-96 [facility] Erythrocyte mean corpuscular hemoglobin [Entitic mass] by Automated count 29.2 pg 27-33 [facility] Erythrocyte mean corpuscular hemoglobin concentration [Mass/volume] by Automated count 32.7 g/dL 32.0-36.0 [facility] width [Ratio] by Automated count 15.0 % 11.5-14.5 H [facility] Platelets [#/volume] in Blood by Automated count 216 10*3/uL 150-400 [facility] ID Date Data Source [id number] 10/05/2020 06:38:06 AM [facility] Name Value Range Interpretation Code Description Data Edna rce(s) Supporting Document(s) Leukocytes [#/volume] in Blood by Automated count 4-10 [facility] Notified Elyssa Mariscal on 5B at 0637 on [id number] by 8998 Erythrocytes [#/volume] in Blood by Automated count 4.1-5. 3 [facility] Hemoglobin [Mass/volume] in Blood 11.5-15.5 [facility] Hematocrit [Volume Fraction] of Blood by Automated count 3 6-45 [facility] Erythrocyte mean corpuscular volume [Entitic volume] by Automate d count 80-96 [facility] Erythrocyte mean corpuscular hemoglobin [Entitic mass] by Au tomated count 27-33 [facility] Erythrocyte mean corpuscular hemoglobin concentration [Mass/volume] by Automated count 32.0-36.0 [facility] Erythrocyte distribution width [Ratio] by Automated count 11.5-14.5 [facility] Platelets [#/volume] in Blood by Automated count 150-400 [facility] Sample quality of Dried blood spot [facility] ID Date Data Source [id number] 10/05/2020 06:01:10 AM [facility] Name Value Range Interpretation Code Description Data Edna rce(s) Supporting Document(s) Leukocytes [#/volume] in Blood by Automated count 4-10 [facility] Notified Elyssa Mariscal on 5b at 0600 on [id number] by 8998 Erythrocytes [#/volume] in Blood by Automated count 4.1-5. 3 [facility] Hemoglobin [Mass/volume] in Blood 11.5-15.5 [facility] Hematocrit [Volume Fraction] of Blood by Automated count 3 6-45 [facility] Erythrocyte mean corpuscular volume [Entitic volume] by Automate d count 80-96 [facility] Erythrocyte mean corpuscular hemoglobin [Entitic mass] by Au tomated count 27-33 [facility] Erythrocyte mean corpuscular hemoglobin concentration [Mass/volume] by Automated count 32.0-36.0 [facility] al Erythrocyte distribution width [Ratio] by Automated count 11.5-14.5 [facility] Platelets [#/volume] in Blood by Automated count 150-400 [facility] Sample quality of Dried blood spot [facility] ID Date Data Source [id number] 10/05/2020 05:14:09 AM [facility] Name Value Range Interpretation Code Description Data Edna rce(s) Supporting Document(s) Bicarbonate [Moles/volume] in Serum 21 mmol/L 22-29 L [facility] Chloride [Moles/volume] in Serum or Plasma 108 mmol/L 98-107 H [facility] Creatinine [Mass/volume] in Serum or Plasma 0.70 mg/dL 0.50-0.90 [facility] Glucose [Mass/volume] in Serum or Plasma 93 mg/dL 70-140 [facility] Potassium [Moles/volume] in Serum or Plasma 3.8 mmol/L 3.4-5.1 [facility] Sodium [Moles/volume] in Serum or Plasma 139 mmol/L 136-145 [facility] Urea nitrogen [Mass/volume] in Serum or Plasma 8 mg/dL 6-20 [facility] Anion gap 3 in Serum or Plasma 10 mmol/L 8-15 [facility] Osmolality of Serum or Plasma by calculation 286 mosm/kg 275-300 [facility] Creatinine/Urea nitrogen [Mass Ratio] in Serum or Plasma 11 [facility] Calcium [Mass/volume] in Serum or Plasma 8.3 mg/dL 8.6-10.0 L [facility] Glomerular filtration rate/1.73 sq M pre dicted among non-blacks [Volume Rate/Area] in Serum or Plasma by Creatinine-based formula (MDRD) >6 0 [facility] Glomerular filtration rate/1.73 sq M pre dicted among blacks [Volume Rate/Area] in Serum or Plasma by Creatinine-based formula (MDRD) >60 [facility] ID Date Data Source [id number] 10/05/2020 05:14:09 AM [facility] Value Range Interpretation Code Description Data Edna rce(s) Supporting Document(s) Phosphate [Mass/volume] in Serum or Plasma 1.7 mg/dL 2.5-4.5 [facility] ID Date Data Source [id number] 10/05/2020 05:14:09 AM [facility] Value Range Interpretation Code Description Data Edna rce(s) Supporting Document(s) Magnesium [Mass/volume] in Serum or Plasma 1.9 mg/dL 1.6-2.6 [facility] ID Date Data Source [id number] 10/05/2020 01:23:54 AM [facility] Value Range Interpretation Code Description Data Edna rce(s) Supporting Document(s) Leukocytes [#/volume] in Blood by Automated count 8.5 10*3/uL 4-10 [facility] Erythrocytes [#/volume] in Blood by Automated count 2.44 10*6/uL 4.1- 5.3 L [facility] Hemoglobin [Mass/volume] in Blood 7.2 g/dL 11.5-15.5 L [facility] Hematocrit [Volume Fraction] of Blood by Automated count 21.6 % 3 6-45 L [facility] Erythrocyte mean corpuscular volume [Entitic volume] by Auto mated count 88.7 fL 80-96 [facility] Erythrocyte mean corpuscular hemoglobin [Entitic mass] by Automated count 29.5 pg 27-33 [facility] Erythrocyte mean corpuscular hemoglobin concentration [Mass/volume] by Automated count 33.2 g/dL 32.0-36.0 [facility] al Erythrocyte distribution width [Ratio] by Automated count 15.1 % 11.5-14.5 H [facility] Platelets [#/volume] in Blood by Automated count 191 10*3/uL 150-400 [facility] ID Date Data Source [id number] 10/04/2020 06:43:34 PM [facility] Name Value Range Interpretation Code Description Data Edna rce(s) Supporting Document(s) [facility] GXYCKe3mAnYZOfMj01/AWEcwYZWcd6ChBDlsXEy1ANgoBPRbQ4EcJSI1aZ0mCGH9UOeXKkEzHgPoOPB2 lbm [file] [id number]== ID Date Data Source [id number] 10/04/2020 06:11:46 PM [facility] Name Value Range Interpretation Code Description Data Edna rce(s) Supporting Document(s) Troponin T.cardiac [Mass/volume] in Serum or Plasma <0.01 [facility] ID Date Data Source [id number] 10/04/2020 05:49:02 PM [facility] Name Value Range Interpretation Code Description Data Edna rce(s) Supporting Document(s) Leukocytes [#/volume] in Blood by Automated count 9.2 10*3/uL 4-10 [facility] Erythrocytes [#/volume] in Blood by Automated count 2.76 10*6/uL 4.1- 5.3 L [facility] Hemoglobin [Mass/volume] in Blood 8.0 g/dL 11.5-15.5 L [facility] Hematocrit [Volume Fraction] of Blood by Automated count 24.4 % 3 6-45 L [facility] Erythrocyte mean corpuscular volume [Entitic volume] by Auto mated count 88.3 fL 80-96 [facility] Erythrocyte mean corpuscular hemoglobin [Entitic mass] by Automated count 28.9 pg 27-33 [facility] Erythrocyte mean corpuscular hemoglobin concentration [Mass/volume] by Automated count 32.8 g/dL 32.0-36.0 [facility] E[facility]th[facility] distribution width [Ratio] by Automated count 14.9 % 11.5-14.5 H [facility] Platelets [#/volume] in Blood by Automated count 209 10*3/uL 150-400 [facility] ID Date Data Source [id number] 10/04/2020 10:49:12 AM [facility] CT ANGIOGRAPHY ABDOMEN AND PELVIS [id number] INAL RESULTInterpreted by:NORM WelchPROCEDURE INFORMATION: Exam: CT [...] (IV); COMPARISON: CT ANGIOGRAPHY ABDOMEN AND PELVIS [id number] 10/02/2020 4:54 AM FINDINGS: Lungs: Mild ground-glass [...] rce(s) Supporting Document(s) ID Date Data Source [id number] 10/04/2020 11:43:16 AM [facility] Name Value Range Interpretation Code Description Data Edna rce(s) Supporting Document(s) Leukocytes [#/volume] in Blood by Automated count 8.7 10*3/uL 4-10 [facility] Erythrocytes [#/volume] in Blood by Automated count 2.85 10*6/uL 4.1- 5.3 L [facility] Hemoglobin [Mass/volume] in Blood 8.4 g/dL 11.5-15.5 L [facility] Hematocrit [Volume Fraction] of Blood by Automated count 25.4 % 3 6-45 L [facility] Erythrocyte mean corpuscular volume [Entitic volume] by Auto mated count 88.9 fL 80-96 [facility] Erythrocyte mean corpuscular hemoglobin [Entitic mass] by Automated count 29.3 pg 27-33 [facility] Erythrocyte mean corpuscular hemoglobin concentration [Mass/volume] by Automated count 33.0 g/dL 32.0-36.0 [facility] distribution width [Ratio] by Automated count 15.2 % 11.5-14.5 H [facility] Platelets [#/volume] in Blood by Automated count 181 10*3/uL 150-400 [facility] ID Date Data Source [id number] 10/04/2020 06:13:34 AM [facility] Name Value Range Interpretation Code Description Data Edna rce(s) Supporting Document(s) Leukocytes [#/volume] in Blood by Automated count 9.0 10*3/uL 4-10 [facility] Erythrocytes [#/volume] in Blood by Automated count 2.47 10*6/uL 4.1- 5.3 L [facility] Hemoglobin [Mass/volume] in Blood 7.3 g/dL 11.5-15.5 L [facility] Hematocrit [Volume Fraction] of Blood by Automated count 21.8 % 3 6-45 L [facility] Erythrocyte mean corpuscular volume [Entitic volume] by Auto mated count 88.4 fL 80-96 [facility] Erythrocyte mean corpuscular hemoglobin [Entitic mass] by Automated count 29.5 pg 27-33 [facility] Erythrocyte mean corpuscular hemoglobin concentration [Mass/volume] by Automated count 33.3 g/dL 32.0-36.0 [facility] al Erythrocyte distribution width [Ratio] by Automated count 15.1 % 11.5-14.5 H [facility] Platelets [#/volume] in Blood by Automated count 170 10*3/uL 150-400 [facility] ID Date Data Source [id number] 10/04/2020 06:30:17 AM [facility] Name Value Range Interpretation Code Description Data Edna rce(s) Supporting Document(s) Bicarbonate [Moles/volume] in Serum 21 mmol/L 22-29 L [facility] Chloride [Moles/volume] in Serum or Plasma 109 mmol/L 98-107 H [facility] Creatinine [Mass/volume] in Serum or Plasma 0.67 mg/dL 0.50-0.90 [facility] Glucose [Mass/volume] in Serum or Plasma 94 mg/dL 70-140 [facility] Potassium [Moles/volume] in Serum or Plasma 3.4 mmol/L 3.4-5.1 [facility] Sodium [Moles/volume] in Serum or Plasma 139 mmol/L 136-145 [facility] Urea nitrogen [Mass/volume] in Serum or Plasma 8 mg/dL 6-20 [facility] Anion gap 3 in Serum or Plasma 9 mmol/L 8-15 [facility] Osmolality of Serum or Plasma by calculation 285 mosm/kg 275-300 [facility] Creatinine/Urea nitrogen [Mass Ratio] in Serum or Plasma 12 [facility] Calcium [Mass/volume] in Serum or Plasma 7.9 mg/dL 8.6-10.0 L [facility] Glomerular filtration rate/1.73 sq M pre dicted among non-blacks [Volume Rate/Area] in Serum or Plasma by Creatinine-based formula (MDRD) >6 0 [facility] Glomerular filtration rate/1.73 sq M pre dicted among blacks [Volume Rate/Area] in Serum or Plasma by Creatinine-based formula (MDRD) >60 [facility] ID Date Data Source [id number] 10/04/2020 05:33:40 PM [facility] Name Value Range Interpretation Code Description Data Edna rce(s) Supporting Document(s) Thyrotropin [Units/volume] in Serum or Plasma 0.524 u[IU]/mL 0.270-4. 200 [facility] ID Date Data Source [id number] 10/03/2020 07:46:52 PM [facility] Name Value Range Interpretation Code Description Data Edna rce(s) Supporting Document(s) Leukocytes [#/volume] in Blood by Automated count 12.2 10*3/uL 4-10 H [facility] Erythrocytes [#/volume] in Blood by Automated count 2.95 10*6/uL 4.1- 5.3 L [facility] Hemoglobin [Mass/volume] in Blood 8.6 g/dL 11.5-15.5 [facility] Hematocrit [Volume Fraction] of Blood by Automated count 26.5 % 3 6-45 L [facility] Erythrocyte mean corpuscular volume [Entitic volume] by Auto mated count 90.0 fL 80-96 [facility] Erythrocyte mean corpuscular hemoglobin [Entitic mass] by Automated count 29.0 pg 27-33 [facility] Erythrocyte mean corpuscular hemoglobin concentration [Mass/volume] by Automated count 32.3 g/dL 32.0-36.0 [facility] E[facility]th[facility] distribution width [Ratio] by Automated count 14.8 % 11.5-14.5 H [facility] Platelets [#/volume] in Blood by Automated count 166 10*3/uL 150-400 [facility] Confirmed ID Date Data Source [id number] 10/03/2020 04:23:14 PM [facility] IR RENAL ARTERIOGRAMFINAL RESULTInterpre edgar by:Paul [...] rce(s) Supporting Document(s) ID Date Data Source [id number] 10/03/2020 02:45:17 PM [facility] Name Value Range Interpretation Code Description Data Edna rce(s) Supporting Document(s) Leukocytes [#/volume] in Blood by Automated count 9.9 10*3/uL 4-10 [facility] Erythrocytes [#/volume] in Blood by Automated count 2.95 10*6/uL 4.1- 5.3 L [facility] Hemoglobin [Mass/volume] in Blood 8.5 g/dL 11.5-15.5 L [facility] Hematocrit [Volume Fraction] of Blood by Automated count 26.1 % 3 6-45 L [facility] Erythrocyte mean corpuscular volume [Entitic volume] by Auto mated count 88.6 fL 80-96 [facility] Erythrocyte mean corpuscular hemoglobin [Entitic mass] by Automated count 28.9 pg 27-33 [facility] Erythrocyte mean corpuscular hemoglobin concentration [Mass/volume] by Automated count 32.6 g/dL 32.0-36.0 [facility] E[facility]th[facility] distribution width [Ratio] by Automated count 14.7 % 11.5-14.5 H [facility] Platelets [#/volume] in Blood by Automated count 160 10*3/uL 150-400 [facility] ID Date Data Source [id number] 10/03/2020 10:12:33 AM [facility] Name Value Range Interpretation Code Description Data Edna rce(s) Supporting Document(s) History and Physical [facility] XKFNTv2sZqOQEgFo95/QSUmnWOPes4ZqCHohTMa3RPrnAWVhT7JmZTG6cA7uEEC2YLcOKsLiLgUkDFX6 lbm [file] v1Xz9q1y1JNP/6rEm/f4Vng5Nt6ETCFsMC+flfZFTc3eoPp3wMU1DR38voQCYgp4HaZt5/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 [file] ICAgICAgICAgICAgICAgICAgICAgICAgICAgICAgIC AgICAgICAgICAgICAgICAgICAgICAgICANCiAgICAgICAgICAgICAgICAgICAgICAgICAgICAgICAgIC AgICAgICAgICAgICAgICAgICAgICAgICAgICAgICAgICAgICAgICAgICAgICAgICAgICAgICAgICAgIC AgICAgICANCiAgICAgICAgICAgICAgICAgICAgICAg ICAgICAgICAgICAgICAgICAgICAgICAgICAgICAgICAgICAgICAgICAgICAgICAgICAgICAgICAgICAg ICAgICAgICAgICAgICAgICANCiAgICAgICAgICAgICAgICAgICAgICAgICAgICAgICAgICAgICAgICAg ICAgICAgICAgICAgICAgICAgICAgICAgICAgICAgIC AgICAgICAgICAgICAgICAgICAgICAgICAgICANCiAgICAgICAgICAgICAgICAgICAgICAgICAgICAgIC AgICAgICAgICAgICAgICAgICAgICAgICAgICAgICAgICAgICAgICAgICAgICAgICAgICAgICAgICAgIC AgICAgICAgICANCiAgICAgICAgICAgICAgICAgICAg ICAgICAgICAgICAgICAgICAgICAgICAgICAgICAgICAgICAgICAgICAgICAgICAgICAgICAgICAgICAg ICAgICAgICAgICAgICAgICAgICANCiAgICAgICAgICAgICAgICAgICAgICAgICAgICAgICAgICAgICAg ICAgICAgICAgICAgICAgICAgICAgICAgICAgICAgIC AgICAgICAgICAgICAgICAgICAgICAgICAgICAgICANCiAgICAgICAgICAgICAgICAgICAgICAgICAgIC AgICAgICAgICAgICAgICAgICAgICAgICAgICAgICAgICAgICAgICAgICAgICAgICAgICAgICAgICAgIC AgICAgICAgICAgICANCiAgICAgICAgICAgICAgICAg ICAgICAgICAgICAgICAgICAgICAgICAgICAgICAgICAgICAgICAgICAgICAgICAgICAgICAgICAgICAg ICAgICAgICAgICAgICAgICAgICAgICANCiAgICAgICAgICAgICAgICAgICAgICAgICAgICAgICAgICAg ICAgICAgICAgICAgICAgICAgICAgICAgICAgICAgIC AgICAgICAgICAgICAgICAgICAgICAgICAgICAgICAgICANCjw/xXTeM4tpxEGzntZ7F8aaUz5NSl9XJA 6lr3OzQPRpRGtcquVdWmwEMwJmTUZtAbvNJba8AIfuOR8GgIXmD1KuB5UgWTpoDD4XDOBcMJFwjLGwZG SpLZRtUpT3RSMhKYlaMH4TsJDfZZbcAFTjQVFmAlVs XUWeASQbJQQrHD3JJFDwJ384ajYjKg2DDk5QVfOxRR2uyx6EVrWlPZStXvdXEdo8OGstXP2KrNKdvJXc RwEbIYWXAbGdI7wlx8WwNfggFBQSKXlaRF4Uc1QhkWQlSSj+Jx7BOT3iv1IrLYstBsPqWD5jxs3WGSkY YyFgS2PfzVdhQTvrUIYjrLMMQHSfiEjqsd1tH21oYW ocr4otTXQVFSRapLNhZsR5QkNwGnMoNWH3VJOzVB1vTEcgTM6VBYE5LUtwFPGqSULmE4tIEdYfDHToYp RdaNauRE6XXzQgO4OsyrPvmABjYqTkHLTINa8+DKvaziIfJpjRVqP8HMWwl9QpBEe4VF3ZOFVhWWdcFG 7DCDWgjN6aLEwuLJ2PDrDkGTNaKZKCCvSqV77zfXAj QIj3V3FcZyAfNDOfXszmNAUpCNjtZeMpUEUmPzSbEOhlQN2+ID4+RPfsGH7PXSpvlcVaYQTvUb4FDSMi RYDaNL0pGLTcWRKdZ1X9xWniJDSCLaClX3vgouxpYZ5kOTOrC444dOgdhyVgWKX6UMUhKa7SAJJzLLA0 SEHyrWEhCdQdGRADXNzgXO2BhDAqPHO6jO4lZCbrDZ YvOQCwF0xPOhCioGvlKI49dWpofeImmUSeVPz+Jt1EZR1aq6MgKOu4bwMtMNfrGZU6DZtdYTOxZXVmEL BlPLE1QKO8NWCEXyXlGRNeMKCkQUnxFUDzQAPdgt8XZMTyAJDbZjk4XeGxUUKvTIQlAGfxDWMyVOK8Qg ueBBXoFMJyKW9KHlKqGSHcXIJfUEamRKNrDEOsrk3F TRNbWVYcIyyuSDEiJVHfLBAvJWwoZTMwEKVfPZG0HTQqLPWoES1XOeXzYDAfFGCjSDDxLRQkSTJeip8L FHVqTRYhElP0REByHIVzNVItOEojROUtIDT4Hxo6BKOuUHJqYA6CWnMaMHUtSKj5FEyvTVCvQBFvku5R JSTrHVIbYKJ9HAFgQEYsBWPcTYbzWQOmIIL7ZaG8QB CmZIReMF5FQmRiRIJiEQf1ZdwfQGGoRTIwmk0MFASnYMQfYOp5ZhKoVOUxZFXnBYamMCIeNXXjPYj0IC VeUEKgYY1GKhSzRUItBPWcXJotITYjLJJacw1QBTGhKALmDFW6NqQvBUMlHKOuXAwsVXZySHBuWWW8SH YeAEYjCK2KFfDtTSJqMVP9HbpaGCVcILQteb5VLVKx WFKiHjLxKjXjFLZgQOGbNNxrSGFoBHPnUqKcGTQlWXMvZK6IFzNyCWGvIvF6ShdeRLYsXCOtkt4DDVPv BZVtLnm7VIJsXZRqQQQoEZdfHBNkHLKdWPQ8LJPoHYHgBO7YOtKjBGMgVtShVBNqWNSlMIRcjg5FLWSy HOXkQRf2PKCmZUHiPWNrMFhtQKBjJKI9SWBiNFYrTK PnIA6MQfFtHAYzZrXaKHMvRHWmUFWuof8QoXAyxHlowb1NHTwHLn8EqDrvWPH1EPttNc5ryIUeAZPyTE KRZi2BpvNrTMUlSVLEAOosPAIbFBB1YFYdYNJzWGM9QoW3UvCiQ7YhAhUyQtZ1QJZaX9WkPuP3FXu0Kt W5OYO9RrEtGyHeCICoRpYcEYWhAKb9MNL8LVQ+IF0g DQo+Fd4Cm6SnvvE8bfEdMMepXlF3SS6RIYPMJ4FXWm== ID Date Data Source [id number] 10/03/2020 10:11:22 AM [facility] Name Value Range Interpretation Code Description Data Edna rce(s) Supporting Document(s) Consultation [facility] AMYMYc1jCmKBSlAn61/KEWbgPICmq5NeONrbWSz2CHbtLIVdV8ImIME9tM7jMUR8GEdCFdKdXgGjAAW7 lbm [file] [employer]+Ip9LXZOvGQs5W4E3OZDgJDh0W8OMT9GXGZXsIF vdAWhzFBVgKHj2O0Y2NXDvU4QNJ5Miytplmm9+QK0CP47ZNUOrFMs2K4A5iRZlI9M8iZmLfYZ9LB1RSF 7CiWx7pJSrxQ6+GW0UG7RQNiFrOSi9P7M3kYJhC6E7wLdScTW0PX6FGW9XqDBmPZEzovGeRe7kY3LRDC dLOrIEKIQ9AD2NaXNwJS8FcPEJU3PflGLkIt2sVAkj rTTyjA0sIk4pRYnlGX0QKtPYSZoPIYM4WM5UfLVhLX0GrQOCF8IoyRRdTf3sPZetmOJykz3+GE8LRGYv Fc0NAx8+SFkubgVgBbwERfW1ZZZpq5SpCHb1ZV6FMW2knWiiQHD3Yr6ViAY3mVLcZ4rQYE4TpIAaP56s rROxHNFtAj1DTfB6oeEgaW5QCY57kICyb3M8MFVyH9 qoMRvvt20dVUulQLpWYW6iRAWITXwgBDgqWHN3DgClvetyXJTbPr8NHwHqDNz9fJ0beXD2IEO7OvlwiR CnGAsdMfAdXbDiBfQ0vAkmdxp8ZOebGO5kJSpgcbzlABOgMqm+EExdBSFyPHQiGcoJSPQuhH0famN4nd FbELntkNUcIa1iy1p0OjkjCl8gIh0fHGt7ObJwEzWw GGNmYi9jaH37TOgmclEwNj8ZMyAoWZG6Y8LlHtpICQU+ZQzxMFcvdMg3jSPqTEHmMt7VOZXeDURvHBBj ICAgICAgICAgICAgICAgICAgICAgICAgICAgICAgICAgICAgICAgICAgICAgICAgICAgICAgICAgICAg ICAgICAgICAgICAgICAgICAgICAgICAgICAgICAgIA 0KICAgICAgICAgICAgICAgICAgICAgICAgICAgICAgICAgICAgICAgICAgICAgICAgICAgICAgICAgIC TvZSRcHRTpNAClSFAdKVUiTSYxLULsYWUgPPViSEDiDUWbHZLjYBKtZL6BFSWcBBBqYFWeMRRaMLIyVY AgICAgICAgICAgICAgICAgICAgICAgICAgICAgICAg IIEdIAHeKYDzLNUdEWHxQZQkSEVvSNFzODYsOAIlRIRsZVOxFALxWHNyHMBpRMRcXOYcWZ3NDLYuLAFm ICAgICAgICAgICAgICAgICAgICAgICAgICAgICAgICAgICAgICAgICAgICAgICAgICAgICAgICAgICAg ICAgICAgICAgICAgICAgICAgICAgICAgICAgICAgIC XjMS6ODDLmHREqYSYjYUWwLNFrRZYhUTIvJHHaMGZgDVMcELSuUXNqDLKzTADkTPTqFEQlYXWdOHGrAP VpOCDxXDOpNDCpYYNgFQIpOAYcAGXgQHKbSRLmDIObBTAjDLBmKXExFVPwVG3JBHTzEGFlGAVzOCCmNX AgICAgICAgICAgICAgICAgICAgICAgICAgICAgICAg ZPRzDLZqIVRsVQKgPKNfLDXlTAWzYKIwQKZhLSIvVKElTGUbCAZjQPIfGVLbTGNmEAAxEWVrZR3FBMUg ICAgICAgICAgICAgICAgICAgICAgICAgICAgICAgICAgICAgICAgICAgICAgICAgICAgICAgICAgICAg ICAgICAgICAgICAgICAgICAgICAgICAgICAgICAgIC ToKWDgFF3KHFGfQTYwXXHxYKZcILJaNOZxZAPuZOHvKIGtFPGmGFXuXYPvBBQcDBLyCGZkOJPqAOEhOY NdLVTnMTIjLPDxYZSvJTTfYCQwFFKfNTTrHFRmCNIhSSIcSXUfFNDtMKYbGHRcAQ6UHVBgMCYySBDnOC AgICAgICAgICAgICAgICAgICAgICAgICAgICAgICAg XTOlTTHuOFBwDTIdCJWqNDIpMYHlVUOeHWYzLWLsWUPiQAIfVYOiLUYmRKDqRLYvONFcICXpYFJtOQ9X ICAgICAgICAgICAgICAgICAgICAgICAgICAgICAgICAgICAgICAgICAgICAgICAgICAgICAgICAgICAg ICAgICAgICAgICAgICAgICAgICAgICAgICAgICAgIC RqSAOtKTYwCS9ZCT19lPFde0N0FZDqRF2kmsu/Vk7OJJmmnxVsmOZvPS2RCdDiWS6sih4IMhXwGL9jlv 5MADgWCjCdU1W4jSBxXSPpXIOROsMuZ13yBHowUh92KZvuJZWuOaZuTUp3Ah4MXjXkU4joSRMsQdP9OJ XfWmE5JWQzZuJ1SSSxXlCaXEGtCBZfFAOfKSLKSA7W QwDnT3ZaaK26ADJGIt6+BYnwtjAtRpoIPiXkNLOsc2PoELc4UK8EXOGpTboav2HpOgShXQODWMprCG5F OUY3ANHhCBCiWa7EMWEpR302hgWeJX4ZRx8BAnFtYC7hrz3GCiJlZIIpCijBEeg4IBblDX0YkKBmDHjU c37xeFh4wfSkiSHUSABolUgdsv9yY06xUGpue0rbXG CGIYXcoNNoHaL7FhPzSfMjUGz6WhceNJ3lCSmfOT1NORW7OXbdRITcFVZoR8hZEvYvTNYiYxAgxYvmZS 1NWhHrW3LuftXyaBTzHPFcHMEQOa4+MEalihYtLzkSHqSaAOWry7UeDCv1XZ6DPVLnHWrlUD8OJQVufQ 8vQHepFJ0TXeGoMMHgESONFxRkQ14ifNIfUUy7Q6Wv YmVkZGVkRmlsZXMgPDwvTmFtZXMgWyBdDQogID4+ID4+BJdcUH1WMDehysXnUUKwXa8EZDIiCUHlTE1y NJKnRVBeF0T3oGepYOTCUfRsV8yfmajrDG4yDBRzQ479lIvotaDqHCSqBWRdHt4PQIBaXRH7IBNbgUOp LutuAYOLIHyxJA6VtIFkRFP4qJ1bZLyjNYYbRRHcK9 dUZjTikGabFE02nWtxxeJwwFQpEUd+To1AHT8yl1TeIRj5dtGvTXhsGJWnPGayQNKlYPXjJAGzGOO0PM I5SVMXUqOfGGJjSIZfXYddFCYrNVPwcu8XLABiCZIxVHJ2RjCsEBKmHNZfPZluAYVbNXClGZH6GYUwFI TvVH1KHdKuQOFhDAXlWSlcXCDyVBAkqy0WKXJmENMx LbW9OTFoPQIlQVSoHVkmGVBzRTLtMGK8QIQwRZOoOW2HXtRzRRRnISD2NIXhTCJiKNIhqa8FAOKdFNVl SGp8XcJeKPPcTBSdXLfcITDrDZE6DOJ6NPIyBOZoUG1XGvBsIWInFJnxKcYxPIQjOIThlx9NXRElVKRf WnS5GpHjKPQeZQWkDGqzWTBhHLOgPtv2WZOyVENyGC 6BDvEfMZSwGJA4TlstFCLjWTSnhy1CPEEeZZVfZNr7BIYrHDCpILIpUMztSJYjRFK4LGY5XFIcTFRkGM 5TIsPyOBJxCGEwWORjKMMtDASvby8ZJQFaPXKrIcB1YRQfNWSkNTImVAlfOWDzWLD4NYM4RPHeLOGmBA 8KGhNuHTJnFClwBKLsAPOeAGIqkk6QAVIxREFjSyGw FXLyRUPoERNqIRvaEQKdTYX9CMi6JEUjDJPdOA7JTdDsZANbRVq5BSNeAPQlTVNnql1TDCVdKSDqXVu3 MDQkIDUmHEFeJJphSBMkIITlIqP5UAWmAIFuDE1LJqCaOGMsCxP9MuwhXWZoLMUluu9JWIDvISMjXXg6 CzGhJQPlBKEzTZtdAORcUZGqNAH0QQFqMJFeLL6LFe WcRNYwDoJjTzZhZNJfFXYfff7AGIHfBWQgRUO2RCFfFCPoFFZdUDtkSNAiFBXcHMQjJHMcBBToJT2CIn HhAKEvGoJlFmEcVBZpVJXluz0GEMIqCAClKyN8FOBqTPNkMDQlLNs5hwRuhCQlECn3MU5BD3MhbsFqMm MOAf5Pw464XHIxWZSsZv2QW5ojCi4fWGGcBPCKFg1H CMx0UlRrPSA7BdEkVFC4XHMbAfJhWNxxZQDnYPBdQdD2HVD+MTdsEmM8XKq3OqWqTstpHTGtHDFpW6I3 UDO3KLQ4TnmgSn4nPRJLLj7+XSdcgDKwmRjrBYQGOgMvRDP0KPkfNCQOMa7N ID Date Data Source [id number] 10/03/2020 06:14:32 AM [facility] Name Value Range Interpretation Code Description Data Edna rce(s) Supporting Document(s) Leukocytes [#/volume] in Blood by Automated count 8.8 10*3/uL 4-10 [facility] Erythrocytes [#/volume] in Blood by Automated count 2.73 10*6/uL 4.1- 5.3 L [facility] Hemoglobin [Mass/volume] in Blood 7.9 g/dL 11.5-15.5 L [facility] Hematocrit [Volume Fraction] of Blood by Automated count 24.1 % 3 6-45 L [facility] Erythrocyte mean corpuscular volume [Entitic volume] by Auto mated count 88.5 fL 80-96 [facility] Erythrocyte mean corpuscular hemoglobin [Entitic mass] by Automated count 29.1 pg 27-33 [facility] Erythrocyte mean corpuscular hemoglobin concentration [Mass/volume] by Automated count 32.9 g/dL 32.0-36.0 [facility] distribution width [Ratio] by Automated count 14.7 % 11.5-14.5 H [facility] Platelets [#/volume] in Blood by Automated count 172 10*3/uL 150-400 [facility] ID Date Data Source [id number] 10/03/2020 06:39:29 AM [facility] Name Value Range Interpretation Code Description Data Edna rce(s) Supporting Document(s) Bicarbonate [Moles/volume] in Serum 21 mmol/L 22-29 L [facility] Chloride [Moles/volume] in Serum or Plasma 110 mmol/L 98-107 H [facility] Creatinine [Mass/volume] in Serum or Plasma 0.79 mg/dL 0.50-0.90 [facility] Glucose [Mass/volume] in Serum or Plasma 102 mg/dL 70-140 [facility] Potassium [Moles/volume] in Serum or Plasma 3.7 mmol/L 3.4-5.1 [facility] Sodium [Moles/volume] in Serum or Plasma 140 mmol/L 136-145 [facility] Urea nitrogen [Mass/volume] in Serum or Plasma 14 mg/dL 6-20 [facility] Anion gap 3 in Serum or Plasma 8 mmol/L 8-15 [facility] Osmolality of Serum or Plasma by calculation 290 mosm/kg 275-300 [facility] Creatinine/Urea nitrogen [Mass Ratio] in Serum or Plasma 18 [facility] Calcium [Mass/volume] in Serum or Plasma 7.6 mg/dL 8.6-10.0 L [facility] Glomerular filtration rate/1.73 sq M pre dicted among non-blacks [Volume Rate/Area] in Serum or Plasma by Creatinine-based formula (MDRD) >6 0 [facility] Glomerular filtration rate/1.73 sq M pre dicted among blacks [Volume Rate/Area] in Serum or Plasma by Creatinine-based formula (MDRD) >60 [facility] ID Date Data Source [id number] 10/03/2020 12:46:20 AM [facility] Name Value Range Interpretation Code Description Data Edna rce(s) Supporting Document(s) ABO and Rh group [Type] in Blood [facility] Blood bank comment [facility] ID Date Data Source [id number] 10/02/2020 11:58:43 PM [facility] Name Value Range Interpretation Code Description Data Edna rce(s) Supporting Document(s) Leukocytes [#/volume] in Blood by Automated count 10.0 10*3/uL 4-10 [facility] Erythrocytes [#/volume] in Blood by Automated count 2.38 10*6/uL 4.1- 5.3 L [facility] Hemoglobin [Mass/volume] in Blood 7.2 g/dL 11.5-15.5 [facility] Hematocrit [Volume Fraction] of Blood by Automated count 21.1 % 3 6-45 L [facility] Erythrocyte mean corpuscular volume [Entitic volume] by Auto mated count 88.9 fL 80-96 [facility] Erythrocyte mean corpuscular hemoglobin [Entitic mass] by Automated count 30.3 pg 27-33 [facility] Erythrocyte mean corpuscular hemoglobin concentration [Mass/volume] by Automated count 34.0 g/dL 32.0-36.0 [facility] Erythrocyte distribution width [Ratio] by Automated count 15.0 % 11.5-14.5 H [facility] Platelets [#/volume] in Blood by Automated count 176 10*3/uL 150-400 [facility] ID Date Data Source [id number] 10/02/2020 06:56:32 PM [facility] Value Range Interpretation Code Description Data Edna rce(s) Supporting Document(s) Leukocytes [#/volume] in Blood by Automated count 11.8 10*3/uL 4-10 H [facility] Erythrocytes [#/volume] in Blood by Automated count 2.86 10*6/uL 4.1- 5.3 L [facility] Hemoglobin [Mass/volume] in Blood 8.1 g/dL 11.5-15.5 [facility] Hematocrit [Volume Fraction] of Blood by Automated count 25.1 % 3 6-45 [facility] Erythrocyte mean corpuscular volume [Entitic volume] by Auto mated count 88.0 fL 80-96 [facility] Erythrocyte mean corpuscular hemoglobin [Entitic mass] by Automated count 28.4 pg 27-33 [facility] Erythrocyte mean corpuscular hemoglobin concentration [Mass/volume] by Automated count 32.2 g/dL 32.0-36.0 [facility] Erythrocyte distribution width [Ratio] by Automated count 14.9 % 11.5-14.5 H [facility] Platelets [#/volume] in Blood by Automated count 217 10*3/uL 150-400 [facility] ID Date Data Source [id number] 10/02/2020 12:47:29 PM [facility] Value Range Interpretation Code Description Data Edna rce(s) Supporting Document(s) Hematocrit [Volume Fraction] of Blood by Automated count 27.0 % 3 6-45 [facility] ID Date Data Source [id number] 10/02/2020 12:47:29 PM [facility] Value Range Interpretation Code Description Data Edna rce(s) Supporting Document(s) Hemoglobin [Mass/volume] in Blood 8.8 g/dL 11.5-15.5 [facility] ID Date Data Source [id number] 10/02/2020 10:31:14 AM [facility] Value Range Interpretation Code Description Data Edna rce(s) Supporting Document(s) History and Physical [facility] DJTEUo2xPhOVObTh87/KUMqkAUZji5VvOLlnMRg9ZEbsEQFbS2TuYZR5pO6vKUY7MDoIXgIbCuZlQAZ2 lbm [file] ICAgICAgICAgICAgICAgICAgICAgICAgICAgICAgICAgICAgICAgICAgICAgICAgICAgICAgICAgICAg LQCaLJGmYG5CBSNiYJItDHOaXMKwVILoMPNrCPWuDU AgICAgICAgICAgICAgICAgICAgICAgICAgICAgICAgICAgICAgICAgICAgICAgICAgICAgICAgICAgIC ZxMFQrISJaLDZhKENsIQDnFZ9BTPEsTMQmNCQxYJEdOIYjRIFnITNcURIfBWJcFPPbYZGtLRHiWAPjSH AgICAgICAgICAgICAgICAgICAgICAgICAgICAgICAg QHNmRJXlHISwMMKuZIEcEQLlREViYTMfXTDeCJ4SAOAyTUIjGQTbBKUpRNTbUFVcMAWvFBLxTFWhTOWl ICAgICAgICAgICAgICAgICAgICAgICAgICAgICAgICAgICAgICAgICAgICAgICAgICAgICAgICAgICAg EMDgCEQdGGEeCC0LWCCoSMPkJDMjVCUeTXWsNLJzLI AgICAgICAgICAgICAgICAgICAgICAgICAgICAgICAgICAgICAgICAgICAgICAgICAgICAgICAgICAgIC UuQONsSSNlJCZcRSDcJPGnUSVeIG3AWZFzMDDpQROeVNQeURWhDFJmQCXeNRMfXMNoNEIsUZGlHCXlOB AgICAgICAgICAgICAgICAgICAgICAgICAgICAgICAg IUSyJEQzYQZsJHOzUIAcFQCkMSPkKPUyEMPwHHYmMS5PUGGoPIQySRBgGJMjXKPuJPVbRKSsBTEtWQLc ICAgICAgICAgICAgICAgICAgICAgICAgICAgICAgICAgICAgICAgICAgICAgICAgICAgICAgICAgICAg XCDxREMxYQYqEEGiIT9IANHyAURfAAYpUDGvSTMgJB AgICAgICAgICAgICAgICAgICAgICAgICAgICAgICAgICAgICAgICAgICAgICAgICAgICAgICAgICAgIC FfUUArPJRqCKQdIWKwXJXgLIWaLYKvGH4UFOGtXZHmKMSbNXJkOMRgDRMsPBSfFFHqIFVwFZByZFSaPT AgICAgICAgICAgICAgICAgICAgICAgICAgICAgICAg PKBvISNuNVOiFLOqAAOwGYTmFWPkNBEzJQQxDVEhRYObNE6MYLFiATFbFXEiHQMjRVMpJBLkCIOpOGWh ICAgICAgICAgICAgICAgICAgICAgICAgICAgICAgICAgICAgICAgICAgICAgICAgICAgICAgICAgICAg SRAvZORwDFKkNOGxCENtKS0CYD21yJZzl6M2CYMqCI 0ndyc/Ff2LJWjxttHdyHLzLO7ZDgHqEL2rhd6BGuLiZT9hdq9EYZxTHaIhV1C5eDYaHOHdMWZEVqEsE0 9mXQahPd97XGjlZOJoBvYkZOs4Od5EWzSrU7jqQZRyQqQ9KXKqBdU2DWQiDfF3VIEeDiZwSOAdKBMxCT TeGMNVZP8RRdMqH9OqvI22MGVHKt2+DQplbmRvYmoN HqPeTJGdh8ZjDXi7BJ0BAAXySvjzo1DyGnSaZTFPWYlrTD6VERN4QNLcNMQpLg7NJAVwP714guTnCJ9Y Lw1OLrZtLV0les1BReSiIDKjOkrQCwv0MBtaQY7VxYJfEOyZOlBtHugzT86nmt1zSLqeHC7zlEEku5Jt esytCTZjEQBuVP6pIe8wJXFcPJHzRlP7MJCGEO8YBL CvEWRssQPsQDTsTYIOYH6CQBqmOIY2ZJBomtPsaSHsCRmyEP8HLSGbqoZbDfYuGGJOBYt+Lb7BXR2pe8 VjRSwbDwNlGZ2mkv1FLWhKSxUbL3E9tVVuH3Y4BBpcOx1YCIKdJSQjGyanPPXPNRpyYB2AKX6kxpB9TI 6GxPYbNMXpFFFymJEhESz7Q98liPXxIHebLF3PQAM+ Erickson+Jo5NXNOnXZNqFEMrMsSvHGWYDkGaS8AlK5FBc7AhA4JfOT95pQocfqHfHKcmTZ0YQI8gUNUcNJXW KD0DtCVqlT7bxkTrSFSwRJXJRiXoT29ixGSqXEBnPFF7OIBtCt1TNEMhZ3AvbrHmoPfkeiQcUCLaHNXG EU6DWGojvxUlwIZasMcrSN34rQcsAV6TPz2QNmDmOA 7gvr9IoUXlKy0PUQWqXq5BHPRkSZRrKNSqILB1LXJyUdZqFOzoSXZgGKBuBMO8XBXlRTLwAZ2LXeMbJQ RbSyi0IFEyDXIeYIAcfe5NUWUwFGXuOQA7OIBrELFvIMZbMGurSCRuYCLrWCX5LSJuSLFwPH1RIpCfDT JfAPW3MPqzMOLwYCDmxt7WHRNzFHMtDGUwRsKrMHRy ANZgQLbkTTJkIZJ9LHS8CFVeCJEuJK6GOmDvOQAdANEwBYQyGKImENLfbe3RYWNfWTWnPRS6JTZwHMUz WVVoQAzdYTUfXEZ2EcLmKVLnDFCvKW5ZFmUlNOZuKOPrXUDdMOZuVCDkab3UANStFELbPfYkTRNcVSCo BRGaAYaqFCXkXTMnPCDwPGYcAORcSQ3VThFkNIHiCZ NtPOFyDNYgCJUunt7LFODyYPVeBRO9EzVdTBAwOPItFBnvXTKsRGT2QJTxAKHpBQUcXP9FIoYcAWVzHR T0PTZfEXYjUSCaiq9OBJNiKXQcAGWvLWSzBJSjGVPaLRkzPVIaFSO5CET5GTWxUWOxFX7JQwSeHAUzZY K6HHBwQQZjPMVvly6GIFOfVTLfEel8IDBnPLJrCFUg BUmoCXRuUAR7IIYxYGMjGFAtWD4PBiAlYHBtKRonHkTvRZYlGUMmwk5VWITtGDFjNIobSWAfNTOkKPLu ZWndNNOeCMQ7QMK2ELOcDDJqGZ9JKjPnCDAmBizkXHhkZSUmAIZazd3ZRTCyQVDoNZU5McCoDWArZZDc DQlqUGZtBLO0DhXkWNYcVAEeYI4DCwNjTKPrElCaXO irIEQgQYDisn7GLBZsVNNgEWVyKbFqHYPsNRRqCMjeRLVeCJJmYMs8DTIjWHXeBT4WOiRhHCTrHdF7Eh ooWOQlRNDmtm1EqBBgpAzyih1QRWjYGg2BmDxhIPAdVNeuMo8qrAQoTgNyATYDIb3OuxYkKLYkHKVXZM tdGAOdSEwsSwU5RuEeYKAwNcJ4Mrm9SZYsDlG0PXPf XnKkScO8HmC1KEUqREduWJM6IsOlRDK9VFL5LtLeDgT1ZZJ8DAUpMCe+DU5cKTd+Kd9Nn1ZrbwB7wtKa EYisJKp4WR6KCKHJF0PWYd== ID Date Data Source [id number] 10/02/2020 06:47:56 AM [facility] CT ANGIOGRAPHY ABDOMEN AND PELVIS [id number] INAL RESULTInterpreted by:Elena Villalta, MDPROCEDURE INFORMATION: Exam: [...] rce(s) Supporting Document(s) ID Date Data Source [id number] 10/02/2020 05:43:00 AM EST [facility] Name Value Range Interpretation Code Description Data Edna rce(s) Supporting Document(s) SARS-CoV-2 RNA 2019 nCoV Real-Time RT-PCR: NOT DETECTED [facility] This lab was ordered by [facility] and reported by [facility]. 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 [facility] Patient has symptoms related to [facility] When did you start to experience these symptoms [Date and time] [Phen X] [facility] Patient was hospitalized because of this condition [facility] patient was admitted to ICU for [facility] Patient resides in a congregate care setting [facility] status [facility] ID Date Data Source [id number] 10/02/2020 06:59:25 AM [facility] Value Range Interpretation Code Description Data Edna rce(s) Supporting Document(s) Hematocrit [Volume Fraction] of Blood by Automated count 27.5 % 3 6-45 L [facility] ID Date Data Source [id number] 10/02/2020 06:59:25 AM [facility] Value Range Interpretation Code Description Data Edna rce(s) Supporting Document(s) Hemoglobin [Mass/volume] in Blood 9.2 g/dL 11.5-15.5 L [facility] ID Date Data Source [id number] 10/06/2020 07:50:00 AM [facility] Value Range Interpretation Code Description Data Edna rce(s) Supporting Document(s) ABO and Rh group [Type] in Blood [facility] Blood group antibody screen [Presence] in Serum or Plasma [facility] Blood bank comment [facility] ID Date Data Source [id number] 10/02/2020 02:53:18 AM EST [facility] Name Value Range Interpretation Code Description Data Edna rce(s) Supporting Document(s) Leukocytes [#/volume] in Blood by Automated count 14.0 10*3/uL 4-10 H [facility] Erythrocytes [#/volume] in Blood by Automated count 3.46 10*6/uL 4.1- 5.3 L [facility] Hemoglobin [Mass/volume] in Blood 9.9 g/dL 11.5-15.5 L [facility] Hematocrit [Volume Fraction] of Blood by Automated count 30.2 % 3 6-45 L [facility] Erythrocyte mean corpuscular volume [Entitic volume] by Auto mated count 87.3 fL 80-96 [facility] Erythrocyte mean corpuscular hemoglobin [Entitic mass] by Automated count 28.7 pg 27-33 [facility] Erythrocyte mean corpuscular hemoglobin concentration [Mass/volume] by Automated count 32.9 g/dL 32.0-36.0 [facility] E[facility] distribution width [Ratio] by Automated count 14.5 % 11.5-14.5 [facility] Platelets [#/volume] in Blood by Automated count 230 10*3/uL 150-400 [facility] Differential cell count method - Blood [facility] Neutrophils/100 leukocytes in Blood by Automated count 90 % [facility] Lymphocytes/100 leukocytes in Blood by Automated count 6 % [facility] Monocytes/100 leukocytes in Blood by Automated count 4 % [facility] Eosinophils/100 leukocytes in Blood by Automated count 0 % [facility] Basophils/100 leukocytes in Blood by Automated count 0 % [facility] Neutrophils [#/volume] in Blood by Automated count 12.50 10*3/uL 1.8- 7.0 H [facility] Lymphocytes [#/volume] in Blood by Automated count 0.90 10*3/uL 1.2-4 .0 L [facility] Monocytes [#/volume] in Blood by Automated count 0.62 10*3/uL 0-0.8 [facility] Eosinophils [#/volume] in Blood by Automated count 0.00 10*3/uL 0-0.5 [facility] Basophils [#/volume] in Blood by Automated count 0.00 10*3/uL 0-0.2 [facility] Nucleated erythrocytes/100 leukocytes [Ratio] in Blood by Automated count 0 /100{WBCs} 0-0 [facility] ID Date Data Source [id number] 10/02/2020 03:03:22 AM [facility] Value Range Interpretation Code Description Data Edna rce(s) Supporting Document(s) Prothrombin time (PT) 13.3 s 12.5-14.9 [facility] INR in Platelet poor plasma by Coagulation assay 1.00 [facility] Routine intensity oral anticoagulation I NR is typically 2.0-3.0. Target INR must be clinically individualized. ID Date Data Source [id number] 10/02/2020 03:15:01 AM [facility] Value Range Interpretation Code Description Data Edna rce(s) Supporting Document(s) Bicarbonate [Moles/volume] in Serum 21 mmol/L 22-29 L [facility] Chloride [Moles/volume] in Serum or Plasma 104 mmol/L 98-107 [facility] Creatinine [Mass/volume] in Serum or Plasma 0.79 mg/dL 0.50-0.90 [facility] Glucose [Mass/volume] in Serum or Plasma 144 mg/dL 70-140 H [facility] Potassium [Moles/volume] in Serum or Plasma 4.8 mmol/L 3.4-5.1 [facility] Sodium [Moles/volume] in Serum or Plasma 137 mmol/L 136-145 [facility] Urea nitrogen [Mass/volume] in Serum or Plasma 14 mg/dL 6-20 [facility] Anion gap 3 in Serum or Plasma 12 mmol/L 8-15 [facility] Osmolality of Serum or Plasma by calculation 287 mosm/kg 275-300 [facility] Creatinine/Urea nitrogen [Mass Ratio] in Serum or Plasma 18 [facility] Calcium [Mass/volume] in Serum or Plasma 8.2 mg/dL 8.6-10.0 L [facility] Glomerular filtration rate/1.73 sq M pre dicted among non-blacks [Volume Rate/Area] in Serum or Plasma by Creatinine-based formula (MDRD) >6 0 [facility] Glomerular filtration rate/1.73 sq M pre dicted among blacks [Volume Rate/Area] in Serum or Plasma by Creatinine-based formula (MDRD) >60 [facility] ID Date Data Source [id number] 10/02/2020 03:54:51 AM [facility] Value Range Interpretation Code Description Data Edna rce(s) Supporting Document(s) Choriogonadotropin.beta subunit [Moles/volume] in Serum or Plasma <5 [facility] ID Date Data Source [id number] 10/01/2020 09:34:00 PM EST [facility] Name Value Range Interpretation Code Description Data Edna rce(s) Supporting Document(s) SARS coronavirus 2 RNA [Presence] in Res piratory specimen by SANTI with probe detection NEGATIVE [facility] This lab was ordered by [facility] a nd reported by [facility]. ID Date Data Source [id number] 07/14/2020 10:25:00 AM EDT [facility] ([facility], ) Name Value Range Interpretation Code Description Data Edna rce(s) Supporting Document(s) Lamotrigine [Mass/volume] in Serum or Plasma 7.5 ug/mL 2.0-20.0 [facility] ([facility], ) Testing on this sample was performed by homogeneous enzyme immunoassay. Detection Limit = 1.0 Performed at: [facility] [id number] [place] [address] [employer]: Farzaneh Echols [facility], Phone: [phone] ID Date Data Source HEPATITIS B CORE ANTIBODY IGG 03/25/2020 10:05:52 AM EDT eCW 1 ([facility]) Name Value Range Interpretation Code Description Data Edna rce(s) Supporting Document(s) Negative eCW1 ([facility]) ID Date Data Source [id number] 03/25/2020 10:05:52 AM EDT eCW1 (Formerly [facility]) Name Value Range Interpretation Code Description Data Edna rce(s) Supporting Document(s) eCW1 ([facility]) ID Date Data Source HEPATITIS B SURFACE ANTIBODY 03/25/2020 10:05:52 AM EDT eCW1 ([facility]) Name Value Range Interpretation Code Description Data Edna rce(s) Supporting Document(s) NEGATIVE eCW1 ([facility]) ID Date Data Source SYPHILIS ANTIBODY (RPR SCREEN) 03/25/2020 10:05:52 AM EDT eC W1 ([facility]) Name Value Range Interpretation Code Description Data Edna rce(s) Supporting Document(s) NONREACTIVE eCW1 ([facility]) ID Date Data Source HEPATITIS B SURFACE ANTIGEN 03/25/2020 10:05:52 AM EDT eCW1 ([facility]) Name Value Range Interpretation Code Description Data Edna rce(s) Supporting Document(s) NEGATIVE eCW1 ([facility]) ID Date Data Source Comprehensive Metabolic Profile (CMP) 03/25/2020 10:05:52 AM EDT eCW1 ([facility]) Name Value Range Interpretation Code Description Data Edna rce(s) Supporting Document(s) 90 eCW1 ([facility]) 13 eCW1 ([facility]) 0.88 eCW1 ([facility]) 4.5 eCW1 ([facility]) 141 eCW1 ([facility]) > 60.0 eCW1 ([facility]) 8.7 eCW1 ([facility]) 111 eCW1 ([facility]) 43 eCW1 ([facility]) 26 eCW1 ([facility]) 69 eCW1 ([facility]) 7.0 eCW1 ([facility]) 0.4 eCW1 ([facility]) 75 eCW1 ([facility]) 1.1 eCW1 ([facility]) 3.6 eCW1 ([facility]) ID Date Data Source CHLAMYDIA & GC DNA AMPLIFICAT 03/25/2020 10:05:52 AM EDT eCW 1 ([facility]) Name Value Range Interpretation Code Description Data Edna rce(s) Supporting Document(s) Chlamydia trachomatis rRNA [Presence] in Unspecified specimen by Probe and target amplification method NEGATIVE CHLAMYDIA DNA AMPLIFICATION eCW1 ([facility]) ID Date Data Source UA URINALYSIS 03/23/2020 04:12:56 AM EDT eCW1 ([facility]) Name Value Range Interpretation Code Description Data Edna rce(s) Supporting Document(s) eCW1 ([facility]) ID Date Data Source CBC with Differential 03/23/2020 04:12:56 AM EDT eCW1 ([facility]) Name Value Range Interpretation Code Description Data Edna rce(s) Supporting Document(s) 5.0 eCW1 ([facility]) 10.9 eCW1 ([facility]) 95.2 eCW1 ([facility]) 35.5 eCW1 ([facility]) 3.73 eCW1 ([facility]) 178 eCW1 ([facility]) 30.7 eCW1 ([facility]) 29.2 eCW1 ([facility]) 15.0 eCW1 ([facility]) 54.6 eCW1 ([facility]) 8.0 eCW1 ([facility]) 1.8 eCW1 ([facility]) 34.4 eCW1 ([facility]) 2.7 eCW1 ([facility]) 0.4 eCW1 ([facility]) 1.7 eCW1 ([facility]) 0.8 eCW1 ([facility]) 0.1 eCW1 ([facility]) 0.0 eCW1 ([facility]) ID Date Data Source CHGCTV - CHLAMYDIA, GC & TRICH AMP (Microbiology) 01/28/2020 12:00:00 AM EDT eCW1 ([facility]) Name Value Range Interpretation Code Description Data Edna rce(s) Supporting Document(s) NOT DETECTED NEGATIVE Trichomonas vaginalis ( AMP) eCW1 ([facility]) Procedure Social History Code Duration Value Status Description Data Source(s ) Alcohol intake 10/02/2020 12:00:00 AM EST Ex-drinker (finding) comp leted Ex- drinker (finding) [facility] Smoking 10/02/2020 12:00:00 AM EST Never smoker completed Never s [facility] Smoking 03/23/2020 12:00:00 AM EDT Never Smoker completed Never S moker eCW1 ([facility]) Smoking 03/23/2020 12:00:00 AM EDT Never Smoker completed Never S moker eCW1 ([facility]) Smoking 01/28/2020 12:00:00 AM EDT Never Smoker completed Never S moker eCW1 ([facility]) Vital Signs ID Date Data Source UNK Name Value Range Interpretation Code Description Data Source(s) Diastolic blood pressure 80 mm[Hg] 80 mm[Hg] [facility] ([facility] ) Systolic blood pressure 120 mm[Hg] 120 mm[Hg] M EDENT ([facility] ) Respiratory rate 16 /min 16 /min [facility] ( [facility] ) Heart rate 68 /min 68 /min [facility] ([facility] ) Diastolic blood pressure 64 mm[Hg] 64 mm[Hg] eCW1 ([facility]) Systolic blood pressure 108 mm[Hg] 108 mm[Hg] e CW1 ([facility]) Body temperature 98.6 [degF] 98.6 [degF] eCW1 ( [facility]) Respiratory rate 18 /min 18 /min eCW1 ([facility]) Heart rate 101 /min 101 /min eCW1 ([facility]) Body mass index (BMI) [Ratio] 48.24 kg/m2 48.24 kg/m2 eCW1 ([facility]) Body height 59.75 [in_i] 59.75 [in_i] eCW1 ([facility]) Body weight 245 [lb_av] 245 [lb_av] eCW1 ([facility]) Diastolic blood pressure 76 mm[Hg] 76 mm[Hg] eCW1 ([facility]) Systolic blood pressure 122 mm[Hg] 122 mm[Hg] e CW1 ([facility]) Body mass index (BMI) [Ratio] 47.85 kg/m2 47.85 kg/m2 eCW1 ([facility]) Body height 59.75 [in_us] 59.75 [in_us] eCW1 ([facility]) Body weight Measured 243 [lb_av] 243 [lb_av] eC W1 ([facility]) ID Date Data Source [id number] 10/08/2020 06:37:22 PM [facility] Name Value Range Interpretation Code Description Data Source(s) WEIGHT RECORDED 256.62 lb 256.62 lb [facility] Body height Measured 60 in 60 in [facility] WEIGHT RECORDED 240 lb 240 lb [facility] Body height Measured 60 in 60 in [facility] TRANSFER FROM [facility] Patient Treatment Plan of Care Planned Activity Planned Date Details Description Data Source (s) Lisinopril 10 MG Oral Tablet 10/07/2020 12:00:00 AM [facility] ferrous sulfate 325 MG Oral Tablet 10/06/2020 12:00:00 AM [facility] Labetalol hydrochloride 100 MG Oral Tablet 10/06/2020 12:00:00 AM [facility] emtricitabine 200 MG / Tenofovir disopro xil fumarate 300 MG Oral Tablet [Truvada] 03/23/2020 12:00:00 AM EDT eCW1 (Formerly [facility]) emtricitabine 200 MG / Tenofovir disopro xil fumarate 300 MG Oral Tablet [Truvada] 03/23/2020 12:00:00 AM EDT eCW1 (Formerly [facility])
[2020-10-31 02:19] LABS: BASO % 0.2 % (0.0-1.0); EOS % 0.2 % (0.0-3.0); HEMATOCRIT 26.4 % (36.0-47.0); LYMPH # 1.3 10^3/uL (1.5-5.0); LYMPH % 20.4 % (24.0-44.0); MEAN CORPUSCULAR HEMOGLOBIN 27.2 pg (27.0-33.0); MEAN CORPUSCULAR HGB CONC 30.3 g/dl (32.0-36.5); MEAN CORPUSCULAR VOLUME 89.8 fl (80.0-96.0); MONO # 0.5 10^3/uL (0.0-0.8); MONO % 7.9 % (2.0-8.0); NEUTROPHILS # 4.5 10^3/uL (1.5-8.5); NEUTROPHILS % 70.5 % (36.0-66.0); PLATELET COUNT, AUTOMATED 378 10^3/uL (150-450); RED BLOOD COUNT 2.94 10^6/uL (4.00-5.40); WHITE BLOOD COUNT 6.3 10^3/uL (4.0-10.0)
[2020-10-31 02:37] LABS: PARTIAL THROMBOPLASTIN TIME 43.7 SECONDS (24.2-38.5)
[2020-10-31 02:39] LABS: ERYTHROCYTE SEDIMENTATION RATE 127 mm/hr (0-20)
[2020-10-31 03:03] LABS: INR 1.32; PROTHROMBIN TIME 16.7 SECONDS (12.5-14.3)
[2020-10-31 03:07] LABS: ALBUMIN 2.2 GM/DL (3.2-5.2); ALT/SGPT 47 U/L (12-78); BILIRUBIN,DIRECT 0.7 MG/DL (0.0-0.2); BILIRUBIN,TOTAL 1.1 MG/DL (0.2-1.0); CK-MB VALUE MASS < 1.0 NG/ML (<3.6); CPK CREATINE PHOSPHOKINASE 22 U/L (26-192); FREE T4 1.72 NG/DL (0.76-1.46); LIPASE 305 U/L (73-393); MB/CK RELATIVE INDEX 4.55 (< OR =4); NT-PRO BNP 65 PG/ML (<125); TOTAL PROTEIN 6.1 GM/DL (6.4-8.2); TROPONIN I < 0.02 NG/ML (< 0.10)
[2020-10-31] MEDS ORDERED: ISOVUE-370 76% 100ML VIAL As Ordered ONE (03:31)
[2020-10-31 03:43] LABS: D-DIMER QUANT > 4000.00 ng/ml (<500)
--- NOTE | 2020-10-31 03:48 | REPVR ---
PROCEDURE INFORMATION: Exam: US Abdomen, Limited; Right Upper Quadrant Exam date and time: 10/31/2020 3:36 AM Age: 45 years old Clinical indication: Abdominal pain; Epigastric; Additional info: Chest pain/elevated lfts TECHNIQUE: Imaging protocol: US abdomen. Real time ultrasound with image documentation. Limited exam focused on the right upper quadrant. COMPARISON: CT ABD PELVIS W/O CONTRAST 10/01/2020 7:34 PM FINDINGS: Liver: The liver demonstrates no focal defects. Gallbladder: The gallbladder demonstrates no stones and no wall thickening measuring 2 mm. There is a negative sono Koenig's sign. Common bile duct: The CBD measures 4 mm. Pancreas: The pancreas is not diagnostically evaluated due to gas shadowing. Right kidney: The right kidney measures 13.5 cm and demonstrates no hydronephrosis. IMPRESSION: Negative right upper quadrant sonogram. Electronically signed by: Roscoe Keenan On 10/31/2020 03:48:41 AM
--- NOTE | 2020-10-31 04:16 | REPVR ---
PROCEDURE INFORMATION: Exam: CT Abdomen And Pelvis With Contrast Exam date and time: 10/31/2020 3:40 AM Age: 45 years old Clinical indication: Pain and abnormal findings; Abnormal lab test; Elevated liver enzymes; Abdominal pain; Epigastric; Additional info: Left sided chest pain/upper abd pain, liver enzyme elevation TECHNIQUE: Imaging protocol: Computed tomography of the abdomen and pelvis with contrast. Radiation optimization: All CT scans at this facility use at least one of these dose optimization techniques: automated exposure control; mA and/or kV adjustment per patient size (includes targeted exams where dose is matched to clinical indication); or iterative reconstruction. Contrast material: ISOVUE 370; Contrast volume: 100 ml; Contrast route: INTRAVENOUS (IV); COMPARISON: CT ABD PELVIS W/O CONTRAST 10/01/2020 7:34 PM FINDINGS: Lungs: Minimal bibasilar fibro-atelectatic change. Liver: Normal. No mass. Gallbladder and bile ducts: Normal. No calcified stones. No ductal dilation. Pancreas: There is peripancreatic infiltration centered about the body and tail with irregularity along the caudal aspect of the pancreatic body and tail which may reflect posttraumatic laceration or disruption or possibly areas of pancreatic necrosis. There is extension of edema into the transverse mesocolon. Spleen: Normal. No splenomegaly. Adrenal glands: Normal. No mass. Kidneys and ureters: The left kidney is enlarged with surrounding induration and internal cystic areas interspersed with fat and thin enhancing tissue which is similar to the prior study. The left renal vein extends into the structure which is thought to reflect a complex lesion of the left kidney. There is surrounding retroperitoneal stranding and induration. Stomach and bowel: See "Pancreas" finding. Appendix: A normal appendix is seen. Intraperitoneal space: Minimal free fluid in the cul-de-sac with a Hounsfield measurement of 34. Vasculature: Unremarkable. No abdominal aortic aneurysm. Lymph nodes: Unremarkable. No enlarged lymph nodes. Urinary bladder: Unremarkable as visualized. Reproductive: Unremarkable as visualized. Bones/joints: Unremarkable. No acute fracture. Soft tissues: Unremarkable. IMPRESSION: 1. Peripancreatic fluid and edema about the body and tail which extends into the transverse mesocolon. The caudal aspect of the pancreas is irregular suggesting pancreatic laceration or areas of necrosis. Correlation with traumatic history is suggested although may reflect pancreatitis. 2. The left kidney is a complex mass which is drained by the left renal vein and appears to be of renal origin with thin areas of enhancing tissue. There are fluid-filled structures which may reflect a chronic UPJ obstruction although there are areas of interspersed fat of uncertain etiology. Liposarcoma originating within the left renal sinus may be a consideration but is similar to the prior study. 3. Minimal free fluid in the cul-de-sac with a Hounsfield measurement of 34 consistent with some complexity and serosanguineous fluid may be a consideration. COMMENTS: Consistent with the [employer]'s Incidental Findings Committee white paper (J Am Marika Radiol 2018): Any incidental renal lesion less than 1 cm or classified as too small to characterize, or any incidental cystic renal lesion characterized as simple-appearing, is likely benign. No follow-up imaging is recommended for these lesions per consensus recommendations based on imaging criteria. Electronically signed by: Roscoe Keenan On 10/31/2020 04:16:45 AM
--- NOTE | 2020-10-31 04:20 | REPVR ---
PROCEDURE INFORMATION: Exam: CT Angiography Chest With Contrast Exam date and time: 10/31/2020 3:40 AM Age: 45 years old Clinical indication: Left-sided chest pain; Additional info: Left sided chest pain/upper abd pain, liver enzyme elevation TECHNIQUE: Imaging protocol: Computed tomographic angiography of the chest with contrast. 3D rendering (Not supervised by radiologist): MIP and/or 3D reconstructed images were created by the technologist. Radiation optimization: All CT scans at this facility use at least one of these dose optimization techniques: automated exposure control; mA and/or kV adjustment per patient size (includes targeted exams where dose is matched to clinical indication); or iterative reconstruction. Contrast material: ISOVUE 370; Contrast volume: 100 ml; Contrast route: INTRAVENOUS (IV); COMPARISON: CR PORTABLE CHEST X-RAY 10/31/2020 1:37 AM FINDINGS: Pulmonary arteries: The main pulmonary artery measures 27 mm. No pulmonary embolism is identified. Aorta: The ascending thoracic aorta measures 28 mm. Lungs: Minimal bibasilar fibro-atelectatic change. Pleural spaces: Unremarkable. No pneumothorax. No pleural effusion. Heart: Unremarkable. No cardiomegaly. No pericardial effusion. Lymph nodes: Unremarkable. No enlarged lymph nodes. Kidneys and ureters: Complex left renal mass which is incompletely visualized with thin enhancing areas and large fluid collections. Bones/joints: Unremarkable. No acute fracture. Soft tissues: Peripancreatic fluid and edema with irregularity of the body and tail. IMPRESSION: 1. Complex left renal mass which is incompletely visualized. 2. Peripancreatic fluid and edema consistent with pancreatitis. 3. Negative CTA chest. No pulmonary embolism is identified. COMMENTS: Consistent with the [employer]'s Incidental Findings Committee white paper (J Am Marika Radiol 2018): Any incidental renal lesion less than 1 cm or classified as too small to characterize, or any incidental cystic renal lesion characterized as simple-appearing, is likely benign. No follow-up imaging is recommended for these lesions per consensus recommendations based on imaging criteria. Electronically signed by: Roscoe Keenan On 10/31/2020 04:20:36 AM
[2020-10-31 07:20] LABS: RSV AMPLIFICATION NEGATIVE (NEGATIVE)
[2020-10-31 08:12] LABS: HEMATOCRIT 24.4 % (36.0-47.0); HEMOGLOBIN 7.1 g/dl (12.0-15.5)
[2020-10-31 09:09] VITALS: BP 108/57
--- NOTE | 2020-10-31 20:47 | ECGEPIP ---
[facility] - ED Test Date: 2020-10-31 Pat Name: WILMA DOLAN Department: Room: - Gender: Female [employer]: JERMAIN : 1975 Requested By: MARTHA HO PA-C Order Number: [id number] Reading MD: Trish Lima Measurements Intervals [place] Rate: 105 P: 36 DC: 161 QRS: 9 QRSD: 84 T: -3 QT: 308 QTc: 408 Interpretive Statements SINUS TACHYCARDIA MODERATE VOLTAGE CRITERIA FOR LVH, CONSIDER NORMAL VARIANT NSTTW abnormalities POSSIBLE ANTERIOR MYOCARDIAL INFARCTION, OF INDETERMINATE AGE No prior Electronically Signed on 10-31-2020 20:47:38 EST by Trish Lima
== END 2020-10-31 09:13 | disposition short-term general hospital (02) ==
LOC: M ED 00:33
DX: D64.9 Anemia, unspecified (principal); K86.89 Other specified diseases of pancreas; N28.89 Other specified disorders of kidney and ureter; R00.0 Tachycardia, unspecified; E66.9 Obesity, unspecified; R56.9 Unspecified convulsions; Z79.899 Other long term (current) drug therapy
CPT/HCPCS: 71045; 71275; 74177; 76705; 80047; 80076; 82550; 82553; 83690; 83880; 84439; 84443; 84484; 85014; 85018; 85025; 85379; 85610; 85652; 85730; 86140; 87631; 93005; 99285; Q9967

== ENCOUNTER → 2020-12-28 | Outpatient (CLI) | payer MEDICARE, BC ==
[~2020-12-28] MED LIST changes: +ISOVUE-370 76% 100ML VIAL As Ordered ONE
--- NOTE | 2020-12-28 15:05 | REP ---
INDICATION: HEMATOMA OF LEFT KIDNEY. COMPARISON: 10/31/2020 TECHNIQUE: Contrast-enhanced helical technique after the intravenous administration of 100 cc Isovue 370. FINDINGS: Once again, multiple loculated cystic and varying degrees of solid densities are seen in the anterior pararenal space on the left and approaching the midline. The appearance of this has improved compared to the prior exam. Once again, note is made of a complex mass density occupying the left renal fossa. This is unchanged. The liver, gallbladder, spleen, right adrenal gland, and right kidney are unchanged and again seen to be within normal limits. The abdominal aorta and para-aortic regions are unchanged. Once again, borderline to mildly enlarged left para-aortic lymph nodes are present. Respiratory motion artifact obscures the detail in the mid and lower abdomen. The bowel loops and the mesenteries appear to be within normal limits. There is no evidence of free fluid or free air. There is no significant change in appearance of the osseous structures. The lung bases are clear and essentially unchanged. IMPRESSION: 1. Large left-sided retroperitoneal mass which is essentially unchanged compared to the prior exam and is of uncertain etiology. I have been given history in the patient's power jacket that the patient has a left-sided retroperitoneal renal hematoma. 2. Changes in the left anterior pararenal space, as described above, but improved when compared to the prior exam. The finding could be secondary to resolving pancreatitis and or pancreatic/peripancreatic hematoma. 3. Other findings as described above. <Electronically signed by Facundo Kathleen > 12/28/20 [id number]
== END ==
LOC: M RAD 13:46
PROVIDERS: ATTEND Urology
DX: S37.012A Minor contusion of left kidney, initial encounter (principal); X58.XXXA Exposure to other specified factors, initial encounter; Y92.9 Unspecified place or not applicable; Y93.9 Activity, unspecified; Y99.9 Unspecified external cause status
CPT/HCPCS: 74177; Q9967

== ENCOUNTER 2022-07-10 10:32 | Emergency (ER) | payer MEDICARE, BC ==
[~2022-07-10] VITALS: Ht 152.4 cm; Wt 111.5 kg
[~2022-07-10 10:32] MED LIST changes: -ISOVUE-370 76% 100ML VIAL As Ordered ONE; -LABE100T4; +LABE100T6
[2022-07-10 13:15] LABS: HEMATOCRIT 39.8 % (36.0-47.0); HEMOGLOBIN 12.5 g/dl (12.0-15.5); MEAN CORPUSCULAR HGB CONC 31.4 g/dl (32.0-36.5); MEAN CORPUSCULAR VOLUME 92.3 fl (80.0-96.0); PLATELET COUNT, AUTOMATED 277 10^3/uL (150-450); RED BLOOD COUNT 4.31 10^6/uL (4.00-5.40); WHITE BLOOD COUNT 10.6 10^3/uL (4.0-10.0)
[2022-07-10 13:58] LABS: BLOOD UREA NITROGEN 10 MG/DL (7-18); CALCIUM LEVEL 9.3 MG/DL (8.5-10.1); CARBON DIOXIDE LEVEL 28 MEQ/L (21-32); CHLORIDE LEVEL 105 MEQ/L (98-107); CREATININE FOR GFR 1.02 MG/DL (0.55-1.30); GLOMERULAR FILTRATION RATE > 60.0 (>58); GLUCOSE, FASTING 95 MG/DL (70-100); POTASSIUM SERUM 3.8 MEQ/L (3.5-5.1); SODIUM LEVEL 138 MEQ/L (136-145)
[2022-07-10] MEDS ORDERED: CEFD300C PO (15:41)
[2022-07-10] MEDS ORDERED: CEFDINIR 300 MG CAP (OMNICEF) PO ONE (15:45)
[2022-07-10 15:50] VITALS: BP 141/89
== END 2022-07-10 15:51 | disposition home or self-care (01) ==
LOC: M ED 10:32
DX: N39.0 Urinary tract infection, site not specified (principal); G40.89 Other seizures; Z79.899 Other long term (current) drug therapy

== ENCOUNTER → 2023-02-02 | Outpatient (REF) | payer MEDICARE, BC ==
[~2023-02-02] MED LIST changes: +CEFD300C PO
== END ==
LOC: M SFHCWAGY 13:25
PROVIDERS: ATTEND Nurse Practitioner Family
DX: Z12.4 Encounter for screening for malignant neoplasm of cervix (principal)

== ENCOUNTER → 2023-02-02 | Outpatient (CLI) | payer MEDICARE, BC | LOC: M WHC 08:02 | PROVIDERS: ATTEND Nurse Practitioner Family | DX: Z12.31 Encounter for screening mammogram for malignant neoplasm of breast (principal); R92.8 Other abnormal and inconclusive findings on diagnostic imaging of breast ==

== ENCOUNTER → 2023-02-22 | Outpatient (CLI) | payer MEDICARE, BC | LOC: M WHC 09:59 | PROVIDERS: ATTEND Nurse Practitioner Family | DX: R92.8 Other abnormal and inconclusive findings on diagnostic imaging of breast (principal) | CPT/HCPCS: 77065; G0279 ==

== ENCOUNTER 2024-01-16 09:56 | Emergency (ER) | payer BC, MEDICARE ==
[~2024-01-16] VITALS: Ht 149.9 cm; Wt 121.5 kg
[2024-01-16 12:20] LABS: BASO % 0.3 % (0.0-1.0); EOS # 0.1 10^3/uL (0.0-0.5); EOS % 0.5 % (0.0-3.0); HEMATOCRIT 41.6 % (36.0-47.0); HEMOGLOBIN 13.2 g/dl (12.0-15.5); LYMPH # 1.5 10^3/uL (1.5-5.0); LYMPH % 12.7 % (24.0-44.0); MEAN CORPUSCULAR HGB CONC 31.7 g/dl (32.0-36.5); MEAN CORPUSCULAR VOLUME 91.4 fl (80.0-96.0); MONO # 0.6 10^3/uL (0.0-0.8); MONO % 4.9 % (2.0-8.0); NEUTROPHILS # 9.2 10^3/uL (1.5-8.5); NEUTROPHILS % 81.2 % (36.0-66.0); PLATELET COUNT, AUTOMATED 272 10^3/uL (150-450); RED BLOOD COUNT 4.55 10^6/uL (4.00-5.40); WHITE BLOOD COUNT 11.4 10^3/uL (4.0-10.0)
[2024-01-16 12:34] LABS: LIPASE 173 U/L (12-53)
[2024-01-16 12:36] LABS: ALBUMIN 3.9 G/DL (3.2-5.2); ALKALINE PHOSPHATASE 103 U/L (46-116); ALT/SGPT 50 U/L (7.0-40); AST/SGOT 33 U/L (<34); BILIRUBIN,DIRECT 0.1 MG/DL (<0.4); BILIRUBIN,TOTAL 0.4 MG/DL (0.3-1.2); BLOOD UREA NITROGEN 11 MG/DL (9-23); CALCIUM LEVEL 9.4 MG/DL (8.5-10.1); CARBON DIOXIDE LEVEL 26 MMOL/L (20-31); CHLORIDE LEVEL 105 MMOL/L (98-107); CREATININE FOR GFR 0.98 MG/DL (0.55-1.30); GLOMERULAR FILTRATION RATE > 60.0 (>58); GLUCOSE, FASTING 100 MG/DL (60-100); SODIUM LEVEL 139 MMOL/L (136-145)
[2024-01-16 12:40] LABS: HCG, SERUM QUALITATIVE NEGATIVE (NEGATIVE)
[2024-01-16] MEDS ORDERED: LAMO200T54 PO (13:24)
[2024-01-16] MEDS ORDERED: HOME MED LIST COMPLETE! XX SCH (13:25)
[2024-01-16] MEDS: MORPHINE 2 MG/ML 1ML VIAL IV ONE ×2 (13:41→16:22)
[2024-01-16] MEDS: NS 1,000 ML IV ONE (13:41)
[2024-01-16] MEDS ORDERED: ISOVUE-370 76% 100ML VIAL As Ordered ONE (14:05)
[2024-01-16] MEDS: cefTRIAXone SOD 1 GM in D5W MINI-BAG PLUS 50 ML IV ONE (15:46)
[2024-01-16] MEDS ORDERED: CEPH500C PO (16:04)
[2024-01-16 17:06] VITALS: BP 170/78; TEMP 98.7; O2SAT 100
== END 2024-01-16 17:09 | disposition home or self-care (01) ==
LOC: M ED 09:56
DX: N10 Acute pyelonephritis (principal); G40.909 Epilepsy, unspecified, not intractable, without status epilepticus; Z79.1 Long term (current) use of non-steroidal anti-inflammatories (NSAID); Z79.899 Other long term (current) drug therapy
CPT/HCPCS: 74177; 80048; 80076; 81001; 83690; 84703; 85025; 86140; 87088; 87186; 96361; 96365; 96375; 96376; 99284; J0696; Q9967

== ENCOUNTER → 2024-03-25 | Outpatient (CLI) | payer BC ==
[~2024-03-25] MED LIST changes: +CEPH500C PO; +LAMO200T54 PO
== END ==
LOC: M WHC 09:16
PROVIDERS: ATTEND Nurse Practitioner Family
DX: Z12.31 Encounter for screening mammogram for malignant neoplasm of breast (principal)

== ENCOUNTER → 2024-06-20 | Outpatient (CLI) | payer BC | LOC: M WHC 12:52 | PROVIDERS: ATTEND Nurse Practitioner Family | DX: N92.1 Excessive and frequent menstruation with irregular cycle (principal); R10.2 Pelvic and perineal pain ==

== ENCOUNTER 2024-11-20 16:42 | Emergency (ER) | payer BC ==
[~2024-11-20] VITALS: Ht 149.9 cm; Wt 117.2 kg
[2024-11-20 16:45] VITALS: BP 134/77; TEMP 96.3; O2SAT 99
[2024-11-20] MEDS ORDERED: NORE0.353 (16:57)
[2024-11-20] MEDS ORDERED: NAPR-837 PO (19:24)
[2024-11-20] MEDS: NAPROXEN 250 MG TAB PO ONE (19:26)
== END 2024-11-20 19:28 | disposition home or self-care (01) ==
LOC: M ED 16:42
DX: M25.552 Pain in left hip (principal); G40.909 Epilepsy, unspecified, not intractable, without status epilepticus; Z79.899 Other long term (current) drug therapy

== ENCOUNTER → 2025-06-05 | Outpatient (REF) | payer BC ==
[~2025-06-05] MED LIST changes: +NAPR-837 PO; +NORE0.353
== END ==
LOC: M LAB REF 12:50
PROVIDERS: ATTEND Student in an Organized Health Care Education/Training Program
DX: R30.0 Dysuria (principal)